=== PATIENT | female | born 1965 | race Caucasian/White ===

== ENCOUNTER → 2018-03-05 08:35 | Outpatient (CLI) | payer OTHER, SELFPAY ==
[2018-03-05 10:46] LABS: Anion Gap 8 (5-15); BUN 13 mg/dL (7-18); BUN/Creat Ratio 13.3 RATIO (10-20); Calcium,Total 8.1 mg/dL (8.5-10.1); Chloride 108 mmol/L (98-107); Cholesterol 186 mg/dL (200); Creatinine, Serum 0.98 mg/dL (0.55-1.02); EST Glomerular Filtration Rate 63 mL/min (>60); Est Glom Filt Rate - Afr Amer 76 mL/min (>60); Glucose 87 mg/dL (74-106); High Density Lipoprotein 66 mg/dL; Sodium Level 142 mmol/L (136-145); Triglycerides 143 mg/dL; Very Low Density Lipoprotein 29 mg/dL (5-40)
== END ==
PROVIDERS: Family Provider Family Medicine; PCP Family Medicine; Visit Provider Family Medicine
DX: E78.00 Pure hypercholesterolemia, unspecified (principal); E16.2 Hypoglycemia, unspecified
CPT/HCPCS: 36415; 80048; 80061

== ENCOUNTER → 2018-03-28 07:03 | Outpatient (CLI) | payer OTHER, SELFPAY ==
--- NOTE | 2018-03-28 07:10 | BI_ITS ---
MAMMOGRAPHY - BILATERAL SCREENING REASON FOR EXAM: Female, 52 years old. Routine annual screening examination. PERTINENT HISTORY: Grandmother with breast cancer. Aunt with breast cancer. TECHNIQUE: Digital bilateral breast linh (3D mammographic acquisition) in the CC and MLO projections. 2-D mediolateral oblique (MLO) and craniocaudad (CC) views of both breasts were obtained. CAD: Full Field Digital Mammography with Computer Added Detection was performed. COMPARISON: Comparison is made with prior study dated September 26, 2017 and March 26, 2017. FINDINGS: Breast Composition: The breasts are heterogeneously dense, which may obscure small masses. There are no dominant masses or suspicious calcifications. A tissue clip marker is seen in the inferior retroareolar region of the right breast. This is unchanged. No other significant abnormalities are identified. There has been no significant change since the prior study. BI/SCREENING MAMM (CAD), BILAT IMPRESSION: Stable bilateral screening mammogram. Yearly follow-up mammogram recommended. (A) ASSESSMENT CATEGORY: BIRADS Category 2: Benign. A letter regarding these results will be sent to the patient by the facility within 30 days. Approximately 10% of breast cancers are not detected by mammography. A normal mammogram should not delay biopsy of a clinically suspicious abnormality. [id number] Electronically Signed: Terry Chu MD at 8:40 EDT Tel [phone], Service support ,
== END ==
PROVIDERS: Family Provider Family Medicine; PCP Family Medicine; Visit Provider Obstetrics & Gynecology
DX: Z12.31 Encounter for screening mammogram for malignant neoplasm of breast (principal)
CPT/HCPCS: 77063; 77067

== ENCOUNTER → 2018-04-26 07:59 | Outpatient (CLI) | payer OTHER, SELFPAY ==
--- NOTE | 2018-04-26 08:03 | US_ITS ---
STUDY: ABDOMINAL ULTRASOUND - RIGHT UPPER QUADRANT REASON FOR VISIT: Female, 52 years old. Pain. TECHNIQUE: Ultrasound evaluation of the right upper quadrant was performed with real-time and static kenyon-scale imaging. TECHNICAL QUALITY: Adequate. COMPARISON: 08/26/2014. FINDINGS: Liver: The liver measures 13.7 cm. There is normal echogenicity of the liver. The bile ducts are within normal limits. There is hepatic color flow. The direction of portal flow is hepatopetal. There is no demonstrated mass lesion. Gallbladder: Normal distended gallbladder. The gallbladder wall measures 2.1 mm. There is a negative sonographic Ogden's sign. There is no pericholecystic fluid. There are no gallstones. There are 2 stable polyps measuring 3 mm greatest dimension. Common Bile Duct (C.B.D.): The common bile duct measures 2.4 mm. Pancreas: Normal size of the head, body and tail of the pancreas. There is normal echogenicity of the pancreas. There is no demonstrated pancreatic mass or cyst. Right Kidney: Normal size of the right kidney. The right kidney measures 9.1 cm. Normal renal cortex. The right cortex measures 1.2 cm. There is no demonstrated renal mass or cyst. There is no right hydronephrosis. US/Abdomen Limited IMPRESSION: Stable gallbladder polyps. Otherwise negative. Electronically Signed: Joel George MD at 13:05 EDT , Service support ,
== END ==
PROVIDERS: Family Provider Family Medicine; PCP Family Medicine; Visit Provider Family Medicine
DX: K82.4 Cholesterolosis of gallbladder (principal); R10.11 Right upper quadrant pain
CPT/HCPCS: 76705

== ENCOUNTER → 2018-05-09 08:46 | Outpatient (CLI) | payer OTHER, SELFPAY ==
--- NOTE | 2018-05-09 08:48 | NM_ITS ---
CLINICAL: 52-year-old female with reported history of right upper quadrant abdominal pain. RADIONUCLIDE HEPATOBILIARY SCINTIGRAPHY COMPARISON: Abdominal ultrasound report 04/26/2018, previous CCK hepatobiliary scintigraphy report 09/09/2014 FINDINGS: Following the intravenous administration of 5.4 mCi of 99m Tc Mebrofenin, hepatobiliary images reveal: 1. Relatively prompt and homogeneous radiopharmaceutical concentration is noted by a normal sized liver. No parenchymal defects are identified. 2. Gallbladder activity is identified at 10 minutes post radiopharmaceutical administration. 3. Small intestinal tract is not visualized during 60 minutes of pre-CCK sequential image acquisition, small bowel is observed following cholecystokinin infusion. 4. Washout of the radiopharmaceutical by the hepatic parenchyma appears qualitatively normal. Cholecystokinin (0.02 ug/kg) was administered intravenously over a 30-minute period. The post CCK gallbladder ejection fraction calculated at 20 minutes following Cholecystokinin administration was noted to be 52.0 % (normal greater than 35%). During 30 minutes of post CCK imaging, there is no scintigraphic evidence of reflux of the radiotracer into the common hepatic duct or refilling of the gallbladder. LA/Hepatobilliary Img w/Pharm Int IMPRESSION: 1. NORMAL 99m Tc Mebrofenin hepatobiliary imaging examination with Cholecystokinin. A. A gallbladder ejection fraction calculated to be greater than 35% following the administration of Cholecystokinin makes the probability of functional hepatobiliary disease (gallbladder and/or sphincter of Oddi dyskinesia) and/or organic hepatobiliary disease (chronic acalculous cholecystitis and/or cystic duct syndrome) to be low. (Syl Costello et al, Journal of Nuclear Medicine 32:1695, 1990). Electronically Signed: Ed Hernandez DO at 10:01 EDT Tel , Service support ,
== END ==
PROVIDERS: Family Provider Family Medicine; PCP Family Medicine; Visit Provider Family Medicine
DX: R10.11 Right upper quadrant pain (principal)
CPT/HCPCS: 78227; A9537

== ENCOUNTER → 2018-05-29 17:56 | Outpatient (CLI) | payer OTHER, SELFPAY ==
--- NOTE | 2018-05-29 18:03 | CT_ITS ---
STUDY: CT ABDOMEN AND PELVIS WITH CONTRAST REASON FOR EXAM: Female, 52 years old. Right-sided abdominal pain RADIATION DOSAGE (If Supplied By Facility): CTDIvol = ( 17.67 ) mGy, DLP = ( 966.96 ) mGycm TECHNIQUE: Transaxial images were obtained from the dome of the diaphragm to the symphysis pubis without oral contrast. 100 ml of Isovue 300 contrast was administered. Sagittal and coronal images were reconstructed. Individualized dose optimization techniques were used for this CT. COMPARISON: None. FINDINGS: The lung bases are clear. A small 1 cm area of low-attenuation in the right lobe of the liver. It is probably a cyst. No dilated intrahepatic biliary radicles. The gallbladder is normal with no calcifications within it. There is no pericholecystic fluid collection or streakiness The spleen is normal. The pancreas is normal. Both adrenals are normal. The kidneys are normal with no masses, calculi or hydronephrosis The stomach is normal. There is no bowel distention, acute appendicitis or diverticulitis. No constricting lesions are seen in large bowel. The abdominal wall is intact with no hernias. There is no ascites or any free intraperitoneal air. No indication of epiploic appendagitis The vascular structures in the retroperitoneum are normal. There is no retrocrural, retroperitoneal or mesenteric adenopathy. The bones and joints are normal. The urinary bladder is normal.--The uterus is normal. There is no inguinal or pelvic adenopathy. There is no inguinal hernia. . CT/Abdomen/Pelvis WITH Contrast IMPRESSION: No acute findings in the abdomen or pelvis. Specifically there is no acute appendicitis or diverticulitis. Electronically Signed: Washington Walden, at 3:17 EDT Tel , Service support ,
== END ==
PROVIDERS: Family Provider Family Medicine; PCP Family Medicine; Visit Provider Family Medicine
DX: R10.11 Right upper quadrant pain (principal)
CPT/HCPCS: 74177; Q9967

== ENCOUNTER → 2018-07-31 08:23 | Outpatient (CLI) | payer OTHER, SELFPAY ==
[2018-07-31 10:34] LABS: CRP 5.56 mg/L (0.0-3.0)
[2018-08-01 16:13] LABS: Endomysial Antibody IgA Negative (Negative)
[2018-08-02 10:50] LABS: Immunoglobulin A 186 mg/dL (87-352); t-Transglutaminase IgA <2 U/mL (0-3)
== END ==
PROVIDERS: Family Provider Family Medicine; PCP Family Medicine; Visit Provider Internal Medicine Gastroenterology
DX: R10.9 Unspecified abdominal pain (principal); R19.7 Diarrhea, unspecified
CPT/HCPCS: 36415; 82784; 83516; 86140; 86255

== ENCOUNTER → 2018-09-13 11:59 | Outpatient (CLI) | payer OTHER, SELFPAY ==
--- NOTE | 2018-09-13 12:01 | RAD_ITS ---
STUDY: X-RAY CHEST REASON FOR EXAM: Female, 52 years old. Cough and shortness of breath TECHNIQUE: PA and lateral views of the chest. COMPARISON: 02/06/2017 FINDINGS: The lungs are clear and expanded. There is no demonstrated pleural abnormality. Normal size heart. Normal mediastinum and deepali. Normal visualized pulmonary arteries. Normal visualized aortic arch and descending thoracic aorta. Normal visualized thoracic spine. Normal visualized ribs, clavicles, and shoulders. There is no demonstrated abnormality of the visualized soft tissue structures of the upper abdomen. RAD/Chest PA and Lateral IMPRESSION: Normal x-ray examination of the chest. Electronically Signed: Nikunj Childs DO at 12:23 EDT Tel , Service support ,
== END ==
PROVIDERS: Family Provider Family Medicine; PCP Family Medicine; Referring Provider Family Medicine; Visit Provider Family Medicine
DX: J20.9 Acute bronchitis, unspecified (principal)
CPT/HCPCS: 71046

== ENCOUNTER → 2019-01-06 13:18 | Outpatient (CLI) | payer OTHER, SELFPAY ==
[2019-01-08 17:14] LABS: HPV Reflexed? NOT INDICATED
== END ==
PROVIDERS: Visit Provider Obstetrics & Gynecology
DX: Z12.4 Encounter for screening for malignant neoplasm of cervix (principal)
CPT/HCPCS: 88175; G0145

== ENCOUNTER 2019-01-23 08:00 | Outpatient (RCR) | payer OTHER, SELFPAY ==
--- NOTE | 2018-11-19 13:58 | HP.OTEVAL ---
Patient's Visit Information LIONEL GOVEA is a 52 year old F, referred to Occupational Therapy by NIKHIL HENNING, with a diagnosis of left tear of TFCC left wrist pain. Date of Evaluation: 11/19/18 Occupational Therapist: Sherrie Delong, GUZMAN/Loretta, CHT - Subjective [facility]ive: [facility] had history left wrist pain starting in january. 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 - Pain left wrist 3 Pain Intensity Range: 3, 8 - ROM Wrist: right 70/55 left NT Opposition: 4 ROM Comments: left IF MCP 0/77 right 0/90, left PIP 0/85 right 0/105, left DIP 0/40 right 0/35. left MF MCP 0/75 right 0/85, left PIP 0/90, right 0/105, left DIP 0/50, right 0/45. left RF MCP 0/70 right 0/85, left PIP 0/85 right 0/105, left DIP 0/30 right 0/40. left LF MCP 0/75 right 0/90, left PIP 0/90 right 0/110, left DIP 0/30 right 0/55 - Strength [employer]: right 75# left NT Lateral Pinch: right 16# left NT Tripod Pinch: right 18# Left NT Strength Comments: left strength will be tested at later date - Edema Wrist: left 18cm right 16cm PIP: left MF 6.7 right 5.7 Proximal Phalanx: left 20cm right 19cm - Sensation Sensation Comments: denies - Hand/Wrist Evaluation Total Score of Pain & Functional Sections: 89 - Goals Goal:100% adherence to protocol: Yes Comment: lunotriquetral ligament reconstruction with ECU tendon transfer Goal:Daily scar massage when approriate: Yes Goal:ROM equal to unaffected hand: Yes Comment: at 10 weeks s/p Comment: at 12 weeks s/p Goal:No pain with affected hand use: Yes Goal:PIP Circumferences equal to unaffected hand: Yes Goal:Full use of affected hand in daily activities including: Yes Goal:Improvement in sensation documented by [place]-Princess: Yes Goal:Decrease scar hypersensitivity: Yes - Rehabilitation General Assessment: pt S/P 11 days left wrist arthroscopy with triangular fibrocartilage complex debridement. left wrist open ganglion excision. left wrist lunotriquetral ligament reconstruction with extensor carpi ulnaris tendon transfer. PIN neurectomy on 11/08/18. ordered OT for eval and tx. for edema reduction techniques, desensitixation/sensory retraining and scar mtg. NO wrist Flex/extension and NO weight bearing at this time- Therapist will initiate ROM when approves of pts wrist stability and approves for wrist/forearm ROM to begin. Rehabilitation Potential: Excellent - Anticipated Interventions Anticipated Interventions: A/AAROM/PROM, Strengthening, Edema Control, Scar Care, Triggerpoint Release, Desensitization, Sensory Retraining, Modalities, Orthoses - Visit Plan Frequency: 1-2x /Week Duration: 3 Months TEXT: Thank you for the opportunity to evaluate your patient. For Medicare and Medicare HMO plans, please review the plan of care and approve it. It will need to be FAXED BACK to us at [phone] for Medicare purposes. Please let me know if there are questions or concerns regarding this plan of care. Physician Signature: Date:
--- NOTE | 2019-01-23 08:32 | HP.OTREVAL ---
Tee Lawrence MD, It has been my pleasure to treat LIONEL GOVEA over the last 10 visits for left tear of TFCC left wrist pain. Please see the progress note below for an update on the occupational therapy plan of care! Subjective: pt arrives to session without brace- states she is not wearing it at all- pt states she is stretching her wrist about 4-5 x a day, pt states she is using her hand to fold laundry, wash dishes and do other daily tasks without pain or difficulty. Objective/Function: wrist prior to therapy session 55/25. left forearm supination WNL. following session pt demo acitve wrsit ROM at 60/30 Plan Frequency: 1-2x /Week Duration: 4 Weeks Plan: pt to return to for further orders-. Pt to cont with her ROM ex to improve end range motion. Anticipated Interventions Anticipated Interventions: A/AAROM/PROM, Strengthening, Edema Control, Scar Care, Triggerpoint Release, Desensitization, Sensory Retraining, Modalities, Orthoses Please do not hesitate to contact me at [phone] by phone or if you have questions or concerns regarding this new plan of care! Sincerely, Sherrie Delong, OTR/L, CHT
--- NOTE | 2019-05-27 08:27 | HP.OTDCSUM ---
HP - OT D/C Summary It has been my pleasure to treat LIONEL GOVEA under orders from Tee Lawrence MD, for the diagnosis of left tear of TFCC left wrist pain for a total of 10 visit(s). Please see the following information for a summary of their discharge status. - Objective Objective/Function: wrist prior to therapy session 55/25. left forearm supination WNL. following session pt demo acitve wrsit ROM at 60/30 - Goals Patient Goals: Regain Mobility, Regain Strength, Decrease Pain, Return to Work, Improve Fine Motor Skills, Use Hand/Wrist/Arm Normally Again Goal:100% adherence to protocol: Yes Goal:Daily scar massage when approriate: Yes Goal:ROM equal to unaffected hand: Yes Goal:No pain with affected hand use: Yes Goal:PIP Circumferences equal to unaffected hand: Yes Goal:Full use of affected hand in daily activities including: Yes Goal:Improvement in sensation documented by [place]-Princess: Yes Goal:Decrease scar hypersensitivity: Yes - Plan Plan: pt to return to for further order. Pt called to let therapist know she was placed back in her orthosis. pt has not returned to therapy since 01/28/19 and due to time lapse pt d/c at this time. - D/C Information If there are questions or concerns regarding this patient's occupational therapy, please fell free to call me at [phone]. Thank you for the referral of this patient. Sincerely, Sherrie Delong, OTR/L, CHT
== END 2019-01-23 19:00 | disposition home or self-care (01) ==
LOC: OT 08:00
PROVIDERS: Family Provider Family Medicine; PCP Family Medicine; Referring Provider Orthopaedic Surgery Hand Surgery; Visit Provider Orthopaedic Surgery Hand Surgery
DX: M25.532 Pain in left wrist (principal); M24.132 Other articular cartilage disorders, left wrist
CPT/HCPCS: 97110; 97140; 97166; 97530

== ENCOUNTER → 2019-03-31 | Outpatient (CLI) | payer OTHER, SELFPAY ==
--- NOTE | 2019-03-31 08:24 | BI_ITS ---
MAMMOGRAPHY - BILATERAL SCREENING REASON FOR EXAM: Female, 53 years old. Routine annual screening examination. PERTINENT HISTORY: Grandmother with breast cancer. Aunt with breast cancer. TECHNIQUE: Digital bilateral breast linh (3D mammographic acquisition) in the CC and MLO projections. 2-D mediolateral oblique (MLO) and craniocaudad (CC) views of both breasts were obtained. CAD: Full Field Digital Mammography with Computer Added Detection was performed. COMPARISON: Comparison is made with prior study dated March 28, 2018 and September 26, 2017. FINDINGS: Breast Composition: The breasts are heterogeneously dense, which may obscure small masses. There are no dominant masses or suspicious calcifications. A tissue clip marker is once again seen in the retroareolar region of the right breast. No other significant abnormalities are identified. There has been no significant change since the prior study. BI/SCREENING MAMM (CAD), BILAT IMPRESSION: Stable bilateral screening mammogram. Yearly follow-up mammogram recommended. (A) ASSESSMENT CATEGORY: BIRADS Category 2: Benign. A letter regarding these results will be sent to the patient by the facility within 30 days. Approximately 10% of breast cancers are not detected by mammography. A normal mammogram should not delay biopsy of a clinically suspicious abnormality. [id number] Electronically Signed: Terry Chu, at 12:18 EDT , Service support ,
== END | disposition home or self-care (01) ==
LOC: OPBI 08:22
PROVIDERS: Family Provider Family Medicine; PCP Family Medicine; Referring Provider Obstetrics & Gynecology; Visit Provider Obstetrics & Gynecology
DX: Z12.31 Encounter for screening mammogram for malignant neoplasm of breast (principal)
CPT/HCPCS: 77063; 77067

== ENCOUNTER → 2019-08-04 12:05 | Outpatient (CLI) | payer OTHER, SELFPAY ==
[2018-09-19 08:20] VITALS: BMI 25.4
[2019-08-04 14:17] LABS: Creatinine, Serum 1.06 mg/dL (0.55-1.02); EST Glomerular Filtration Rate 57 mL/min (>60); Est Glom Filt Rate - Afr Amer 69 mL/min (>60)
== END ==
PROVIDERS: Family Provider Family Medicine; PCP Family Medicine; Referring Provider Nurse Practitioner; Visit Provider Nurse Practitioner
DX: M48.061 Spinal stenosis, lumbar region without neurogenic claudication (principal)
CPT/HCPCS: 36415; 82565

== ENCOUNTER → 2020-04-01 10:10 | Outpatient (CLI) | payer OTHER, SELFPAY ==
[2020-03-31 09:03] VITALS: BMI 25.4
--- NOTE | 2020-04-01 10:12 | BI_ITS ---
MAMMOGRAPHY - BILATERAL SCREENING REASON FOR EXAM: Female, 54 years old. Routine annual screening examination. PERTINENT HISTORY: Grandmother with breast cancer. Prior right ultrasound guided breast biopsy. Aunt with breast cancer. TECHNIQUE: Digital bilateral breast tyson (3D mammographic acquisition) in the CC and MLO projections. 2-D mediolateral oblique (MLO) and craniocaudad (CC) views of both breasts were obtained. CAD: Full Field Digital Mammography with Computer Added Detection was performed. COMPARISON: Comparison is made with prior examination dated March 31, 2019 and March 28, 2018. FINDINGS: Breast Composition: The breasts are heterogeneously dense, which may obscure small masses. There are no dominant masses or suspicious calcifications. A tissue clip marker is seen in the inferior retroareolar region of the right breast. No other significant abnormalities are identified. There has been no significant change since the prior study. BI/SCREEN MAMM (CAD) W/TYSON BILAT IMPRESSION: Stable bilateral screening mammogram. Yearly follow-up mammogram recommended. (A) ASSESSMENT CATEGORY: BIRADS Category 2: Benign. A letter regarding these results will be sent to the patient by the facility within 30 days. Approximately 10% of breast cancers are not detected by mammography. A normal mammogram should not delay biopsy of a clinically suspicious abnormality. [id number] Electronically Signed: Terry Chu, at 10:29 EDT , Service support ,
== END ==
PROVIDERS: PCP Family Medicine; Referring Provider Obstetrics & Gynecology; Visit Provider Obstetrics & Gynecology
DX: Z12.31 Encounter for screening mammogram for malignant neoplasm of breast (principal)
CPT/HCPCS: 77063; 77067

== ENCOUNTER → 2020-04-14 10:08 | Outpatient (CLI) | payer OTHER, SELFPAY ==
[2020-04-12 10:26] VITALS: BMI 25.4
--- NOTE | 2020-04-15 13:27 | PFT ---
INTRODUCTION: The patient is a 54-year-old female that presents for pulmonary function studies secondary to a diagnosis of asthma. Respiratory therapy reports good patient effort. Bronchodilators were used during testing. INTERPRETATION: Forced expiration spirometry demonstrates no evidence of a large airways obstructive ventilatory defect. There was no significant response to aerosolized bronchodilators. Spirograms are of good quality and plateau normally. Body plethysmography was performed and reveals lung volumes to be within normal limits. Diffusing capacity by single breath CO is also within normal limits. IMPRESSION: Grossly normal pulmonary function studies.
== END ==
PROVIDERS: PCP Family Medicine; Referring Provider Internal Medicine Critical Care Medicine; Visit Provider Internal Medicine Critical Care Medicine
DX: J45.909 Unspecified asthma, uncomplicated (principal)
CPT/HCPCS: 94060; 94726; 94729

== ENCOUNTER → 2020-05-18 09:30 | Outpatient (CLI) | payer OTHER, SELFPAY ==
[2020-04-12 10:26] VITALS: BMI 25.4
[2020-05-18 13:02] LABS: ALB/GLOB Ratio 0.9 RATIO (0.9-2.4); AST(SGOT) 15 U/L (15-37); Alanine Aminotransfer ALT/SGPT 23 U/L (13-56); Albumin, Serum 3.4 g/dL (3.2-5.0); Alkaline Phosphatase 62 U/L (45-117); Anion Gap 8 (5-15); BUN 19 mg/dL (7-18); BUN/Creat Ratio 21.6 RATIO (10-20); Calcium,Total 8.8 mg/dL (8.5-10.1); Chloride 105 mmol/L (98-107); Cholesterol 232 mg/dL (200); Creatinine, Serum 0.88 mg/dL (0.55-1.02); EST Glomerular Filtration Rate 71 mL/min (>60); Est Glom Filt Rate - Afr Amer 86 mL/min (>60); Globulin 3.7 g/dL (2.2-4.2); Glucose 88 mg/dL (74-106); High Density Lipoprotein 97 mg/dL; Potassium 3.7 mmol/L (3.5-5.1); Protein, Total 7.1 g/dL (6.4-8.2); Sodium Level 139 mmol/L (136-145); Triglycerides 59 mg/dL; Very Low Density Lipoprotein 12 mg/dL (5-40)
== END ==
PROVIDERS: PCP Family Medicine; Referring Provider Family Medicine; Visit Provider Family Medicine
DX: Z13.1 Encounter for screening for diabetes mellitus (principal); Z13.220 Encounter for screening for lipoid disorders
CPT/HCPCS: 36415; 80053; 80061

== ENCOUNTER → 2020-07-22 | Outpatient (CLI) | payer OTHER, SELFPAY ==
[2020-04-12 10:26] VITALS: BMI 25.4
== END | disposition home or self-care (01) ==
LOC: LABSPEC 07-23 11:10
PROVIDERS: PCP Family Medicine; Visit Provider Obstetrics & Gynecology
DX: R30.0 Dysuria (principal); R10.9 Unspecified abdominal pain
CPT/HCPCS: 87086

== ENCOUNTER → 2020-10-18 | Outpatient (CLI) | payer OTHER, SELFPAY ==
[2020-04-12 10:26] VITALS: BMI 25.4
== END | disposition home or self-care (01) ==
PROVIDERS: PCP Family Medicine; Visit Provider Nurse Practitioner Adult Health
DX: U07.1 COVID-19 (principal)
CPT/HCPCS: 87635; U0003

== ENCOUNTER → 2021-04-08 12:03 | Outpatient (CLI) | payer OTHER, SELFPAY ==
[2020-04-12 10:26] VITALS: BMI 25.4
[2021-02-24 10:43] VITALS: BMI 26.1
--- NOTE | 2021-04-08 12:04 | BI_ITS ---
MAMMOGRAPHY - BILATERAL SCREENING REASON FOR EXAM: Female, 55 years old. Routine annual screening examination. PERTINENT HISTORY: Grandmother with breast cancer. Aunt with breast cancer. History of prior right ultrasound-guided breast biopsy. TECHNIQUE: Digital bilateral breast tyson (3D mammographic acquisition) in the CC and MLO projections. 2-D mediolateral oblique (MLO) and craniocaudad (CC) views of both breasts were obtained. CAD: Full Field Digital Mammography with Computer Added Detection was performed. COMPARISON: Comparison is made with prior examination of 04/01/2020 and 03/31/2019. FINDINGS: Breast Composition: The breasts are heterogeneously dense, which may obscure small masses. There are no dominant masses or suspicious calcifications. A tissue clip marker is once again seen in the slightly inferior retroareolar region of the right breast. No other significant abnormalities are identified. There has been no significant change since the prior study. BI/SCRN MAMM (CAD)W/TYSON BILAT IMPRESSION: Stable bilateral screening mammogram. Yearly follow-up mammogram recommended. (A) ASSESSMENT CATEGORY: BIRADS Category 2: Benign. A letter regarding these results will be sent to the patient by the facility within 30 days. Approximately 10% of breast cancers are not detected by mammography. A normal mammogram should not delay biopsy of a clinically suspicious abnormality. [id number] Electronically Signed: Terry Chu MD at 13:07 EDT , Service support ,
== END ==
PROVIDERS: PCP Family Medicine; Referring Provider Student in an Organized Health Care Education/Training Program; Visit Provider Student in an Organized Health Care Education/Training Program
DX: Z12.31 Encounter for screening mammogram for malignant neoplasm of breast (principal)
CPT/HCPCS: 77063; 77067

== ENCOUNTER → 2021-05-23 08:22 | Outpatient (CLI) | payer OTHER, SELFPAY ==
[2021-02-24 10:43] VITALS: BMI 26.1
[2021-05-23 10:43] LABS: Cholesterol 204 mg/dL (200); High Density Lipoprotein 88 mg/dL; Triglycerides 95 mg/dL; Very Low Density Lipoprotein 19 mg/dL (5-40)
== END ==
PROVIDERS: PCP Family Medicine; Referring Provider Family Medicine; Visit Provider Family Medicine
DX: E78.00 Pure hypercholesterolemia, unspecified (principal)
CPT/HCPCS: 36415; 80061

== ENCOUNTER 2021-06-19 15:16 | Emergency (ER) | payer OTHER, SELFPAY ==
[2021-02-24 10:43] VITALS: BMI 26.1
[2021-06-19 15:17] VITALS: BP 152/86; PULSE 97; RESP 16; TEMP 36.2; O2SAT 99; BMI 26.6
--- NOTE | 2021-06-19 15:40 | EKG12_ITS ---
Test Reason : Blood Pressure : / mmHG Vent. Rate : 082 BPM Atrial Rate : 082 BPM P-R Int : 166 ms QRS Dur : 090 ms QT Int : 376 ms P-R-T Axes : 058 028 053 degrees QTc Int : 439 ms Normal sinus rhythm Normal ECG Confirmed by DOE CARBONE, XOCHILT ([id number]), social media editor ROZ GUSTAFSON ([id number]) on 06/23/2021 10:48:53 AM Referred By: Confirmed By:XOCHILT AZAR MD
--- NOTE | 2021-06-19 15:50 | RAD_ITS ---
INDICATION: chest pain EXAMINATION/TECHNIQUE: X-RAY - XR Chest 1 View COMPARISON: None. FINDINGS: The lungs are clear. The cardiomediastinal silhouette is unremarkable. No pleural effusion or pneumothorax. No acute osseous abnormalities. RAD/Chest 1 View (Portable) IMPRESSION: No acute radiographic abnormalities. Electronically Signed: Portillo Valenzuela MD at 16:28 EDT Tel , Service support ,
[2021-06-19] MEDS: Aspirin 81 MG TAB.CHEW 324 MG PO (15:52)
[2021-06-19 15:53] VITALS: O2SAT 98
[2021-06-19 16:00] VITALS: BP 110/92; PULSE 75; RESP 16; O2SAT 100
--- NOTE | 2021-06-19 16:07 | ED.VIS.CHEST ---
HPI History of Present Illness Chief Complaint: Chest Pain Informant: patient Narrative Narrative: Patient is a 55-year-old female with history of asthma and acid reflux presenting with chest discomfort and tightness. Patient states it started yesterday afternoon. She notes has been constant. She states it feels sort of like her indigestion but also feels like her asthma. She states she is used Tums and her inhaler with no relief. She does not feel short of breath but states it feels hard to take a deep breath. She had some intermittent nausea but no vomiting. She had normal bowel movements. She has had a little bit of discomfort in her epigastric region and states her stomach feels sore. Patient did have L3/4 surgery on June [address] Donnell Galvan at the [facility]. She notes she not had any leg swelling but does have a history of superficial DVT after knee surgery remotely. Patient denies any cough. Denies any fever. No other complaints at this time. PE Risk Factors: Positive for Recent Travel/Surgery and Prior DVT or PE [facility] Medical History (Updated 06/19/21 @ 19:[address] Shannan Willingham, ) Allergic rhinitis Asthma, moderate persistent Fibroadenoma of right breast Hormone replacement therapy Vocal cord polyp Home Medications acidophilus-pectin, citrus 1 tab PO DAILY 09/19/13 [History Last Taken Unknown] multivitamin with folic acid 1 tab PO DAILY 09/19/13 [History Last Taken Unknown] sumatriptan succinate 100 mg PO .X1 PRN 03/15/16 [History Last Taken Unknown] calcium carbonate-vitamin D3 1 ea PO DAILY 02/06/17 [History Last Taken Unknown] omega-3 fatty acids-fish oil 1 ea PO DAILY 02/06/17 [History Last Taken Unknown] conj estrogen-medroxyprogesterone 0.45 mg-1.5 mg tablet 1 tab PO DAILY 09/19/18 [History Last Taken Unknown] ferrous sulfate 325 mg (65 mg iron) tablet 325 mg PO DAILY tab 09/19/18 [History Last Taken Unknown] pantoprazole 40 mg tablet,delayed release 40 mg PO DAILY 09/19/18 [History Last Taken Unknown] eluxadoline 100 mg tablet 100 mg PO BID 03/31/20 [History Last Taken Unknown] triamcinolone acetonide 55 mcg nasal spray aerosol 1 spray INTRANASAL DAILY 03/31/20 [History Last Taken Unknown] albuterol sulfate 90 mcg/actuation aerosol inhaler 2 puff INHALATION Q6H PRN #8.5 gm 02/24/21 [Rx Last Taken Unknown] budesonide-formoterol HFA 160 mcg-4.5 mcg/actuation aerosol inhaler 2 puff INHALATION BID #10.2 g 02/24/21 [Rx Last Taken Unknown] hydrocodone-acetaminophen [[facility]] 1 tab PO Q6H PRN 06/19/21 [History Last Taken Unknown] Allergy/AdvReac Type Severity Reaction Status Date / Time gabapentin [From Neurontin] Allergy Itching Verified 06/19/21 15:19 methscopolamine bromide Allergy Itching Verified 06/19/21 15:19 [From Pamine] topiramate [From Topamax] Allergy Itching Verified 06/19/21 15:19 tramadol HCl [From Ultram] Allergy Itching Verified 06/19/21 15:19 adhesive AdvReac Rash Verified 06/19/21 15:19 hydromorphone HCl AdvReac Nausea/Vom/ Verified 06/19/21 15:19 [From Dilaudid] Diarrhea oxycodone HCl [From Percocet] AdvReac Nausea Verified 06/19/21 15:19 Family History Mother Asthma Diabetes Father Hypertension Lung disease Surgical History bilateral elbow surgery H/O inguinal hernia repair H/O knee surgery H/O tubal ligation History of bunionectomy of both great toes History of right oophorectomy Previous back surgery Right shoulder surgery Right wrist surgery Trigger finger release bilateral hands Vocal cord surgery Social History (Updated 02/24/21 @ 11:[address] Chandler Jackson MD) Smoking Status: Never smoker alcohol intake: never substance use type: does not use ROS ROS ED Constitutional Constitutional ED: Denies chills, fatigue, fever(s) or weakness Eyes Eyes: Denies blurry vision ENT ENT ED: Denies rhinorrhea or sore throat Cardiovascular Cardiovascular: Reports chest pain Respiratory/Chest Respiratory/Chest: Reports dyspnea; Denies cough or dyspnea on exertion Gastrointestinal Gastrointestinal: Denies abdominal pain, nausea or vomiting Genitourinary Genitourinary ED: Denies decreased urination or dysuria Musculoskeletal Musculoskeletal: Denies extremity pain Integumentary Denies new lesions or rash Neurologic Neurologic: Denies headache(s), paresthesias or weakness Psychiatric Psychiatric: Denies anxiety or depression Hematologic/Lymphatic Hematologic/Lymphatic: Denies easy bleeding or easy bruising EXAM Physical Exam Const Vital Signs: 06/19/21 15:17 06/19/21 15:53 06/19/21 16:00 Temperature 97.2 F L Temperature Source Temporal Pulse Rate 97 75 Respiratory Rate 16 16 Respiratory Effort Normal Blood Pressure 152/86 H 110/92 H Blood Pressure Mean 108 98 Pulse Ox 99 98 100 Oxygen Delivery Method Room Air Room Air Room Air 06/19/21 17:00 06/19/21 18:00 06/19/21 19:11 Temperature Temperature Source Pulse Rate 68 87 74 Respiratory Rate 17 18 16 Respiratory Effort Blood Pressure 131/81 H 143/83 H 118/75 Blood Pressure Mean 97 103 89 Pulse Ox 99 98 98 Oxygen Delivery Method Room Air Room Air Positive well nourished and well developed General Appearance ED: well developed HEENT Reports moist mucous membranes normocephalic and atraumatic Eyes PERRL and EOMs intact bilaterally Neck supple and no JVD Chest Wall inspection of chest normal and palpation of chest normal Resp normal respiratory effort and clear to auscultation bilaterally Auscultation: Negative for wheezes or diminished lung sounds Cardio regular rate, regular rhythm and no murmurs GI normal to inspection, nondistended, normoactive bowel sounds Back/Spine Back/Spine Narrative: Normal range of motion. No midline tenderness. Extremity normal to inspection General Extremety ED: Negative for edema or tenderness General Extremity: Negative for edema Neuro oriented x3 Sensorium / Orientation: awake and alert Psych mental status grossly normal Skin Skin Narrative: Surgical incision on the lumbar spine as well as the left lateral back. Appear to be healing appropriately. No associated erythema, drainage or abnormal tenderness Heart Score History: Slightly/Non-Suspicious ECG: Normal Age: >45 - <65 years Risk Factors: 1 or 2 Risk Factors Troponin: </= Normal Limit Score: 2 MDM MDM MDM Narrative Medical decision making narrative: Patient evaluated for chest tightness. Is been constant since yesterday. She has normal EKG. This is atypical for ACS and I feel that 1 normal high since her troponin effectively rules this out. She does have some risk factors for PE and a D-dimer was obtained. It is elevated so a CTA is ordered. This does not show any acute cardiopulmonary process including a PE. CBC and CMP are also unremarkable. The cause of her discomfort is not clear however I think patient stable for outpatient follow-up. She is not have any signs of infection, cardiac ischemia or VTE. Patient is agreeable this plan of care. She discharged home in stable condition. She is given aspirin in the emergency room. Lab Data Attestation: I reviewed the patient's lab results. Labs: Laboratory Results - last 24 hr 06/19/21 06/19/21 06/19/21 15:45 15:45 15:45 WBC 6.0 RBC 4.61 Hgb 13.8 Hct 42.4 MCV 92.0 MCH 29.9 MCHC 32.5 RDW Std Deviation 40.9 RDW Coeff of Renetta 12.0 Plt Count 238 MPV 8.9 Immature Gran % (Auto) 0.300 Neut % (Auto) 67.8 Lymph % (Auto) 22.5 [place] % (Auto) 6.5 Eos % (Auto) 2.2 Baso % (Auto) 0.7 Absolute Neuts (auto) 4.1 Absolute Lymphs (auto) 1.36 Nucleated RBC % 0 D-Dimer Quant (PE/DVT) 0.95 H* Sodium 139 Potassium 3.6 Chloride 103 Carbon Dioxide 29.0 Anion Gap 7 BUN 12 Creatinine 0.98 Estim Creat Clear Calc 57.68 Est GFR (MDRD) Af Amer 75 Est GFR (MDRD) Non-Af 62 BUN/Creatinine Ratio 12.2 Glucose 92 Calcium 8.8 Total Bilirubin 0.30 AST 19 ALT 38 Alkaline Phosphatase 95 Troponin I High Sens 3.1 Total Protein 7.3 Albumin 3.5 Globulin 3.8 Albumin/Globulin Ratio 0.9 Lipase 66 L Radiography Chest X-Ray - ED: 1 View, Read by ED Physician, Read by Radiologist and No Acute Disease Diagnostic Testing: Radiology Impression Chest X-Ray 06/19/21 15:50 IMPRESSION: No acute radiographic abnormalities. Electronically Signed: Portillo Valenzuela MD at 16:28 EDT Tel , Service support , Chest CTA 06/19/21 16:49 IMPRESSION: No acute abnormalities in the chest. Specifically, no evidence of acute pulmonary emboli to segmental level. Electronically Signed: Portillo Valenzuela MD at 18:07 EDT Tel , Service support , Rhythm Strip Rhythm Strip: Sinus Rhythm Rate: 82 Ectopy: None EKG Initial EKG: Attestation: I personally reviewed and interpreted this EKG as follows: Interpretation: Sinus Rhythm Comments: Normal sinus rhythm at a rate of 82 Normal axis Normal intervals Normal ST segments Discharge Plan Triage Chief Complaint: Chest Pain ED Provider: Shannan Willingham Dx/Rx/DC Orders Clinical Impression: Chest pain Instructions: ED Chest Pain [facility] Prescriptions: No Action Prempro 0.45-1.5 mg tablet 1 tab PO DAILY RF: 0 pantoprazole [Protonix] 40 mg tablet,delayed release (DR/EC) 40 mg PO DAILY RF: 0 ferrous sulfate 325 mg (65 mg iron) tablet 325 mg PO DAILY RF: 0 Viberzi 100 mg tablet 100 mg PO BID RF: 0 triamcinolone acetonide [Nasacort] 55 mcg aerosol,spray 1 spray INTRANASAL DAILY RF: 0 budesonide-formoterol [Symbicort] 160-4.5 mcg/actuation HFA aerosol inhaler 2 puff inhalation BID Qty: 10.2 RF: 6 albuterol sulfate 90 mcg/actuation HFA aerosol inhaler 2 puff INHALATION Q6H PRN (Reason: shortness of breath or wheezing) Qty: 8.5 RF: 1 acidophilus-pectin, citrus 1 TABLET tablet 1 tab PO DAILY RF: 0 multivitamin with folic acid 1 TABLET tablet 1 tab PO DAILY RF: 0 sumatriptan succinate 100 MG tablet 100 mg PO .X1 PRN RF: 0 calcium carbonate-vitamin D3 1 EACH tablet 1 ea PO DAILY RF: 0 omega-3 fatty acids-fish oil 1 EACH capsule 1 ea PO DAILY RF: 0 hydrocodone-acetaminophen [[facility]] 5-325 mg Tablet 1 tab PO Q6H PRN (Reason: Pain) RF: 0 Primary Care Provider: German Kumari Referrals: German Kumari MD [Primary Care Provider] - Disposition Disposition: Home, Self Care Discharge Date/Time: 06/19/21:14
[2021-06-19 16:13] LABS: D-Dimer Quantitative (DVT/PE) 0.95 FEU/ug/m (0.27-0.49)
[2021-06-19 16:16] LABS: ALB/GLOB Ratio 0.9 RATIO (0.9-2.4); AST(SGOT) 19 U/L (15-37); Alanine Aminotransfer ALT/SGPT 38 U/L (13-56); Albumin, Serum 3.5 g/dL (3.2-5.0); Alkaline Phosphatase 95 U/L (45-117); Anion Gap 7 (5-15); BUN 12 mg/dL (7-18); BUN/Creat Ratio 12.2 RATIO (10-20); Calcium,Total 8.8 mg/dL (8.5-10.1); Chloride 103 mmol/L (98-107); Creatinine, Serum 0.98 mg/dL (0.55-1.02); EST Glomerular Filtration Rate 62 mL/min (>60); Est Glom Filt Rate - Afr Amer 75 mL/min (>60); Estimated Creatinine Clearance 57.68 ml/min; Globulin 3.8 g/dL (2.2-4.2); Glucose 92 mg/dL (74-106); Lipase 66 U/L (73-393); Potassium 3.6 mmol/L (3.5-5.1); Protein, Total 7.3 g/dL (6.4-8.2); Sodium Level 139 mmol/L (136-145); Troponin-I HS 3.1 pg/mL (3.0-53.7)
[2021-06-19 16:19] LABS: Absolute Lymphocyte Count 1.36 X10^3/uL (0.83-4.51); Absolute Neutrophil Count 4.1 X10^3/uL (2.0-7.7); Basophil# 0.04 X10^3/uL; Basophil% 0.7 % (0-1); Eosinophil# 0.13 X10^3/uL; Eosinophils% 2.2 % (0-5); Hematocrit 42.4 % (37-47); Hemoglobin 13.8 g/dL (12.0-15.0); Lymphocyte # 1.36 X10^3/ul (0.83-4.51); Lymphocyte % 22.5 % (19-41); Mean Corp Hgb Conc 32.5 g/dL (32-36); Mean Corpuscular Hgb 29.9 pg (27.0-32.0); Mean Platelet Vol. 8.9 fl (6.2-12.0); Monocyte# 0.39 X10^3/uL; Monocyte% 6.5 % (0-10); NRBC Flagged by Analyzer 0 % (0-5); Neutrophil % 67.8 % (47-70); Platelet Count 238 K/mm3 (150-450); RBC Distribution Width SD 40.9 fl (35.1-43.9); Red Blood Count 4.61 M/mm3 (4.2-5.4)
--- NOTE | 2021-06-19 16:49 | CT_ITS ---
INDICATION: chest pain, suspect PE EXAMINATION: CTA Chest WO/W Contrast Injection TECHNIQUE: Helically acquired images were obtained of the chest following administration of IV contrast. A radiation dose optimization technique was used for this scan. 3D postprocessing images including MIPS were reviewed. IV Contrast dosage and agent: IV 100mL Isovue-370 COMPARISON: None. FINDINGS: Lungs: Unremarkable Mediastinum: The cardiomediastinal silhouette is not enlarged. No mediastinal, hilar or axillary adenopathy. The thoracic aorta is unremarkable. No obvious filling defect seen within the visualized pulmonary arteries. Pleura: Unremarkable Bones/Soft tissues: Mild scattered degenerative changes of the visualized spine. Upper abdomen: 1.2 cm hypodense lesion in the left lobe the liver measuring 11 HU is most likely a cyst. CT/CTA Chest W/WO Contrast IMPRESSION: No acute abnormalities in the chest. Specifically, no evidence of acute pulmonary emboli to segmental level. Electronically Signed: Portillo Valenzuela MD at 18:07 EDT Tel , Service support ,
[2021-06-19 17:00] VITALS: BP 131/81; PULSE 68; RESP 17; O2SAT 99
[2021-06-19 18:00] VITALS: BP 143/83; PULSE 87; RESP 18; O2SAT 98
[2021-06-19 19:11] VITALS: BP 118/75; PULSE 74; RESP 13; RESP 16; O2SAT 98
== END 2021-06-19 19:14 | disposition home or self-care (01) ==
PROVIDERS: Emergency Provider Emergency Medicine; PCP Family Medicine
DX: R07.89 Other chest pain (principal); R11.0 Nausea; K21.9 Gastro-esophageal reflux disease without esophagitis; J45.40 Moderate persistent asthma, uncomplicated; Z86.718 Personal history of other venous thrombosis and embolism; Z98.890 Other specified postprocedural states
CPT/HCPCS: 71045; 71275; 80053; 83690; 84484; 85025; 85379; 93005; 99285; Q9967; A4216

== ENCOUNTER → 2021-06-29 14:33 | Outpatient (CLI) | payer OTHER, SELFPAY ==
--- NOTE | 2021-06-29 14:40 | RAD_ITS ---
STUDY: X-RAY CHEST REASON FOR EXAM: Female, 55 years old. Dyspnea TECHNIQUE: PA and lateral views of the chest. COMPARISON: Comparison is made with prior study dated 06/19/2021. FINDINGS: There is hyperinflation of the lungs consistent with chronic obstructive lung disease (COPD). There is no demonstrated pleural abnormality. Normal size heart. Normal mediastinum and deepali. Normal visualized pulmonary arteries. There is atherosclerotic calcification of the aortic arch with tortuosity. There are degenerative changes of the visualized thoracic spine. Normal visualized ribs, clavicles, and shoulders. There is no demonstrated abnormality of the visualized soft tissue structures of the upper abdomen. RAD/Chest PA and Lateral IMPRESSION: Hyperinflation. The lungs are clear. Electronically Signed: Terry Chu MD at 15:26 EDT , Service support ,
== END ==
PROVIDERS: PCP Family Medicine; Referring Provider Nurse Practitioner Acute Care; Visit Provider Nurse Practitioner Acute Care
DX: R06.02 Shortness of breath (principal)
CPT/HCPCS: 71046

== ENCOUNTER → 2021-07-11 10:39 | Outpatient (CLI) | payer OTHER, SELFPAY ==
[2021-06-19 15:17] VITALS: BMI 26.6
--- NOTE | 2021-07-11 10:40 | STE_ITS ---
Reason For Study: Chest Pain; Dyspnea Stress Results Protocol: Dobutamine Stress Echo Maximum Predicted HR: 164 bpm Target HR: 139 bpm % Maximum Predicted HR: 89 % DurationHeart Rate Stage (mm:ss) (bpm) BP Comment Baseline 64 127/74No Chest Pain DSE 10 MCG 3:18 65 135/76No Chest Pain DSE 20 MCG 3:00 79 158/77No Chest Pain DSE 30 MCG 3:00 129 153/75No Chest Pain; Atropine 0.25 MG IVP Given at 7:41 Min DSE 40 MCG 2:04 146 173/84No Chest Pain; Atropine 0.25 MG IVP Given at 10:04 Min Recovery 94 134/80No Chest Pain Stress Duration: 11:22 mm:ss Maximum Stress HR: 146 bpm METS: 1 Baseline Echocardiogram Findings Stress Echo Wall motion Data Resting WM Intermediate WM Stress WM ECHO/Stress Test Echo w/o Contrast Interpretation Summary Dobutamine stress echocardiogram. 55-year-old lady with a history of chest pain, previous Covid and back surgery. Resting EKG demonstrates normal sinus rhythm with a rate of 61 bpm normal inter vals are noted resting blood pressure is 127/74 mmHg. Dobutamine was infused starting at 10 mc g/kg/min increasing in 3-minute aliquots to a peak of 40 mcg/kg/min. The patient maintained sinus r hythm throughout the recording. At rest there were no ST or T wave changes noted to suggest abnormal flow reserve. At peak infusion nonspecific ST changes were noted. Occasional premature ventricul ar complexes were noted. The maximum heart rate attained was 151 bpm which was 92% of maximum pre dicted heart rate the maximum workload was 1 metabolic equivalent. There were no EKG changes noted to suggest ischemia. Dobutamine stress echocardiogram. Resting echocardiogram demonstrated preserved left ventricular systolic functio n estimated at 55%. At low dose there was improvement in left ventricular systolic function and a p eak dose there was further improvement to a peak of 75% with no wall motion abnormalities noted. N o clinical angina was noted. No wall motion abnormalities were noted to suggest ischemia. Conclusion: Normal dobutamine stress echocardiogram with no evidence of ischemia or wall mo tion abnormalities noted. Ordering Physician: German Kumari Referring Physician: Jimbo Valencia Performed By: Macy Redding, RAYMOND, RVT
== END ==
PROVIDERS: PCP Family Medicine; Referring Provider Family Medicine; Visit Provider Family Medicine
DX: R07.9 Chest pain, unspecified (principal)
CPT/HCPCS: 93017; 93350; J7040; A4216

== ENCOUNTER 2021-11-21 07:58 | Outpatient (CLI) | payer OTHER, SELFPAY | END 2021-11-21 23:59 | disposition short-term general hospital (02) | LOC: LABSPEC 11-22 07:58 | PROVIDERS: PCP Family Medicine; Referring Provider Nurse Practitioner Family | DX: Z20.822 Contact with and (suspected) exposure to COVID-19 (principal) | CPT/HCPCS: 87635; U0003; U0005 ==

== ENCOUNTER 2022-02-24 13:55 | Outpatient (CLI) | payer OTHER, SELFPAY ==
--- NOTE | 2022-02-24 13:58 | VDLE_ITS ---
Reason For Study: Rt leg edema RIGHT LEFT GSV is normal. CFV is compressible, spontaneous, phasic, CFV is compressible, spontaneous, phasic, competent, and demonstrates normal competent and demonstrates normal augmentation. augmentation. FV is compressible, spontaneous, phasic, competent and demonstrates normal augmentation. POP V is compressible, spontaneous, phasic, competent and demonstrates normal augmentation. T/P Trunk is compressible. PTV is compressible. RT PerV is compressible. Rt SoleusV is dilated and non compressible consistent with acute DVT. Procedure This is a venous duplex using B-mode, color flow and spectral Doppler. Exam performed in department. A preliminary report was called and/or faxed to [facility]. VL/Venous Duplex US, Unilateral Interpretation Summary Acute deep venous thrombosis right soleus vein. Patent, compressible right great saphenous vein Normal flow patterns left common femoral vein Ordering Physician: Lakisha Mortensen Referring Physician: German Kumari Performed By: Miladis Shelton, RAYMOND, RVT
== END 2022-02-24 23:59 | disposition home or self-care (01) ==
LOC: CVS 13:56
PROVIDERS: PCP Family Medicine; Visit Provider Family Medicine
DX: R60.0 Localized edema (principal)
CPT/HCPCS: 93971

== ENCOUNTER → 2022-03-07 | Outpatient (CLI) | payer OTHER, SELFPAY ==
[2022-03-12 15:42] LABS: HPV APTIMA, High Risk Negative (Negative)
== END | disposition home or self-care (01) ==
LOC: LABSPEC 10:53
PROVIDERS: PCP Family Medicine; Visit Provider Student in an Organized Health Care Education/Training Program
DX: Z12.4 Encounter for screening for malignant neoplasm of cervix (principal)
CPT/HCPCS: 87624; 88175; G0145

== ENCOUNTER → 2022-04-11 | Outpatient (CLI) | payer OTHER, SELFPAY ==
--- NOTE | 2022-04-11 11:59 | BI_ITS ---
MAMMOGRAPHY - BILATERAL SCREENING REASON FOR EXAM: Female, 56 years old. Routine annual screening examination. PERTINENT HISTORY: Grandmother with breast cancer. Aunt with breast cancer. TECHNIQUE: Digital bilateral breast tyson (3D mammographic acquisition) in the CC and MLO projections. 2-D mediolateral oblique (MLO) and craniocaudad (CC) views of both breasts were obtained. CAD: Full Field Digital Mammography with Computer Added Detection was performed. COMPARISON: Comparison is made with prior study 04/08/2021 and 04/01/2020. FINDINGS: Breast Composition: The breasts are heterogeneously dense, which may obscure small masses. There are no dominant masses or suspicious calcifications. A tissue clip marker is once again seen in the slightly inferior retroareolar region of the right breast. No other significant abnormalities are identified. There has been no significant change since the prior study. BI/SCRN MAMM (CAD)W/TYSON BILAT IMPRESSION: Stable bilateral screening mammogram. Yearly follow-up mammogram recommended. (A) ASSESSMENT CATEGORY: BIRADS Category 2: Benign. A letter regarding these results will be sent to the patient by the facility within 30 days. Approximately 10% of breast cancers are not detected by mammography. A normal mammogram should not delay biopsy of a clinically suspicious abnormality. [id number] Electronically Signed: Terry Chu MD at 12:58 EDT ,
== END | disposition home or self-care (01) ==
LOC: OPBI 11:56
PROVIDERS: PCP Family Medicine; Visit Provider Student in an Organized Health Care Education/Training Program
DX: Z12.31 Encounter for screening mammogram for malignant neoplasm of breast (principal)
CPT/HCPCS: 77063; 77067

== ENCOUNTER → 2022-11-07 | Outpatient (CLI) | payer OTHER, SELFPAY ==
--- NOTE | 2022-11-07 12:54 | CT_ITS ---
STUDY: CTA CHEST REASON FOR EXAM: Female, 56 years old. SOB, Rule out PE RADIATION DOSAGE (If Supplied By Facility): CTDIvol = ( 13.35 ) mGy, DLP = ( 336.74 ) mGycm TECHNIQUE: The examination was performed with the intravenous administration of IV 100mL Isovue-370. Post-processing of the angiographic images was performed, with multiplanar reformation and 3D reconstruction. Individualized dose optimization techniques were used for this CT. COMPARISON: CTA chest with and without contrast from 06/19/2021. FINDINGS: Lungs/pleura: The central airways are patent. Consolidative airspace and groundglass opacities in the central and peripheral aspects of the left lower lobe. Scattered areas of subsegmental atelectasis. No suspicious masses. No pleural effusion or pneumothorax. Mediastinum: Heart size is normal. No pericardial effusion. No mass or hematoma. A few small likely reactive left mediastinal and hilar lymph nodes. No lymphadenopathy or ascites criteria. Vasculature: Normal course and caliber of the pulmonary trunk. No large filling defects to suggest acute pulmonary embolism. 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 No thoracic aortic aneurysm or dissection. Bones/soft tissues: No acute fracture or subluxation. No destructive osseous lesions. Soft tissues are unremarkable. Visualized upper abdomen: Stable right hepatic dome simple cyst. No acute findings in the visualized upper abdomen. CT/CTA Chest W/WO Contrast IMPRESSION: 1. Left lower lobe consolidative opacities likely relate to pneumonia. 2. No large filling defects to suggest acute pulmonary embolism. Electronically Signed: Jadon Sy, at 13:57 EST ,
== END | disposition home or self-care (01) ==
LOC: CT 12:53
PROVIDERS: PCP Family Medicine; Visit Provider Family Medicine
DX: R06.02 Shortness of breath (principal)
CPT/HCPCS: 71275; Q9967

== ENCOUNTER → 2023-01-30 | Outpatient (CLI) | payer OTHER, SELFPAY | END | disposition home or self-care (01) | LOC: LABSPEC 15:11 | PROVIDERS: PCP Family Medicine; Referring Provider Family Medicine; Visit Provider Family Medicine | DX: J02.0 Streptococcal pharyngitis (principal) | CPT/HCPCS: 87070 ==

== ENCOUNTER → 2023-04-19 | Outpatient (CLI) | payer OTHER, SELFPAY ==
--- NOTE | 2023-04-19 16:12 | BI_ITS ---
MAMMOGRAPHY - BILATERAL SCREENING REASON FOR EXAM: Female, 57 years old. Routine annual screening examination. PERTINENT HISTORY: Grandmother with breast cancer. History of prior right ultrasound-guided breast biopsy. TECHNIQUE: Digital bilateral breast tyson (3D mammographic acquisition) in the CC and MLO projections. 2-D mediolateral oblique (MLO) and craniocaudad (CC) views of both breasts were obtained. CAD: Full Field Digital Mammography with Computer Added Detection was performed. COMPARISON: Comparison is made with prior study dated April 11, 2022 and March 31, 2021. FINDINGS: Breast Composition: The breasts are heterogeneously dense, which may obscure small masses. There are no dominant masses or suspicious calcifications. A tissue clip marker is seen in the slightly inferior retroareolar region of the right breast. No other significant abnormalities are identified. There has been no significant change since the prior study. BI/SCRN MAMM (CAD)W/TYSON BILAT IMPRESSION: Stable bilateral screening mammogram. Yearly follow-up mammogram recommended. (A) ASSESSMENT CATEGORY: BIRADS Category 2: Benign. A letter regarding these results will be sent to the patient by the facility within 30 days. Approximately 10% of breast cancers are not detected by mammography. A normal mammogram should not delay biopsy of a clinically suspicious abnormality. [id number] Electronically Signed: Terry Chu MD at 8:09 EDT ,
== END | disposition home or self-care (01) ==
LOC: OPBI 16:09
PROVIDERS: PCP Family Medicine; Referring Provider Student in an Organized Health Care Education/Training Program; Visit Provider Student in an Organized Health Care Education/Training Program
DX: Z12.31 Encounter for screening mammogram for malignant neoplasm of breast (principal); Z80.3 Family history of malignant neoplasm of breast
CPT/HCPCS: 77063; 77067

== ENCOUNTER → 2023-09-03 | Outpatient (CLI) | payer OTHER, SELFPAY | END | disposition home or self-care (01) | LOC: MFPLAB 08:18 | PROVIDERS: PCP Family Medicine; Visit Provider Family Medicine | DX: Z00.00 Encounter for general adult medical examination without abnormal findings (principal) ==

== ENCOUNTER → 2023-09-05 | Outpatient (CLI) | payer OTHER, SELFPAY ==
[2023-09-05 10:05] LABS: Absolute Lymphocyte Count 1.79 X10^3/uL (0.83-4.51); Absolute Neutrophil Count 2.9 X10^3/uL (2.0-7.7); Basophil# 0.03 X10^3/uL; Basophil% 0.6 % (0-1); Eosinophil# 0.11 X10^3/uL; Eosinophils% 2.1 % (0-5); Hematocrit 43.1 % (37-47); Hemoglobin 13.9 g/dL (12.0-15.0); Lymphocyte # 1.79 X10^3/ul (0.83-4.51); Lymphocyte % 34.1 % (19-41); Mean Corp Hgb Conc 32.3 g/dL (32-36); Mean Corpuscular Hgb 29.6 pg (27.0-32.0); Mean Corpuscular Volume 91.7 fL (81-99); Mean Platelet Vol. 9.6 fl (6.2-12.0); Monocyte# 0.43 X10^3/uL; Monocyte% 8.2 % (0-10); NRBC Flagged by Analyzer 0 % (0-5); Neutrophil # 2.87 X10^3/uL (2.7-7.7); Neutrophil % 54.6 % (47-70); Platelet Count 244 K/mm3 (150-450); RBC Distribution Width SD 40.1 fl (35.1-43.9); White Blood Count 5.3 K/mm3 (4.4-11.0)
[2023-09-05 10:51] LABS: Vitamin B12 568 pg/mL (211-911); Vitamin D,25 Hydroxy 42.2 ng/mL
[2023-09-05 10:52] LABS: ALB/GLOB Ratio 1.1 RATIO (0.9-2.4); AST(SGOT) 16 U/L (15-37); Alanine Aminotransfer ALT/SGPT 30 U/L (13-56); Albumin, Serum 3.8 g/dL (3.2-5.0); Alkaline Phosphatase 101 U/L (45-117); Anion Gap 4 (5-15); BUN 15 mg/dL (7-18); BUN/Creat Ratio 14.3 RATIO (10-20); Chloride 106 mmol/L (98-107); Cholesterol 250 mg/dL (200); Creatinine, Serum 1.05 mg/dL (0.55-1.02); EST Glomerular Filtration Rate 57 mL/min (>60); Est Glom Filt Rate - Afr Amer 69 mL/min (>60); Ferritin 99 ng/mL (8-252); Globulin 3.6 g/dL (2.2-4.2); Glucose 92 mg/dL (74-106); High Density Lipoprotein 85 mg/dL; Magnesium 2.6 mg/dL (1.6-2.6); Potassium 3.9 mmol/L (3.5-5.1); Protein, Total 7.4 g/dL (6.4-8.2); Sodium Level 140 mmol/L (136-145); Thyroid Stim Hormone (TSH) 1.09 uIU/mL (0.358-3.74); Triglycerides 69 mg/dL; Very Low Density Lipoprotein 14 mg/dL (5-40)
== END | disposition home or self-care (01) ==
PROVIDERS: PCP Family Medicine; Referring Provider Family Medicine; Visit Provider Family Medicine
DX: R25.2 Cramp and spasm (principal); G43.909 Migraine, unspecified, not intractable, without status migrainosus
CPT/HCPCS: 36415; 80053; 80061; 82306; 82607; 82728; 83036; 83735; 84443; 85025

== ENCOUNTER → 2023-10-18 | Outpatient (CLI) | payer OTHER, SELFPAY ==
[2023-10-18 12:25] LABS: Absolute Lymphocyte Count 0.69 X10^3/uL (0.83-4.51); Hematocrit 38.8 % (37-47); Hemoglobin 12.5 g/dL (12.0-15.0); Lymphocyte # 0.69 X10^3/ul (0.83-4.51); Lymphocyte % 10.1 % (19-41); Mean Corp Hgb Conc 32.2 g/dL (32-36); Mean Corpuscular Hgb 29.8 pg (27.0-32.0); Mean Corpuscular Volume 92.6 fL (81-99); Mean Platelet Vol. 9.4 fl (6.2-12.0); Monocyte# 0.13 X10^3/uL; Monocyte% 1.9 % (0-10); NRBC Flagged by Analyzer 0 % (0-5); Neutrophil # 5.96 X10^3/uL (2.7-7.7); Neutrophil % 87.6 % (47-70); Platelet Count 207 K/mm3 (150-450); RBC Distribution Width CV 12.3 % (11.6-14.6); Red Blood Count 4.19 M/mm3 (4.2-5.4); White Blood Count 6.8 K/mm3 (4.4-11.0)
[2023-10-18 13:02] LABS: ALB/GLOB Ratio 0.9 RATIO (0.9-2.4); AST(SGOT) 19 U/L (15-37); Alanine Aminotransfer ALT/SGPT 26 U/L (13-56); Albumin, Serum 3.3 g/dL (3.2-5.0); Alkaline Phosphatase 70 U/L (45-117); Anion Gap 5 (5-15); BUN 21 mg/dL (7-18); BUN/Creat Ratio 21.3 RATIO (10-20); Calcium,Total 8.5 mg/dL (8.5-10.1); Chloride 106 mmol/L (98-107); Creatinine, Serum 0.98 mg/dL (0.55-1.02); EST Glomerular Filtration Rate 62 mL/min (>60); Est Glom Filt Rate - Afr Amer 74 mL/min (>60); Globulin 3.6 g/dL (2.2-4.2); Glucose 108 mg/dL (74-106); Protein, Total 6.9 g/dL (6.4-8.2); Sodium Level 139 mmol/L (136-145)
== END | disposition home or self-care (01) ==
LOC: MTLAB 10:52
PROVIDERS: PCP Family Medicine; Referring Provider Family Medicine; Visit Provider Family Medicine
DX: Z01.812 Encounter for preprocedural laboratory examination (principal); R94.4 Abnormal results of kidney function studies
CPT/HCPCS: 36415; 80053; 84100; 85025

== ENCOUNTER → 2024-03-17 | Outpatient (CLI) | payer OTHER, SELFPAY ==
[2024-03-17 11:58] LABS: Vitamin B12 634 pg/mL (211-911); Vitamin D,25 Hydroxy 43.1 ng/mL
[2024-03-17 12:03] LABS: AST(SGOT) 16 U/L (15-37); Alanine Aminotransfer ALT/SGPT 29 U/L (13-56); Albumin, Serum 3.4 g/dL (3.2-5.0); Alkaline Phosphatase 89 U/L (45-117); Anion Gap 5 (5-15); BUN 17 mg/dL (7-18); BUN/Creat Ratio 19.3 RATIO (10-20); Calcium,Total 8.8 mg/dL (8.5-10.1); Chloride 106 mmol/L (98-107); Creatinine, Serum 0.88 mg/dL (0.55-1.02); EST Glomerular Filtration Rate 70 mL/min (>60); Est Glom Filt Rate - Afr Amer 84 mL/min (>60); Globulin 3.3 g/dL (2.2-4.2); Glucose 99 mg/dL (74-106); Potassium 4.3 mmol/L (3.5-5.1); Protein, Total 6.7 g/dL (6.4-8.2); Sodium Level 140 mmol/L (136-145); T4 Free Direct 0.89 ng/dL (0.76-1.46); Thyroid Stim Hormone (TSH) 0.97 uIU/mL (0.358-3.74)
== END | disposition home or self-care (01) ==
LOC: LAB 11:03
PROVIDERS: PCP Family Medicine; Referring Provider Nurse Practitioner Family; Visit Provider Nurse Practitioner Family
DX: Z13.29 Encounter for screening for other suspected endocrine disorder (principal); N95.1 Menopausal and female climacteric states
CPT/HCPCS: 36415; 80053; 82306; 82607; 84439; 84443

== ENCOUNTER → 2024-04-25 | Outpatient (CLI) | payer OTHER, SELFPAY ==
--- NOTE | 2024-04-25 10:03 | BI_ITS ---
MAMMOGRAPHY - BILATERAL SCREENING REASON FOR EXAM: Female, 58 years old. Routine annual screening examination. PERTINENT HISTORY: Grandmother with breast cancer. Aunt with breast cancer. History of prior right ultrasound-guided breast biopsy. TECHNIQUE: Digital bilateral breast tyson (3D mammographic acquisition) in the CC and MLO projections. 2-D mediolateral oblique (MLO) and craniocaudad (CC) views of both breasts were obtained. CAD: Full Field Digital Mammography with Computer Added Detection was performed. COMPARISON: Comparison is made with prior study dated April 19, 2023 and April 11, 2022. FINDINGS: Breast Composition: The breasts are heterogeneously dense, which may obscure small masses. There are no dominant masses or suspicious calcifications. A tissue clip marker is seen in the slightly inferior central portion of the right breast. No other significant abnormalities are identified. There has been no significant change since the prior study. BI/SCRN MAMM (CAD)W/TYSON BILAT IMPRESSION: Stable bilateral screening mammogram. Yearly follow-up mammogram recommended. (A) ASSESSMENT CATEGORY: BIRADS Category 2: Benign. A letter regarding these results will be sent to the patient by the facility within 30 days. Approximately 10% of breast cancers are not detected by mammography. A normal mammogram should not delay biopsy of a clinically suspicious abnormality. [id number] Electronically Signed: Terry Chu MD at 11:04 EDT ,
== END | disposition home or self-care (01) ==
LOC: OPBI 10:02
PROVIDERS: PCP Family Medicine; Referring Provider Nurse Practitioner Family; Visit Provider Nurse Practitioner Family
DX: Z12.31 Encounter for screening mammogram for malignant neoplasm of breast (principal)
CPT/HCPCS: 77063; 77067

== ENCOUNTER 2024-09-29 17:30 | Outpatient (RCR) | payer OTHER, SELFPAY ==
--- NOTE | 2024-06-16 17:59 | HP.PTEVAL_ITS ---
Patient's Visit Information Visit Information Visit Information: LIONEL GOVEA is a 58 year old F referred to Physical Therapy by Dr. Tejinder Simmons MD with a diagnosis of L HS repair 05/26/24. Date of Evaluation: 06/16/24 Physical Therapist: Manoj Blackman, PT, ATC Visit Plan Frequency: 2-3x /Week Duration: 6-8 Plan: Follow protocol in chart. CP for pain Subjective Subjective: DOS: 05/26/24. Pt reports she has had hip pain for several years. Pt notes she finally had surgery to repair a torn labrum. during her rehab, she constantly experienced severe hamstring pain. Pt reports it was revealed that she had a torn hamstring, and so she had arthroscopic surgery to repair the tear. Pt reports she is still in a lot of pain today, but the pain is much less than prior to surgery. Pt notes occasional tingling in her L HS at this time. Pt reports she has sleep difficulty at this time secondary to pain. 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 Pt reports 5/10 pain while sitting here in the clinic, but pain increases to 7/10 at worst (when she ambulates and puts weight on it). Pt reports she has stairs at home and negotiates them one step at a time. Pain L hamstring: Pain Intensity (Out of 10): 5 Pain Intensity Range: 7 Objective Objective: Neuro: B LE sensation is WNL to light touch. Gait: Pt ambulates with the use of 2 crutches. PWBing at this time. Antalgic gait pattern Observation: Incisions are mostly healed at this time. No signs of infection TU seconds ROM: R knee 0-125 degrees, L knee 0-10-105 degrees MMT: R knee flex= 24, ext= 38 #F. L knee not tested today Balance/Special Test Scores Lower Extremity Functional Score: 15 Goals Goal 1:: Decrease L hamstring pain x 50% to aid with ambulation Goal Time Frame: 6-8 Weeks Goal 2:: Increase L knee flexion strength to 95% of R knee flexion to aid with return to work Goal Time Frame: 6-8 Weeks Goal 3:: Pt will perform the TUG test in under 10 seconds to aid with community ambulation Goal Time Frame: 6-8 Weeks Goal 4:: I with HEP Goal Time Frame: 6-8 Weeks Rehabilitation Potential Physical Therapy Diagnosis: Pt has L hamstring pain, weakness, and limited ROM secondary to L hamstring tear Rehabilitation Potential: Good Anticipated Interventions Patient/Client Instruction: Educate patient on: Condition and Plan of Care For the Purpose of:: To improve self management Therapeutic Exercise to Include: Strength training, Endurance training, Balance training, Flexibilty training, Gait and locomotor training, Passive ROM, Active ROM and Dynamic Lumbar Stabilization For the Purpose of:: To decrease pain, To increase ROM and To improve muscle performance and motor function Cryotherapy (ice pack, ice massage): Yes For the Purpose of:: To decrease pain Text: Thank you for the opportunity to evaluate your patient. For Medicare and Medicare HMO plans, please review the plan of care and approve it. It will need to be FAXED BACK to us at [phone] for Medicare purposes. For Medicare only, by signing this I certify the plan of care. Please let me know if there are questions or concerns regarding this plan of care. Physician Signature: Date:
--- NOTE | 2024-08-19 10:15 | HP.PTREVAL ---
Re-Evaluation Intro: Dr. Tejinder Simmons MD, It has been my pleasure to treat LIONEL GOVEA over the last 16 visits for L HS repair 05/26/24. Please see the progress note below for an update on the physical therapy plan of care! Subjective Subjective: Pt reports she was really sore yesterday. Believes it was due to the weather Objective Objective/Function: L hamstring pain ranges from 5-8/10 L hamstring MMT: 12#F (R leg 32 #F) TU.85 sec Pt is progressing well toward Rx goals, but is still limited by pain and weakness Plan Plan Plan: Attempt to get 12 more visits approved to focus on strengthening and pain reduction of L hamstring to aid with return to normal daily activities. Balance/Gait/Functional tests Balance/Special Test Scores Lower Extremity Functional Score: 39 Goals Goals Goal 1:: Decrease L hamstring pain x 50% to aid with ambulation Goal Time Frame: 6-8 Weeks Goal Progress: Progressing Goal 2:: Increase L knee flexion strength to 95% of R knee flexion to aid with return to work Goal Time Frame: 6-8 Weeks Goal Progress: Progressing Goal 3:: Pt will perform the TUG test in under 10 seconds to aid with community ambulation Goal Time Frame: 6-8 Weeks Goal Progress: Goal Met Goal 4:: I with HEP Goal Time Frame: 6-8 Weeks Goal Progress: Goal Met Anticipated Interventions Anticipated Interventions Patient/Client Instruction: Educate patient on: Condition and Plan of Care For the Purpose of:: To improve self management Therapeutic Exercise to Include: Strength training, Endurance training, Balance training, Flexibilty training, Gait and locomotor training, Passive ROM, Active ROM and Dynamic Lumbar Stabilization For the Purpose of:: To decrease pain, To increase ROM and To improve muscle performance and motor function Cryotherapy (ice pack, ice massage): Yes For the Purpose of:: To decrease pain Re-Evaluation Ending Re-evaluation ending: Please do not hesitate to contact me at [phone] by phone or if you have questions or concerns regarding this new plan of care! Sincerely, Manoj Blackman, PT, ATC
--- NOTE | 2024-08-25 17:40 | HP.PTREVAL ---
Re-Evaluation Intro: Dr. Tejinder Simmons MD, It has been my pleasure to treat LIONEL GOVEA over the last 18 visits for L HS repair 05/26/24. Please see the progress note below for an update on the physical therapy plan of care! Subjective Subjective: I am sore today Objective Objective/Function: L hamstring pain ranges from 5-8/10 L hamstring MMT: 12#F (R leg 32 #F) TU.85 sec Pt is progressing well toward Rx goals, but is still limited by pain and weakness Plan Plan Plan: Attempt to get 12 more visits approved to focus on strengthening and pain reduction Balance/Gait/Functional tests Balance/Special Test Scores Lower Extremity Functional Score: 39 Goals Goals Goal 1:: Decrease L hamstring pain x 50% to aid with ambulation Goal Time Frame: 6-8 Weeks Goal Progress: Progressing Goal 2:: Increase L knee flexion strength to 95% of R knee flexion to aid with return to work Goal Time Frame: 6-8 Weeks Goal Progress: Progressing Goal 3:: Pt will perform the TUG test in under 10 seconds to aid with community ambulation Goal Time Frame: 6-8 Weeks Goal Progress: Goal Met Goal 4:: I with HEP Goal Time Frame: 6-8 Weeks Goal Progress: Goal Met Anticipated Interventions Anticipated Interventions Patient/Client Instruction: Educate patient on: Condition and Plan of Care For the Purpose of:: To improve self management Therapeutic Exercise to Include: Strength training, Endurance training, Balance training, Flexibilty training, Gait and locomotor training, Passive ROM, Active ROM and Dynamic Lumbar Stabilization For the Purpose of:: To decrease pain, To increase ROM and To improve muscle performance and motor function Cryotherapy (ice pack, ice massage): Yes For the Purpose of:: To decrease pain Re-Evaluation Ending Re-evaluation ending: Please do not hesitate to contact me at [phone] by phone or if you have questions or concerns regarding this new plan of care! Sincerely, Manoj Blackman, PT, ATC
--- NOTE | 2024-09-26 16:05 | HP.PTREVAL ---
Re-Evaluation Intro: Dr. Tejinder Simmons MD, It has been my pleasure to treat LIONEL GOVEA over the last 27 visits for L HS repair 05/26/24. Please see the progress note below for an update on the physical therapy plan of care! Subjective Subjective: Pt reports L hamstring continues to limit her from home and work activity. Pt notes she is not able to squat or lift heavy at this time Objective Objective/Function: L hamstring pain ranges from 4-6/10 MMT: R hamstring 18 #F, L hamstring 10 #F- Approximately 50% TUG test 10 sec Pt is progressing well at this time but continues to be limited with all functional mobility secondary to pain and weakness. Plan Plan Plan: Attempt to get 12 more visits approved to focus on L LE strengthening, core stab ex's, and functional mobility activity Balance/Gait/Functional tests Balance/Special Test Scores Lower Extremity Functional Score: 37 Goals Goals Goal 1:: Decrease L hamstring pain x 50% to aid with ambulation Goal Time Frame: 6-8 Weeks Goal Progress: Progressing Goal 2:: Increase L knee flexion strength to 95% of R knee flexion to aid with return to work Goal Time Frame: 6-8 Weeks Goal Progress: Progressing Goal 3:: Pt will perform the TUG test in under 10 seconds to aid with community ambulation Goal Time Frame: 6-8 Weeks Goal Progress: Goal Met Goal 4:: I with HEP Goal Time Frame: 6-8 Weeks Goal Progress: Goal Met Anticipated Interventions Anticipated Interventions Patient/Client Instruction: Educate patient on: Condition and Plan of Care For the Purpose of:: To improve self management Therapeutic Exercise to Include: Strength training, Endurance training, Balance training, Flexibilty training, Gait and locomotor training, Passive ROM, Active ROM and Dynamic Lumbar Stabilization For the Purpose of:: To decrease pain, To increase ROM and To improve muscle performance and motor function Cryotherapy (ice pack, ice massage): Yes For the Purpose of:: To decrease pain Re-Evaluation Ending Re-evaluation ending: Please do not hesitate to contact me at [phone] by phone or if you have questions or concerns regarding this new plan of care! Sincerely, Manoj Blackman, PT, ATC
== END 2024-09-29 19:00 | disposition home or self-care (01) ==
LOC: PT 17:30
PROVIDERS: PCP Family Medicine; Referring Provider Orthopaedic Surgery Sports Medicine; Visit Provider Orthopaedic Surgery Sports Medicine
DX: S76.312D Strain of muscle, fascia and tendon of the posterior muscle group at thigh level, left thigh, subsequent encounter (principal)
CPT/HCPCS: 97110; 97161; 97530

== ENCOUNTER → 2024-10-14 | Outpatient (CLI) | payer OTHER, SELFPAY | END | disposition home or self-care (01) | LOC: MFPLAB 11:52 | PROVIDERS: PCP Family Medicine; Referring Provider Family Medicine; Visit Provider Family Medicine | DX: R25.2 Cramp and spasm (principal) | CPT/HCPCS: 36415; 80053 ==

== ENCOUNTER → 2024-10-15 | Outpatient (CLI) | payer OTHER, SELFPAY ==
[2024-10-15 15:53] LABS: AST(SGOT) 21 U/L (15-37); Alanine Aminotransfer ALT/SGPT 32 U/L (13-56); Albumin, Serum 3.4 g/dL (3.2-5.0); Alkaline Phosphatase 111 U/L (45-117); Anion Gap 6 (5-15); BUN 18 mg/dL (7-18); BUN/Creat Ratio 18.2 RATIO (10-20); Calcium,Total 9.1 mg/dL (8.5-10.1); Chloride 105 mmol/L (98-107); Creatinine, Serum 0.99 mg/dL (0.55-1.02); EST Glomerular Filtration Rate 61 mL/min (>60); Est Glom Filt Rate - Afr Amer 74 mL/min (>60); Globulin 3.5 g/dL (2.2-4.2); Glucose 122 mg/dL (74-106); Potassium 4.2 mmol/L (3.5-5.1); Protein, Total 6.9 g/dL (6.4-8.2); Sodium Level 138 mmol/L (136-145)
== END | disposition home or self-care (01) ==
LOC: LAB.FUTURE 11:23 → MTLAB 14:57
PROVIDERS: PCP Family Medicine; Referring Provider Family Medicine; Visit Provider Family Medicine
DX: R25.2 Cramp and spasm (principal)
CPT/HCPCS: 80053

== ENCOUNTER 2024-11-04 12:05 | Outpatient (RCR) | payer OTHER, SELFPAY | END 2024-11-04 19:00 | disposition home or self-care (01) | LOC: PT 12:05 | PROVIDERS: PCP Family Medicine; Visit Provider Family Medicine | DX: M54.2 Cervicalgia (principal); M25.559 Pain in unspecified hip; M54.50 Low back pain, unspecified ==

== ENCOUNTER 2024-12-17 04:52 | Emergency (ER) | payer OTHER, SELFPAY ==
[2024-12-17 04:53] VITALS: BP 168/89; PULSE 82; RESP 18; TEMP 36.6; O2SAT 97; BMI 26.6
--- NOTE | 2024-12-17 05:07 | EX.ED.UPPERE ---
HPI History of Present Illness Chief Complaint: Upper Extremity Injury Informant: patient Narrative Narrative: Patient is a 58-year-old female with past medical history of asthma. She states that this morning she was holding her cat when it became startled and it scratched her multiple times. She reports scratches to her right hand right forearm left wrist and anterior chest. She states this occurred around 4 in the morning. She is unsure of her tetanus status. She denies any history of immunosuppression but knows that there is high risk for infection with cat scratches and bites and has concern that she may develop this and therefore comes in for evaluation [facility] Medical History (Updated 12/17/24 @ 06:[address] Victor Hugo Sosa, DO) Asthma, moderate persistent Hormone replacement therapy Vocal cord polyp Allergic rhinitis Fibroadenoma of right breast Home Medications ?Medication ?Instructions ?Recorded ?Last Taken ?Type acidophilus 25 million 1 tab PO DAILY 09/19/13 Unknown History cell-pectin, citrus 100 mg tablet multivitamin with folic acid 400 1 tab PO DAILY 09/19/13 Unknown History mcg tablet sumatriptan succinate 100 mg tablet 100 mg PO .X1 PRN 03/15/16 Unknown History calcium 600 mg (as 1 ea PO DAILY 02/06/17 Unknown History carbonate)-vitamin D3 5 mcg (200 unit) tablet omega-3 fatty acids-fish oil 340 1 ea PO DAILY 02/06/17 Unknown History mg-1,000 mg capsule ferrous sulfate 325 mg (65 mg 325 mg PO DAILY 09/19/18 Unknown History iron) tablet pantoprazole 40 mg tablet,delayed 40 mg PO DAILY 09/19/18 Unknown History release (Protonix) eluxadoline 100 mg tablet (Viberzi) 100 mg PO BID 03/31/20 Unknown History cyclobenzaprine 10 mg tablet 10 mg PO HS 09/11/22 Unknown History zinc gluconate 50 mg tablet 50 mg PO DAILY 09/11/22 Unknown History Nebulizer machine #1 ea 09/25/22 Unknown Rx triamcinolone acetonide 55 mcg 1 spray intranasal DAILY PRN 01/02/24 Unknown History nasal spray aerosol (Nasacort) albuterol sulfate 90 mcg/actuation 2 puff inhalation Q6H PRN 03/11/24 Unknown Rx aerosol inhaler shortness of breath or wheezing #8.5 grams ondansetron 4 mg disintegrating 4 mg PO TID PRN headache 03/11/24 Unknown History tablet albuterol sulfate 2.5 mg/3 mL 2.5 mg (3 mL) inhalation Q4H PRN 03/13/24 Unknown Rx (0.083 %) solution for nebulization Sob &/Or Wheezing #180 mL budesonide-formoterol HFA 160 2 inh inhalation BID #3 ea 09/11/24 Unknown Rx mcg-4.5 mcg/actuation aerosol inhaler (Symbicort) spacer #1 ea 09/11/24 Unknown Rx amoxicillin 875 mg-potassium 1 tab PO BID 10 days #20 tabs 12/17/24 Unknown Rx clavulanate 125 mg tablet Allergy/AdvReac Type Severity Reaction Status Date / Time etodolac Allergy Severe Itching Verified 12/17/24 04:56 gabapentin (From Neurontin) Allergy Itching Verified 12/17/24 04:56 methscopolamine bromide Allergy Itching Verified 12/17/24 04:56 (From Pamine) topiramate (From Topamax) Allergy Itching Verified 12/17/24 04:56 tramadol HCl (From Ultram) Allergy Itching Verified 12/17/24 04:56 nabumetone AdvReac Intermediate tingling Verified 12/17/24 04:56 adhesive AdvReac Rash Verified 12/17/24 04:56 hydromorphone HCl (From AdvReac Nausea/Vom/ Verified 12/17/24 04:56 Dilaudid) Diarrhea oxycodone HCl (From Percocet) AdvReac Nausea Verified 12/17/24 04:56 Family History Mother Asthma Diabetes Father Hypertension Lung disease Surgical History Trigger finger release bilateral hands Right wrist surgery H/O inguinal hernia repair History of bunionectomy of both great toes History of right oophorectomy H/O tubal ligation Vocal cord surgery Right shoulder surgery bilateral elbow surgery H/O knee surgery Previous back surgery Social History (Updated 03/17/24 @ 10:28 by Macy Galvan) household members: spouse current occupational status: employed current occupation: [employer] Smoking Status: Never smoker alcohol intake: never substance use type: does not use seatbelt use: always do you feel safe at home: Yes additional social history: - [employer] ED Constitutional Constitutional ED: Denies chills or fever(s) ENT ENT ED: Denies sore throat Cardiovascular Cardiovascular: Denies chest pain Respiratory/Chest Respiratory/Chest: Denies cough or dyspnea Gastrointestinal Gastrointestinal: Denies abdominal pain, diarrhea, nausea or vomiting Genitourinary Genitourinary ED: Denies dysuria Musculoskeletal Musculoskeletal: Denies myalgias Integumentary Reports Abrasions and other Details: Multiple abrasions from cat scratch Neurologic Neurologic: Denies headache(s) Hematologic/Lymphatic Hematologic/Lymphatic: Denies easy bleeding or easy bruising EXAM Physical Exam Const Vital Signs: 12/17/24 04:53 Temperature 97.8 F Temperature Source Oral Pulse Rate 82 Respiratory Rate 18 Blood Pressure 168/89 H Blood Pressure Mean 115 Pulse Ox 97 Oxygen Delivery Method Room Air Positive well nourished and well developed General Appearance ED: well developed HEENT HEENT Narrative: Normocephalic atraumatic Eyes PERRL and EOMs intact bilaterally Neck full ROM and supple Resp normal respiratory effort and clear to auscultation bilaterally Cardio regular rate and regular rhythm Extremity Extremity Narrative: Bilateral upper extremities are neurovascularly intact. Patient is a dermal layer roughly 1 cm linear abrasion along the dorsal aspect of the left wrist without retained foreign body surrounding soft tissue infection changes or active bleeding There is a triangular dermal layer abrasion/laceration to the volar aspect of the right hand near the first metacarpal with minimal ooze of blood and no foreign body and no surrounding soft tissue changes to suggest infection There is epidermal abrasion linear in nature roughly 2 cm in length to the dorsal aspect of the distal third of the right forearm also without findings of foreign body or infection Patient has a epidermal layer 3 cm abrasion across the anterior chest over top the sternum without bleeding or infection or foreign body Neuro oriented x3, CN's II-XII intact bilaterally and moves all extremities Sensorium / Orientation: alert Motor Exam: strength 5/5 throughout Psych mental status grossly normal Skin Skin Narrative: Multiple abrasions/cat scratches as documented above MDM MDM MDM Narrative Medical decision making narrative: Patient arrived to the ER hypertensive but otherwise with stable vitals. The injuries occurred from her cat and they were scratches not bites therefore there is low concern for rabies and there is no need for rabies immunoglobulin or vaccination. Patient is not immunosuppressed but does have higher risk for secondary infection based on the multiple scratches. Therefore she will be placed on Augmentin to prevent this. As she was unsure of her tetanus status this was updated as well. At this time there is no retained foreign body no signs of ligamentous or tendon injury she does not have developing cellulitis or abscess or compartment syndrome and therefore there is no need for further workup and she is otherwise safe for discharge with symptomatic care History & Record Review Discussion w/independent historian: Patient Discharge Plan Triage Chief Complaint: Upper Extremity Injury ED Provider: Victor Hugo Sosa Dx/Rx/DC Orders Clinical Impression: Cat scratch, Asthma Instructions: Animal Bites and Scratches, What Is Cat Scratch Disease? Prescriptions: New amoxicillin-pot clavulanate 875-125 mg tablet 1 tab PO BID 10 Days Qty: 20 0RF No Action pantoprazole [Protonix] 40 mg tablet,delayed release (DR/EC) 40 mg PO DAILY ferrous sulfate 325 mg (65 mg iron) tablet 325 mg PO DAILY Viberzi 100 mg tablet 100 mg PO BID Rx Instructions: must administer with a meal/food zinc gluconate 50 mg tablet 50 mg PO DAILY cyclobenzaprine 10 mg tablet 10 mg PO HS ondansetron 4 mg tablet,disintegrating 4 mg PO TID PRN (Reason: headache) albuterol sulfate 90 mcg/actuation HFA aerosol inhaler 2 puff INHALATION Q6H PRN (Reason: shortness of breath or wheezing) Qty: 8.5 6RF triamcinolone acetonide [Nasacort] 55 mcg aerosol,spray 1 spray INTRANASAL DAILY PRN Rx Instructions: administer into each nostril acidophilus-pectin, citrus 1 TABLET tablet 1 tab PO DAILY multivitamin with folic acid 1 TABLET tablet 1 tab PO DAILY sumatriptan succinate 100 MG tablet 100 mg PO .X1 PRN calcium carbonate-vitamin D3 1 EACH tablet 1 ea PO DAILY omega-3 fatty acids-fish oil 1 EACH capsule 1 ea PO DAILY (DME) Nebulizer machine See Rx Instructions .ROUTE .MEDSUPPLY Qty: 1 0RF Rx Instructions: As directed J45.909 Asthma R06.02 Shortness of breath albuterol sulfate 2.5 mg /3 mL (0.083 %) solution for nebulization 2.5 mg inhalation Q4H PRN (Reason: Sob &/Or Wheezing) Qty: 180 3RF budesonide-formoterol [Symbicort] 160-4.5 mcg/actuation HFA aerosol inhaler 2 inh inhalation BID Qty: 3 3RF (DME) spacer See Rx Instructions .ROUTE .MEDSUPPLY Qty: 1 0RF Rx Instructions: As directed Primary Care Provider: Melinda Rodgers Referrals: Melinda Rodgers MD [Primary Care Provider] - Activity Restrictions/Additional Instructions: Please take the antibiotic as directed to prevent secondary infection from the cat scratches. If you develop a fever or notice large amounts of surrounding redness or lymphangitic streaking or purulent discharge this can indicate that you are failing outpatient therapy and therefore you may need to be seen in the ER for further workup and IV antibiotics. Print Language: Estonian Disposition Disposition: Home, Self Care Discharge Date/Time: 12/17/24 05:30
[2024-12-17] MEDS: Diphth,Pertuss(Acell),Tet Vac 0.5 ML Vial IM (05:15)
[2024-12-17] MEDS: Amox/Clavulanate 875 MG Tablet PO (05:15)
== END 2024-12-17 05:30 | disposition home or self-care (01) ==
LOC: ED 05:22
PROVIDERS: Emergency Provider Emergency Medicine; PCP Family Medicine; Visit Provider Emergency Medicine
DX: S60.511A Abrasion of right hand, initial encounter (principal); J45.909 Unspecified asthma, uncomplicated; Z90.721 Acquired absence of ovaries, unilateral; Z98.51 Tubal ligation status; Z23 Encounter for immunization; W55.03XA Scratched by cat, initial encounter; S50.811A Abrasion of right forearm, initial encounter; S60.812A Abrasion of left wrist, initial encounter; S20.319A Abrasion of unspecified front wall of thorax, initial encounter; Z79.51 Long term (current) use of inhaled steroids
CPT/HCPCS: 90471; 90715; 99282

== ENCOUNTER → 2025-03-06 | Outpatient (CLI) | payer OTHER, SELFPAY ==
--- NOTE | 2025-03-06 13:55 | CT_ITS ---
PROCEDURE: ABDOMEN/PELVIS WITH CONTRAST 03/06/2025 REASON FOR EXAM: RLQ PAIN STAT STAT TECHNIQUE: Abdomen and pelvis CT with intravenous contrast. Coronal and Sagittal reconstruction series were provided. PATIENT PREPARATION: Per protocol ORAL CONTRAST TYPE: Given CONTRAST: Isovue-300 VOLUME: 100 mL One or more dose reduction techniques were used (e.g., Automated exposure control, adjustment of the mA and/or kV according to patient size, use of iterative reconstruction technique. RADIATION DOSE SUMMARY: CTDlvol: 10.5 mGy DLP: 923.21 mGycm COMPARISON: None FINDINGS: Lung bases: Mild dependent atelectasis Liver: 1 cm cyst in the upper medial portion of the right lobe of the liver. Gallbladder: Questionable tiny gallstone. Spleen: Normal size. Pancreas: Normal size without evidence of mass surrounding inflammation or ductal dilation. Adrenals: Unremarkable Kidneys: Normal renal sizes. No hydronephrosis. Bladder: Unremarkable Reproductive Organs: Unremarkable Bowel: Colonic diverticulosis without diverticulitis. Appendix: Small calcified appendicolith is seen within the appendix. No periappendiceal inflammatory changes are seen. Lymph nodes: Unremarkable. Vasculature: The abdominal aorta and IVC are normal. Peritoneum / Retroperitoneum: Unremarkable Bones: Prior fusion in the lower lumbar spine. CT/Abdomen/Pelvis WITH Contrast IMPRESSION: Small cyst in the right lobe of the liver. Questionable tiny gallstone. Nondistended and noninflamed appendix containing a tiny appendicolith. Reading Location: [place] [id number]
== END | disposition home or self-care (01) ==
LOC: CT 13:54
PROVIDERS: PCP Family Medicine; Referring Provider Family Medicine; Visit Provider Family Medicine
DX: R10.31 Right lower quadrant pain (principal)
CPT/HCPCS: 74177; Q9967

== ENCOUNTER 2025-03-17 17:59 | Emergency (ER) | payer OTHER, SELFPAY ==
[2025-03-17 18:01] VITALS: BP 135/87; PULSE 84; RESP 18; TEMP 36.5; O2SAT 99; BMI 27.5
--- NOTE | 2025-03-17 18:22 | ED.VIS.GI ---
HPI HPI - GI History of Present Illness Chief Complaint: Flank Pain Narrative Narrative: 59-year-old female past medical history of asthma and IBS presents with right sided flank pain/right lower quadrant abdominal pain that she has had for the last week. She relates history that she was unsure of what her pain was so she saw her primary care provider. She had an outpatient CT scan which showed contrast in the appendix. She states that she was referred to a general surgeon as an outpatient who she saw yesterday, Dr. Anderson. She states that she wanted to have another CT performed but at this time with clear contrast secondary to her appendix being full of white contrast. The patient denies any exacerbating or alleviating factors to her pain but states it has increased since she was seen by the surgeon yesterday. She denies any fevers or chills, no nausea or vomiting, no dysuria or hematuria, she had 5 bowel movements today which was abnormal for her. [facility] Medical History Acid reflux Abdominal pain Asthma, moderate persistent Hormone replacement therapy Vocal cord polyp Allergic rhinitis Fibroadenoma of right breast Home Medications ?Medication ?Instructions ?Recorded ?Last Taken ?Type acidophilus 25 million 1 tab PO DAILY 09/19/13 Unknown History cell-pectin, citrus 100 mg tablet multivitamin with folic acid 400 1 tab PO DAILY 09/19/13 Unknown History mcg tablet sumatriptan succinate 100 mg tablet 100 mg PO .X1 PRN 03/15/16 Unknown History calcium 600 mg (as 1 ea PO DAILY 02/06/17 Unknown History carbonate)-vitamin D3 5 mcg (200 unit) tablet omega-3 fatty acids-fish oil 340 1 ea PO DAILY 02/06/17 Unknown History mg-1,000 mg capsule ferrous sulfate 325 mg (65 mg 325 mg PO DAILY 09/19/18 Unknown History iron) tablet pantoprazole 40 mg tablet,delayed 40 mg PO DAILY 09/19/18 Unknown History release (Protonix) eluxadoline 100 mg tablet (Viberzi) 100 mg PO BID 03/31/20 Unknown History cyclobenzaprine 10 mg tablet 10 mg PO HS 09/11/22 Unknown History zinc gluconate 50 mg tablet 50 mg PO DAILY 09/11/22 Unknown History Nebulizer machine #1 ea 09/25/22 Unknown Rx triamcinolone acetonide 55 mcg 1 spray intranasal DAILY PRN 02/21/24 Unknown History nasal spray aerosol (Nasacort) albuterol sulfate 90 mcg/actuation 2 puff inhalation Q6H PRN 03/11/24 Unknown Rx aerosol inhaler shortness of breath or wheezing #8.5 grams ondansetron 4 mg disintegrating 4 mg PO TID PRN headache 03/11/24 Unknown History tablet budesonide-formoterol HFA 160 2 inh inhalation BID #3 ea 09/11/24 Unknown Rx mcg-4.5 mcg/actuation aerosol inhaler (Symbicort) spacer #1 ea 09/11/24 Unknown Rx guaifenesin 1,200 mg tablet, 1,200 mg PO .QD #30 tabs 01/06/25 Unknown Rx extended release 12 hr (Mucinex) albuterol sulfate 2.5 mg/3 mL 2.5 mg (3 mL) inhalation Q4H PRN 01/23/25 Unknown Rx (0.083 %) solution for nebulization Sob &/Or Wheezing #180 mL Allergy/AdvReac Type Severity Reaction Status Date / Time etodolac Allergy Severe Itching Verified 03/17/25 18:00 gabapentin (From Neurontin) Allergy Itching Verified 03/17/25 18:00 methscopolamine bromide Allergy Itching Verified 03/17/25 18:00 (From Pamine) topiramate (From Topamax) Allergy Itching Verified 03/17/25 18:00 tramadol HCl (From Ultram) Allergy Itching Verified 03/17/25 18:00 nabumetone AdvReac Intermediate tingling Verified 03/17/25 18:00 adhesive AdvReac Rash Verified 03/17/25 18:00 hydromorphone HCl (From AdvReac Nausea/Vom/ Verified 03/17/25 18:00 Dilaudid) Diarrhea oxycodone HCl (From Percocet) AdvReac Nausea Verified 03/17/25 18:00 Family History Mother Asthma Diabetes Father Hypertension Lung disease Surgical History Trigger finger release bilateral hands Right wrist surgery H/O inguinal hernia repair History of bunionectomy of both great toes History of right oophorectomy H/O tubal ligation Vocal cord surgery Right shoulder surgery bilateral elbow surgery H/O knee surgery Previous back surgery Social History household members: spouse housing: house current occupational status: employed current occupation: [employer] Smoking Status: Never smoker alcohol intake: never substance use type: does not use seatbelt use: always do you feel safe at home: Yes additional social history: - [employer] ROS ROS ED ROS Narrative Review of systems positive for right flank/right lower quadrant abdominal pain. No fevers or chills, no nausea or vomiting, no dysuria or hematuria. No exacerbating or alleviating factors. EXAM Physical Exam Narrative Exam Narrative: Afebrile. Vital signs noted. Nontoxic-appearing. Cardiovascular examination feels a regular rate and rhythm. Lungs are clear to auscultation bilaterally. Abdomen is soft with mild tenderness to palpation in the right flank/lower quadrant without guarding or rebound. No peritoneal signs. Positive bowel sounds. Neurological examination is nonfocal, nonlateralizing. Const Vital Signs: 03/17/25 18:01 03/17/25 20:00 Temperature 97.7 F L Temperature Source Temporal Pulse Rate 84 75 Respiratory Rate 18 17 Blood Pressure 135/87 H 148/92 H Blood Pressure Mean 103 110 Pulse Ox 99 95 Oxygen Delivery Method Room Air Room Air MDM MDM MDM Narrative Medical decision making narrative: Differential diagnosis does include appendicitis versus ureterolithiasis versus pyelonephritis versus nonspecific abdominal pain versus abdominal wall pain. I reviewed the patient's prior records. I will repeat laboratory work including CBC and CMP. I do not feel she needs a test. I will obtain a urinalysis as well. Patient declined any analgesics here in the emergency department initially. I will try and review her outpatient record to see what kind of CT scan was to be performed. Additionally, I paged Dr. Anderson who is currently on-call as she was seen by her yesterday. According to Dr. Anderson, she told the patient that while she wanted the CT repeated, it could not be performed until the . Additionally, she was told that if she picked up the oral contrast from the pharmacy, I would be chalky like she had previously. Patient had stated that the chalky oral contrast had given her diarrhea, but she was told that any contrast would show up the same, and could cause diarrhea as well. In discussion with surgery, they prefer that after oral contrast administration, in order for it to get further along, that she should not be taken until 2.5 hours after administration, but not wait a total of 3 hours. I reviewed her laboratory work and she has normal white count of 6.3 with hemoglobin normal at 13.8, platelet count normal at 197. Urinalysis is negative for infection with 0-5 WBCs. I do not feel antibiotics are indicated. After the CT of the abdomen pelvis with p.o. and IV contrast was obtained, I reviewed the radiology report which comments on a normal appendix. I rediscussed the patient with Dr. Anderson, who agrees with outpatient follow-up by her primary care provider and it was not felt that she needed to see general surgery again. At this point in time, I feel she can be discharged to follow-up. I feel that [id number] medication should be sufficient for her nonspecific abdominal pain. Return instructions to the emergency department were reviewed. Disposition is discharged home in stable condition. History & Record Review Discussion w/independent historian: Patient Additional record(s) reviewed:: Prior ED visit (Noncontributory to current chief complaint) Lab Data Attestation: I reviewed the patient's lab results. Labs: Laboratory Results - last 24 hr 03/17/25 03/17/25 18:04 18:06 WBC 6.3 RBC 4.59 Hgb 13.8 Hct 40.8 MCV 88.9 MCH 30.1 MCHC 33.8 RDW Std Deviation 39.4 RDW Coeff of Renetta 12.1 Plt Count 197 MPV 9.0 Immature Gran % (Auto) 0.300 Neut % (Auto) 62.2 Lymph % (Auto) 27.5 [place] % (Auto) 7.2 Eos % (Auto) 2.2 Baso % (Auto) 0.6 Absolute Neuts (auto) 3.9 Absolute Lymphs (auto) 1.72 Nucleated RBC % 0 Sodium 139 Potassium 4.1 Chloride 103 Carbon Dioxide 26.5 Anion Gap 10 BUN 16 Creatinine 1.01 Estim Creat Clear Calc 60.06 Est GFR (MDRD) Non-Af 64 BUN/Creatinine Ratio 15.6 Glucose 115 H Calcium 9.1 Total Bilirubin 0.24 AST 28 ALT 29 Alkaline Phosphatase 126 H Total Protein 7.0 Albumin 4.3 Globulin 2.7 Albumin/Globulin Ratio 1.6 Urine Color Straw Urine Clarity Clear Urine pH 7.0 Ur Specific [place] 1.005 Urine Protein 15 H Urine Glucose (UA) Normal Urine Ketones Negative Urine Occult Blood Negative Urine Nitrite Negative Urine Bilirubin Negative Urine Urobilinogen Normal Ur Leukocyte Esterase Negative Urine RBC 0 SEEN Urine WBC 0-5 SEEN Ur Squamous Epith Cells 0-5 SEEN Urine Bacteria 0 SEEN Urine Mucus 0 SEEN Radiography Diagnostic Testing: Clinical Impression(s) from Imaging Studies Abdomen/Pelvis CT 03/17/25 18:31 IMPRESSION: No acute findings in the abdomen and pelvis. Other findings as described above. OVERALL FINAL ASSESSMENT: . LI-RADS is not meant to be used in patients <18 years or patients with cirrhosis due to congenital hepatic fibrosis or due to vascular disorders, because these patients have a lower chance of developing HCC. Reading [facility] Management Discussion w/another healthcare provider: [employer] (Dr. Anderson) Discharge Plan Triage Chief Complaint: Flank Pain ED Provider: Jeremy Fall Dx/Rx/DC Orders Clinical Impression: Right lower quadrant abdominal pain, Right flank pain Instructions: ED Abdominal Pain Unkn Cause Fem Prescriptions: No Action pantoprazole [Protonix] 40 mg tablet,delayed release (DR/EC) 40 mg PO DAILY ferrous sulfate 325 mg (65 mg iron) tablet 325 mg PO DAILY Viberzi 100 mg tablet 100 mg PO BID Rx Instructions: must administer with a meal/food zinc gluconate 50 mg tablet 50 mg PO DAILY cyclobenzaprine 10 mg tablet 10 mg PO HS ondansetron 4 mg tablet,disintegrating 4 mg PO TID PRN (Reason: headache) albuterol sulfate 90 mcg/actuation HFA aerosol inhaler 2 puff INHALATION Q6H PRN (Reason: shortness of breath or wheezing) Qty: 8.5 6RF triamcinolone acetonide [Nasacort] 55 mcg aerosol,spray 1 spray INTRANASAL DAILY PRN Rx Instructions: administer into each nostril guaifenesin [Mucinex] 1,200 mg tablet extended release 12hr 1,200 mg PO .QD Qty: 30 2RF acidophilus-pectin, citrus 1 TABLET tablet 1 tab PO DAILY multivitamin with folic acid 1 TABLET tablet 1 tab PO DAILY sumatriptan succinate 100 MG tablet 100 mg PO .X1 PRN calcium carbonate-vitamin D3 1 EACH tablet 1 ea PO DAILY omega-3 fatty acids-fish oil 1 EACH capsule 1 ea PO DAILY (DME) Nebulizer machine See Rx Instructions .ROUTE .MEDSUPPLY Qty: 1 0RF Rx Instructions: As directed J45.909 Asthma R06.02 Shortness of breath budesonide-formoterol [Symbicort] 160-4.5 mcg/actuation HFA aerosol inhaler 2 inh inhalation BID Qty: 3 3RF (DME) spacer See Rx Instructions .ROUTE .MEDSUPPLY Qty: 1 0RF Rx Instructions: As directed albuterol sulfate 2.5 mg /3 mL (0.083 %) solution for nebulization 2.5 mg inhalation Q4H PRN (Reason: Sob &/Or Wheezing) Qty: 180 3RF Primary Care Provider: Melinda Rodgers Referrals: Melinda Rodgers MD [Primary Care Provider] - 3-5 Days if not improving Activity Restrictions/Additional Instructions: Take [id number] medications as needed for pain. Follow-up with your primary care provider. As you have had a normal CT that shows a normal appendix, you do not need to follow-up with Dr. Anderson. Return with fever, new or worsening symptoms. Print Language: Indonesian Disposition Disposition: Home, Self Care
--- NOTE | 2025-03-17 18:31 | CT_ITS ---
PROCEDURE: ABDOMEN/PELVIS WITH CONTRAST 03/17/2025 REASON FOR EXAM: RLQ PAIN TECHNIQUE: Abdomen and pelvis CT with intravenous contrast. Coronal and Sagittal reconstruction series were provided. PATIENT PREPARATION: Per protocol ORAL CONTRAST TYPE: None. AMOUNT: mL CONTRAST: Omnipaque 350 VOLUME: 100 mL Not Provided Gauge IV One or more dose reduction techniques were used (e.g., Automated exposure control, adjustment of the mA and/or kV according to patient size, use of iterative reconstruction technique. COMPARISON: CT abdomen and pelvis 05/29/2018 and 02/2020 FINDINGS: Lung bases: Unremarkable Liver: Homogeneous attenuation. 11 mm right hepatic lobe simple cyst. Gallbladder: No ductal dilation. Gallbladder is unremarkable. Spleen: Normal size. Pancreas: Normal size without evidence of mass surrounding inflammation or ductal dilation. Adrenals: Unremarkable. Kidneys: Normal renal sizes. No hydronephrosis. Bladder: Urinary bladder is unremarkable. Reproductive Organs: No pelvic mass. Bowel: Stomach is unremarkable. No bowel dilation or significant wall thickening. Contrast is noted throughout the small bowel and colon. Large colonic stool. Appendix: Normal appendix. Lymph nodes: No suspicious lymph node enlargement. Vasculature: The abdominal aorta and IVC are normal. Peritoneum / Retroperitoneum: Small ascites. No pneumoperitoneum. Bones: Postoperative changes L3-L5 left yared fusion. Hardware appears intact. No acute osseous abnormality. 1 Soft tissue: Unremarkable. CT/Abdomen/Pelvis WITH Contrast IMPRESSION: No acute findings in the abdomen and pelvis. Other findings as described above. OVERALL FINAL ASSESSMENT: . LI-RADS is not meant to be used in patients <18 years or patients with cirrhosi s due to congenital hepatic fibrosis or due to vascular disorders, because these patients have a lower chance of developing HC C. Reading Location: [facility]
[2025-03-17 18:34] LABS: Bacteria 0 SEEN /hpf (None Seen); Mucous, Urine 0 SEEN /hpf (<or=2+); Red Blood Cells-Urine 0 SEEN /hpf (0-5)
[2025-03-17 18:40] LABS: Absolute Lymphocyte Count 1.72 X10^3/uL (0.83-4.51); Absolute Neutrophil Count 3.9 X10^3/uL (2.0-7.7); Basophil# 0.04 X10^3/uL; Basophil% 0.6 % (0-1); Eosinophil# 0.14 X10^3/uL; Eosinophils% 2.2 % (0-5); Hematocrit 40.8 % (37-47); Hemoglobin 13.8 g/dL (12.0-15.0); Lymphocyte # 1.72 X10^3/ul (0.83-4.51); Lymphocyte % 27.5 % (19-41); Mean Corp Hgb Conc 33.8 g/dL (32-36); Mean Corpuscular Hgb 30.1 pg (27.0-32.0); Mean Corpuscular Volume 88.9 fL (81-99); Monocyte# 0.45 X10^3/uL; Monocyte% 7.2 % (0-10); NRBC Flagged by Analyzer 0 % (0-5); Neutrophil # 3.89 X10^3/uL (2.7-7.7); Neutrophil % 62.2 % (47-70); Platelet Count 197 K/mm3 (150-450); RBC Distribution Width CV 12.1 % (11.6-14.6); RBC Distribution Width SD 39.4 fl (35.1-43.9); Red Blood Count 4.59 M/mm3 (4.2-5.4); White Blood Count 6.3 K/mm3 (4.4-11.0)
[2025-03-17 18:51] LABS: Color, Urine Straw (Yellow); Glucose, Dipstick Normal (Normal); Ketone-Dipstick Negative (Negative); Leukocyte Esterase-Dipstick Negative /ul (Negative); Nitrite-Dipstick Negative (Negative); Occult Blood-Urine Negative /ul (Negative); Protein-Dipstick 15 mg/dl (Negative); Specific Gravity, Urine 1.005 (1.002-1.030); Urine Bilirubin Dipstick Negative (Negative); Urine Clarity Clear (Clear); Urine Urobilinogen Normal (Normal)
[2025-03-17 19:02] LABS: ALB/GLOB Ratio 1.6 RATIO (0.9-2.4); AST(SGOT) 28 U/L (<=31); Alanine Aminotransfer ALT/SGPT 29 U/L (<=34); Albumin, Serum 4.3 g/dL (3.4-4.8); Alkaline Phosphatase 126 U/L (35-104); Anion Gap 10 (5-15); BUN 16 mg/dL (4-19); BUN/Creat Ratio 15.6 RATIO (10-20); Calcium,Total 9.1 mg/dL (7.6-11.0); Carbon Dioxide 26.5 mmol/L (21.0-32.0); Chloride 103 mmol/L (98-108); Creatinine, Serum 1.01 mg/dL (0.70-1.20); EST Glomerular Filtration Rate 64 (>60); Estimated Creatinine Clearance 60.06 ml/min (50-250); Globulin 2.7 g/dL (2.2-4.2); Glucose 115 mg/dL (70-99); Potassium 4.1 mmol/L (3.3-5.1); Sodium Level 139 mmol/L (133-145); Total Bilirubin 0.24 mg/dL (0.00-1.30)
[2025-03-17 19:29] LABS: Squamous Epithelial Cells - UA 0-5 SEEN /hpf (5-10); White Blood Cells 0-5 SEEN /hpf (0-5)
[2025-03-17 20:00] VITALS: BP 148/92; PULSE 75; RESP 17; O2SAT 95
[2025-03-17 22:00] VITALS: BP 143/76; PULSE 78; RESP 14; TEMP 36.6; O2SAT 99
== END 2025-03-17 22:10 | disposition home or self-care (01) ==
PROVIDERS: Emergency Provider Emergency Medicine; PCP Family Medicine; Visit Provider Emergency Medicine
DX: R10.31 Right lower quadrant pain (principal); J45.909 Unspecified asthma, uncomplicated; K21.9 Gastro-esophageal reflux disease without esophagitis; Z79.899 Other long term (current) drug therapy; Z79.51 Long term (current) use of inhaled steroids; Z90.721 Acquired absence of ovaries, unilateral; Z98.51 Tubal ligation status
CPT/HCPCS: 74177; 80053; 81001; 85025; 99283; Q9967; A4216

== ENCOUNTER → 2025-04-20 | Outpatient (CLI) | payer OTHER, SELFPAY ==
[2025-04-20 18:44] LABS: AST(SGOT) 25 U/L (<=31); Alanine Aminotransfer ALT/SGPT 29 U/L (<=34); Albumin, Serum 4.1 g/dL (3.4-4.8); Alkaline Phosphatase 119 U/L (35-104); Bilirubin, Direct 0.12 mg/dL (0.00-0.30); Globulin 2.9 g/dL (2.2-4.2); Total Bilirubin 0.25 mg/dL (0.00-1.30)
== END | disposition home or self-care (01) ==
PROVIDERS: PCP Family Medicine; Referring Provider Nurse Practitioner Family; Visit Provider Nurse Practitioner Family
DX: Z51.81 Encounter for therapeutic drug level monitoring (principal)
CPT/HCPCS: 36415; 80076

== ENCOUNTER → 2025-04-21 | Outpatient (CLI) | payer OTHER, SELFPAY | END | disposition home or self-care (01) | LOC: LABSPEC 16:39 | PROVIDERS: PCP Family Medicine; Visit Provider Nurse Practitioner Family | DX: N39.0 Urinary tract infection, site not specified (principal) | CPT/HCPCS: 87077; 87086; 87088; 87186 ==

== ENCOUNTER → 2025-05-01 | Outpatient (CLI) | payer OTHER, SELFPAY ==
--- NOTE | 2025-05-01 14:45 | BI_ITS ---
EXAM: SCRN MAMM (CAD)W/TYSON BILAT 05/01/2025 CLINICAL HISTORY: F, Age 59 y/o , SCREEN FOR BREAST CANCER TECHNIQUE: Bilateral screening digital breast tomosynthesis with 2D and 3D images. Computer aided detection. COMPARISON: Prior exam(s) dated 04/25/2024, 04/19/2023, 04/11/2022. FINDINGS: TISSUE DENSITY: The breast tissue is composed of scattered area of fibroglandular density. Bilateral Breast Mammographic Findings: No significant masses, calcifications or other abnormalities are identified. BI/SCRN MAMM (CAD)W/TYSON BILAT IMPRESSION: Right Breast: BIRADS 1 NEGATIVE. Left Breast: BIRADS 1 NEGATIVE. OVERALL FINAL ASSESSMENT: BIRADS 1 NEGATIVE. RECOMMENDATION: Routine annual follow-up in 1 Year A letter with findings and recommendations will be mailed to the patient. Reading Location: [id number]
== END | disposition home or self-care (01) ==
LOC: OPBI 14:38
PROVIDERS: PCP Family Medicine; Referring Provider Nurse Practitioner Family; Visit Provider Nurse Practitioner Family
DX: Z12.31 Encounter for screening mammogram for malignant neoplasm of breast (principal)
CPT/HCPCS: 77063; 77067

== ENCOUNTER → 2025-05-11 | Outpatient (CLI) | payer OTHER, SELFPAY | END | disposition home or self-care (01) | PROVIDERS: PCP Family Medicine; Referring Provider Nurse Practitioner Family; Visit Provider Nurse Practitioner Family | DX: J45.40 Moderate persistent asthma, uncomplicated (principal) | CPT/HCPCS: 94060; 94726; 94729 ==

== ENCOUNTER → 2025-05-19 | Outpatient (CLI) | payer OTHER, SELFPAY ==
[2025-05-19 16:47] LABS: AST(SGOT) 23 U/L (<=31); Alanine Aminotransfer ALT/SGPT 22 U/L (<=34); Albumin, Serum 4.0 g/dL (3.4-4.8); Alkaline Phosphatase 109 U/L (35-104); Anion Gap 13 (5-15); BUN 19 mg/dL (4-19); BUN/Creat Ratio 20.1 RATIO (10-20); Calcium,Total 9.3 mg/dL (7.6-11.0); Carbon Dioxide 22.2 mmol/L (21.0-32.0); Chloride 106 mmol/L (98-108); Globulin 2.6 g/dL (2.2-4.2); Glucose 109 mg/dL (70-99); Potassium 3.9 mmol/L (3.3-5.1)
== END | disposition home or self-care (01) ==
LOC: MTLAB 12:34
PROVIDERS: PCP Family Medicine; Referring Provider Nurse Practitioner Family; Visit Provider Nurse Practitioner Family
DX: Z51.81 Encounter for therapeutic drug level monitoring (principal)
CPT/HCPCS: 36415; 80053

== ENCOUNTER → 2025-06-15 | Outpatient (CLI) | payer OTHER, SELFPAY ==
[2025-06-15 13:16] LABS: Hematocrit 39.7 % (37-47); Hemoglobin 13.3 g/dL (12.0-15.0); Mean Corp Hgb Conc 33.5 g/dL (32-36); Mean Corpuscular Volume 90.0 fL (81-99); Mean Platelet Vol. 9.8 fl (6.2-12.0); Platelet Count 198 K/mm3 (150-450); RBC Distribution Width CV 12.0 % (11.6-14.6); RBC Distribution Width SD 40.1 fl (35.1-43.9); Red Blood Count 4.41 M/mm3 (4.2-5.4); White Blood Count 5.6 K/mm3 (4.4-11.0)
[2025-06-15 13:44] LABS: AST(SGOT) 26 U/L (<=31); Alanine Aminotransfer ALT/SGPT 24 U/L (<=34); Albumin, Serum 4.0 g/dL (3.4-4.8); Alkaline Phosphatase 100 U/L (35-104); Anion Gap 11 (5-15); BUN 14 mg/dL (4-19); BUN/Creat Ratio 14.2 RATIO (10-20); Calcium,Total 9.0 mg/dL (7.6-11.0); Carbon Dioxide 24.0 mmol/L (21.0-32.0); Chloride 105 mmol/L (98-108); Cholesterol 195 mg/dL (<=200); Globulin 2.4 g/dL (2.2-4.2); Glucose 103 mg/dL (70-99); Low Density Lipoprotein Calc. 94 mg/dL; Potassium 4.1 mmol/L (3.3-5.1); Triglycerides 169 mg/dL; Very Low Density Lipoprotein 34 mg/dL (5-40); cholesterol:hdl ratio screen 2.89
== END | disposition home or self-care (01) ==
PROVIDERS: PCP Family Medicine; Referring Provider Nurse Practitioner Family; Visit Provider Nurse Practitioner Family
DX: Z01.818 Encounter for other preprocedural examination (principal); E78.00 Pure hypercholesterolemia, unspecified
CPT/HCPCS: 80053; 80061; 85027

== ENCOUNTER 2025-07-10 16:53 | Emergency (ER) | payer OTHER, SELFPAY ==
[2025-07-10 16:54] VITALS: BP 146/79; PULSE 80; RESP 16; TEMP 36.9; O2SAT 99; BMI 26.2
--- NOTE | 2025-07-10 17:28 | US_ITS ---
PROCEDURE: RIGHT LOWER EXTREMITY VENOUS DUPLEX IMAG/LIMITED/UNI 07/10/2025 REASON FOR EXAM: Right leg pain and swelling TECHNIQUE: Procedure Code: USVDUL Modality: US Procedure: VENOUS DUPLEX IMAG/LIMITED/UNI COMPARISON: None. FINDINGS: No intraluminal echogenicity to suggest the presence of a deep venous thrombosis. Appropriate respiratory variation, augmentation and venous compression is noted. US/Venous Duplex Imag/Limited/Uni IMPRESSION: No evidence for DVT in the right lower extremity. Reading Location: [id number]
--- NOTE | 2025-07-10 20:01 | ED.RN ---
PT STATED THAT HER DOG NEEDED INSULIN @ 1900 AND REQUESTED TO LEAVE. THIS RN INSTRUCTED HER THAT SHE IS FREE TO LEAVE AT ANY POINT. LWBS.
--- OUTSIDE RECORDS SUMMARY | 2025-07-10 20:04 | XMS RPT_ITS | CCD ---
Author Organization [facility] Care Team Providers Care Manager Loan Name Role Phone Cony Smallwood Attending Abdirahman Joyce Referring Unavailable EDD JOEL Primary Care Unavailable Cony Smallwood Attending EDD Holland Primary Care Unavailable Aguila Joel DO Unavailable Cesar Wahl MD Unavailable Dr. Edd Kmuari Primary Care Provider Dr. Caitlyn Michael Attending Provider Dr. Lakisha Mortensen Referring Provider Dr. Edd Kumari Referring Provider [phone] Chandler Jackson Attending Provider Dr. Edd Kumari Referring Provider Dr. Chandler Jackson Attending Provider DO Abdifatah Jalloh Primary Care Provider [phone] DO Abdifatah Jalloh Primary Care Provider [phone] DO Abdifatah Jalloh Referring Provider Minh PATHOLOGY TRANSCRIPTIONIST, PATHOLOGY TRANSCRIPTIONIST-C Ansley Attending Provider ANSLEY JOEL Referring Unavailable BRIDGER CAZARES Attending Unavailable ABDIFATAH JALLOH Primary Care Unavailable ABDIFATAH JALLOH Primary Care Unavailable BRIDGER CAZARES Attending Unavailable ABDIFATAH JALLOH Referring Unavailable BRENT GUILLEN Referring Unavailable BRENT GUILLEN Attending Unavailable ABDIFATAH JALLOH Primary Care Unavailable DO Abdifatah Jalloh Primary Care Provider DO Abdifatah Jalloh Referring Provider Dr. Chandler Jackson Attending Provider DO Abdifatah Jalloh Primary Care Provider DO Abdifatah Jalloh Referring Provider Minh PATHOLOGY TRANSCRIPTIONIST, PATHOLOGY TRANSCRIPTIONIST-C Ansley Attending Provider MD Melinda Rodgers Primary Care Provider ASHUTOSH Darling Attending Provider Karla CARBONE, Melinda Primary Care Provider Dr. Victor Hugo Sosa DO Attending Provider Dr. Victor Hugo Sosa DO Emergency Provider Karla CARBONE, Melinda Referring Provider Cristopher PATHOLOGY TRANSCRIPTIONIST-CAlisa Attending Provider Melinda Rodgers MD Attending Provider Dr. Annika Anderson MD Attending Provider Jeremy Fall MD Emergency Provider Jeremy Fall MD Attending Provider Lisset MACDONALD-CJoi Attending Provider Karla CARBONE, Melinda Primary Care Provider Lisset MACDONALD-CJoi Referring Provider Mayra MACDONALD-CMichelle Attending Provider Karla CARBONE, Melinda Primary Care Provider Melinda Rodgers MD Referring Provider Cristopher PATHOLOGY TRANSCRIPTIONIST-CAlisa Attending Provider Cristopher MACDONALD-CAlisa Referring Provider Melinda Rodgers MD Other Provider Joi Darling Attending Unavailable Karla, Chalon Primary Care Unavailable Joi Darling Referring Unavailable Karla, Melinda Primary Care Unavailable Karla, Melinda Referring Unavailable Karla, Nicholason Attending Unavailable Tee Lawrence Attending Unavailable Karla, Chalon Primary Care Unavailable Tee Lawrence Referring Unavailable CristinaerAlisa Referring Unavailable Alisa Nicholas Attending Unavailable Karla, Chalon Primary Care Unavailable BarkmanJoi Attending Unavailable Barkman, Joi Referring Unavailable Karla, Chalon Primary Care Unavailable Karla, Chalon Primary Care Unavailable Mayra PATHOLOGY TRANSCRIPTIONIST, Mcihelle Attending Unavailable Robotham, Annika Referring Unavailable Robotham, Annika Attending Unavailable Karla, Chalon Primary Care Unavailable Karla, Chalon Consulting Unavailable Karla, Chalon Primary Care Unavailable Barkman, Joi Attending Unavailable Barkman, Joi Referring Unavailable Robotham, Annika Attending Unavailable Karla, Chalon Referring Unavailable Karla, Chalon Primary Care Unavailable Karla, Chalon Referring Unavailable Barkman, Joi Attending Unavailable Karla, Chalon Primary Care Unavailable Karla, Chalon Primary Care Unavailable Barkman, Joi Referring Unavailable Barkman, Joi Attending Unavailable Karla, Chalon Primary Care Unavailable LaskovskTejinder theodore Referring Unavailable Tejinder Simmons R Attending Unavailable Karla, Chalon Attending Unavailable Karla, Chalon Primary Care Unavailable Karla, Chalon Referring Unavailable Karla, Chalon Primary Care Unavailable Karla, Chalon Referring Unavailable BarkmanJoi Attending Unavailable RufenerAlisa Attending Unavailable Karla, Chalon Primary Care Unavailable Karla, Chalon Referring Unavailable RufenerAlisa Attending Unavailable Karla, Chalon Primary Care Unavailable Karla, Chalon Referring Unavailable Karla, Chalon Primary Care Unavailable Victor Hugo Sosa Attending Unavailable ReodicaJeremy Attending Unavailable Karla, Chalon Primary Care Unavailable Karla, Chalon Attending Unavailable Karla, Chalon Primary Care Unavailable Karla, Chalon Attending Unavailable Karla, Chalon Referring Unavailable Karla, Chalon Primary Care Unavailable Allergies Allergy Classification Reported Allergen(s) Allergy Type Date of Onset Reaction(s) Facility (2 sources) Acetaminophen / oxyCODONE Drug Allergy 07-30-[address] [facility] Work Phone: (2 sources) gabapentin Drug Allergy 03-20-[address] [facility] Work Phone: (2 sources) HYDROmorphone Drug Allergy 03-20-[address] [facility] Work Phone: (20 sources) Methscopolamine Drug Allergy 03-20-20 14 Itchy & throat tightness, Itching [facility] Work Phone: (2 sources) Morphine Drug Allergy 07-30-20 12 Nausea [facility] Work Phone: (2 sources) topiramate Drug Allergy 03-20-[address] [facility] Work Phone: (2 sources) traMADol Drug Allergy 07-30-[address] [facility] Work Phone: (2 sources) BANDAIDS; Translations: [BANDAIDS] allergy to substance 07-30-[address] [facility] Work Phone: (20 sources) Adhesive agent; Translations: [adhesive] Propensity to adverse reactions 09-29-20 21 Rash [facility] (19 sources) gabapentin Drug Allergy 09-29-20 21 Itching [facility] (20 sources) HYDROmorphone; Translations: [hydromorphone HCl] Drug Allergy 09-29-20 21 Nausea/Vom/Roseann rrhea [facility] (20 sources) oxyCODONE; Translations: [oxycodone HCl] Drug Allergy 09-29-20 21 Nausea [facility] (19 sources) topiramate Drug Allergy 09-29-20 21 Itching [facility] (20 sources) traMADol; Translations: [tramadol HCl] Drug Allergy 09-29-20 21 Itching [facility] (15 sources) nabumetone Drug Allergy 12-06-19 23 tingling [facility] Comment on above: Numbness, asthma irr itation (12 sources) Etodolac Drug Allergy 03-17-20 24 Itching [facility] Comment on above: numbness of tongue a nd throat (1 source) Etodolac Drug Allergy 05-20-20 25 [facility] (1 source) gabapentin Drug Allergy 05-20-20 25 [facility] (1 source) Methscopolamine Drug Allergy 05-20-20 [facility] (1 source) nabumetone Drug Allergy 05-20-20 [facility] (1 source) topiramate Drug Allergy 05-20-20 [facility] Medications Current Medications Medication Drug Class(es) Dates Sig (Normalized) Sig (Original) acetaminophen 325 mg / oxyCODONE hydrochloride 5 mg oral tablet (1 source) Opioid Agonist Start: 01-03-2022 End: 01-13-2022 take 1 tablet by mouth every six hours as needed for pain PERCOCET 5-325 MG TABS Take 1 tablet by mouth every six hours as needed for pain oxycodone-acetamin ophen [id number] Aguila Joel DO Budesonide-Formotero l (20 sources) Corticosteroid, beta2-Adrenergic Agonist Start: 09-11-2024 Budesonide-Formote rol (Symbicort) 160-4.5 mcg/actuation HFA aerosol inhaler Active 2 NMA INHALATION TWICE A DAY 3 3 September 11, 2024 10:32am Start: 09-11-2024 Budesonide-For moterol (Symbicort) 160-4.5 mcg/actuation HFA aerosol inhaler Active 2 NMA INHALATION TWICE A DAY 3 September 11, 2024 10:32am Start: 09-11-2024 End: 09-11-2024 Budesonide-Formoterol (Symbi koby) 160-4.5 mcg/actuation HFA aerosol inhaler Discontinued 2 NMA INHALATION TWICE A DAY 3 3 September 11, 2024 10:31am September 11, 2024 10:32am Start: 09-11-2024 End: 09-11-2024 Budesonide-Formoterol (Symbi koby) 160-4.5 mcg/actuation HFA aerosol inhaler Discontinued 2 NMA INHALATION TWICE A DAY 3 September 11, 2024 10:31am September 11, 2024 10:32am Start: 09-11-2023 End: 09-11-2024 Budesonide-Formoterol (Symbi koby) 160-4.5 mcg/actuation HFA aerosol inhaler Discontinued 2 NMA INHALATION TWICE A DAY 3 3 September 11, 2023 11:07am September 11, 2024 10:31am Start: 09-11-2023 End: 09-11-2024 Budesonide-Formoterol (Symbi koby) 160-4.5 mcg/actuation HFA aerosol inhaler Discontinued 2 NMA INHALATION TWICE A DAY 3 September 11, 2023 11:07am September 11, 2024 10:31am Start: 09-11-2023 Budesonide-For moterol (Symbicort) 160-4.5 mcg/actuation HFA aerosol inhaler Active 2 INH INHALATION TWICE A DAY 3 September 11, 2023 11:07am Start: 09-11-2023 Budesonide-For moterol (Symbicort) 160-4.5 mcg/actuation HFA aerosol inhaler Active 2 INH INHALATION TWICE A DAY 3 September 11, 2023 10:07am Start: 09-11-2022 End: 09-11-2023 Budesonide-Formoterol (Symbi koby) 160-4.5 mcg/actuation HFA aerosol inhaler Discontinued 2 NMA INHALATION TWICE A DAY 3 3 September 11, 2022 2:04pm September 11, 2023 11:07am Start: 09-11-2022 End: 09-11-2023 Budesonide-Formoterol (Symbi koby) 160-4.5 mcg/actuation HFA aerosol inhaler Discontinued 2 NMA INHALATION TWICE A DAY 3 September 11, 2022 2:04pm September 11, 2023 11:07am Start: 09-11-2022 End: 09-11-2023 Budesonide-Formoterol (Symbi koby) 160-4.5 mcg/actuation HFA aerosol inhaler Discontinued 2 INH INHALATION TWICE A DAY 3 September 11, 2022 2:04pm September 11, 2023 11:07am Start: 09-11-2022 End: 09-11-2023 Budesonide-Formoterol (Symbi koby) 160-4.5 mcg/actuation HFA aerosol inhaler Discontinued 2 INH INHALATION TWICE A DAY 3 September 11, 2022 1:04pm September 11, 2023 10:07am Start: 09-11-2022 Budesonide-For moterol (Symbicort) 160-4.5 mcg/actuation HFA aerosol inhaler Active 2 INH INHALATION TWICE A DAY 3 September 11, 2022 2:04pm Start: 09-11-2022 Budesonide-For moterol (Symbicort) 160-4.5 mcg/actuation HFA aerosol inhaler Active 2 INH INHALATION TWICE A DAY 3 September 11, 2022 1:04pm Start: 09-29-2021 End: 09-11-2022 Budesonide-Formoterol (Symbi koby) 160-4.5 mcg/actuation HFA aerosol inhaler Discontinued 2 NMA INHALATION TWICE A DAY 3 3 September 29, 2021 11:39am September 11, 2022 2:05pm Start: 09-29-2021 End: 09-11-2022 Budesonide-Formoterol (Symbi koby) 160-4.5 mcg/actuation HFA aerosol inhaler Discontinued 2 NMA INHALATION TWICE A DAY 3 September 29, 2021 11:39am September 11, 2022 2:05pm Start: 09-29-2021 End: 09-11-2022 Budesonide-Formoterol (Symbi koby) 160-4.5 mcg/actuation HFA aerosol inhaler Discontinued 2 INH INHALATION TWICE A DAY 3 September 29, 2021 11:39am September 11, 2022 2:05pm Start: 09-29-2021 End: 09-11-2022 Budesonide-Formoterol (Symbi koby) 160-4.5 mcg/actuation HFA aerosol inhaler Discontinued 2 INH INHALATION TWICE A DAY 3 September 29, 2021 10:39am September 11, 2022 1:05pm Start: 09-29-2021 Budesonide-For moterol (Symbicort) 160-4.5 mcg/actuation HFA aerosol inhaler Active 2 INH INHALATION TWICE A DAY 3 September 29, 2021 11:39am Start: 02-24-2021 End: 09-29-2021 Budesonide-Formoterol (Symbi koby) 160-4.5 mcg/actuation HFA aerosol inhaler Discontinued 2 NMA INHALATION TWICE A DAY 10.2 February 24, 2021 10:50am September 29, 2021 11:39am Start: 02-24-2021 End: 09-29-2021 Budesonide-Formoterol (Symbi koby) 160-4.5 mcg/actuation HFA aerosol inhaler Discontinued 2 NMA INHALATION TWICE A DAY 10.2 February 24, 2021 10:50am September 29, 2021 11:39am Start: 02-24-2021 End: 09-29-2021 take 1 puff(s) by inhalation twice daily Budesonide-Formoterol (Symbicort) 160-4.5 mcg/actuation HFA aerosol inhaler Discontinued 2 PUFF INHALATION TWICE A DAY 10.2 February 24, 2021 9:50am September 29, 2021 10:39am Start: 02-24-2021 End: 09-29-2021 take 1 puff(s) by inhalation twice daily Budesonide-Formoterol (Symbicort) 160-4.5 mcg/actuation HFA aerosol inhaler Discontinued 2 PUFF INHALATION TWICE A DAY 10.2 February 24, 2021 10:50am September 29, 2021 11:39am Start: 07-21-2020 End: 02-24-2021 Budesonide-Formoterol (Symbi koby) 160-4.5 mcg/actuation HFA aerosol inhaler Discontinued 2 NMA INHALATION TWICE A DAY 10.2 6 July 21, 2020 10:22am February 24, 2021 10:51am Start: 07-21-2020 End: 02-24-2021 Budesonide-Formoterol (Symbi koby) 160-4.5 mcg/actuation HFA aerosol inhaler Discontinued 2 NMA INHALATION TWICE A DAY 10.2 July 21, 2020 10:22am February 24, 2021 10:51am Start: 07-21-2020 End: 02-24-2021 take 1 puff(s) by inhalation twice daily Budesonide-Formoterol (Symbicort) 160-4.5 mcg/actuation HFA aerosol inhaler Discontinued 2 PUFF INHALATION TWICE A DAY 10.2 July 21, 2020 9:22am February 24, 2021 9:51am Start: 07-21-2020 End: 02-24-2021 take 1 puff(s) by inhalation twice daily Budesonide-Formoterol (Symbicort) 160-4.5 mcg/actuation HFA aerosol inhaler Discontinued 2 PUFF INHALATION TWICE A DAY 10.2 July 21, 2020 10:22am February 24, 2021 10:51am Start: 05-24-2020 SYMBICORT 160- 4.5 MCG/ACT AERO Use 2 puff twice a day budesonide-formoterol [id number] Lashonda Jacinto AT Start: 04-12-2020 End: 07-21-2020 Budesonide-Formoterol (Symbi koby) 160-4.5 mcg/actuation HFA aerosol inhaler Discontinued 2 NMA INHALATION TWICE A DAY 10.2 3 April 12, 2020 12:00am July 21, 2020 10:22am Start: 04-12-2020 End: 07-21-2020 take 1 puff(s) by inhalation twice daily Budesonide-Formoterol (Symbicort) 160-4.5 mcg/actuation HFA aerosol inhaler Discontinued 2 PUFF INHALATION TWICE A DAY 10.2 April 12, 2020 12:00am July 21, 2020 10:22am calcium carbonate 1500 mg / cholecalciferol 200 unt oral tablet (19 sources) Vitamin D Start: 02-06-2017 Calcium Carbon ate-Vitamin D3 1 EACH tablet Active 1 NMA PO DAILY February 06, 2017 12:00am Start: 02-06-2017 Calcium Carbon ate-Vitamin D3 Active 1 EACH PO DAILY February 06, 2017 12:00am cyclobenzaprine hydrochloride 10 mg oral tablet (16 sources) Muscle Relaxant Start: 09-11-2022 take 1 tablet by mouth at bedtime Cyclobenzaprine 10 mg tablet Active 10 mg PO BEDTIME September 11, 2022 12:00am eluxadoline 100 mg oral tablet (20 sources) mu-Opioid Receptor Agonist Start: 11-10-2019 take 1 tablet by mouth twice daily at mealtime Eluxadoline (Viberzi) 100 mg tablet Active 100 mg PO TWICE A DAY March 31, 2020 12:00am must administer with a meal/food ferrous sulfate 325 mg oral tablet (19 sources) Start: 09-19-2018 take 1 tablet by mouth once daily Ferrous Sulfate 325 mg (65 mg iron) tablet Active 325 mg PO DAILY September 19, 2018 1:00am fexofenadine hydrochloride 180 mg oral tablet (3 sources) Histamine-1 Receptor Antagonist Start: 05-20-2025 take 1 tablet by mouth once daily Fexofenadine 180 mg tablet Active 180 mg PO daily May 20, 2025 12:00am Fezolinetant (18 sources) Start: 06-17-2025 take 1 tablet by mouth once daily Fezolinetant ([place]) 45 mg tablet Active 45 mg PO daily 30 June 17, 2025 10:41am Start: 05-21-2025 End: 06-17-2025 take 1 tablet by mouth once daily Fezolinetant (Veozah) 45 mg tablet Discontinued 45 mg PO daily 30 May 21, 2025 11:44am June 17, 2025 10:42am Start: 05-21-2025 take 1 tablet by nai th once daily Fezolinetant (Veozah) 45 mg tablet Active 45 mg PO daily 30 May 21, 2025 11:44am Start: 04-23-2025 End: 05-21-2025 take 1 tablet by mouth once daily Fezolinetant (Veozah) 45 mg tablet Discontinued 45 mg PO daily 30 April 23, 2025 9:05am May 21, 2025 11:44am Start: 04-23-2025 take 1 tablet by nai th once daily Fezolinetant (Veozah) 45 mg tablet Active 45 mg PO daily 30 April 23, 2025 9:05am Start: 04-23-2025 take 1 tablet by nai th once daily Fezolinetant (Veozah) 45 mg tablet Active 45 mg PO daily April 23, 2025 9:05am Start: 03-26-2025 End: 04-23-2025 take 1 tablet by mouth once daily Fezolinetant (Veozah) 45 mg tablet Discontinued 45 mg PO daily 30 March 26, 2025 12:00am April 23, 2025 9:06am Start: 03-26-2025 End: 04-23-2025 take 1 tablet by mouth once daily Fezolinetant (Veozah) 45 mg tablet Discontinued 45 mg PO daily March 26, 2025 12:00am April 23, 2025 9:06am Start: 03-26-2025 take 1 tablet by nai once daily Fezolinetant (Veozah) 45 mg tablet Active 45 mg PO daily March 26, 2025 12:00am 12 hr guaiFENesin 1200 mg extended release oral tablet (20 sources) Start: 01-06-2025 take 1 tablet by mouth once daily, then take 1 tablet by mouth every twelve hours Guaifenesin (Mucinex) 1,200 mg tablet extended release 12hr Active 1200 mg PO .QD 30 2 January 06, 2025 1:00am Asthma Moderate persistent asthma, uncomplicated Start: 12-06-2022 End: 01-02-2024 take 1 tablet by mouth every twelve hours Guaifenesin 1,200 mg tablet extended release 12hr Discontinued 1200 mg PO Q12H 60 6 December 06, 2022 1:00am January 02, 2024 12:32pm lactobacillus acidophilus [id number] unt / pectin 100 mg oral tablet (19 sources) Start: 09-19-2013 take 1 tablet by mouth once daily Acidophilus-Pectin, [place] 1 TABLET tablet Active 1 {tbl} PO DAILY September 19, 2013 1:00am Start: 09-19-2013 take 1 tablet by nai th once daily Acidophilus-Pectin, [place] Active 1 TABLET PO DAILY September 19, 2013 1:00am Multivitamin With Folic Acid (8 sources) Start: 09-19-2013 take 1 tablet by mouth once daily Multivitamin With Folic Acid Active 1 TABLET PO DAILY September 19, 2013 9:27am Start: 09-19-2013 take 1 tablet by nai th once daily Multivitamin With Folic Acid Active 1 TABLET PO DAILY September 19, 2013 1:00am Start: 09-19-2013 take 1 tablet by nai th once daily Multivitamin With Folic Acid Active 1 TABLET PO DAILY September 19, 2013 12:00am Multivitamin With Folic Acid 1 TABLET tablet (11 sources) Start: 09-19-2013 take 1 tablet by mouth once daily Multivitamin With Folic Acid 1 TABLET tablet Active 1 {tbl} PO DAILY September 19, 2013 1:00am Nebulizer machine (20 sources) Start: 09-25-2022 Nebulizer mach ine Active 0 .ROUTE .MEDSUPPLY 1 September 25, 2022 12:21pm As directed J45.909 Asthma R06.02 Shortness of breath Start: 09-25-2022 Nebulizer mach ine Active 0 .ROUTE .MEDSUPPLY September 25, 2022 12:21pm As directed J45.909 Asthma R06.02 Shortness of breath Start: 09-25-2022 Nebulizer mach ine Active 0 .ROUTE .MEDSUPPLY 1 September 25, 2022 11:21am As directed J45.909 Asthma R06.02 Shortness of breath Start: 09-22-2022 End: 09-25-2022 Nebulizer machine Discontinu ed 0 .ROUTE .MEDSUPPLY 1 0 September 22, 2022 1:00am September 25, 2022 12:22pm As directed Start: 09-22-2022 End: 09-25-2022 Nebulizer machine Discontinu ed 0 .ROUTE .MEDSUPPLY 1 September 22, 2022 1:00am September 25, 2022 12:22pm As directed Start: 09-22-2022 End: 09-25-2022 Nebulizer machine Discontinu ed 0 .ROUTE .MEDSUPPLY 1 September 22, 2022 12:00am September 25, 2022 11:22am As directed [place]-3 Fatty Acids-Fish Oil (8 sources) Start: 02-06-2017 [place]-3 Fatty Acids-Fish Oil Active 1 EACH PO DAILY February 06, 2017 12:31pm Start: 02-06-2017 [place]-3 Fatty Acids-Fish Oil Active 1 EACH PO DAILY February 06, 2017 12:00am Start: 02-06-2017 [place]-3 Fatty Acids-Fish Oil Active 1 EACH PO DAILY February 05, 2017 11:00pm [place]-3 Fatty Acids-Fish Oil 1 EACH capsule (11 sources) Start: 02-06-2017 [place]-3 Fatty Acids-Fish Oil 1 EACH capsule Active 1 NMA PO DAILY February 06, 2017 12:00am ondansetron 4 mg disintegrating oral tablet (12 sources) Serotonin-3 Receptor Antagonist Start: 03-11-2024 take 1 tablet by mouth three times daily as needed for headache Ondansetron 4 mg tablet,disintegrat ing Active 4 mg PO THREE TIMES A DAY as needed for headache March 11, 2024 12:00am pantoprazole 40 mg delayed release oral tablet (20 sources) Proton Pump Inhibitor Start: 02-27-2017 take 1 tablet by mouth once daily Pantoprazole (Protonix) 40 mg tablet,delayed release (DR/EC) Active 40 mg PO DAILY September 19, 2018 1:00am spacer (20 sources) Start: 09-11-2024 spacer Active 0 .ROUTE .MEDSUPPLY 1 0 September 11, 2024 10:32am As directed Start: 09-11-2024 spacer Active 0 .ROUTE .MEDSUPPLY 1 September 11, 2024 10:32am As directed Start: 03-11-2024 End: 09-11-2024 spacer Discontinued 0 .ROUTE .MEDSUPPLY 1 0 March 11, 2024 12:00am September 11, 2024 10:32am As directed Start: 03-11-2024 End: 09-11-2024 spacer Discontinued 0 .ROUTE .MEDSUPPLY 1 March 11, 2024 12:00am September 11, 2024 10:32am As directed Start: 03-11-2024 spacer Active 0 .ROUTE .MEDSUPPLY 1 March 11, 2024 12:00am As directed triamcinolone acetonide 0.055 mg/actuat metered dose nasal spray (20 sources) Corticosteroid Start: 01-02-2024 Triamcinolone Acetonide (Nasacort) 55 mcg aerosol,spray Active 1 NMA INTRANASAL DAILY as needed January 02, 2024 12:33pm administer into each nostril Start: 03-06-2022 End: 01-02-2024 Triamcinolone Acetonide (Jeff acort) 55 mcg aerosol,spray Discontinued 1 NMA INTRANASAL DAILY 16.9 11 September 11, 2022 2:06pm January 02, 2024 12:34pm administer into each nostril Start: 03-31-2020 End: 03-06-2022 Triamcinolone Acetonide (Jeff acort) 55 mcg aerosol,spray Discontinued 1 NMA INTRANASAL DAILY March 31, 2020 12:00am March 06, 2022 11:22am administer into each nostril Start: 03-31-2020 End: 01-02-2024 take 1 spray(s) nasal route once daily Triamcinolone Acetonide (Nasacort) 55 mcg aerosol,spray Active 1 SPRAY INTRANASAL DAILY January 02, 2024 12:33pm administer into each nostril zinc gluconate 50 mg oral tablet (16 sources) Start: 09-11-2022 take 1 tablet by mouth once daily Zinc Gluconate 50 mg tablet Active 50 mg PO DAILY September 11, 2022 12:00am Completed/Discontinued Medications Medication Drug Class(es) Dates Sig (Normalized) Sig (Original) 65 FE (2 sources) Start: 07-30-2012 FEOSOL 325 Take 1 tablet once a day 65 FE Lashonda Jacinto AT acetaminophen 325 mg / HYDROcodone bitartrate 5 mg oral tablet (20 sources) Opioid Agonist Start: 06-19-2021 End: 12-11-2022 Hydrocodone-Acetami nophen ([place]) 5-325 mg Tablet Discontinued 1 {tbl} PO EVERY 6 HOURS as needed for Pain June 19, 2021 12:00am December 11, 2022 10:54am Start: 04-06-2016 End: 04-07-2016 Hydrocodone-Acetaminophen 1 TABLET tablet Discontinued 1 - 2 {tbl} PO EVERY 6 HOURS NEEDED as needed for Mild-Mod Pain (-03/21) 90 April 06, 2016 12:00am April 07, 2016 7:10am Start: 04-06-2016 End: 04-07-2016 take 1 tablet by mouth every six hours as needed Hydrocodone-Acetaminophen Discontinued 1 - 2 TABLET PO EVERY 6 HOURS NEEDED 90 April 06, 2016 12:00am April 07, 2016 7:10am albuterol 0.83 mg/ml inhalation solution (20 sources) beta2-Adrenergic Agonist Start: 07-31-2022 End: 01-23-2025 take 2.5 mg by inhalation every four hours as needed for wheezing Albuterol Sulfate 2.5 mg /3 mL (0.083 %) solution for nebulization Discontinued 2.5 mg INHALATION Q4H as needed for Sob &/Or Wheezing 180 3 March 13, 2024 8:19am January 23, 2025 12:23pm Start: 04-12-2020 End: 05-20-2025 Albuterol Sulfate 90 mcg/act uation HFA aerosol inhaler Discontinued 2 NMA INHALATION EVERY 6 HOURS as needed for shortness of breath or wheezing 8.5 March 11, 2024 11:13am May 20, 2025 10:47am Start: 04-12-2020 End: 03-11-2024 take 1 puff(s) by inhalation every six hours Albuterol Sulfate Active 2 PUFF INHALATION EVERY 6 HOURS 8.March 11, 2024 11:13am Start: 04-12-2020 PROVENTIL HFA 108 (90 Base) MCG/ACT AERS 2 puff as needed albuterol sulfate [id number] Lashonda Jacinto AT amitriptyline hydrochloride 25 mg oral tablet (16 sources) Tricyclic Antidepressant Start: 09-11-2022 End: 09-11-2023 take 1 tablet by mouth at bedtime Amitriptyline 25 mg tablet Discontinued 25 mg PO AT BEDTIME September 11, 2022 12:00am September 11, 2023 10:55am amoxicillin 875 mg / clavulanate 125 mg oral tablet (20 sources) Penicillin-class Antibacterial Start: 12-17-2024 End: 01-06-2025 Amoxicillin-Pot Clavulanate 875-125 mg tablet Discontinued 1 {tbl} PO TWICE A DAY December 17, 2024 1:00am January 06, 2025 12:09pm Start: 12-06-2022 End: 03-06-2023 Amoxicillin-Pot Clavulanate 875-125 mg tablet Discontinued 1 {tbl} PO TWICE A DAY December 06, 2022 1:00am March 06, 2023 10:58am Start: 12-06-2022 End: 03-06-2023 take 1 tablet by mouth twice daily Amoxicillin-Pot Clavulanate Discontinued 1 TABLET PO TWICE A DAY December 06, 2022 1:00am March 06, 2023 10:58am apixaban 5 mg oral tablet (18 sources) Factor Xa Inhibitor Start: 03-06-2022 End: 09-11-2022 take 1 tablet by mouth twice daily Apixaban (Eliquis) 5 mg tablet Discontinued 5 mg PO TWICE A DAY March 06, 2022 12:00am September 11, 2022 1:51pm aspirin 81 mg delayed release oral tablet (16 sources) Platelet Aggregation Inhibitor, Nonsteroidal Anti-inflammatory Drug Start: 09-11-2022 End: 01-02-2024 take 1 tablet by mouth once daily Aspirin 81 mg tablet,delayed release (DR/EC) Discontinued 81 mg PO DAILY September 11, 2022 12:00am January 02, 2024 12:32pm azelastine hydrochloride 0.137 mg/actuat / fluticasone propionate 0.05 mg/actuat metered dose nasal spray (19 sources) Corticosteroid, Histamine-1 Receptor Antagonist Start: 09-19-2018 End: 03-31-2020 Azelastine-Flutica sone (Dymista) 137-50 mcg/spray spray,non-aerosol Discontinued 1 NMA INTRANASAL TWICE A DAY 01 02September 19, 2018 1:00am March 31, 2020 8:45am Allergic rhinitis, unspecified administer into each nostril Start: 09-19-2018 End: 03-31-2020 take 1 spray(s) nasal route twice daily azelastine-fluticasone 137 mcg-50 mcg/spray nasal spray Discontinued 1 SPRAY INTRANASAL TWICE A DAY September 19, 2018 1:00am March 31, 2020 8:45am administer into each nostril Calcium (2 sources) Phosphate Binder, Calcium Start: 08-23-2016 CALCIUM 600+D3 TABLET Take 1 tablet once a day CALCIUM 600+D3 TABLET Lashonda Jacinto AT celecoxib 200 mg oral capsule (19 sources) Nonsteroidal Anti-inflammatory Drug Start: 04-06-2016 End: 04-07-2016 take 1 capsule by mouth twice daily Celecoxib 200 MG capsule Discontinued 200 mg PO TWICE A DAY 4 April 06, 2016 12:00am April 07, 2016 7:10am estrogens, conjugated (chcf) 0.45 mg / medroxyPROGESTERone acetate 1.5 mg oral tablet (20 sources) Progestin, Estrogen Start: 09-19-2018 End: 03-11-2024 take 0.45-1.5 mg by mouth once daily Conj Estrog-Medroxypro gest Анна (Prempro) 0.45-1.5 mg tablet Discontinued 1 {tbl} PO DAILY September 19, 2018 1:00am March 11, 2024 10:55am Start: 02-06-2017 End: 09-19-2018 take 1 tablet by mouth once daily Conj Estrog-Medroxyprogest Анна Discontinued 1 TABLET PO DAILY February 06, 2017 12:31pm September 19, 2018 9:28am Start: 02-06-2017 End: 09-19-2018 Conj Estrog-Medroxyprogest A ce 1 TAB tablet Discontinued 1 {tbl} PO DAILY February 06, 2017 12:00am September 19, 2018 9:28am Start: 02-06-2017 End: 09-19-2018 take 1 tablet by mouth once daily Conj Estrog-Medroxyprogest Анна Discontinued 1 TABLET PO DAILY February 06, 2017 12:00am September 19, 2018 9:28am Start: 02-06-2017 End: 09-19-2018 take 1 tablet by mouth once daily Conj Estrog-Medroxyprogest Анна Discontinued 1 TABLET PO DAILY February 05, 2017 11:00pm September 19, 2018 8:28am Start: 07-30-2012 PREMPRO 0.45-1 .5 MG TABS 1 tablet once a day [facility] estrog-medroxyprogest анна [id number] Lashonda Jacinto AT Fish,Bora,Flax Oils-Om3,6,9no1 (8 sources) Start: 02-06-2017 End: 09-19-2018 take 1200 mg by mouth once daily Fish,Bora,Flax Oils-Om3,6,9no1 Discontinued 1200 MG PO DAILY February 06, 2017 12:31pm September 19, 2018 9:28am Start: 02-06-2017 End: 09-19-2018 take 1200 mg by mouth once daily Fish,Bora,Flax Oils-Om3,6,9no1 Discontinued 1200 MG PO DAILY February 06, 2017 12:00am September 19, 2018 9:28am Start: 02-06-2017 End: 09-19-2018 take 1200 mg by mouth once daily Fish,Bora,Flax Oils-Om3,6,9no1 Discontinued 1200 MG PO DAILY February 05, 2017 11:00pm September 19, 2018 8:28am Fish,Bora,Flax Oils-Om3,6,9no1 1,200 MG capsule (11 sources) Start: 02-06-2017 End: 09-19-2018 take 1 capsule by mouth once daily Fish,Bora,Flax Oils-Om3,6,9no1 1,200 MG capsule Discontinued 1200 mg PO DAILY February 06, 2017 12:00am September 19, 2018 9:28am fluconazole 100 mg oral tablet (15 sources) Azole Antifungal Start: 12-11-2022 End: 01-02-2024 take 1 tablet by mouth once daily Fluconazole (Diflucan) 100 mg tablet Discontinued 100 mg PO DAILY 11 12December 11, 2022 1:00am January 02, 2024 12:32pm lacto.acidophilus-bif .animalis (2 sources) Start: 08-23-2016 PROBIOTIC DAILY CAPS Take 1 capsule once a day lacto.acidophilus-bi f.animalis [id number] Lashonda Jacinto AT levocetirizine dihydrochloride 5 mg oral tablet (2 sources) Histamine-1 Receptor Antagonist Start: 11-22-2020 XYZAL ALLERGY 24HR 5 MG TABS 1 tablet once a day as needed levocetirizine [id number] Lashonda Jacinto AT linseed oil 1000 mg oral capsule (19 sources) Start: 02-06-2017 End: 03-31-2020 take 1 capsule by mouth once daily Flaxseed Oil 1,000 MG capsule Discontinued 1000 mg PO DAILY February 06, 2017 12:00am March 31, 2020 8:45am MULTIVITAMINS TABS (2 sources) Start: 07-30-2012 MULTIVITAMINS TABS Take 1 tablet once a day MULTIVITAMINS TABS Lashonda MCCOY naproxen 500 mg oral tablet (20 sources) Nonsteroidal Anti-inflammatory Drug Start: 09-11-2023 End: 01-02-2024 take 1 tablet by mouth twice daily as needed Naproxen 500 mg tablet Discontinued 500 mg PO TWICE A DAY as needed September 11, 2023 12:00am January 02, 2024 12:33pm Start: 09-19-2013 End: 04-06-2016 take 1 tablet by mouth once daily as needed for pain Naproxen Sodium (Anaprox) 275 MG tablet Discontinued 275 mg PO DAILY NEEDED as needed for Mild Pain September 19, 2013 1:00am April 06, 2016 6:25am buqud-1p-kej-epa-fish oil (2 sources) Start: 07-05-2020 OMEGA-3 FISH OIL 300 MG CAPS once a day zzssu-5j-ssc-epa-fish oil [id number] Lashonda Jacinto AT omeprazole 40 mg delayed release oral capsule (19 sources) Proton Pump Inhibitor Start: 09-19-2013 End: 09-19-2018 take 1 capsule by mouth once daily Omeprazole 40 MG capsule Discontinued 40 mg PO DAILY September 19, 2013 1:00am September 19, 2018 9:28am predniSONE 10 mg oral tablet (20 sources) Start: 12-29-2024 End: 01-10-2025 Prednisone 10 mg tablet Discontinued 10 mg PO daily 30 12 0 December 29, 2024 1:00am January 09, 2025 1:00am January 10, 2025 1:23am take 4 tabs for three days, then 3 tabs for three days, then 2 tabs for three days, then 1 tab for 3 days Start: 07-31-2022 End: 09-11-2022 take 3 tablets by mouth once daily at mealtime Prednisone 20 mg tablet Discontinued 60 mg PO daily July 31, 2022 12:00am September 11, 2022 1:52pm administer with food or milk Start: 07-31-2022 End: 09-11-2022 take 60 mg by mouth once daily at mealtime Prednisone Discontinued 60 MG PO daily July 31, 2022 12:00am September 11, 2022 1:52pm administer with food or milk Start: 01-24-2022 End: 03-06-2022 take 3 tablets by mouth once daily at mealtime Prednisone 20 mg tablet Discontinued 60 mg PO daily January 24, 2022 12:00am March 06, 2022 11:20am administer with food or milk Start: 01-24-2022 End: 03-06-2022 take 60 mg by mouth once daily at mealtime Prednisone Discontinued 60 MG PO daily January 24, 2022 12:00am March 06, 2022 11:20am administer with food or milk Start: 03-31-2020 End: 04-12-2020 take 3 tablets by mouth once daily at mealtime Prednisone 20 mg tablet Discontinued 60 mg PO daily March 31, 2020 12:00am April 12, 2020 10:37am administer with food or milk Start: 03-31-2020 End: 04-12-2020 take 60 mg by mouth once daily at mealtime Prednisone Discontinued 60 MG PO daily March 31, 2020 12:00am April 12, 2020 10:37am administer with food or milk rivaroxaban 10 mg oral tablet (19 sources) Factor Xa Inhibitor Start: 04-06-2016 End: 04-07-2016 take 1 tablet by mouth once daily Rivaroxaban (Xarelto) 10 MG tablet Discontinued 10 mg PO DAILY@0600 14 0 April 06, 2016 12:00am April 07, 2016 7:11am sulfamethoxazole 800 mg / trimethoprim 160 mg oral tablet (19 sources) Dihydrofolate Reductase Inhibitor Antibacterial, Sulfonamide Antimicrobial Start: 04-06-2016 End: 04-07-2016 Sulfamethoxazole- Trimethoprim 1 TABLET tablet Discontinued 1 {tbl} PO TWICE DAILY WITH MEALS April 06, 2016 12:00am April 07, 2016 7:11am Start: 04-06-2016 End: 04-07-2016 take 1 tablet by mouth twice daily at mealtime Sulfamethoxazole-Trimethoprim Discontinu ed 1 TABLET PO TWICE DAILY WITH MEALS April 06, 2016 12:00am April 07, 2016 7:11am SUMAtriptan 100 mg oral tablet (20 sources) Serotonin-1b and Serotonin-1d Receptor Agonist Start: 08-23-2016 IMITREX 100 MG TABS Take 1 tablet once a day as needed sumatriptan succinate [id number] Lashonda Juarezer AT Start: 03-15-2016 Sumatriptan Izaguirre ccinate 100 MG tablet Active 100 mg PO .X1 PRN March 15, 2016 12:00am Problems Active Problems Problem Classification Problem Date Documented Da te Episodic/Chronic Asthma (20 sources) Asthma; Translations: [Unspecified asthma, uncomplicated] Onset: 5 Chronic E Codes: Natural/environment (11 sources) Cat scratch - wound; Translations: [Scratched by cat, initial encounter] 12-25-2024 Episodic Esophageal disorders (10 sources) Gastroesophageal reflux disease; Translations: [Gastro-esophageal reflux disease without esophagitis] 03-16-2025 Chronic Joint disorders and dislocations; trauma-related (2 sources) Other articular cartilage disorders, left wrist; Translations: [Other joint derangement, not elsewhere classified, forearm] Onset: 8 10-07-2018 Chronic Joint disorders and dislocations; trauma-related (1 source) Other tear of medial meniscus, current injury, left knee, initial encounter; Translations: [Tear of medial cartilage or meniscus of knee, current] Onset: 2 02-11-2022 Episodic Menopausal disorders (20 sources) Menopausal flushing; Translations: [Menopausal and female climacteric states] 03-17-2024 Chronic Nonspecific chest pain (19 sources) Chest pain; Translations: [Chest pain, unspecified] 06-19-2021 Episodic Osteoarthritis (3 sources) Arthritis of left wrist; Translations: [Primary osteoarthritis, left wrist] Onset: 9 03-17-2019 Chronic Other aftercare (8 sources) Patient encounter status; Translations: [Encounter for therapeutic drug level monitoring] 03-26-2025 Episodic Other aftercare (1 source) Encounter for therapeutic drug level monitoring; Translations: [Encounter for therapeutic drug level monitoring] Onset: 5 Episodic Other connective tissue disease (1 source) Presence of right artificial knee joint; Translations: [Knee joint replacement] Onset: 2 02-11-2022 Chronic Other lower respiratory disease (19 sources) Dyspnea; Translations: [Shortness of breath] 06-29-2021 Episodic Other lower respiratory disease (1 source) Shortness of breath; Translations: [Shortness of breath] 01-02-2024 Episodic Other nervous system disorders (4 sources) Cubital tunnel syndrome; Translations: [Lesion of ulnar nerve, right upper limb] Onset: 9 11-10-2019 Chronic Other screening for suspected conditions (not mental disorders or infectious disease) (1 source) Encounter for screening mammogram for malignant neoplasm of breast; Translations: [Encounter for screening mammogram for malignant neoplasm of breast] Onset: 5 Episodic Other upper respiratory disease (20 sources) Allergic rhinitis; Translations: [Allergic rhinitis, unspecified] 04-12-2020 Chronic Other upper respiratory disease (4 sources) Allergic rhinitis, unspecified; Translations: [Allergic rhinitis, cause unspecified] Chronic Other upper respiratory disease (1 source) Other diseases of vocal cords; Translations: [Other diseases of vocal cords] Onset: 9 Episodic Other upper respiratory disease (1 source) Dysphonia; Translations: [Dysphonia] Onset: 9 Episodic Phlebitis; thrombophlebitis and thromboembolism (20 sources) Deep venous thrombosis; Translations: [Acute embolism and thrombosis of unspecified deep veins of unspecified lower extremity] Episodic Prolapse of female genital organs (17 sources) Uterovaginal prolapse; Translations: [Uterovaginal prolapse, unspecified] 03-25-2025 Chronic Residual codes; unclassified (1 source) Other general symptoms and signs; Translations: [Other general symptoms and signs] Onset: 9 Episodic Spondylosis; intervertebral disc disorders; other back problems (2 sources) Inflammation of sacroiliac joint; Translations: [Sacroiliitis, not elsewhere classified] Onset: 9 11-03-2021 Chronic Urinary tract infections (1 source) Urinary tract infection, site not specified; Translations: [Urinary tract infection, site not specified] Onset: Episodic Past or Other Problems Problem Classification Problem Date Documented Date Episodic/Chronic Abdominal pain (20 sources) Right lower quadrant pain; Translations: [Right lower quadrant pain] Onset: 03-20-2025 03-17-2025 Episodic Other acquired deformities (2 sources) Spondylolisthesis; Translations: [Spondylolisthesis, lumbar region] Onset: 09-07-2016 09-07-2016 Episodic Other connective tissue disease (4 sources) Medial epicondylitis; Translations: [Medial epicondylitis, right elbow] Onset: 10-07-2018 11-10-2019 Episodic Other connective tissue disease (2 sources) Flexor tenosynovitis of finger; Translations: [Synovitis and tenosynovitis, unspecified] Onset: 02-10-2019 02-10-2019 Episodic Other connective tissue disease (2 sources) History of operative procedure on lumbar spinal structure; Translations: [Arthrodesis status] Onset: 02-27-2017 02-27-2017 Episodic Other connective tissue disease (1 source) Cramp and spasm; Translations: [Cramp and spasm] Onset: 11-18-2024 Episodic Other non-traumatic joint disorders (2 sources) Elbow joint unstable; Translations: [Other instability, right elbow] Onset: 11-22-2020 11-22-2020 Episodic Other non-traumatic joint disorders (2 sources) Pain in wrist; Translations: [Pain in left wrist] Onset: 10-07-2018 10-07-2018 Episodic Spondylosis; intervertebral disc disorders; other back problems (3 sources) Spinal stenosis, lumbar region; Translations: [Cervicalgia] Onset: 02-03-2021 02-03-2021 Episodic Sprains and strains (3 sources) Strain of muscle of upper limb; Translations: [Strain of unspecified muscle, fascia and tendon at wrist and hand level, left hand, initial encounter] Onset: 03-17-2019 03-17-2019 Episodic Superficial injury; contusion (1 source) Abrasion of right hand, initial encounter; Translations: [Abrasion of right hand, initial encounter] Onset: 01-02-2025 Episodic Unclassified (2 sources) Problem Results Test Name Value Interpretation Reference Range Facility Anion gap in Serum or Plasma Ordered By: Melinda Rodgers on 06-15-2025 Anion gap [Moles/Vol] 11 mmol/L 5-15 [facility] BUN/creatinine ratioOrdered By: Melinda Rodgers on 06-15-2025 Urea nitrogen/Creatinine [Mass ratio] 14.2 mg/mg 10-20 [facility] Bilirubin, totalOrdered By: Melinda Rodgers on 06-15-2025 Bilirubin [Mass/Vol] 0.35 mg/dL 0.00-1.30 [facility] CBC-Complete Blood Cnt No Di ffon 06-15-2025 Erythrocyte distribution width (RBC) [Ratio] 12.0 % Normal 11.6-14.6 [facility] Comment on above: Order Comment: Order Date: 06/09/25 Order Info: [id number] - CBC Performed By: #### L 100.0500, L500.4100, L500.4050 #### [facility] [address] [place], [address] Hematocrit (Bld) [Volume fraction] 39.7 % Normal 37-47 [facility] Comment on above: Order Comment: Order Date: 06/09/25 Order Info: [id number] - CBC Performed By: #### L 100.0500, L500.4100, [id number] #### [facility] [address] [place], [address] Hemoglobin (Bld) [Mass/Vol] 13.3 g/dL Normal 12.0-15.0 [facility] Comment on above: Order Comment: Order Date: 06/09/25 Order Info: [id number] - CBC Performed By: #### L 100.0500, L500.4100, [id number] #### [facility] [address] [place], [address] MCH (RBC) [Entitic mass] 30.2 pg Normal 27.0-32.0 [facility] Comment on above: Order Comment: Order Date: 06/09/25 Order Info: [id number] - CBC Performed By: #### L 100.0500, L500.4100, [id number] #### [facility] [address] [place], [address] MCHC (RBC) [Mass/Vol] 33.5 g/dL Normal 32-36 [facility] Comment on above: Order Comment: Order Date: 06/09/25 Order Info: [id number] - CBC Performed By: #### L 100.0500, L500.4100, [id number] #### [facility] [address] [place], [address] MCV (RBC) [Entitic vol] 90.0 fL Normal 81-99 [facility] Comment on above: Order Comment: Order Date: 06/09/25 Order Info: [id number] - CBC Performed By: #### L 100.0500, L500.4100, [id number] #### [facility] [address] [place], [address] Platelet mean volume (Bld) [Entitic vol] 9.8 fL Normal 6.2-12.0 [facility] Comment on above: Order Comment: Order Date: 06/09/25 Order Info: [id number] - CBC Performed By: #### L 100.0500, L500.4100, [id number] #### [facility] [address] [place], [address] Platelets (Bld) [#/Vol] 198 10*3/uL Normal 150-450 [facility] Comment on above: Order Comment: Order Date: 06/09/25 Order Info: [id number] - CBC Performed By: #### L 100.0500, L500.4100, [id number] #### [facility] [address] [place], [address] RBC (Bld) [#/Vol] 4.41 10*6/uL Normal 4.2-5.4 [facility] Comment on above: Order Comment: Order Date: 06/09/25 Order Info: [id number] - CBC Performed By: #### L 100.0500, L500.4100, [id number] #### [facility] [address] [place], [address] RDW SD 40.1 fl Normal 35.1-43.9 [facility] Comment on above: Order Comment: Order Date: 06/09/25 Order Info: [id number] - CBC Performed By: #### L 100.0500, L500.4100, [id number] #### [facility] [address] [place], [address] WBC (Bld) [#/Vol] 5.6 10*3/uL Normal 4.4-11.0 [facility] Comment on above: Order Comment: Order Date: 06/09/25 Order Info: [id number] - CBC Performed By: #### L 100.0500, L500.4100, [id number] #### [facility] [address] [place], [address] Calculated very low density lipoprotein (VLDL) cholesterol measurementOrdered By: Melinda Rodgers on 06-15-2025 Calculated very low density lipoprotein (VLDL) cholesterol measurement 34 mg/dL 5-40 [facility] Carbon dioxide, total [Moles /volume] in Central venous bloodOrdered By: Melinda Rodgers on 06-15-2025 CO2 [Moles/Vol] 24.0 mmol/L 21.0-32.0 [facility] Chloride assayOrdered By: Jose Rodgers on 06-15-2025 Chloride [Moles/Vol] 105 mmol/L 98-108 [facility] Comprehensive Metabolic Prof ilon 06-15-2025 Albumin [Mass/Vol] 4.0 g/dL Normal 3.4-4.8 [facility] Comment on above: Order Comment: Order Date: 06/09/25Order Info: [id number] - CMPBARKMAN- ORDERED CMPDR.KARLA-ORDERED CMP,CBC,LIPIDOrder Info: [id number] - LIPID Performed By: #### L 100.0500, L500.4100, L500.4050 ####[facility] [address] [place], [address] Albumin/Globulin [Mass ratio] 1.6 {ratio} Normal 0.9-2.4 [facility] Comment on above: Order Comment: Order Date: 06/09/25Order Info: [id number] - CMPBARKMAN- ORDERED CMPDR.KARLA-ORDERED CMP,CBC,LIPIDOrder Info: [id number] - LIPID Performed By: #### L 100.0500, L500.4100, [id number] ####[facility] [address] [place], [address] ALK PHOS 100 U/L Normal 35-104 [facility] Comment on above: Order Comment: Order Date: 06/09/25Order Info: [id number] - CMPBARKMAN- ORDERED CMPDR.KARLA-ORDERED CMP,CBC,LIPIDOrder Info: [id number] - LIPID Performed By: #### L 100.0500, L500.4100, L500.4050 ####[facility] [address] [place], [address] ALT [Catalytic activity/Vol] 24 U/L Normal <=34 [facility] Comment on above: Order Comment: Order Date: 06/09/25Order Info: [id number] - CMPBARKMAN- ORDERED CMPDR.KARLA-ORDERED CMP,CBC,LIPIDOrder Info: [id number] - LIPID Performed By: #### L 100.0500, L500.4100, L500.4050 ####[facility] [address] [place], [address] AST [Catalytic activity/Vol] 26 U/L Normal <=31 [facility] Comment on above: Order Comment: Order Date: 06/09/25Order Info: [id number] - CMPBARKMAN- ORDERED CMPDR.KARLA-ORDERED CMP,CBC,LIPIDOrder Info: [id number] - LIPID Performed By: #### L 100.0500, L500.4100, L500.4050 ####[facility] [address] [place], [address] Bilirubin [Mass/Vol] 0.35 mg/dL Normal 0.00-1.30 [facility] Comment on above: Order Comment: Order Date: 06/09/25Order Info: [id number] - CMPBARKMAN- ORDERED CMPDR.KARLA-ORDERED CMP,CBC,LIPIDOrder Info: [id number] - LIPID Performed By: #### L 100.0500, L500.4100, [id number] ####[facility] [address] [place], [address] BUN/CRE 14.2 RATIO Normal 10-20 [facility] Comment on above: Order Comment: Order Date: 06/09/25Order Info: [id number] - CMPBARKMAN- ORDERED CMPDR.KARLA-ORDERED CMP,CBC,LIPIDOrder Info: [id number] - LIPID Performed By: #### L 100.0500, L500.4100, L500.4050 ####[facility] [address] [place], [address] Calcium [Mass/Vol] 9.0 mg/dL Normal 7.6-11.0 [facility] Comment on above: Order Comment: Order Date: 06/09/25Order Info: [id number] - CMPBARKMAN- ORDERED CMPDR.KARLA-ORDERED CMP,CBC,LIPIDOrder Info: [id number] - LIPID Performed By: #### L 100.0500, L500.4100, [id number] ####[facility] [address] [place], [address] Chloride [Moles/Vol] 105 mmol/L Normal 98-108 [facility] Comment on above: Order Comment: Order Date: 06/09/25Order Info: [id number] - CMPBARKMAN- ORDERED CMPDR.KARLA-ORDERED CMP,CBC,LIPIDOrder Info: [id number] - LIPID Performed By: #### L 100.0500, L500.4100, L500.4050 ####[facility] [address] [place], [address] CO2 [Moles/Vol] 24.0 mmol/L Normal 21.0-32.0 [facility] Comment on above: Order Comment: Order Date: 06/09/25Order Info: [id number] - CMPBARKMAN- ORDERED CMPDR.KARLA-ORDERED CMP,CBC,LIPIDOrder Info: [id number] - LIPID Performed By: #### L 100.0500, L500.4100, [id number] ####[facility] [address] [place], [address] Creatinine [Mass/Vol] 0.97 mg/dL Normal 0.70-1.20 [facility] Comment on above: Order Comment: Order Date: 06/09/25Order Info: [id number] - CMPBARKMAN- ORDERED CMPDR.KARLA-ORDERED CMP,CBC,LIPIDOrder Info: [id number] - LIPID Performed By: #### L 100.0500, L500.4100, [id number] ####[facility] [address] [place], [address] GAP 11 Normal 5-15 [facility] Comment on above: Order Comment: Order Date: 06/09/25Order Info: [id number] - CMPBARKMAN- ORDERED CMPDR.KARLA-ORDERED CMP,CBC,LIPIDOrder Info: [id number] - LIPID Performed By: #### L 100.0500, L500.4100, L500.4050 ####[facility] [address] [place], [address] GFR/1.73 sq M.predicted among non-blacks MDRD (S/P/Bld) [Vol rate/Area] 67 mL/min/{1.73_m2} Normal >60 [facility] Comment on above: Order Comment: Order Date: 06/09/25Order Info: [id number] - CMPBARKMAN- ORDERED CMPDR.KARLA-ORDERED CMP,CBC,LIPIDOrder Info: [id number] - LIPID Result Comment: mL/m in/1.73m2 CKD-EPI Creatinine Equation (2020) Performed By: #### L 100.0500, L500.4100, L500.4050 ####[facility] [address] [place], [address] Globulin (S) [Mass/Vol] 2.4 g/dL Normal 2.2-4.2 [facility] Comment on above: Order Comment: Order Date: 06/09/25Order Info: [id number] CMPBARKMAN- ORDERED CMPDR.KARLA-ORDERED CMP,CBC,LIPIDOrder Info: [id number] - LIPID Performed By: #### L 100.0500, L500.4100, [id number] ####[facility] [address] [place], [address] Glucose [Mass/Vol] 103 mg/dL High 70-99 [facility] Comment on above: Order Comment: Order Date: 06/09/25Order Info: [id number] - CMPBARKMAN- ORDERED CMPDR.KARLA-ORDERED CMP,CBC,LIPIDOrder Info: [id number] - LIPID Performed By: #### L 100.0500, L500.4100, L500.4050 ####[facility] [address] [place], [address] Potassium [Moles/Vol] 4.1 mmol/L Normal 3.3-5.1 [facility] Comment on above: Order Comment: Order Date: 06/09/25Order Info: [id number] - CMPBARKMAN- ORDERED CMPDR.KARLA-ORDERED CMP,CBC,LIPIDOrder Info: [id number] - LIPID Performed By: #### L 100.0500, L500.4100, L500.4050 ####[facility] [id number] [place], [address] Sodium [Moles/Vol] 140 mmol/L Normal 133-145 [facility] Comment on above: Order Comment: Order Date: 06/09/25Order Info: [id number] - CMPBARKMAN- ORDERED CMPDR.KARLA-ORDERED CMP,CBC,LIPIDOrder Info: [id number] - LIPID Performed By: #### L 100.0500, L500.4100, L500.4050 ####[facility] [address] [place], [place], [id number] T PROT 6.5 g/dL Normal 5.9-8.4 [facility] Comment on above: Order Comment: Order Date: 06/09/25Order Info: [id number] - CMPBARKMAN- ORDERED CMPDR.KARLA-ORDERED CMP,CBC,LIPIDOrder Info: [id number] - LIPID Performed By: #### L 100.0500, L500.4100, L500.4050 ####[facility] [id number] [place], [address] Urea nitrogen [Mass/Vol] 14 mg/dL Normal 4-19 [facility] Comment on above: Order Comment: Order Date: 06/09/25Order Info: [id number] - CMPBARKMAN- ORDERED CMPDR.KARLA-ORDERED CMP,CBC,LIPIDOrder Info: [id number] - LIPID Performed By: #### L 100.0500, L500.4100, L500.4050 ####[facility] [address] [place], [address] Erythrocyte distribution wid th ratioOrdered By: Melinda Rodgers on 06-15-2025 Erythrocyte distribution width (RBC) [Ratio] 12.0 % 11.6-14.6 [facility] Erythrocyte distribution wid th standard deviationOrdered By: Melinda Rodgers on 06-15-2025 Erythrocyte distribution width (RBC) [Ratio] 40.1 fl 35.1-43.9 [facility] Glomerular filtration rate ( GFR) estimation/1.73 sq m using serum, plasma, or whole bOrdered By: Melinda Rodgers on 06-15-2025 GFR/1.73 sq M.predicted among non-blacks MDRD (S/P/Bld) [Vol rate/Area] 67 mL/min/{1.73_m2} >60 [facility] Comment on above: mL/min/1.73m2 CKD-EP I Creatinine Equation (2020) Hematocrit Auto (Bld) [Volum e fraction]Ordered By: Melinda Rodgers on 06-15-2025 Hematocrit (Bld) [Volume fraction] 39.7 % 37-47 [facility] Hemoglobin measurementOrdere d By: Melinda Rodgers on 06-15-2025 Hemoglobin (Bld) [Mass/Vol] 13.3 g/dL 12.0-15.0 [facility] LDL calc ser/plasOrdered By: Melinda Rodgers on 06-15-2025 Cholesterol in LDL [Mass/Vol] 94 mg/dL [facility] Comment on above: Qrsshyrzuy=249-405 m g/dL & Higher Dfss=150 mg/dL or greaterFriedwald Equation for LDL-C Laboratory - Chemistry and C hemistry - challengeOrdered By: Melinda Rodgers on 06-15-2025 AST [Catalytic activity/Vol] 26 U/L <32 [facility] Lipid Profileon 06-15-2025 CHOL:HDL 2.89 Normal [facility] Comment on above: Order Comment: Order Date: 06/09/25Order Info: [id number] - CMPBARKMAN- ORDERED CMPDR.KARLA-ORDERED CMP,CBC,LIPIDOrder Info: [id number] - LIPID Performed By: #### L 100.0500, L500.4100, L500.4050 ####[facility] [address] [place], [place], [id number] Cholesterol [Mass/Vol] 195 mg/dL Normal <=200 [facility] Comment on above: Order Comment: Order Date: 06/09/25Order Info: [id number] - CMPBARKMAN- ORDERED CMPDR.KARLA-ORDERED CMP,CBC,LIPIDOrder Info: [id number] - LIPID Result Comment: Chol esterol level, Desirable <200 mg/dL Borderline high cholesterol 200-239 mg/dL High cholesterol >=240 mg/dL Recommendations of the NCEP Adult Treatment Panel for the following risk-cutoff thresholds for the [place] population. Performed By: #### L 100.0500, L500.4100, L500.4050 ####[facility] [address] [place], [address] Cholesterol in HDL [Mass/Vol] 67 mg/dL Normal [facility] Comment on above: Order Comment: Order Date: 06/09/25Order Info: [id number] - CMPBARKMAN- ORDERED CMPDR.KARLA-ORDERED CMP,CBC,LIPIDOrder Info: [id number] - LIPID Result Comment: Zaria onal Cholesterol Education Program (NCEP) guidelines: <40 mg/dL: Low HDL-cholesterol (major risk factor for CHD) >= 60 mg/dL: High HDL-cholesterol (negative risk factor for CHD) HDL-cholesterol is affected by a number of factors, e.g. smoking, exercise, hormones, sex and age. Performed By: #### L 100.0500, L500.4100, L500.4050 ####[facility] [address] [place], [address] Cholesterol in LDL [Mass/Vol] 94 mg/dL Normal [facility] Comment on above: Order Comment: Order Date: 06/09/25Order Info: [id number] - CMPBARKMAN- ORDERED CMPDR.KARLA-ORDERED CMP,CBC,LIPIDOrder Info: [id number] - LIPID Result Comment: Bord molram=524-696 mg/dL Higher Jkdh=740 mg/dL or greater Friedwald Equation for LDL-C Performed By: #### L 100.0500, L500.4100, L500.4050 ####[facility] [address] [place], [address] Cholesterol in VLDL [Mass/Vol] 34 mg/dL Normal 5-40 [facility] Comment on above: Order Comment: Order Date: 06/09/25Order Info: [id number] - CMPBARKMAN- ORDERED CMPDR.KARLA-ORDERED CMP,CBC,LIPIDOrder Info: [id number] - LIPID Performed By: #### L 100.0500, L500.4100, L500.4050 ####[facility] [address] [place], [address] Triglyceride [Mass/Vol] 169 mg/dL Normal [facility] Comment on above: Order Comment: Order Date: 06/09/25Order Info: [id number] - CMPBARKMAN- ORDERED CMPDR.KARLA-ORDERED CMP,CBC,LIPIDOrder Info: [id number] - LIPID Result Comment: The drugs N-Acetylcysteine and Metamizole may falsely depress this assay. Normal range: <150 mg/dL Borderline High: 150-199 mg/dL High: 200-499 mg/dL Very High: >500 mg/dL Performed By: #### L 100.0500, L500.4100, L500.4050 ####[facility] [address] [place], [address] MCV (mean corpuscular volume ) determinationOrdered By: Melinda Rodgers on 06-15-2025 MCV (RBC) [Entitic vol] 90.0 fL 81-99 [facility] Mean corpuscular hemoglobin (MCH) determinationOrdered By: Melinda Rodgers on 06-15-2025 MCH (RBC) [Entitic mass] 30.2 pg 27.0-32.0 [facility] Mean corpuscular hemoglobin concentration (MCHC) determinationOrdered By: Melinda Rodgers on 06-15-2025 MCHC (RBC) [Mass/Vol] 33.5 g/dL 32-36 [facility] Mean platelet volume determi nationOrdered By: Melinda Rodgers on 06-15-2025 Platelet mean volume (Bld) [Entitic vol] 9.8 fL 6.2-12.0 [facility] Platelet countOrdered By: Jose Rodgers on 06-15-2025 Platelets (Bld) [#/Vol] 198 10*3/uL 150-450 [facility] Potassium measurement (mass/ volume)Ordered By: Melinda Rodgers on 06-15-2025 Potassium (Unsp spec) [Mass/Vol] 4.1 mmol/L 3.3-5.1 [facility] RBC Auto (Bld) [#/Vol]Ordere d By: Melinda Rodgers on 06-15-2025 RBC (Bld) [#/Vol] 4.41 10*6/uL 4.2-5.4 [facility] Screening total cholesterol/ high density lipoprotein (HDL) cholesterol ratioOrdered By: Melinda Rodgers on 06-15-2025 Cholesterol.total/Liliya sterol in HDL [Mass ratio] 2.89 {ratio} [facility] Serum creatinine measurement (mass/volume)Ordered By: Melinda Rodgers on 06-15-2025 Creatinine [Mass/Vol] 0.97 mg/dL 0.70-1.20 [facility] Serum globulin measurementOr dered By: Melinda Rodgers on 06-15-2025 Globulin (S) [Mass/Vol] 2.4 g/dL 2.2-4.2 [facility] Serum glucose measurement (m ass/volume)Ordered By: Melinda Rodgers on 06-15-2025 Glucose [Mass/Vol] 103 mg/dL High 70-99 [facility] Serum or plasma alanine sherwood otransferase (ALT) measurementOrdered By: Melinda Rodgers on 06-15-2025 ALT [Catalytic activity/Vol] 24 U/L <35 [facility] Serum or plasma albumin jim urement (mass/volume)Ordered By: Melinda Rodgers on 06-15-2025 Albumin [Mass/Vol] 4.0 g/dL 3.4-4.8 [facility] Serum or plasma albumin/glob ulin mass ratioOrdered By: Melinda Rodgers on 06-15-2025 Albumin/Globulin [Mass ratio] 1.6 {ratio} 0.9-2.4 [facility] Serum or plasma alkaline davon sphatase measurementOrdered By: Melinda Rodgers on 06-15-2025 ALP [Catalytic activity/Vol] 100 U/L 35-104 [facility] Serum or plasma calcium jim urement (mass/volume)Ordered By: Melinda Rodgers on 06-15-2025 Calcium [Mass/Vol] 9.0 mg/dL 7.6-11.0 [facility] Serum or plasma cholesterol in HDL measurement (mass/volume)Ordered By: Melinda Rodgers on 06-15-2025 Cholesterol in HDL [Mass/Vol] 67 mg/dL >40 [facility] Comment on above: National Cholesterol Education Program (NCEP) guidelines:<40 mg/dL: Low HDL-cholesterol (major risk factor for CHD)>= 60 mg/dL: High HDL-cholesterol (negative risk factor for CHD)HDL-cholesterol is affected by a number of factors, e.g. smoking, exercise, hormones, sex and age. Serum or plasma cholesterol measurement (mass/volume)Ordered By: Melinda Rodgers on 06-15-2025 Cholesterol [Mass/Vol] 195 mg/dL <201 [facility] Comment on above: Cholesterol level, D esirable <200 mg/dLBorderline high cholesterol 200-239 mg/dLHigh cholesterol >=240 mg/dLRecommendations of the NCEP Adult Treatment Panel for the following risk-cutoff thresholds for the [place] population. Serum or plasma urea nitroge n measurement (mass/volume)Ordered By: Melinda Rodgers on 06-15-2025 Urea nitrogen [Mass/Vol] 14 mg/dL 4-19 [facility] Sodium levelOrdered By: Nicholas Rodgers on 06-15-2025 Sodium [Moles/Vol] 140 mmol/L 133-145 [facility] Total proteinOrdered By: Yelena Rodgers on 06-15-2025 Protein [Mass/Vol] 6.5 g/dL 5.9-8.4 [facility] Triglycerides measurementOrd ered By: Melinda Rodgers on 06-15-2025 Triglyceride [Mass/Vol] 169 mg/dL <199 [facility] Comment on above: The drugs N-Acetylcy steine and Metamizole may falsely depress this assay. Normal range: <150 mg/dLBorderline High: 150-199 mg/dLHigh: 200-499 mg/dLVery High: >500 mg/dL White blood cell (WBC) count Ordered By: Melinda Rodgers on 06-15-2025 WBC (Bld) [#/Vol] 5.6 10*3/uL 4.4-11.0 [facility] Pulmonary Visit Reporton Pulmonary Visit Report [facility] [place] [address] [place] [address] OFFICE VISIT Date of Service: 05/20/25 MR#: [id number] Acct: [id number] Name: LIONEL GOVEA Rep #: [id number] 23 : 1965 Provider: Alisa Nicholas NP Age/Sex: 59/F [place] [facility] Status: Signed Assessment and Plan Assessment and Plan (1) Asthma: Status: Chronic Qualifiers: Asthma complication type: uncomplicated Asthma persistence: persistent Asthma severity: moderate Qualified Code(s): J45.40 - Moderate persistent asthma, uncomplicated Plan: Asthma is stable. PFT shows stability. No need for changes to daily maintenance inhaler. I recommend that she continue with use of Symbicort 2 inhalations twice daily. Use albuterol on an as-needed basis. Call for worsening respiratory symptoms. Albuterol has been refilled today. (2) Allergic rhinitis due to allergen: Status: Chronic Qualifiers: Allergic rhinitis seasonality: seasonal Allergic rhinitis trigger: pollen Qualified Code(s): J30.1 - Allergic rhinitis due to pollen Plan: Continue with current regimen for control of allergy symptoms. Continue to follow with ENT. Medications: Refilled albuterol sulfate 90 mcg/actuation 2 puffs inhalation Q6H PRN 8.5 grams 6RF shortness of breath or wheezing Plan Details Follow Up: 1 Year (LMR) HPI HPI Comments Details: Patient is a 59-year-old female who presents to the office today for follow-up of her severe asthma. She is ambulatory and currently on room air. The patient reports that she was sick in April and was placed on 2 antibiotics. She had a fever and chest symptoms was placed on Augmentin but was not receiving improvement in her symptoms. She was then placed on a Z dontrell and received benefit from this antibiotic. She reports that prior to that her last requirement of antibiotics were in December for sinus illness. The patient denies shortness of breath. She has an occasional cough. It is nonproductive. She denies wheeze. She denies chest pain. There is slight tightness present, allergy symptoms are active with postnasal drainage and throat clearing. She has not required the use of albuterol lately. She does not have breathing concerns today. She is requesting refill of albuterol inhaler. She is compliant with Symbicort 2 puffs twice daily. She does report using a spacer. He is not having difficulty with sore throat or hoarseness. She does have ipratropium bromide available but does not like to use this in a routine manner as it does dry out her nose. She is using nasal saline spray and Luray gel. For allergy symptoms if she does use ipratropium bromide nasal spray, Nasacort, and Loan. In the past she has tried Singulair but is unable to use this due to side effects that she does not recall at this sitting. If you recall, she is a lifelong never smoker. Documentation reviewed the patient today includes: PFT from May 11, 2025 shows a grossly normal pulmonary function study. Intake Vital Signs 03/25/25 13:39 05/20/25 07:47 Height 5 ft 5 in 5 ft 5 in Weight: 166 lb BMI 27.6 BP 107/76 Blood Pressure Location Lt brachial Position Sitting Respiration 16 Pulse 76 Pulse Source Monitor Temp 96.7 F L Temperature Source Temporal Artery Pulse Oximetry (%) 98 Oxygen Delivery Method room air Intake Visit Reasons: 4 M FU Credit And Collections Representative Required: No DME Vendor: N/a Accompanied by: Self Allergies etodolac Allergy (Severe, Verified 05/20/25 10:26) Itching gabapentin (From Neurontin) Allergy (Verified 05/20/25 10:26) Itching methscopolamine bromide (From Pamine) Allergy (Verified 05/20/25 10:26) Itching topiramate (From Topamax) Allergy (Verified 05/20/25 10:26) Itching tramadol HCl (From Ultram) Allergy (Verified 05/20/25 10:26) Itching nabumetone Adverse Reaction (Intermediate, Verified 05/20/25 10:26) tingling adhesive Adverse Reaction (Verified 05/20/25 10:26) Rash hydromorphone HCl (From Dilaudid) Adverse Reaction (Verified 05/20/25 10:26) Nausea/Vom/Diarrhea oxycodone HCl (From Percocet) Adverse Reaction (Verified 05/20/25 10:26) Nausea Medications ???Medication ???Instructions ???Recorded ???Confirmed ???Type acidophilus 25 million 1 tab PO DAILY 09/19/13 05/20/25 H istory cell-pectin, citrus 100 mg tablet multivitamin with folic acid 400 1 tab PO DAILY 09/19/13 05/20/25 H istory mcg tablet sumatriptan succinate 100 mg tablet 100 mg PO .X1 PRN 03/15/16 07/08/06 History calcium 600 mg (as 1 ea PO DAILY 02/06/17 05/20/25 Hi story carbonate)-vitamin D3 5 mcg (200 unit) tablet omega-3 fatty acids-fish oil 340 1 ea PO DAILY 02/06/17 05/20/25 Hi story mg-1,000 mg capsule ferrous sulfate 325 mg (65 mg 325 mg PO DAILY 09/19/18 05/20/25 History iron) tab (more content not included)... Normal [facility] Anion gap in Serum or Plasma Ordered By: Joi Darling on 05-19-2025 Anion gap [Moles/Vol] 13 mmol/L 5-15 [facility] BUN/creatinine ratioOrdered By: Joi Darling on 05-19-2025 Urea nitrogen/Creatinine [Mass ratio] 20.1 mg/mg High 10-20 [facility] Bilirubin, totalOrdered By: Joi Darling on 05-19-2025 Bilirubin [Mass/Vol] 0.36 mg/dL 0.00-1.30 [facility] Carbon dioxide, total [Moles /volume] in Central venous bloodOrdered By: Joi Darling on 05-19-2025 CO2 [Moles/Vol] 22.2 mmol/L 21.0-32.0 [facility] Chloride assayOrdered By: Anita Darling on 05-19-2025 Chloride [Moles/Vol] 106 mmol/L 98-108 [facility] Comprehensive Metabolic Prof ilon 05-19-2025 Albumin [Mass/Vol] 4.0 g/dL Normal 3.4-4.8 [facility] Comment on above: Performed By: #### L 500.4803 #### [facility] [address] [place], [address] Albumin/Globulin [Mass ratio] 1.6 {ratio} Normal 0.9-2.4 [facility] Comment on above: Performed By: #### L 500.4050 #### [facility] [address] [place], [address] ALK PHOS 109 U/L High 35-104 [facility] Comment on above: Performed By: #### L 500.4050 #### [facility] [address] [place], [address] ALT [Catalytic activity/Vol] 22 U/L Normal <=34 [facility] Comment on above: Performed By: #### L 500.4050 #### [facility] [address] [place], [address] AST [Catalytic activity/Vol] 23 U/L Normal <=31 [facility] Comment on above: Performed By: #### L 500.4050 #### [facility] [address] [place], [address] Bilirubin [Mass/Vol] 0.36 mg/dL Normal 0.00-1.30 [facility] Comment on above: Performed By: #### L 500.4050 #### [facility] [address] [place], [address] BUN/CRE 20.1 RATIO High 10-20 [facility] Comment on above: Performed By: #### L 500.4050 #### [facility] [address] [place], [address] Calcium [Mass/Vol] 9.3 mg/dL Normal 7.6-11.0 [facility] Comment on above: Performed By: #### L 500.4050 #### [facility] [address] [place], [address] Chloride [Moles/Vol] 106 mmol/L Normal 98-108 [facility] Comment on above: Performed By: #### L 500.4050 #### [facility] [address] [place], [address] CO2 [Moles/Vol] 22.2 mmol/L Normal 21.0-32.0 [facility] Comment on above: Performed By: #### L 500.4050 #### [facility] [address] [place], [address] Creatinine [Mass/Vol] 0.96 mg/dL Normal 0.70-1.20 [facility] Comment on above: Performed By: #### L 500.4050 #### [facility] [address] [place], [address] GAP 13 Normal 5-15 [facility] Comment on above: Performed By: #### L 500.4050 #### [facility] [address] [place], [address] GFR/1.73 sq M.predicted among non-blacks MDRD (S/P/Bld) [Vol rate/Area] 68 mL/min/{1.73_m2} Normal >60 [facility] Comment on above: Result Comment: mL/m in/1.73m2 CKD-EPI Creatinine Equation (2020) Performed By: #### L 500.4050 #### [facility] [address] [place], [address] Globulin (S) [Mass/Vol] 2.6 g/dL Normal 2.2-4.2 [facility] Comment on above: Performed By: #### L 500.4050 #### [facility] [address] [place], [address] Glucose [Mass/Vol] 109 mg/dL High 70-99 [facility] Comment on above: Performed By: #### L 500.4050 #### [facility] [address] [place], [address] Potassium [Moles/Vol] 3.9 mmol/L Normal 3.3-5.1 [facility] Comment on above: Result Comment: Hemo lysis present, Results??could be affected. ?? Performed By: #### L 500.4050 #### [facility] [address] [place], [address] Sodium [Moles/Vol] 141 mmol/L Normal 133-145 [facility] Comment on above: Performed By: #### L 500.4050 #### [facility] [address] [place], [address] T PROT 6.6 g/dL Normal 5.9-8.4 [facility] Comment on above: Performed By: #### L 500.4050 #### [facility] [address] [place], [address] Urea nitrogen [Mass/Vol] 19 mg/dL Normal 4-19 [facility] Comment on above: Performed By: #### L 500.4050 #### [facility] [address] [place], [address] Glomerular filtration rate ( GFR) estimation/1.73 sq m using serum, plasma, or whole bOrdered By: Joi Darling on 05-19-2025 GFR/1.73 sq M.predicted among non-blacks MDRD (S/P/Bld) [Vol rate/Area] 68 mL/min/{1.73_m2} >60 [facility] Comment on above: mL/min/1.73m2 CKD-EP I Creatinine Equation (2020) Laboratory - Chemistry and C hemistry - challengeOrdered By: Joi Darling on 05-19-2025 AST [Catalytic activity/Vol] 23 U/L <32 [facility] Potassium measurement (mass/ volume)Ordered By: Joi Darling on 05-19-2025 Potassium (Unsp spec) [Mass/Vol] 3.9 mmol/L 3.3-5.1 [facility] Comment on above: Hemolysis present, R esults could be affected. Serum creatinine measurement (mass/volume)Ordered By: Joi Darling on 05-19-2025 Creatinine [Mass/Vol] 0.96 mg/dL 0.70-1.20 [facility] Serum globulin measurementOr dered By: Joi Darling on 05-19-2025 Globulin (S) [Mass/Vol] 2.6 g/dL 2.2-4.2 [facility] Serum glucose measurement (m ass/volume)Ordered By: Joi Darling on 05-19-2025 Glucose [Mass/Vol] 109 mg/dL High 70-99 [facility] Serum or plasma alanine sherwood otransferase (ALT) measurementOrdered By: Joi Darling on 05-19-2025 ALT [Catalytic activity/Vol] 22 U/L <35 [facility] Serum or plasma albumin jim urement (mass/volume)Ordered By: Joi Darling on 05-19-2025 Albumin [Mass/Vol] 4.0 g/dL 3.4-4.8 [facility] Serum or plasma albumin/glob ulin mass ratioOrdered By: Joi Darling on 05-19-2025 Albumin/Globulin [Mass ratio] 1.6 {ratio} 0.9-2.4 [facility] Serum or plasma alkaline davon sphatase measurementOrdered By: Joi Darling on 05-19-2025 ALP [Catalytic activity/Vol] 109 U/L High 35-104 [facility] Serum or plasma calcium jim urement (mass/volume)Ordered By: Joi Darling on 05-19-2025 Calcium [Mass/Vol] 9.3 mg/dL 7.6-11.0 [facility] Serum or plasma urea nitroge n measurement (mass/volume)Ordered By: Joi Darling on 05-19-2025 Urea nitrogen [Mass/Vol] 19 mg/dL 4-19 [facility] Sodium levelOrdered By: Юлия Darling on 05-19-2025 Sodium [Moles/Vol] 141 mmol/L 133-145 [facility] Total proteinOrdered By: Kevyn Darling on 05-19-2025 Protein [Mass/Vol] 6.6 g/dL 5.9-8.4 [facility] Hydroelectric Production Technician Office Visit Reporton 05-07-2025 Hydroelectric Production Technician Office Visit Report [facility] [address], [address] [place] [address] OFFICE VISIT Date of Service: 05/07/25 MR#: [id number] Acct: [id number] Name: LIONEL GOVEA Rep #: [id number] 31 : 1965 Provider: ASHUTOSH Moulton Age/Sex: 59/F Location: [facility] [place] Status: Signed Intake Vital Signs 03/25/25 13:39 05/07/25 10:44 05/07/25 10:46 Height 5 ft 5 in 5 ft 5 in 5 ft 5 in BP 110/75 Pulse 85 Intake Visit Reasons: 6 WK Med F/U Allergies etodolac Allergy (Severe, Verified 03/25/25 13:34) Itching gabapentin (From Neurontin) Allergy (Verified 03/25/25 13:34) Itching methscopolamine bromide (From Pamine) Allergy (Verified 03/25/25 13:34) Itching topiramate (From Topamax) Allergy (Verified 03/25/25 13:34) Itching tramadol HCl (From Ultram) Allergy (Verified 03/25/25 13:34) Itching nabumetone Adverse Reaction (Intermediate, Verified 03/25/25 13:34) tingling adhesive Adverse Reaction (Verified 03/25/25 13:34) Rash hydromorphone HCl (From Dilaudid) Adverse Reaction (Verified 03/25/25 13:34) Nausea/Vom/Diarrhea oxycodone HCl (From Percocet) Adverse Reaction (Verified 03/25/25 13:34) Nausea PFSH Medical History Acid reflux Abdominal pain Asthma, moderate persistent Hormone replacement therapy Vocal cord polyp Allergic rhinitis Fibroadenoma of right breast Surgical History Trigger finger release bilateral hands Right wrist surgery H/O inguinal hernia repair History of bunionectomy of both great toes History of right oophorectomy H/O tubal ligation Vocal cord surgery Right shoulder surgery bilateral elbow surgery H/O knee surgery Previous back surgery Family History Mother Asthma Diabetes Father Hypertension Lung disease Social History household members: spouse housing: house current occupational status: employed current occupation: [employer] Smoking Status: Never smoker alcohol intake: never substance use type: does not use seatbelt use: always do you feel safe at home: Yes additional social history: - [employer]- [employer] Worker HPI 6 WK Med F/U Details: LIONEL GOVEA is a 59 year old who presents for 6 week med check after starting veozah; reports no issues or concerns with medication. Taking compliantly; and denies side effects. Did have lab work completed; this was reviewed and stable. She reports improvement in hot flashes. Female Reproductive History Menopausal Symptoms: No hot flashes (improved on meds), No night sweats, No weight change, No mood changes, No difficulty concentrating, No sleep problems and No change in libido History 4 Elective abortions Hx Para 4 Spontaneous abortions Hx # Term Pregnancies Ectopic pregnancies Hx # Pregnancies Multiple births # of living children 4 Past Pregnancies Del. Date Name GA/Weeks Outcome Route Bth Weight Infant Gen Labor Lgth [facility]est[facility] FOB Unknown Katherine 1991 Unknown Volodymyr 1993 Unknown Gato 1995 Unknown Shyla 1997 ROS Const Constitutional: Denies chills, fatigue, fever(s), headache(s), night sweats or weight loss Eyes Eyes: Denies change in vision ENT ENT: Denies dizziness Cardio Card: Denies chest pain at rest or palpitations Resp Resp: Denies cough GI GI: Denies abdominal pain, constipation or nausea : Denies hot flashes (improved on meds) Skin Skin/Breast: Denies alopecia or rash Neuro Neuro: Denies dizziness Psych Psych: Denies anxiety, change in libido, depression or difficulty concentrating Endo Endo: Denies cold intolerance, excessive sweating or heat intolerance Exam Const General: cooperative, healthy appearing and comfortable Nutritional Appearance: well nourished Orientation: alert, awake and oriented x3 HENMT Head: normal to inspection and normocephalic Ears: hearing grossly normal bilaterally and external ears normal Nose: external nose normal Face and sinus: normal facial exam Eyes General: appearance normal, both eyes and all related structures Resp Effort Inspection: normal respiratory effort, able to speak in complete sentences and symmetric chest movement Skin General: no rashes or lesions noted Neuro General: patient alert, patient awake, patient oriented x3 and moves all extremities Psych Appearance: grossly normal Mental Status: mental status grossly normal Affect: normal affect Speech and Movement: speech and movement normal Attitude: cooperative Coding Level of Care Code Established Pt Off vis,est,level 3 Patient Type Established Diagnoses Hot f (more content not included)... Normal [facility] Breast imaging reportOrdered By: Madhavi Taylor on 05-01-2025 Study report [facility] Imaging Services [address], [place] [address] SCRN MAMM (CAD)W/TYSON BILAT MR#: [id number] Acct: [id number] Name: LIONEL GOVEA Rep #: [id number] : 1965 F 59 From: Gisel Taylor MD PCP: Dr. Melinda Rodgers MD Status: REG CL I Study:SCRN MAMM (CAD)W/TYSON BILAT Date of Exa m: 05/01/25 Exam# [id number] Ordering Dr: Joi Darling PATHOLOGY TRANSCRIPTIONIST-C EXAM: SCRN MAMM (CAD)W/TYSON BILAT 05/01/2025 CLINICAL HISTORY: F, Age 59 y/o , SCREEN FOR BREAST CANCER TECHNIQUE: Bilateral screening digital breast tomosynthesis with 2D and 3D images. Computeraided detection. COMPARISON: Prior exam(s) dated 04/25/2024, 04/19/2023, 04/11/2022. FINDINGS: TISSUE DENSITY: The breast tissue is composed of scattered area of fibroglandular density. Bilateral Breast Mammographic Findings: No significant masses, calcifications or other abnormalities are identified. BI/SCRN MAMM (CAD)W/TYSON BILAT IMPRESSION: Right Breast: BIRADS 1 NEGATIVE. Left Breast: BIRADS 1 NEGATIVE. OVERALL FINAL ASSESSMENT: BIRADS 1 NEGATIVE. RECOMMENDATION: Routine annual follow-up in 1 Year A letter with findings and recommendations will be mailed to the patient. Reading Location: [facility] CC: ASHUTOSH Darling; Dr. Melinda Rodgers MD ~ Aircraft Manager: Signed [facility] SCRN MAMM (CAD)W/TYSON BILATo n 05-01-2025 SCRN MAMM (CAD)W/TYSON BILAT [facility] Imaging Services [address] [place] [address] SCRN MAMM (CAD)W/TYSON BILAT MR#: [id number] Acct: [id number] Name: LIONEL GOVEA Rep #: [id number] : 1965 F 59 From: Madhavi Taylor MD PCP: Dr. Melinda Rodgers MD Status: REG CLI Study: SCRN MAMM (CAD)W/TYSON BILAT Date of Exam: 04/13 Exam# [id number] Ordering Dr: Joi Darling EXAM: SCRN MAMM (CAD)W/TYSON BILAT 05/01/2025 CLINICAL HISTORY: F, Age 59 y/o , SCREEN FOR BREAST CANCER TECHNIQUE: Bilateral screening digital breast tomosynthesis with 2D and 3D images. Computer aided detection. COMPARISON: Prior exam(s) dated 04/25/2024, 04/19/2023, 04/11/2022. FINDINGS: TISSUE DENSITY: The breast tissue is composed of scattered area of fibroglandular density. Bilateral Breast Mammographic Findings: No significant masses, calcifications or other abnormalities are identified. BI/SCRN MAMM (CAD)W/TYSON BILAT IMPRESSION: Right Breast: BIRADS 1 NEGATIVE. Left Breast: BIRADS 1 NEGATIVE. OVERALL FINAL ASSESSMENT: BIRADS 1 NEGATIVE. RECOMMENDATION: Routine annual follow-up in 1 Year A letter with findings and recommendations will be mailed to the patient. Reading Location: [facility] CC: ASHUTOSH Darling; Dr. Melinda Rodgers MD Aircraft Manager: Signed Normal [facility] Urine Cultureon 04-23-2025 URC Escherichia coli Weston Count >100,000 Escherichia coli: REACTION Ampicillin Islt ATUL >=32 Ampicillin+Sulbac Islt ATUL 16 I Cefepime Islt ATUL <=0.12 S cefTRIAXone Islt ATUL <=0.25 S Ciprofloxacin Islt ATUL 0.25 S B-Lactamase Extended Susc Islt NEG Gentamicin Islt ATUL <=1 S levoFLOXacin Islt ATUL 0.5 S Meropenem Islt ATUL <=0.25 S Nitrofurantoin Islt ATUL <=16 S Pip+Tazo Islt ATUL <=4 S TMP SMX Islt ATUL >=320 R Normal [facility] Comment on above: Performed By: #### M 100.2200 ####[facility] [address] [place], [place], [id number] Urine cultureOrdered By: Francie Nunez on 04-21-2025 Bacteria identified Cx Nom (U) Escherichia coli Abnormal [facility] Bilirubin directOrdered By: Joi Darling on 04-20-2025 Bilirubin.direct [Mass/Vol] 0.12 mg/dL Normal 0.00-0.30 [facility] Comment on above: Order Comment: PER Kelly DARLING ORDER Performed By: #### L 500.3400 ####[facility] [address] [place], [place], [phone] Bilirubin, totalOrdered By: Joi Darling on 04-20-2025 Bilirubin [Mass/Vol] 0.25 mg/dL Normal 0.00-1.30 [facility] Comment on above: Order Comment: PER P HEBERT DARLING ORDER Performed By: #### L 500.3400 ####[facility] [address] [place], [address] Liver Profileon 04-20-2025 ALK PHOS 119 U/L High 35-104 [facility] Comment on above: Order Comment: PER P HEBERT DARLING ORDER Performed By: #### L 500.3400 ####[facility] [address] [place], [place], [id number] T PROT 7.0 g/dL Normal 5.9-8.4 [facility] Comment on above: Order Comment: PER Kelyl DARLING ORDER Performed By: #### L 500.3400 ####[facility] [address] [place], [address] Liver ProfileOrdered By: Kevyn Darling on 04-20-2025 AST [Catalytic activity/Vol] 25 U/L Normal <=31 [facility] Comment on above: Order Comment: PER P HEBERT DARLING ORDER Performed By: #### L 500.3400 ####[facility] [address] [place], [address] Serum globulin measurementOr dered By: Joi Darling on 04-20-2025 Globulin (S) [Mass/Vol] 2.9 g/dL Normal 2.2-4.2 [facility] Comment on above: Order Comment: PER Kelly DARLING ORDER Performed By: #### L 500.3400 ####[facility] [address] [place], [address] Serum or plasma alanine sherwood otransferase (ALT) measurementOrdered By: Joi Darling on 04-20-2025 ALT [Catalytic activity/Vol] 29 U/L Normal <=34 [facility] Comment on above: Order Comment: PER Kelly DARLING ORDER Performed By: #### L 500.3400 ####[facility] [address] [place], [address] Serum or plasma albumin jim urement (mass/volume)Ordered By: Joi Darling on 04-20-2025 Albumin [Mass/Vol] 4.1 g/dL Normal 3.4-4.8 [facility] Comment on above: Order Comment: PER Kelly DARLING ORDER Performed By: #### L 500.3400 ####[facility] [address] [place], [address] Serum or plasma alkaline davon sphatase measurementOrdered By: Joi Darling on 04-20-2025 ALP [Catalytic activity/Vol] 119 U/L High 35-104 [facility] Total proteinOrdered By: Kevyn Darling on 04-20-2025 Protein [Mass/Vol] 7.0 g/dL 5.9-8.4 [facility] Hydroelectric Production Technician Office Visit Reporton 03-25-2025 Hydroelectric Production Technician Office Visit Report [facility] [address], [address] [place] [address] OFFICE VISIT Date of Service: 03/25/25 MR#: [id number] Acct: [id number] Name: LIONEL GOVEA Rep #: [id number] : 1965 Provider: ASHUTOSH Moulton Age/Sex: 59/F Location: [facility] [place] Status: Signed Intake Vital Signs 01/06/25 07:45 03/17/25 18:01 03/25/25 13:35 03/25/25 13:39 Height 5 ft 5 in 5 ft 5 in 5 ft 5 in 5 ft 5 in Weight: 166 lb 4 oz BMI 27.6 BP 124/78 H Intake Visit Reasons: Annual (REGISTRATION REP) Credit And Collections Representative Required: No Is patient in pain?: No Allergies etodolac Allergy (Severe, Verified 03/25/25 13:34) Itching gabapentin (From Neurontin) Allergy (Verified 03/25/25 13:34) Itching methscopolamine bromide (From Pamine) Allergy (Verified 03/25/25 13:34) Itching topiramate (From Topamax) Allergy (Verified 03/25/25 13:34) Itching tramadol HCl (From Ultram) Allergy (Verified 03/25/25 13:34) Itching nabumetone Adverse Reaction (Intermediate, Verified 03/25/25 13:34) tingling adhesive Adverse Reaction (Verified 03/25/25 13:34) Rash hydromorphone HCl (From Dilaudid) Adverse Reaction (Verified 03/25/25 13:34) Nausea/Vom/Diarrhea oxycodone HCl (From Percocet) Adverse Reaction (Verified 03/25/25 13:34) Nausea Medications ???Medication ???Instructions ???Recorded ???Confirmed ???Type acidophilus 25 million 1 tab PO DAILY 09/19/13 03/25/25 H istory cell-pectin, citrus 100 mg tablet multivitamin with folic acid 400 1 tab PO DAILY 09/19/13 03/25/25 H istory mcg tablet sumatriptan succinate 100 mg tablet 100 mg PO .X1 PRN 03/15/1603/12 History calcium 600 mg (as 1 ea PO DAILY 02/06/17 03/25/25 Hi story carbonate)-vitamin D3 5 mcg (200 unit) tablet omega-3 fatty acids-fish oil 340 1 ea PO DAILY 02/06/17 03/25/25 Hi story mg-1,000 mg capsule ferrous sulfate 325 mg (65 mg 325 mg PO DAILY 09/19/18 03/25/25 History iron) tablet pantoprazole 40 mg tablet,delayed 40 mg PO DAILY 09/19/18 03/25/25 History release (Protonix) eluxadoline 100 mg tablet (Viberzi) 100 mg PO BID 03/31/20 03/25/25 History cyclobenzaprine 10 mg tablet 10 mg PO HS 09/11/22 03/25/25 Hist ory zinc gluconate 50 mg tablet 50 mg PO DAILY 09/11/22 03/25/25 H istory Nebulizer machine #1 ea 09/25/22 03/25/25 Rx triamcinolone acetonide 55 mcg 1 spray intranasal DAILY PRN 01/0203/25/25 History nasal spray aerosol (Nasacort) albuterol sulfate 90 mcg/actuation 2 puff inhalation Q6H PRN 03/25/25 Rx aerosol inhaler shortness of breath or wheezing #8.5 grams ondansetron 4 mg disintegrating 4 mg PO TID PRN headache 03/11/24 03/25/25 History tablet budesonide-formoterol HFA 160 2 inh inhalation BID #3 ea 4 03/25/25 Rx mcg-4.5 mcg/actuation aerosol inhaler (Symbicort) spacer #1 ea 09/11/24 03/25/25 Rx guaifenesin 1,200 mg tablet, 1,200 mg PO .QD #30 tabs 01/06/25 03/25/25 Rx extended release 12 hr (Mucinex) albuterol sulfate 2.5 mg/3 mL 2.5 mg (3 mL) inhalation Q4H PRN 0 01/23/25 03/25/25 Rx (0.083 %) solution for nebulization Sob /Or Wheezing #180 mL Is last menstrual period known: No Post menopausal: Yes Patient : No : No Control Method: tubal PFSH Medical History Acid reflux Abdominal pain Asthma, moderate persistent Hormone replacement therapy Vocal cord polyp Allergic rhinitis Fibroadenoma of right breast Surgical History Trigger finger release bilateral hands Right wrist surgery H/O inguinal hernia repair History of bunionectomy of both great toes History of right oophorectomy H/O tubal ligation Vocal cord surgery Right shoulder surgery bilateral elbow surgery H/O knee surgery Previous back surgery Family History Mother Asthma Diabetes Father Hypertension Lung disease Social History household members: spouse housing: house current occupational status: employed current occupation: [employer] Smoking Status: Never smoker alcohol intake: never substance use type: does not use seatbelt use: always do you feel safe at home: Yes additional social history: - [employer]- [employer] 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 Date Name GA/Weeks Outcome Route Bth Weight Infant Gen Labor Lgth Anesthesia Del Locatn Provider FOB Unknown Katherine 1991 Unknown Volodymyr 1993 Unknown Gato 1995 U (more content not included)... Normal [facility] Abdomen/Pelvis WITH Contrast on 03-17-2025 Abdomen/Pelvis WITH Contrast [facility] Imaging Services [address] [place] [address] Abdomen/Pelvis WITH Contrast MR#: [id number] Acct: [id number] Name: LIONEL GOVEA Rep #: [id number] : 1965 F 59 From: Gerald west MD PCP: Dr. Melinda Rodgers MD Status: REG ER Study: Abdomen/Pelvis WITH Contrast Date of Exam: 05/06 Exam# [id number] Ordering Dr: Jeremy Fall MD PROCEDURE: ABDOMEN/PELVIS WITH CONTRAST 03/17/2025 REASON FOR EXAM: RLQ PAIN TECHNIQUE: Abdomen and pelvis CT with intravenous contrast. Coronal and Sagittal reconstruction series were provided. PATIENT PREPARATION: Per protocol ORAL CONTRAST TYPE: None. AMOUNT: mL CONTRAST: Omnipaque 350 VOLUME: 100 mL Not Provided Gauge IV One or more dose reduction techniques were used (e.g., Automated exposure control, adjustment of the mA and/or kV according to patient size, use of iterative reconstruction technique. COMPARISON: CT abdomen and pelvis 05/29/2018 and 02/2020 FINDINGS: Lung bases: Unremarkable Liver: Homogeneous attenuation. 11 mm right hepatic lobe simple cyst. Gallbladder: No ductal dilation. Gallbladder is unremarkable. Spleen: Normal size. Pancreas: Normal size without evidence of mass surrounding inflammation or ductal dilation. Adrenals: Unremarkable. Kidneys: Normal renal sizes. No hydronephrosis. Bladder: Urinary bladder is unremarkable. Reproductive Organs: No pelvic mass. Bowel: Stomach is unremarkable. No bowel dilation or significant wall thickening. Contrast is noted throughout the small bowel and colon. Large colonic stool. Appendix: Normal appendix. Lymph nodes: No suspicious lymph node enlargement. Vasculature: The abdominal aorta and IVC are normal. Peritoneum / Retroperitoneum: Small ascites. No pneumoperitoneum. Bones: Postoperative changes L3-L5 left yared fusion. Hardware appears intact. No acute osseous abnormality. 1 Soft tissue: Unremarkable. CT/Abdomen/Pelvis WITH Contrast IMPRESSION: No acute findings in the abdomen and pelvis. Other findings as described above. OVERALL FINAL ASSESSMENT: . LI-RADS is not meant to be used in patients <18 years or patients with cirrhosis due to congenital hepatic fibrosis or due to vascular disorders, because these patients have a lower chance of developing HCC. Reading Location: [facility] CC: Dr. Jeremy Fall MD; Dr. Melinda Rodgers MD Aircraft Manager: Signed Normal [facility] Absolute lymphocyte countOrd ered By: Jeremy Fall on 03-17-2025 Lymphocytes Auto (Unsp spec) [#/Vol] 1.72 10*3/uL 0.83-4.51 [facility] Absolute neutrophil countOrd ered By: Jeremy Fall on 03-17-2025 Neutrophils (Bld) [#/Vol] 3.9 10*3/uL 2.0-7.7 [facility] Anion gap in Serum or Plasma Ordered By: Jeremy Fall on 03-17-2025 Anion gap [Moles/Vol] 10 mmol/L 5-15 [facility] Automated lymphocyte count a s percentage of total leukocytesOrdered By: Jeremy Fall on 03-17-2025 Lymphocytes/100 WBC Auto (Unsp spec) 27.5 % 19- [facility] BUN/creatinine ratioOrdered By: Jeremy Fall on 03-17-2025 Urea nitrogen/Creatinine [Mass ratio] 15.6 mg/mg 10- [facility] Basophil percentageOrdered B y: Jeremy Fall on 03-17-2025 Basophils/100 WBC (Bld) 0.6 % 0-1 [facility] Bilirubin Test strip Ql (U)O rdered By: Jeremy Fall on 03-17-2025 Bilirubin Ql (U) Negative Negative [facility] Bilirubin, totalOrdered By: Jeremy Fall on 03-17-2025 Bilirubin [Mass/Vol] 0.24 mg/dL 0.00-1.30 [facility] CBC W/Diff, Automatedon Absolute Lymph 1.72 X10 3/uL Normal 0.83-4.51 [facility] Comment on above: Performed By: #### L 100.0100, L500.4050 #### [facility] [address] [place], [address] Absolute Neut 3.9 X10 3/uL Normal 2.0-7.7 [facility] Comment on above: Performed By: #### L 100.0100, L500.4050 #### [facility] [address] [place], [address] Basophils/100 WBC (Bld) 0.6 % Normal 0-1 [facility] Comment on above: Performed By: #### L 100.0100, L500.4050 #### [facility] [address] [place], [address] Eosinophils/100 WBC (Bld) 2.2 % Normal 0-5 [facility] Comment on above: Performed By: #### L 100.0100, L500.4050 #### [facility] [address] [place], [address] Erythrocyte distribution width (RBC) [Ratio] 12.1 % Normal 11.6-14.6 [facility] Comment on above: Performed By: #### L 100.0100, L500.4050 #### [facility] [address] [place], [address] Hematocrit (Bld) [Volume fraction] 40.8 % Normal 37-47 [facility] Comment on above: Performed By: #### L 100.0100, L500.4050 #### [facility] [address] [place], [address] Hemoglobin (Bld) [Mass/Vol] 13.8 g/dL Normal 12.0-15.0 [facility] Comment on above: Performed By: #### L 100.0100, L500.4050 #### [facility] [address] [place], [address] IG% 0.300 Normal 0.0-0.9 [facility] Comment on above: Result Comment: IG% - Immature Granulocytes (promyelocytes, myelocytes and metamyelocytes) > 1% indicates that a LEFT SHIFT is Present. Performed By: #### L 100.0100, L500.4050 #### [facility] [address] [place], [address] Lymphocytes/100 WBC (Bld) 27.5 % Normal 19-41 [facility] Comment on above: Performed By: #### L 100.0100, L500.4050 #### [facility] [address] [place], [address] MCH (RBC) [Entitic mass] 30.1 pg Normal 27.0-32.0 [facility] Comment on above: Performed By: #### L 100.0100, L500.4050 #### [facility] [address] [place], [address] MCHC (RBC) [Mass/Vol] 33.8 g/dL Normal 32-36 [facility] Comment on above: Performed By: #### L 100.0100, L500.4050 #### [facility] [address] [place], [address] MCV (RBC) [Entitic vol] 88.9 fL Normal 81-99 [facility] Comment on above: Performed By: #### L 100.0100, L500.4050 #### [facility] [address] [place], [address] Monocytes/100 WBC (Bld) 7.2 % Normal 0-10 [facility] Comment on above: Performed By: #### L 100.0100, L500.4050 #### [facility] [address] [place], [address] Neutrophils/100 WBC (Bld) 62.2 % Normal 47-70 [facility] Comment on above: Performed By: #### L 100.0100, L500.4050 #### [facility] [address] [place], [address] Nucleated RBC (Bld) [#/Vol] 0 10*3/uL Normal 0-5 [facility] Comment on above: Performed By: #### L 100.0100, L500.4050 #### [facility] [address] [place], [address] Platelet mean volume (Bld) [Entitic vol] 9.0 fL Normal 6.2-12.0 [facility] Comment on above: Performed By: #### L 100.0100, L500.4050 #### [facility] [address] [place], [address] Platelets (Bld) [#/Vol] 197 10*3/uL Normal 150-450 [facility] Comment on above: Performed By: #### L 100.0100, L500.4050 #### [facility] [address] [place], [address] RBC (Bld) [#/Vol] 4.59 10*6/uL Normal 4.2-5.4 [facility] Comment on above: Performed By: #### L 100.0100, L500.4050 #### [facility] [address] [place], [address] RDW SD 39.4 fl Normal 35.1-43.9 [facility] Comment on above: Performed By: #### L 100.0100, L500.4050 #### [facility] [address] [place], [address] WBC (Bld) [#/Vol] 6.3 10*3/uL Normal 4.4-11.0 [facility] Comment on above: Performed By: #### L 100.0100, L500.4050 #### [facility] [address] [place], [address] Carbon dioxide, total [Moles /volume] in Central venous bloodOrdered By: Jeremy Fall on 03-17-2025 CO2 [Moles/Vol] 26.5 mmol/L 21.0-32.0 [facility] Chloride assayOrdered By: Dimitry Fall on 03-17-2025 Chloride [Moles/Vol] 103 mmol/L 98-108 [facility] Comprehensive Metabolic Prof ilon 03-17-2025 Albumin [Mass/Vol] 4.3 g/dL Normal 3.4-4.8 [facility] Comment on above: Performed By: #### L 100.0100, L500.4050 #### [facility] [address] [place], [address] Albumin/Globulin [Mass ratio] 1.6 {ratio} Normal 0.9-2.4 [facility] Comment on above: Performed By: #### L 100.0100, L500.4050 #### [facility] [address] [place], [address] ALK PHOS 126 U/L High 35-104 [facility] Comment on above: Performed By: #### L 100.0100, L500.4050 #### [facility] [address] [place], [address] ALT [Catalytic activity/Vol] 29 U/L Normal <=34 [facility] Comment on above: Performed By: #### L 100.0100, L500.4050 #### [facility] [address] [place], [address] AST [Catalytic activity/Vol] 28 U/L Normal <=31 [facility] Comment on above: Performed By: #### L 100.0100, L500.4050 #### [facility] [address] [place], [address] Bilirubin [Mass/Vol] 0.24 mg/dL Normal 0.00-1.30 [facility] Comment on above: Performed By: #### L 100.0100, L500.4050 #### [facility] [address] [place], [address] BUN/CRE 15.6 RATIO Normal 10-20 [facility] Comment on above: Performed By: #### L 100.0100, L500.4050 #### [facility] [address] [place], [address] Calcium [Mass/Vol] 9.1 mg/dL Normal 7.6-11.0 [facility] [facility] Comment on above: Performed By: #### L 100.0100, L500.4050 #### [facility] [address] [place], [address] Chloride [Moles/Vol] 103 mmol/L Normal 98-108 [facility] Comment on above: Performed By: #### L 100.0100, L500.4050 #### [facility] [address] [place], [address] CO2 [Moles/Vol] 26.5 mmol/L Normal 21.0-32.0 [facility] Comment on above: Performed By: #### L 100.0100, L500.4050 #### [facility] [address] [place], [address] Creatinine [Mass/Vol] 1.01 mg/dL Normal 0.70-1.20 [facility] Comment on above: Performed By: #### L 100.0100, L500.4050 #### [facility] [address] [place], [address] ECRCL 60.06 ml/min Normal 50-250 [facility] Comment on above: Performed By: #### L 100.0100, L500.4050 #### [facility] [address] [place], [address] GAP 10 Normal 5-15 [facility] Comment on above: Performed By: #### L 100.0100, L500.4050 #### [facility] [address] [place], [address] GFR/1.73 sq M.predicted among non-blacks MDRD (S/P/Bld) [Vol rate/Area] 64 mL/min/{1.73_m2} Normal >60 [facility] Comment on above: Result Comment: mL/m in/1.73m2 CKD-EPI Creatinine Equation (2020) Performed By: #### L 100.0100, L500.4050 #### [facility] [address] [place], [address] Globulin (S) [Mass/Vol] 2.7 g/dL Normal 2.2-4.2 [facility] Comment on above: Performed By: #### L 100.0100, L500.4050 #### [facility] [address] [place], [address] Glucose [Mass/Vol] 115 mg/dL High 70-99 [facility] Comment on above: Performed By: #### L 100.0100, L500.4050 #### [facility] [address] [place], [address] Potassium [Moles/Vol] 4.1 mmol/L Normal 3.3-5.1 [facility] Comment on above: Performed By: #### L 100.0100, L500.4050 #### [facility] [address] [place], [address] Sodium [Moles/Vol] 139 mmol/L Normal 133-145 [facility] Comment on above: Performed By: #### L 100.0100, L500.4050 #### [facility] [address] [place], [address] T PROT 7.0 g/dL Normal 5.9-8.4 [facility] Comment on above: Performed By: #### L 100.0100, L500.4050 #### [facility] [address] [place], [address] Urea nitrogen [Mass/Vol] 16 mg/dL Normal 4-19 [facility] Comment on above: Performed By: #### L 100.0100, L500.4050 #### [facility] [address] [place], [address] Emergency Department Summary on 03-17-2025 Emergency Department Summary [facility] Medical Records Department [address] [place] [address] Emergency Department Summary 03/17/25 MR#: [id number] Acct: [id number] Name: LIONEL GOVEA Rep #: [id number] : 1965 59 From: Jeremy Fall MD PCP: Dr. Melinda Rodgers MD Status:REG ER Location: ED HPI HPI - GI History of Present Illness Chief Complaint: Flank Pain Narrative Narrative: 59-year-old female past medical history of asthma and IBS presents with right sided flank pain/right lower quadrant abdominal pain that she has had for the last week. She relates history that she was unsure of what her pain was so she saw her primary care provider. She had an outpatient CT scan which showed contrast in the appendix. She states that she was referred to a general surgeon as an outpatient who she saw yesterday, Dr. Anderson. She states that she wanted to have another CT performed but at this time with clear contrast secondary to her appendix being full of white contrast. The patient denies any exacerbating or alleviating factors to her pain but states it has increased since she was seen by the surgeon yesterday. She denies any fevers or chills, no nausea or vomiting, no dysuria or hematuria, she had 5 bowel movements today which was abnormal for her. [facility] Medical History Acid reflux Abdominal pain Asthma, moderate persistent Hormone replacement therapy Vocal cord polyp Allergic rhinitis Fibroadenoma of right breast Home Medications ???Medication ???Instructions ???Recorded ???Last Taken ???Type acidophilus 25 million 1 tab PO DAILY 09/19/13 Unknown Hi story cell-pectin, citrus 100 mg tablet multivitamin with folic acid 400 1 tab PO DAILY 09/19/13 Unknown Hi story mcg tablet sumatriptan succinate 100 mg tablet 100 mg PO .X1 PRN 03/15/16 Unkn own History calcium 600 mg (as 1 ea PO DAILY 02/06/17 Unknown His tory carbonate)-vitamin D3 5 mcg (200 unit) tablet omega-3 fatty acids-fish oil 340 1 ea PO DAILY 02/06/17 Unknown His tory mg-1,000 mg capsule ferrous sulfate 325 mg (65 mg 325 mg PO DAILY 09/19/18 Unknown H istory iron) tablet pantoprazole 40 mg tablet,delayed 40 mg PO DAILY 09/19/18 Unknown H istory release (Protonix) eluxadoline 100 mg tablet (Viberzi) 100 mg PO BID 03/31/20 Unknown History cyclobenzaprine 10 mg tablet 10 mg PO HS 09/11/22 Unknown Histo ry zinc gluconate 50 mg tablet 50 mg PO DAILY 09/11/22 Unknown Hi story Nebulizer machine #1 ea 09/25/22 Unknown Rx triamcinolone acetonide 55 mcg 1 spray intranasal DAILY PRN 01/02 Unknown History nasal spray aerosol (Nasacort) albuterol sulfate 90 mcg/actuation 2 puff inhalation Q6H PRN Unknown Rx aerosol inhaler shortness of breath or wheezing #8.5 grams ondansetron 4 mg disintegrating 4 mg PO TID PRN headache 03/11/24 Unknown History tablet budesonide-formoterol HFA 160 2 inh inhalation BID #3 ea 4 Unknown Rx mcg-4.5 mcg/actuation aerosol inhaler (Symbicort) spacer #1 ea 09/11/24 Unknown Rx guaifenesin 1,200 mg tablet, 1,200 mg PO .QD #30 tabs 01/06/25 Unknown Rx extended release 12 hr (Mucinex) albuterol sulfate 2.5 mg/3 mL 2.5 mg (3 mL) inhalation Q4H PRN 0 01/23/25 Unknown Rx (0.083 %) solution for nebulization Sob /Or Wheezing #180 mL Allergy/AdvReac Type Severity Reaction Status Date / Time etodolac Allergy Severe Itching Verified 03/17/25 18:00 gabapentin (From Neurontin) Allergy Itching Verified 03/17/25 18:00 methscopolamine bromide Allergy Itching Verified 03/17/25 18:00 (From Pamine) topiramate (From Topamax) Allergy Itching Verified 03/17/25 18:00 tramadol HCl (From Ultram) Allergy Itching Verified 03/17/25 18:00 nabumetone AdvReac Intermediate tingling Verified 03/17/25 18:00 adhesive AdvReac Rash Verified 03/17/25 18:00 hydromorphone HCl (From AdvReac Nausea/Vom/ Verified 03/17/25 18:00 Dilaudid) Diarrhea oxycodone HCl (From Percocet) AdvReac Nausea Verified 03/17/25 18:00 Family History Mother Asthma Diabetes Father Hypertension Lung disease Surgical History Trigger finger release bilateral hands Right wrist surgery H/O inguinal hernia repair History of bunionectomy of both great toes History of right oophorectomy H/O tubal ligation Vocal cord surgery Right shoulder surgery bilateral elbow surgery H/O knee surgery Previous back surgery Social History household members: spouse housing: house current occupational status: employed current occupation: [employer] Smoking Status: Never smoker alcohol intake: never substance use type: (more content not included)... Normal [facility] Eosinophil percentageOrdered By: Jeremy Fall on 03-17-2025 Eosinophils/100 WBC (Bld) 2.2 % 0-5 [facility] Epithelial cells.squamous LM Ql (Urine sed)Ordered By: Jeremy Fall on 03-17-2025 Epithelial cells.squamous LM.HPF (Urine sed) [#/Area] 0 /[HPF] 5-10 [facility] Erythrocyte distribution wid th (RBC) [Ratio]Ordered By: Jeremy Fall on 03-17-2025 Erythrocyte distribution width (RBC) [Entitic vol] 39.4 fL 35.1-43.9 [facility] Erythrocyte distribution wid th ratioOrdered By: Jeremy aFll on 03-17-2025 Erythrocyte distribution width (RBC) [Ratio] 12.1 % 11.6-14.6 [facility] Erythrocyte distribution wid th standard deviationOrdered By: Jeremy Fall on 03-17-2025 Erythrocyte distribution width (RBC) [Ratio] 39.4 fl 35.1-43.9 [facility] Estimation of creatinine lucy aranceOrdered By: Jeremy Fall on 03-17-2025 Estimated Creatinine Clearance Calc 60.06 ml/min 50-250 [facility] GFR/1.73 sq M.predicted otilio g non-blacks MDRD (S/P/Bld) [Vol rate/Area]Ordered By: Jeremy Fall on 03-17-2025 Estimated GFR (MDRD) Non-Af Amer 64 >60 [facility] Comment on above: mL/min/1.73m2 CKD-EP I Creatinine Equation (2020) Glomerular filtration rate ( GFR) estimation/1.73 sq m using serum, plasma, or whole bOrdered By: Jeremy Fall on 03-17-2025 GFR/1.73 sq M.predicted among non-blacks MDRD (S/P/Bld) [Vol rate/Area] 64 mL/min/{1.73_m2} >60 [facility] Comment on above: mL/min/1.73m2 CKD-EP I Creatinine Equation (2020) Glucose Ql (U)Ordered By: Dimitry Fall on 03-17-2025 Urine Glucose (UA) Normal mg/dl Normal [facility] Hematocrit Auto (Bld) [Volum e fraction]Ordered By: Jeremy Fall on 03-17-2025 Hematocrit (Bld) [Volume fraction] 40.8 % 37-47 [facility] Hemoglobin measurementOrdere d By: Jeremy Fall on 03-17-2025 Hemoglobin (Bld) [Mass/Vol] 13.8 g/dL 12.0-15.0 [facility] Immature granulocytes/100 WB C Auto (Bld)Ordered By: Jeremy Fall on 03-17-2025 Immature granulocytes/100 WBC (Bld) 0.300 % 0.0-0.9 [facility] Comment on above: IG% - Immature Granu locytes (promyelocytes, myelocytes and metamyelocytes) > 1% indicates that a LEFT SHIFT is Present. Ketones Test strip Ql (U)Ord ered By: Jeremy Fall on 03-17-2025 Ketones Ql (U) Negative Negative [facility] - Chemistry and C hemistry - challengeOrdered By: Jeremy Fall on 03-17-2025 AST [Catalytic activity/Vol] 28 U/L <32 [facility] Lymphocytes Auto (Unsp spec) [#/Vol]Ordered By: Jeremy Fall on 03-17-2025 Lymphocytes (Bld) [#/Vol] 1.72 10*3/uL 0.83-4.51 [facility] Lymphocytes/100 WBC Auto (Un sp spec)Ordered By: Jeremy Fall on 03-17-2025 Lymphocytes/100 WBC (Bld) 27.5 % 19-41 [facility] MCV (mean corpuscular volume ) determinationOrdered By: Jeremy Fall on 03-17-2025 MCV (RBC) [Entitic vol] 88.9 fL 81-99 [facility] Mean corpuscular hemoglobin (MCH) determinationOrdered By: Jeremy Fall on 03-17-2025 MCH (RBC) [Entitic mass] 30.1 pg 27.0-32.0 [facility] Mean corpuscular hemoglobin concentration (MCHC) determinationOrdered By: Jeremy Fall on 03-17-2025 MCHC (RBC) [Mass/Vol] 33.8 g/dL 32-36 [facility] Mean platelet volume determi nationOrdered By: Jeremy Fall on 03-17-2025 Platelet mean volume (Bld) [Entitic vol] 9.0 fL 6.2-12.0 [facility] Microscopic analysis of urin e for red blood cells (RBC)Ordered By: Jeremy Fall on 03-17-2025 Microscopic analysis of urine for red blood cells (RBC) 0 SEEN /hpf 0-5 [facility] Urine RBC 0 SEEN /hpf 0-5 [facility] Monocyte percentageOrdered B y: Jeremy Fall on 03-17-2025 Monocytes/100 WBC (Bld) 7.2 % 0-10 [facility] Mucus LM Ql (Urine sed)Order ed By: Jeremy Fall on 03-17-2025 Mucus Ql (Urine sed) 0 SEEN /hpf [facility] Neutrophil percentageOrdered By: Jeremy Fall on 03-17-2025 Neutrophils/100 WBC (Bld) 62.2 % 47-70 [facility] Nitrite Test strip Ql (U)Ord ered By: Jeremy Fall on 03-17-2025 Nitrite Ql (U) Negative Negative [facility] Nucleated red blood cell per centageOrdered By: Jeremy Fall on 03-17-2025 Nucleated RBC/100 WBC (Bld) [Ratio] 0 % 0-5 [facility] Platelet countOrdered By: Dimitry Fall on 03-17-2025 Platelets (Bld) [#/Vol] 197 10*3/uL 150-450 [facility] Potassium (Unsp spec) [Mass/ Vol]Ordered By: Jeremy Fall on 03-17-2025 Potassium [Moles/Vol] 4.1 mmol/L 3.3-5.1 [facility] Potassium measurement (mass/ volume)Ordered By: Jeremy Fall on 03-17-2025 Potassium (Unsp spec) [Mass/Vol] 4.1 mmol/L 3.3-5.1 [facility] Protein Test strip Ql (U)Ord ered By: Jeremy Fall on 03-17-2025 Protein Ql (U) 15 mg/dl High Negative [facility] RBC Auto (Bld) [#/Vol]Ordere d By: Jeremy Fall on 03-17-2025 RBC (Bld) [#/Vol] 4.59 10*6/uL 4.2-5.4 [facility] Serum creatinine measurement (mass/volume)Ordered By: Jeremy Fall on 03-17-2025 Creatinine [Mass/Vol] 1.01 mg/dL 0.70-1.20 [facility] Serum globulin measurementOr dered By: Jeremy Fall on 03-17-2025 Globulin (S) [Mass/Vol] 2.7 g/dL 2.2-4.2 [facility] Serum glucose measurement (m ass/volume)Ordered By: Jeremy Fall on 03-17-2025 Glucose [Mass/Vol] 115 mg/dL High 70-99 [facility] Serum or plasma alanine sherwood otransferase (ALT) measurementOrdered By: Jeremy Fall on 03-17-2025 ALT [Catalytic activity/Vol] 29 U/L <35 [facility] Serum or plasma albumin jim urement (mass/volume)Ordered By: Jeremy Fall on 03-17-2025 Albumin [Mass/Vol] 4.3 g/dL 3.4-4.8 [facility] Serum or plasma albumin/glob ulin mass ratioOrdered By: Jeremy Fall on 03-17-2025 Albumin/Globulin [Mass ratio] 1.6 {ratio} 0.9-2.4 [facility] Serum or plasma alkaline davon sphatase measurementOrdered By: Jeremy Fall on 03-17-2025 ALP [Catalytic activity/Vol] 126 U/L High 35-104 [facility] Serum or plasma calcium jim urement (mass/volume)Ordered By: Jeremy Fall on 03-17-2025 Calcium [Mass/Vol] 9.1 mg/dL 7.6-11.0 [facility] Serum or plasma urea nitroge n measurement (mass/volume)Ordered By: Jeremy Fall on 03-17-2025 Urea nitrogen [Mass/Vol] 16 mg/dL 4-19 [facility] Sodium levelOrdered By: Jeremy Fall on 03-17-2025 Sodium [Moles/Vol] 139 mmol/L 133-145 [facility] Squamous epithelial cells de tection in urine sediment by light microscopyOrdered By: Jeremy Fall on 03-17-2025 Epithelial cells.squamous LM Ql (Urine sed) 0-5 SEEN /hpf - [facility] Total proteinOrdered By: Carine Fall on 03-17-2025 Protein [Mass/Vol] 7.0 g/dL 5.9-8.4 [facility] Urinalysis, Completeon 03-17 EPI,SQUAMOUS 0-5 SEEN Normal - [facility] Comment on above: Order Comment: CLEAN CATCH Performed By: #### L 400.0001 #### [facility] [address] [place], [place], [id number] WBC 0-5 SEEN Normal 0-5 [facility] Comment on above: Order Comment: CLEAN CATCH Performed By: #### L 400.0001 #### [facility] [address] [place], [address] BACTERIA 0 SEEN Normal None Seen [facility] Comment on above: Order Comment: CLEAN CATCH Performed By: #### L 400.0001 #### [facility] [address] [place], [address] Mucus Ql (Urine sed) 0 SEEN Normal [facility] Comment on above: Order Comment: CLEAN CATCH Performed By: #### L 400.0001 #### [facility] [address] [place], [place], [address] RBC 0 SEEN Normal 0-5 [facility] Comment on above: Order Comment: CLEAN CATCH Performed By: #### L 400.0001 #### [facility] [address] [place], [place], [address] Urine blood detectionOrdered By: Jeremy Fall on 03-17-2025 Urine Occult Blood Negative Negative [facility] Urine clarityOrdered By: Carine Fall on 03-17-2025 Clarity (U) Clear Clear [facility] Urine color determinationOrd ered By: Jeremy Fall on 03-17-2025 Color (U) Straw Yellow [facility] Urine glucose detectionOrder ed By: Jeremy Fall on 03-17-2025 Glucose Ql (U) Normal mg/dl Normal [facility] Urine leukocyte esterase det ection by dipstickOrdered By: Jeremy Fall on 03-17-2025 Leukocyte esterase Test strip Ql (U) Negative Negative [facility] Urine pHOrdered By: Jeremy win on 03-17-2025 pH (U) 7.0 [pH] 5.0 - 8.0 [facility] Urine sediment bacteria coun t by microscopy (number/high power field)Ordered By: Jeremy Fall on 03-17-2025 Bacteria LM.HPF (Urine sed) [#/Area] 0 /[HPF] None Seen [facility] Urine specific gravity measu rementOrdered By: Jeremy Fall on 03-17-2025 Specific gravity (U) [Rel density] 1.005 1.002-1.030 [facility] Urine urobilinogen measureme ntOrdered By: Jeremy Fall on 03-17-2025 Urobilinogen Ql (U) Normal mg/dl Normal [facility] Urobilinogen Ql (U)Ordered B y: Jeremy Fall on 03-17-2025 Urine Urobilinogen Normal mg/dl Normal [facility] White blood cell (WBC) count Ordered By: Jeremy Fall on 03-17-2025 WBC (Bld) [#/Vol] 6.3 10*3/uL 4.4-11.0 [facility] White blood cell countOrdere d By: Jeremy Fall on 03-17-2025 Urine WBC 0-5 SEEN /hpf 0-5 [facility] White blood cell count 0-5 SEEN /hpf 0-5 [facility] Surgery Visit Reporton 03-16 Surgery Visit Report [facility] [address] [place] [address] OFFICE VISIT Date of Service: 03/16/25 MR#: [id number] Acct: [id number] Name: LIONEL GOVEA Rep #: [id number] : 1965 Provider: Dr. Annika ivan MD Age/Sex: 59/F Location: [facility] Status: Signed Intake Vital Signs 01/06/25 07:45 03/16/25 14:31 Height 5 ft 5 in 5 ft 5 in Weight: 165 lb 6 oz BMI 27.5 BP 110/64 Blood Pressure Location Rt brachial Position Sitting Respiration 18 Pulse 63 Pulse Source Monitor Temp 97.2 F L Temp Source Temporal Pulse Oximetry (%) 99 Oxygen Delivery Method room air Intake Visit Reasons: RLQ PAIN Chief Complaint: RLQ pain Is patient in pain?: Yes Allergies etodolac Allergy (Severe, Verified 03/17/25 18:00) Itching gabapentin (From Neurontin) Allergy (Verified 03/17/25 18:00) Itching methscopolamine bromide (From Pamine) Allergy (Verified 03/17/25 18:00) Itching topiramate (From Topamax) Allergy (Verified 03/17/25 18:00) Itching tramadol HCl (From Ultram) Allergy (Verified 03/17/25 18:00) Itching nabumetone Adverse Reaction (Intermediate, Verified 03/17/25 18:00) tingling adhesive Adverse Reaction (Verified 03/17/25 18:00) Rash hydromorphone HCl (From Dilaudid) Adverse Reaction (Verified 03/17/25 18:00) Nausea/Vom/Diarrhea oxycodone HCl (From Percocet) Adverse Reaction (Verified 03/17/25 18:00) Nausea Medications ???Medication ???Instructions ???Recorded ???Confirmed ???Type acidophilus 25 million 1 tab PO DAILY 09/19/13 03/16/25 H istory cell-pectin, citrus 100 mg tablet multivitamin with folic acid 400 1 tab PO DAILY 09/19/13 03/16/25 H istory mcg tablet sumatriptan succinate 100 mg tablet 100 mg PO .X1 PRN 03/15/16 0504/05 History calcium 600 mg (as 1 ea PO DAILY 02/06/17 03/16/25 Hi story carbonate)-vitamin D3 5 mcg (200 unit) tablet omega-3 fatty acids-fish oil 340 1 ea PO DAILY 02/06/17 03/16/25 Hi story mg-1,000 mg capsule ferrous sulfate 325 mg (65 mg 325 mg PO DAILY 09/19/18 03/16/25 History iron) tablet pantoprazole 40 mg tablet,delayed 40 mg PO DAILY 09/19/18 03/16/25 History release (Protonix) eluxadoline 100 mg tablet (Viberzi) 100 mg PO BID 03/31/20 03/16/25 History cyclobenzaprine 10 mg tablet 10 mg PO HS 09/11/22 03/16/25 Hist ory zinc gluconate 50 mg tablet 50 mg PO DAILY 09/11/22 03/16/25 H istory Nebulizer machine #1 ea 09/25/22 03/16/25 Rx triamcinolone acetonide 55 mcg 1 spray intranasal DAILY PRN 01/0203/16/25 History nasal spray aerosol (Nasacort) albuterol sulfate 90 mcg/actuation 2 puff inhalation Q6H PRN 03/16/25 Rx aerosol inhaler shortness of breath or wheezing #8.5 grams ondansetron 4 mg disintegrating 4 mg PO TID PRN headache 03/11/24 03/16/25 History tablet budesonide-formoterol HFA 160 2 inh inhalation BID #3 ea 09/11/2 4 03/16/25 Rx mcg-4.5 mcg/actuation aerosol inhaler (Symbicort) spacer #1 ea 09/11/24 03/16/25 Rx guaifenesin 1,200 mg tablet, 1,200 mg PO .QD #30 tabs 01/06/25 03/16/25 Rx extended release 12 hr (Mucinex) albuterol sulfate 2.5 mg/3 mL 2.5 mg (3 mL) inhalation Q4H PRN 0 01/23/25 03/16/25 Rx (0.083 %) solution for nebulization Sob /Or Wheezing #180 mL PFSH Medical History Acid reflux Abdominal pain Asthma, moderate persistent Hormone replacement therapy Vocal cord polyp Allergic rhinitis Fibroadenoma of right breast Surgical History Trigger finger release bilateral hands Right wrist surgery H/O inguinal hernia repair History of bunionectomy of both great toes History of right oophorectomy H/O tubal ligation Vocal cord surgery Right shoulder surgery bilateral elbow surgery H/O knee surgery Previous back surgery Family History Mother Asthma Diabetes Father Hypertension Lung disease Social History household members: spouse housing: house current occupational status: employed current occupation: [employer] Smoking Status: Never smoker alcohol intake: never substance use type: does not use seatbelt use: always do you feel safe at home: Yes additional social history: - [employer] HPI HPI HPI: 59-year-old female presents due to right lower quadrant to right mid quadrant pain. Patient states she has had it last 3 weeks but states it has been worse more recently. Patient states it has been constant ranges from 4???8/10. Ibuprofen Tylenol can make you get down to 4. Patient does have past medical fusion x 2 1 was in 2019 a (more content not included)... Normal [facility] Abdomen/Pelvis WITH Contrast on 03-06-2025 Abdomen/Pelvis WITH Contrast [facility] [address] [place] [address] Abdomen/Pelvis WITH Contrast MR#: [id number] Acct: [id number] Name: JEFERSONNERYDAYDAY MACARIO Rep #: [id number] : 1965 F 59 From: Terry frye MD PCP: Dr. Melinda Rodgers MD Status: REG CLI Study: Abdomen/Pelvis WITH Contrast Date of Exam: Exam# [id number] Ordering Dr: Melinda Rodgers MD PROCEDURE: ABDOMEN/PELVIS WITH CONTRAST 03/06/2025 REASON FOR EXAM: RLQ PAIN STAT STAT TECHNIQUE: Abdomen and pelvis CT with intravenous contrast. Coronal and Sagittal reconstruction series were provided. PATIENT PREPARATION: Per protocol ORAL CONTRAST TYPE: Given CONTRAST: Isovue-300 VOLUME: 100 mL One or more dose reduction techniques were used (e.g., Automated exposure control, adjustment of the mA and/or kV according to patient size, use of iterative reconstruction technique. RADIATION DOSE SUMMARY: CTDlvol: 10.5 mGy DLP: 923.21 mGycm COMPARISON: None FINDINGS: Lung bases: Mild dependent atelectasis Liver: 1 cm cyst in the upper medial portion of the right lobe of the liver. Gallbladder: Questionable tiny gallstone. Spleen: Normal size. Pancreas: Normal size without evidence of mass surrounding inflammation or ductal dilation. Adrenals: Unremarkable Kidneys: Normal renal sizes. No hydronephrosis. Bladder: Unremarkable Reproductive Organs: Unremarkable Bowel: Colonic diverticulosis without diverticulitis. Appendix: Small calcified appendicolith is seen within the appendix. No periappendiceal inflammatory changes are seen. Lymph nodes: Unremarkable. Vasculature: The abdominal aorta and IVC are normal. Peritoneum / Retroperitoneum: Unremarkable Bones: Prior fusion in the lower lumbar spine. CT/Abdomen/Pelvis WITH Contrast IMPRESSION: Small cyst in the right lobe of the liver. Questionable tiny gallstone. Nondistended and noninflamed appendix containing a tiny appendicolith. Reading Location: [facility] CC: Dr. Melinda Rodgers MD Aircraft Manager: Signed Normal [facility] Pulmonary Visit Reporton Pulmonary Visit Report [facility] Pulmonary Medicine of [address] [place] [address] OFFICE VISIT Date of Service: 01/06/25 MR#: [id number] Acct: [id number] Name: LIONEL GOVEA Rep #: [id number] : 1965 Provider: Alisa Nicholas NP Age/Sex: 59/F Location: [place].PMW Status: Signed Assessment and Plan Assessment and Plan (1) Asthma: Status: Chronic Qualifiers: Asthma complication type: uncomplicated Asthma persistence: persistent Asthma severity: moderate Qualified Code(s): J45.40 - Moderate persistent asthma, uncomplicated Plan: She is status post exacerbation and improving. At this point, she is to complete the prednisone taper that was previously prescribed. Continue with use of Symbicort. I have recommended a PFT prior to follow-up in 4 months. Use albuterol 2 puffs up to 4 times daily as needed. I have recommended Mucinex to improve her chest congestion. Continue Symbicort and Nasacort. Contact the office with any signs of new or worsening symptoms. (2) Allergic rhinitis due to allergen: Status: Chronic Qualifiers: Allergic rhinitis seasonality: seasonal Allergic rhinitis trigger: pollen Qualified Code(s): J30.1 - Allergic rhinitis due to pollen Plan: I have recommended that she utilize Nasacort to improve the fluid seen behind the TMs bilaterally and the left ear pain. No evidence of current infection. Orders: Orders PFT Complete - DLCO, Spirometry b/a bronchodilators, lung volumes 03/16/25 J45.40 - Moderate persistent asthma, uncomplicated Medications: New guaifenesin ER (Mucinex) 1,200 mg PO .QD 30 tabs 2RF J45.40 - Moderate persistent asthma, uncomplicated Plan Details Follow Up: 4 Months (LMR) HPI HPI Comments Details: Patient is a 59-year-old female who presents to the office today for follow-up of her severe asthma. She is ambulatory and currently on room air. She has been seen in the ED for a cat scratch on 12/17/24 and was prescribed Augmentin. On December 26 she developed a fever for 4 days and had a runny nose, headache, cough. She was seen by her primary care doctor 8 days later and was told that she had bronchitis and fluid on her ears. She was given a Z-Dontrell which improved her sinus symptoms but not her cough. She then notified this practice and was given a prednisone taper. She still has 3 days left of her prednisone taper. She has not had recent fever but she continues to have some left ear pain. She reports that it was not hurting when she went in to see the primary care. The pain is a dull ache. She denies wheeze and does experience cough. She reports that she feels like there is something that she cannot get out. She is reporting some chest tightness and shortness of breath with exertion. She last used her rescue inhaler last night. She is now down to using her albuterol twice daily. She had previously been using her nebulizer and HFA 4 times a day. She is compliant with Symbicort 2 puffs twice daily. She does report using a spacer. He is not having difficulty with sore throat or hoarseness. She does have ipratropium bromide available but does not like to use this in a routine manner as it does dry out her nose. She is using nasal saline spray and [place] gel. If you recall, she is a lifelong never smoker. Intake Vital Signs 03/11/24 07:51 03/17/24 10:23 12/17/24 04:53 01/06/25 07:45 Height 5 ft 5 in 5 ft 5 in 5 ft 5 in 5 ft 5 in Weight: 160 lb BMI 26.6 BP 122/81 H Blood Pressure Location Rt brachial Position Sitting Respiration 18 Pulse 97 Pulse Source Monitor Temp 97.3 F L Temperature Source Temporal Artery Pulse Oximetry (%) 95 Oxygen Delivery Method room air Intake Visit Reasons: 6 M FU Chief Complaint: Annual DME Vendor: n/a Accompanied by: Self Is patient in pain?: No Allergies etodolac Allergy (Severe, Verified 01/06/25 11:08) Itching gabapentin (From Neurontin) Allergy (Verified 01/06/25 11:08) Itching methscopolamine bromide (From Pamine) Allergy (Verified 01/06/25 11:08) Itching topiramate (From Topamax) Allergy (Verified 01/06/25 11:08) Itching tramadol HCl (From Ultram) Allergy (Verified 01/06/25 11:08) Itching nabumetone Adverse Reaction (Intermediate, Verified 01/06/25 11:08) tingling adhesive Adverse Reaction (Verified 01/06/25 11:08) Rash hydromorphone HCl (From Dilaudid) Adverse Reaction (Verified 01/06/25 11:08) Nausea/Vom/Diarrhea oxycodone HCl (From Percocet) Adverse Reaction (Verified 01/06/25 11:08) Nausea Medications ???Medication ???Instructions ???Recorded ???Confirmed ???Type acidophilus 25 million 1 tab PO DAILY 09/19/13 01/06/25 H istory cell-pectin, citrus 100 mg tablet multivitamin with folic acid 400 1 tab PO DAILY 09/19/13 01/06/25 H istory mcg tablet sumatriptan succinate 100 (more content not included)... Normal [facility] Emergency Department Summary on 12-17-2024 Emergency Department Summary [facility] Medical Records Department [address] [place] [address] Emergency Department Summary 12/17/24 MR#: [id number] Acct: [id number] Name: LIONEL GOVEA Rep #: [id number] : 1965 58 From: Victor Hugo Sosa DO PCP: Dr. Melinda Rodgers MD Status:DEP ER Location: ED HPI History of Present Illness Chief Complaint: Upper Extremity Injury Informant: patient Narrative Narrative: Patient is a 58-year-old female with past medical history of asthma. She states that this morning she was holding her cat when it became startled and it scratched her multiple times. She reports scratches to her right hand right forearm left wrist and anterior chest. She states this occurred around 4 in the morning. She is unsure of her tetanus status. She denies any history of immunosuppression but knows that there is high risk for infection with cat scratches and bites and has concern that she may develop this and therefore comes in for evaluation [facility] Medical History (Updated 12/17/24 @ 06:[address] Victor Hugo Sosa DO) Asthma, moderate persistent Hormone replacement therapy Vocal cord polyp Allergic rhinitis Fibroadenoma of right breast Home Medications ???Medication ???Instructions ???Recorded ???Last Taken ???Type acidophilus 25 million 1 tab PO DAILY 09/19/13 Unknown Hi story cell-pectin, citrus 100 mg tablet multivitamin with folic acid 400 1 tab PO DAILY 09/19/13 Unknown Hi story mcg tablet sumatriptan succinate 100 mg tablet 100 mg PO .X1 PRN 03/15/16 Unkn own History calcium 600 mg (as 1 ea PO DAILY 02/06/17 Unknown His tory carbonate)-vitamin D3 5 mcg (200 unit) tablet omega-3 fatty acids-fish oil 340 1 ea PO DAILY 02/06/17 Unknown His tory mg-1,000 mg capsule ferrous sulfate 325 mg (65 mg 325 mg PO DAILY 09/19/18 Unknown H istory iron) tablet pantoprazole 40 mg tablet,delayed 40 mg PO DAILY 09/19/18 Unknown H istory release (Protonix) eluxadoline 100 mg tablet (Viberzi) 100 mg PO BID 03/31/20 Unknown History cyclobenzaprine 10 mg tablet 10 mg PO HS 09/11/22 Unknown Histo ry zinc gluconate 50 mg tablet 50 mg PO DAILY 09/11/22 Unknown Ms Travellution Nebulizer machine #1 ea 09/25/22 Unknown Rx triamcinolone acetonide 55 mcg 1 spray intranasal DAILY PRN 01/02 Unknown History nasal spray aerosol (Nasacort) albuterol sulfate 90 mcg/actuation 2 puff inhalation Q6H PRN Unknown Rx aerosol inhaler shortness of breath or wheezing #8.5 grams ondansetron 4 mg disintegrating 4 mg PO TID PRN headache 03/11/24 Unknown History tablet albuterol sulfate 2.5 mg/3 mL 2.5 mg (3 mL) inhalation Q4H PRN 0 03/13/24 Unknown Rx (0.083 %) solution for nebulization Sob /Or Wheezing #180 mL budesonide-formoterol HFA 160 2 inh inhalation BID #3 ea 4 Unknown Rx mcg-4.5 mcg/actuation aerosol inhaler (Symbicort) spacer #1 ea 09/11/24 Unknown Rx amoxicillin 875 mg-potassium 1 tab PO BID 10 days #20 tabs 04/05 Unknown Rx clavulanate 125 mg tablet Allergy/AdvReac Type Severity Reaction Status Date / Time etodolac Allergy Severe Itching Verified 12/17/24 04:56 gabapentin (From Neurontin) Allergy Itching Verified 12/17/24 04:56 methscopolamine bromide Allergy Itching Verified 12/17/24 04:56 (From Pamine) topiramate (From Topamax) Allergy Itching Verified 12/17/24 04:56 tramadol HCl (From Ultram) Allergy Itching Verified 12/17/24 04:56 nabumetone AdvReac Intermediate tingling Verified 12/17/24 04:56 adhesive AdvReac Rash Verified 12/17/24 04:56 hydromorphone HCl (From AdvReac Nausea/Vom/ Verified 12/17/24 04:56 Dilaudid) Diarrhea oxycodone HCl (From Percocet) AdvReac Nausea Verified 12/17/24 04:56 Family History Mother Asthma Diabetes Father Hypertension Lung disease Surgical History Trigger finger release bilateral hands Right wrist surgery H/O inguinal hernia repair History of bunionectomy of both great toes History of right oophorectomy H/O tubal ligation Vocal cord surgery Right shoulder surgery bilateral elbow surgery H/O knee surgery Previous back surgery Social History (Updated 03/17/24 @ 10:28 by Macy Joel) household members: spouse current occupational status: employed current occupation: [employer] Smoking Status: Never smoker alcohol intake: never substance use type: does not use seatbelt use: always do you feel safe at home: Yes additional social history: - [employer] ROS ROS ED Constitutional Constitutional ED: Denies chills or fever(s) ENT ENT ED: Denies sore throat Cardiovascular Cardiovascular: Denies chest pain Respiratory/Chest Respiratory/Chest (more content not included)... Normal [facility] Comprehensive Metabolic Prof ilon 10-15-2024 Albumin [Mass/Vol] 3.4 g/dL Normal 3.2-5.0 [facility] Comment on above: Performed By: #### L 500.4050 ####[facility] [address] [place], [place], [id number] Albumin/Globulin [Mass ratio] 1.0 {ratio} Normal 0.9-2.4 [facility] Comment on above: Performed By: #### L 500.4050 ####[facility] [address] [place], [place], [id number] ALK P 111 U/L Normal 45-117 [facility] Comment on above: Performed By: #### L 500.4050 ####[facility] [address] [place], [address] ALT [Catalytic activity/Vol] 32 U/L Normal 13-56 [facility] Comment on above: Performed By: #### L 500.4050 ####[facility] [address] [place], [address] AST [Catalytic activity/Vol] 21 U/L Normal 15-37 [facility] Comment on above: Performed By: #### L 500.4050 ####[facility] [address] [place], [address] Bilirubin [Mass/Vol] 0.40 mg/dL Normal 0.20-1.00 [facility] Comment on above: Result Comment: For patients on eltrombopag therapy, use of Dimension Lamont TBIL is not recommended. Performed By: #### L 500.4050 ####[facility] [address] [place], [address] BUN/CRE 18.2 RATIO Normal 10-20 [facility] Comment on above: Performed By: #### L 500.4050 ####[facility] [address] [place], [address] CA,Total 9.1 mg/dL Normal 8.5-10.1 [facility] Comment on above: Performed By: #### L 500.4050 ####[facility] [address] [place], [address] Chloride [Moles/Vol] 105 mmol/L Normal 98-107 [facility] Comment on above: Performed By: #### L 500.4050 ####[facility] [address] [place], [address] CO2 [Moles/Vol] 27.0 mmol/L Normal 21.0-32.0 [facility] Comment on above: Performed By: #### L 500.4050 ####[facility] [address] [place], [address] Creatinine [Mass/Vol] 0.99 mg/dL Normal 0.55-1.02 [facility] Comment on above: Result Comment: The validity of the calculated GFR GFRAA in patients over 70 years has not been determined. Clinical correlation is essential. Performed By: #### L 500.4050 ####[facility] [address] [place], [address] EST GFR - AA 74 mL/min Normal >60 [facility] Comment on above: Result Comment: Afri can Turkish GFR Calc Performed By: #### L 500.4050 ####[facility] [address] [place], [address] GAP 6 Normal 5-15 [facility] Comment on above: Performed By: #### L 500.4050 ####[facility] [address] [place], [address] GFR/1.73 sq M.predicted among non-blacks MDRD (S/P/Bld) [Vol rate/Area] 61 mL/min/{1.73_m2} Normal >60 [facility] Comment on above: Result Comment: Non- GFR Calc Performed By: #### L 500.4050 ####[facility] [address] [place], [address] Globulin (S) [Mass/Vol] 3.5 g/dL Normal 2.2-4.2 [facility] Comment on above: Performed By: #### L 500.4050 ####[facility] [address] [place], [address] Glucose [Mass/Vol] 122 mg/dL High 74-106 [facility] Comment on above: Result Comment: Fast ing Glucose result from 100 to 125 mg/dL suggests IMPAIRED HOMEOSTASIS per A.D.A. criteria. Performed By: #### L 500.4050 ####[facility] [address] [place], [address] Potassium [Moles/Vol] 4.2 mmol/L Normal 3.5-5.1 [facility] Comment on above: Performed By: #### L 500.4050 ####[facility] [address] [place], [address] Sodium [Moles/Vol] 138 mmol/L Normal 136-145 [facility] Comment on above: Performed By: #### L 500.4050 ####[facility] [address] [place], [address] T PROT 6.9 g/dL Normal 6.4-8.2 [facility] Comment on above: Performed By: #### L 500.4050 ####[facility] [address] [place], [address] Urea nitrogen [Mass/Vol] 18 mg/dL Normal 7-18 [facility] Comment on above: Performed By: #### L 500.4050 ####[facility] [address] [place], [address] Comprehensive Metabolic Prof ilon 10-14-2024 ALB Normal 3.2-5.0 [facility] Comment on above: Order Comment: Order Date: 10/13/24 Order Info: 0786-1 - CMP Result Comment: TUBE S WERE NOT SPUN DOWN WITHIN TWO HOURS PER POLICY. SAMPLES WILL NEED RECOLLECTED. EMAILS HAVE BEEN SENT TO LAB STAFF. Performed By: #### L 500.4050 #### [facility] [address] [place], [address] ALK P Normal 45-117 [facility] Comment on above: Order Comment: Order Date: 10/13/24 Order Info: 0786-1 - CMP Result Comment: TUBE S WERE NOT SPUN DOWN WITHIN TWO HOURS PER POLICY. SAMPLES WILL NEED RECOLLECTED. EMAILS HAVE BEEN SENT TO LAB STAFF. Performed By: #### L 500.4050 #### [facility] [address] [place], [address] ALT Normal 13-56 [facility] Comment on above: Order Comment: Order Date: 10/13/24 Order Info: 0786-1 - CMP Result Comment: TUBE S WERE NOT SPUN DOWN WITHIN TWO HOURS PER POLICY. SAMPLES WILL NEED RECOLLECTED. EMAILS HAVE BEEN SENT TO LAB STAFF. Performed By: #### L 500.4050 #### [facility] [address] [place], [address] AST Normal 15-37 [facility] Comment on above: Order Comment: Order Date: 10/13/24 Order Info: 0786-1 - CMP Result Comment: TUBE S WERE NOT SPUN DOWN WITHIN TWO HOURS PER POLICY. SAMPLES WILL NEED RECOLLECTED. EMAILS HAVE BEEN SENT TO LAB STAFF. Performed By: #### L 500.4050 #### [facility] [address] [place], [address] BUN Normal 7-18 [facility] Comment on above: Order Comment: Order Date: 10/13/24 Order Info: 0786-1 - CMP Result Comment: TUBE S WERE NOT SPUN DOWN WITHIN TWO HOURS PER POLICY. SAMPLES WILL NEED RECOLLECTED. EMAILS HAVE BEEN SENT TO LAB STAFF. Performed By: #### L 500.4050 #### [facility] [address] [place], [address] BUN/CRE Normal 10-20 [facility] Comment on above: Order Comment: Order Date: 10/13/24 Order Info: 0786-1 - CMP Result Comment: TUBE S WERE NOT SPUN DOWN WITHIN TWO HOURS PER POLICY. SAMPLES WILL NEED RECOLLECTED. EMAILS HAVE BEEN SENT TO LAB STAFF. Performed By: #### L 500.4050 #### [facility] [address] [place], [address] CA,Total Normal 8.5-10.1 [facility] Comment on above: Order Comment: Order Date: 10/13/24 Order Info: 0786-1 - CMP Result Comment: TUBE S WERE NOT SPUN DOWN WITHIN TWO HOURS PER POLICY. SAMPLES WILL NEED RECOLLECTED. EMAILS HAVE BEEN SENT TO LAB STAFF. Performed By: #### L 500.4050 #### [facility] [address] [place], [address] CL Normal 98-107 [facility] Comment on above: Order Comment: Order Date: 10/13/24 Order Info: 0786-1 - CMP Result Comment: TUBE S WERE NOT SPUN DOWN WITHIN TWO HOURS PER POLICY. SAMPLES WILL NEED RECOLLECTED. EMAILS HAVE BEEN SENT TO LAB STAFF. Performed By: #### L 500.4050 #### [facility] [address] [place], [address] CO2 Normal 21.0-32.0 [facility] Comment on above: Order Comment: Order Date: 10/13/24 Order Info: 0786-1 - CMP Result Comment: TUBE S WERE NOT SPUN DOWN WITHIN TWO HOURS PER POLICY. SAMPLES WILL NEED RECOLLECTED. EMAILS HAVE BEEN SENT TO LAB STAFF. Performed By: #### L 500.4050 #### [facility] [address] [place], [address] CREAT,SERUM Normal 0.55-1.02 [facility] Comment on above: Order Comment: Order Date: 10/13/24 Order Info: 0786-1 - CMP Result Comment: TUBE S WERE NOT SPUN DOWN WITHIN TWO HOURS PER POLICY. SAMPLES WILL NEED RECOLLECTED. EMAILS HAVE BEEN SENT TO LAB STAFF. Performed By: #### L 500.4050 #### [facility] [address] [place], [address] EST GFR Normal >60 [facility] Comment on above: Order Comment: Order Date: 10/13/24 Order Info: 0786-1 - CMP Result Comment: TUBE S WERE NOT SPUN DOWN WITHIN TWO HOURS PER POLICY. SAMPLES WILL NEED RECOLLECTED. EMAILS HAVE BEEN SENT TO LAB STAFF. Performed By: #### L 500.4050 #### [facility] [address] [place], [address] EST GFR - AA Normal >60 [facility] Comment on above: Order Comment: Order Date: 10/13/24 Order Info: 0786-1 - CMP Result Comment: TUBE S WERE NOT SPUN DOWN WITHIN TWO HOURS PER POLICY. SAMPLES WILL NEED RECOLLECTED. EMAILS HAVE BEEN SENT TO LAB STAFF. Performed By: #### L 500.4050 #### [facility] [address] [place], [address] GAP Normal 5-15 [facility] Comment on above: Order Comment: Order Date: 10/13/24 Order Info: 0786-1 - CMP Result Comment: TUBE S WERE NOT SPUN DOWN WITHIN TWO HOURS PER POLICY. SAMPLES WILL NEED RECOLLECTED. EMAILS HAVE BEEN SENT TO LAB STAFF. Performed By: #### L 500.4050 #### [facility] [address] [place], [address] GLU Normal 74-106 [facility] Comment on above: Order Comment: Order Date: 10/13/24 Order Info: 0786-1 - CMP Result Comment: TUBE S WERE NOT SPUN DOWN WITHIN TWO HOURS PER POLICY. SAMPLES WILL NEED RECOLLECTED. EMAILS HAVE BEEN SENT TO LAB STAFF. Performed By: #### L 500.4050 #### [facility] [address] [place], [address] Potassium Normal 3.5-5.1 [facility] Comment on above: Order Comment: Order Date: 10/13/24 Order Info: 0786-1 - CMP Result Comment: TUBE S WERE NOT SPUN DOWN WITHIN TWO HOURS PER POLICY. SAMPLES WILL NEED RECOLLECTED. EMAILS HAVE BEEN SENT TO LAB STAFF. Performed By: #### L 500.4050 #### [facility] [address] [place], [address] T BILI Normal 0.20-1.00 [facility] Comment on above: Order Comment: Order Date: 10/13/24 Order Info: 0786-1 - CMP Result Comment: TUBE S WERE NOT SPUN DOWN WITHIN TWO HOURS PER POLICY. SAMPLES WILL NEED RECOLLECTED. EMAILS HAVE BEEN SENT TO LAB STAFF. Performed By: #### L 500.4050 #### [facility] [address] [place], [place], [address] T PROT Normal 6.4-8.2 [facility] Comment on above: Order Comment: Order Date: 10/13/24 Order Info: 0786-1 - CMP Result Comment: TUBE S WERE NOT SPUN DOWN WITHIN TWO HOURS PER POLICY. SAMPLES WILL NEED RECOLLECTED. EMAILS HAVE BEEN SENT TO LAB STAFF. Performed By: #### L 500.4050 #### [facility] [address] [place], [place], [address] Comprehensive Metabolic Profil Normal 136-145 [facility] Comment on above: Order Comment: Order Date: 10/13/24 Order Info: 0786-1 - CMP Result Comment: TUBE S WERE NOT SPUN DOWN WITHIN TWO HOURS PER POLICY. SAMPLES WILL NEED RECOLLECTED. EMAILS HAVE BEEN SENT TO LAB STAFF. Performed By: #### L 500.4050 #### [facility] [address] [place], [place], [id number] Re-Evaluation - PT (1)on Re-Evaluation - PT (1) [facility] Physical Therapy [facility] [address] [place] [address]. [address] [place] [address] / REEVALUATION / MEDICARE RECERTIFICATION PHYSICAL THERAPY MR#: [id number] Acct: [id number] Name: LIONEL GOVEA Rep #: [id number] : 1965 58 From: Manoj Blackman PT, ATC Referring Dr.: Dr. Tejinder Simmons MD Status:REG R CR Insurance: [facility] SELF PAY INSURANCE Re-Evaluation Intro: Dr. Tejinder Simmons MD, It has been my pleasure to treat LIONEL GOVEA over the last 27 visits for L HS repair 05/26/24. Please see the progress note below for an update on the physical therapy plan of care! Subjective Subjective: Pt reports L hamstring continues to limit her from home and work activity. Pt notes she is not able to squat or lift heavy at this time Objective Objective/Function: L hamstring pain ranges from 4-6/10 MMT: R hamstring 18 #F, L hamstring 10 #F- Approximately 50% TUG test 10 sec Pt is progressing well at this time but continues to be limited with all functional mobility secondary to pain and weakness. Plan Plan Plan: Attempt to get 12 more visits approved to focus on L LE strengthening, core stab ex's, and functional mobility activity Balance/Gait/Function al tests Balance/Special Test Scores Lower Extremity Functional Score: 37 Goals Goals Goal 1:: Decrease L hamstring pain x 50% to aid with ambulation Goal Time Frame: 6-8 Weeks Goal Progress: Progressing Goal 2:: Increase L knee flexion strength to 95% of R knee flexion to aid with return to work Goal Time Frame: 6-8 Weeks Goal Progress: Progressing Goal 3:: Pt will perform the TUG test in under 10 seconds to aid with community ambulation Goal Time Frame: 6-8 Weeks Goal Progress: Goal Met Goal 4:: I with HEP Goal Time Frame: 6-8 Weeks Goal Progress: Goal Met Anticipated Interventions Anticipated Interventions Patient/Client Instruction: Educate patient on: Condition and Plan of Care For the Purpose of:: To improve self management Therapeutic Exercise to Include: Strength training, Endurance training, Balance training, Flexibilty training, Gait and locomotor training, Passive ROM, Active ROM and Dynamic Lumbar Stabilization For the Purpose of:: To decrease pain, To increase ROM and To improve muscle performance and motor function Cryotherapy (ice pack, ice massage): Yes For the Purpose of:: To decrease pain Re-Evaluation Ending Re-evaluation ending: Please do not hesitate to contact me at [phone] by phone or if you have questions or concerns regarding this new plan of care! Sincerely, Manoj Blackman, PT, ATC 09/26/24 3600 CC: Dr. Melinda Rodgers MD; Dr. Tejinder Simmons MD [facility] Signed For Medicare only, by signing this I certify the plan of care. Physicians Signature Date Normal [facility] Re-Evaluation - PT (1)on Re-Evaluation - PT (1) [facility] [address] [place] [address] / REEVALUATION / MEDICARE RECERTIFICATION PHYSICAL THERAPY MR#: [id number] Acct: [id number] Name: LIONEL GOVEA Rep #: [id number] : 1965 58 From: Manoj Blackman PT, ATC Referring Dr.: Dr. Tejinder Simmons MD Status:REG R CR Insurance: [facility] SELF PAY INSURANCE Re-Evaluation Intro: Dr. Tejinder Simmons MD, It has been my pleasure to treat LIONEL GOVEA over the last 18 visits for L HS repair 05/26/24. Please see the progress note below for an update on the physical therapy plan of care! Subjective Subjective: I am sore today Objective Objective/Function: L hamstring pain ranges from 5-8/10 L hamstring MMT: 12#F (R leg 32 #F) TU.85 sec Pt is progressing well toward Rx goals, but is still limited by pain and weakness Plan Plan Plan: Attempt to get 12 more visits approved to focus on strengthening and pain reduction Balance/Gait/Function al tests Balance/Special Test Scores Lower Extremity Functional Score: 39 Goals Goals Goal 1:: Decrease L hamstring pain x 50% to aid with ambulation Goal Time Frame: 6-8 Weeks Goal Progress: Progressing Goal 2:: Increase L knee flexion strength to 95% of R knee flexion to aid with return to work Goal Time Frame: 6-8 Weeks Goal Progress: Progressing Goal 3:: Pt will perform the TUG test in under 10 seconds to aid with community ambulation Goal Time Frame: 6-8 Weeks Goal Progress: Goal Met Goal 4:: I with HEP Goal Time Frame: 6-8 Weeks Goal Progress: Goal Met Anticipated Interventions Anticipated Interventions Patient/Client Instruction: Educate patient on: Condition and Plan of Care For the Purpose of:: To improve self management Therapeutic Exercise to Include: Strength training, Endurance training, Balance training, Flexibilty training, Gait and locomotor training, Passive ROM, Active ROM and Dynamic Lumbar Stabilization For the Purpose of:: To decrease pain, To increase ROM and To improve muscle performance and motor function Cryotherapy (ice pack, ice massage): Yes For the Purpose of:: To decrease pain Re-Evaluation Ending Re-evaluation ending: Please do not hesitate to contact me at [phone] by phone or if you have questions or concerns regarding this new plan of care! Sincerely, Manoj Blackman PT, ATC 08/25/24 2892 CC: Dr. Melinda Rodgers MD; Dr. Tejinder Simmons MD [facility] Signed For Medicare only, by signing this I certify the plan of care. Physicians Signature Date Normal [facility] Re-Evaluation - PT (1)on Re-Evaluation - PT (1) [facility] [address] [place] [address] / REEVALUATION / MEDICARE RECERTIFICATION PHYSICAL THERAPY MR#: [id number] Acct: [id number] Name: LIONEL GOVEA Rep #: [id number] : 1965 58 From: Manoj Blackman PT, ATC Referring Dr.: Dr. Tejinder Simmons MD Status:REG R CR Insurance: [facility] SELF PAY INSURANCE Re-Evaluation Intro: Dr. Tejinder Simmons MD, It has been my pleasure to treat LIONEL GOVEA over the last 16 visits for L HS repair 05/26/24. Please see the progress note below for an update on the physical therapy plan of care! Subjective Subjective: Pt reports she was really sore yesterday. Believes it was due to the weather Objective Objective/Function: L hamstring pain ranges from 5-8/10 L hamstring MMT: 12#F (R leg 32 #F) TU.85 sec Pt is progressing well toward Rx goals, but is still limited by pain and weakness Plan Plan Plan: Attempt to get 12 more visits approved to focus on strengthening and pain reduction of L hamstring to aid with return to normal daily activities. Balance/Gait/Function al tests Balance/Special Test Scores Lower Extremity Functional Score: 39 Goals Goals Goal 1:: Decrease L hamstring pain x 50% to aid with ambulation Goal Time Frame: 6-8 Weeks Goal Progress: Progressing Goal 2:: Increase L knee flexion strength to 95% of R knee flexion to aid with return to work Goal Time Frame: 6-8 Weeks Goal Progress: Progressing Goal 3:: Pt will perform the TUG test in under 10 seconds to aid with community ambulation Goal Time Frame: 6-8 Weeks Goal Progress: Goal Met Goal 4:: I with HEP Goal Time Frame: 6-8 Weeks Goal Progress: Goal Met Anticipated Interventions Anticipated Interventions Patient/Client Instruction: Educate patient on: Condition and Plan of Care For the Purpose of:: To improve self management Therapeutic Exercise to Include: Strength training, Endurance training, Balance training, Flexibilty training, Gait and locomotor training, Passive ROM, Active ROM and Dynamic Lumbar Stabilization For the Purpose of:: To decrease pain, To increase ROM and To improve muscle performance and motor function Cryotherapy (ice pack, ice massage): Yes For the Purpose of:: To decrease pain Re-Evaluation Ending Re-evaluation ending: Please do not hesitate to contact me at [phone] by phone or if you have questions or concerns regarding this new plan of care! Sincerely, Manoj Blackman, PT, ATC 08/19/24 1015 CC: Dr. Melinda Rodgers MD; Dr. Tejinder Simmons MD [facility] Signed For Medicare only, by signing this I certify the plan of care. Physicians Signature Date Normal [facility] Basophil percentageOrdered B y: Joi Darling on 03-17-2024 Bilirubin [Mass/Vol] 0.40 mg/dL 0.20-1.00 [facility] Comment on above: For patients on eltr ombopag therapy, use of Dimension Lamont TBIL is not recommended. Chloride [Moles/Vol] 106 mmol/L 98-107 [facility] Glucose [Mass/Vol] 99 mg/dL 74-106 [facility] Potassium [Moles/Vol] 4.3 mmol/L 3.5-5.1 [facility] Protein [Mass/Vol] 6.7 g/dL 6.4-8.2 [facility] Sodium [Moles/Vol] 140 mmol/L 136-145 [facility] Laboratory - Chemistry and C hemistry - challengeOrdered By: Joi Darling on 03-17-2024 Albumin/Globulin [Mass ratio] 1.0 {ratio} 0.9-2.4 [facility] ALP [Catalytic activity/Vol] 89 U/L 45-117 [facility] ALT [Catalytic activity/Vol] 29 U/L 13-56 [facility] CO2 [Moles/Vol] 29.0 mmol/L 21.0-32.0 [facility] Cobalamin (Vitamin B12) [Mass/Vol] 634 pg/mL 211-911 [facility] Globulin (S) [Mass/Vol] 3.3 g/dL 2.2-4.2 [facility] Urea nitrogen/Creatinine [Mass ratio] 19.3 mg/mg 10-20 [facility] No Panel InformationOrdered By: Joi Darling on 03-17-2024 Estimated GFR (MDRD) Amer 84 mL/min >60 [facility] Comment on above: GFR Calc Estimated GFR (MDRD) Non-Af Amer 70 mL/min >60 [facility] Comment on above: Non- GFR Calc Vitamin D 25-Hydroxy 43.1 ng/mL [facility] Comment on above: Vitamin D 25(OH) Sta tus Range Deficiency <20 ng/mL (50nmol/L) Insufficiency 20 - 30 ng/mL (50 - 75 nmol/L) Sufficiency 30 - 100 ng/mL (75 - 250 nmol/L) Toxicity >100 ng/mL (>250 nmol/L) Serum or plasma calcium jim urement (mass/volume)Ordered By: Joi Darling on 03-17-2024 Calcium [Mass/Vol] 8.8 mg/dL 8.5-10.1 [facility] Serum or plasma creatinine m easurement (mass/volume)Ordered By: Joi Darling on 03-17-2024 Creatinine [Mass/Vol] 0.88 mg/dL 0.55-1.02 [facility] Comment on above: The validity of the calculated GFR & GFRAA in patients over 70 years has not been determined. Clinical correlation is essential. Serum or plasma thyroid stim ulating hormone (TSH) measurement (units/volume)Ordered By: Joi Darlign on 03-17-2024 TSH Qn 0.97 uIU/mL 0.358-3.74 [facility] Serum or plasma urea nitroge n measurement (mass/volume)Ordered By: Joi Darling on 03-17-2024 Urea nitrogen [Mass/Vol] 17 mg/dL 7-18 [facility] Thin prep Papanicolaou smear with manual screeningOrdered By: Joi Darling on 03-17-2024 Thin prep Papanicolaou smear with manual screening 3.4 g/dL 3.2-5.0 [facility] Thin prep Papanicolaou smear with manual screening 16 U/L 15-37 [facility] Thin prep Papanicolaou smear with manual screening 5 5-15 [facility] Thin prep Papanicolaou smear with manual screening 0.89 ng/dL 0.76-1.46 [facility] Absolute lymphocyte countOrd ered By: Abdifatah Jalloh on 10-18-2023 Lymphocytes Auto (Unsp spec) [#/Vol] 0.69 10*3/uL 0.83-4.51 [facility] Basophil percentageOrdered B y: Abdifatah Jalloh on 10-18-2023 Basophil percentage 2.0 mg/dL 2.5-4.9 [facility] Basophils/100 WBC (Bld) 0.0 % 0-1 [facility] Bilirubin [Mass/Vol] 0.30 mg/dL 0.20-1.00 [facility] Comment on above: For patients on eltr ombopag therapy, use of Dimension [place] TBIL is not recommended. Chloride [Moles/Vol] 106 mmol/L 98-107 [facility] Eosinophils/100 WBC (Bld) 0.0 % 0-5 [facility] Glucose [Mass/Vol] 108 mg/dL 74-106 [facility] Comment on above: Fasting Glucose resu lt from 100 to 125 mg/dL suggests IMPAIRED HOMEOSTASIS per A.D.A. criteria. Neutrophils (Bld) [#/Vol] 6.0 10*3/uL 2.0-7.7 [facility] Neutrophils/100 WBC (Bld) 87.6 % 47-70 [facility] Potassium [Moles/Vol] 4.0 mmol/L 3.5-5.1 [facility] Protein [Mass/Vol] 6.9 g/dL 6.4-8.2 [facility] Sodium [Moles/Vol] 139 mmol/L 136-145 [facility] WBC (Bld) [#/Vol] 6.8 10*3/uL 4.4-11.0 [facility] Blood erythrocytes count (nu mber/volume)Ordered By: Abdifatah Jalloh on 10-18-2023 RBC (Bld) [#/Vol] 4.19 10*6/uL 4.2-5.4 [facility] Blood hemoglobin measurement (mass/volume)Ordered By: Abdifatah Jalloh on 10-18-2023 Hemoglobin (Bld) [Mass/Vol] 12.5 g/dL 12.0-15.0 [facility] Blood lymphocytes/100 leukoc ytesOrdered By: Abdifatah Jalloh on 10-18-2023 Lymphocytes/100 WBC (Bld) 10.1 % 19-41 [facility] Blood monocytes/100 leukocyt esOrdered By: Abdifatah Jalloh on 10-18-2023 Monocytes/100 WBC (Bld) 1.9 % 0-10 [facility] Blood platelet mean volumeOr dered By: Abdifatah Jalloh on 10-18-2023 Platelet mean volume (Bld) [Entitic vol] 9.4 fL 6.2-12.0 [facility] Determination of erythrocyte mean corpuscular volume (MCV)Ordered By: Abdifatah Jalloh on 10-18-2023 MCV (RBC) [Entitic vol] 92.6 fL 81-99 [facility] Hematocrit Auto (Bld) [Volum e fraction]Ordered By: Abdifatah Jalloh on 10-18-2023 Hematocrit (Bld) [Volume fraction] 38.8 % 37-47 [facility] Laboratory - Chemistry and C hemistry - challengeOrdered By: Abdifatah Jalloh on 10-18-2023 ALP [Catalytic activity/Vol] 70 U/L 45-117 [facility] ALT [Catalytic activity/Vol] 26 U/L 13-56 [facility] CO2 [Moles/Vol] 28.0 mmol/L 21.0-32.0 [facility] Globulin (S) [Mass/Vol] 3.6 g/dL 2.2-4.2 [facility] Urea nitrogen/Creatinine [Mass ratio] 21.3 mg/mg 10-20 [facility] Laboratory - Hematology and Cell countsOrdered By: Abdifatah Jalloh on 10-18-2023 Erythrocyte distribution width (RBC) [Entitic vol] 42.0 fL 35.1-43.9 [facility] Erythrocyte distribution width (RBC) [Ratio] 12.3 % 11.6-14.6 [facility] Immature granulocytes/100 WBC (Bld) 0.400 % 0.0-0.9 [facility] Comment on above: IG% - Immature Granu locytes (promyelocytes, myelocytes and metamyelocytes) > 1% indicates that a LEFT SHIFT is Present. MCH (RBC) [Entitic mass] 29.8 pg 27.0-32.0 [facility] Nucleated RBC/100 WBC (Bld) [Ratio] 0 % 0-5 [facility] MCHC Auto (RBC) [Mass/Vol]Or dered By: Abdifatah Jalloh on 10-18-2023 MCHC (RBC) [Mass/Vol] 32.2 g/dL 32-36 [facility] No Panel InformationOrdered By: Abdifatah Jalloh on 10-18-2023 Estimated GFR (MDRD) Amer 74 mL/min >60 [facility] Comment on above: GFR Calc Estimated GFR (MDRD) Non-Af Amer 62 mL/min >60 [facility] Comment on above: Non- GFR Calc Platelets bldOrdered By: Mark Jalloh on 10-18-2023 Platelets (Bld) [#/Vol] 207 10*3/uL 150-450 [facility] Serum or plasma albumin jim urement (mass/volume)Ordered By: Abdifatah Jalloh on 10-18-2023 Albumin [Mass/Vol] 3.3 g/dL 3.2-5.0 [facility] Serum or plasma albumin/glob ulin mass ratioOrdered By: Abdifatah Jalloh on 10-18-2023 Albumin/Globulin [Mass ratio] 0.9 {ratio} 0.9-2.4 [facility] Serum or plasma calcium jim urement (mass/volume)Ordered By: Abdifatah Jalloh on 10-18-2023 Calcium [Mass/Vol] 8.5 mg/dL 8.5-10.1 [facility] Serum or plasma creatinine m easurement (mass/volume)Ordered By: Abdifatah Jalloh on 10-18-2023 Creatinine [Mass/Vol] 0.98 mg/dL 0.55-1.02 [facility] Comment on above: The validity of the calculated GFR & GFRAA in patients over 70 years has not been determined. Clinical correlation is essential. Serum or plasma urea nitroge n measurement (mass/volume)Ordered By: Abdifatah Jalloh on 10-18-2023 Urea nitrogen [Mass/Vol] 21 mg/dL 7-18 [facility] Thin prep Papanicolaou smear with manual screeningOrdered By: Abdifatah Jalloh on 10-18-2023 Thin prep Papanicolaou smear with manual screening 19 U/L 15-37 [facility] Thin prep Papanicolaou smear with manual screening 5 5-15 [facility] Absolute lymphocyte countOrd ered By: Abdifatah Jalloh on 09-05-2023 Lymphocytes Auto (Unsp spec) [#/Vol] 1.79 10*3/uL 0.83-4.51 [facility] Basophil percentageOrdered B y: Abdifatah Jalloh on 09-05-2023 Basophils/100 WBC (Bld) 0.6 % 0-1 [facility] Bilirubin [Mass/Vol] 0.50 mg/dL 0.20-1.00 [facility] Comment on above: For patients on eltr ombopag therapy, use of Dimension [place]ont TBIL is not recommended. Chloride [Moles/Vol] 106 mmol/L 98-107 [facility] Cholesterol [Mass/Vol] 250 mg/dL <200 [facility] Comment on above: <200 mg/dL Desirable 200-240 mg/dL Borderline >240 mg/dL High Risk Eosinophils/100 WBC (Bld) 2.1 % 0-5 [facility] Glucose [Mass/Vol] 92 mg/dL 74-106 [facility] Neutrophils (Bld) [#/Vol] 2.9 10*3/uL 2.0-7.7 [facility] Neutrophils/100 WBC (Bld) 54.6 % 47-70 [facility] Potassium [Moles/Vol] 3.9 mmol/L 3.5-5.1 [facility] Protein [Mass/Vol] 7.4 g/dL 6.4-8.2 [facility] Sodium [Moles/Vol] 140 mmol/L 136-145 [facility] Triglyceride [Mass/Vol] 69 mg/dL <199 [facility] Comment on above: The drugs N-Acetylcy steine and Metamizole may falsely depress this assay.Serum Triglycerides Reference Interval Normal <150 mg/dL Borderline high 150 - 199 mg/dL High 200 - 499 mg/dL Very High > or = 500 mg/dL WBC (Bld) [#/Vol] 5.3 10*3/uL 4.4-11.0 [facility] Blood erythrocytes count (nu mber/volume)Ordered By: Abdifatah Jalloh on 09-05-2023 RBC (Bld) [#/Vol] 4.70 10*6/uL 4.2-5.4 [facility] Blood hemoglobin measurement (mass/volume)Ordered By: Abdifatah Jalloh on 09-05-2023 Hemoglobin (Bld) [Mass/Vol] 13.9 g/dL 12.0-15.0 [facility] Blood lymphocytes/100 leukoc ytesOrdered By: Abdifatah Jalloh on 09-05-2023 Lymphocytes/100 WBC (Bld) 34.1 % 19-41 [facility] Blood monocytes/100 leukocyt esOrdered By: Abdifatah Jalloh on 09-05-2023 Monocytes/100 WBC (Bld) 8.2 % 0-10 [facility] Blood platelet mean volumeOr dered By: Abdifatah Jalloh on 09-05-2023 Platelet mean volume (Bld) [Entitic vol] 9.6 fL 6.2-12.0 [facility] Determination of erythrocyte mean corpuscular volume (MCV)Ordered By: Abdifatah Jalloh on 09-05-2023 MCV (RBC) [Entitic vol] 91.7 fL 81-99 [facility] Hematocrit Auto (Bld) [Volum e fraction]Ordered By: Abdifatah Jalloh on 09-05-2023 Hematocrit (Bld) [Volume fraction] 43.1 % 37-47 [facility] Laboratory - Chemistry and C hemistry - challengeOrdered By: Abdifatah Jalloh on 09-05-2023 ALP [Catalytic activity/Vol] 101 U/L 45-117 [facility] ALT [Catalytic activity/Vol] 30 U/L 13-56 [facility] CO2 [Moles/Vol] 30.0 mmol/L 21.0-32.0 [facility] Cobalamin (Vitamin B12) [Mass/Vol] 568 pg/mL 211-911 [facility] Globulin (S) [Mass/Vol] 3.6 g/dL 2.2-4.2 [facility] Magnesium [Mass/Vol] 2.6 mg/dL 1.6-2.6 [facility] Urea nitrogen/Creatinine [Mass ratio] 14.3 mg/mg 10-20 [facility] Laboratory - Hematology and Cell countsOrdered By: Abdifatah Jalloh on 09-05-2023 Erythrocyte distribution width (RBC) [Entitic vol] 40.1 fL 35.1-43.9 [facility] Erythrocyte distribution width (RBC) [Ratio] 12.0 % 11.6-14.6 [facility] Immature granulocytes/100 WBC (Bld) 0.400 % 0.0-0.9 [facility] Comment on above: IG% - Immature Granu locytes (promyelocytes, myelocytes and metamyelocytes) > 1% indicates that a LEFT SHIFT is Present. MCH (RBC) [Entitic mass] 29.6 pg 27.0-32.0 [facility] Nucleated RBC/100 WBC (Bld) [Ratio] 0 % 0-5 [facility] MCHC Auto (RBC) [Mass/Vol]Or dered By: Abdifatah Jalloh on 09-05-2023 MCHC (RBC) [Mass/Vol] 32.3 g/dL 32-36 [facility] No Panel InformationOrdered By: Abdifatah Jalloh on 09-05-2023 Estimated GFR (MDRD) Amer 69 mL/min >60 [facility] Comment on above: GFR Calc Estimated GFR (MDRD) Non-Af Amer 57 mL/min >60 [facility] Comment on above: Non- GFR Calc Thyroid Stimulating Hormone (TSH) 1.09 uIU/mL 0.358-3.74 [facility] Vitamin D 25-Hydroxy 42.2 ng/mL [facility] Comment on above: Vitamin D 25(OH) Sta tus Range Deficiency <20 ng/mL (50nmol/L) Insufficiency 20 - 30 ng/mL (50 - 75 nmol/L) Sufficiency 30 - 100 ng/mL (75 - 250 nmol/L) Toxicity >100 ng/mL (>250 nmol/L) Platelets bldOrdered By: Mark Jalloh on 09-05-2023 Platelets (Bld) [#/Vol] 244 10*3/uL 150-450 [facility] Serum or plasma albumin jim urement (mass/volume)Ordered By: Abdifatah Jalloh on 09-05-2023 Albumin [Mass/Vol] 3.8 g/dL 3.2-5.0 [facility] Serum or plasma albumin/glob ulin mass ratioOrdered By: Abdifatah Jalloh on 09-05-2023 Albumin/Globulin [Mass ratio] 1.1 {ratio} 0.9-2.4 [facility] Serum or plasma calcium jim urement (mass/volume)Ordered By: Abdifatah Jalloh on 10-25-2023 Calcium [Mass/Vol] 9.0 mg/dL 8.5-10.1 [facility] Serum or plasma cholesterol in HDL measurement (mass/volume)Ordered By: Abdifatah Jalloh on 09-05-2023 Cholesterol in HDL [Mass/Vol] 85 mg/dL >40 [facility] Comment on above: The drugs N-Acetylcy steine and Metamizole may falsely depress this assay. Reference Range HDL <40 mg/dL Low HDL Cholesterol HDL >or= 60 mg/dL High HDL Cholesterol Serum or plasma cholesterol in VLDL measurement (mass/volume)Ordered By: Abdifatah Jalloh on 09-05-2023 Cholesterol in VLDL [Mass/Vol] 14 mg/dL 5-40 [facility] Serum or plasma creatinine m easurement (mass/volume)Ordered By: Abdifatah Jalloh on 09-05-2023 Creatinine [Mass/Vol] 1.05 mg/dL 0.55-1.02 [facility] Comment on above: The validity of the calculated GFR & GFRAA in patients over 70 years has not been determined. Clinical correlation is essential. Serum or plasma ferritin segundo surement (mass/volume)Ordered By: Abdifatah Jalloh on 09-05-2023 Ferritin [Mass/Vol] 99 ng/mL 8-252 [facility] Serum or plasma low density lipoprotein (LDL) cholesterol measurement (mass/volume)Ordered By: Abdifatah Jalloh on 09-05-2023 Cholesterol in LDL [Mass/Vol] 151 mg/dL 0-130 [facility] Serum or plasma urea nitroge n measurement (mass/volume)Ordered By: Abdifatah Jalloh on 09-05-2023 Urea nitrogen [Mass/Vol] 15 mg/dL 7-18 [facility] Thin prep Papanicolaou smear with manual screeningOrdered By: Abdifatah Jalloh on 09-05-2023 Thin prep Papanicolaou smear with manual screening 16 U/L 15-37 [facility] Thin prep Papanicolaou smear with manual screening 4 5-15 [facility] Whole blood hemoglobin A1c/t otal hemoglobin ratio (mass fraction)Ordered By: Abdifatah Jalloh on 09-05-2023 HbA1c (Bld) [Mass fraction] 5.0 % 3.8-5.6 [facility] Comment on above: Normal < 5.7 % Predi abetic 5.7 - 6.4 % Diabetic >or= 6.5 % Please note range changes. Throat specimen bacteria sreedhar ntification by cultureOrdered By: Dr. Mcfarlane on 02-02-2023 Bacteria identified Cx Nom (Throat) [facility] Cervical or vagninal specime n microscopic examination by cytology stain (reported ason 03-07-2022 Cytology report Cyto stain Doc (Cvx/Vag) Comment [facility] Work Phone: Comment on above: The Pap smear is a s creening test designed to aid in thedetection of premalignant and malignant conditions of theuterine cervix. It is not a diagnostic procedure andshould not be used as the sole means of detecting cervicalcancer. Both false-positive and false-negative reports dooccur. Detection in cervical specim en of any of human papilloma virus (HPV) 16, 18, 31, 33,on 03-07-2022 HPV 16+18+31+33+35+39+45+51 +52+56+58+59+66+68 DNA Probe+sig amp Ql (Cvx) Negative Negative [facility] Work Phone: Comment on above: This nucleic acid am plification test detects fourteen high-risk HPV types (16,18,31,33,35,39,45,51,52,56,58,59,66,68)without differentiation.Performed at: - [address] [id number] Director: Barbara South MD, Phone: [phone] at: = - [facility] [id number] Director: Barbara South MD, Phone: [phone] Laboratory - Cytologyon 02-11 [employer]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 Service comment (Unsp spec) [Interp] . [facility] Work Phone: No Panel Informationon 03-07 Pathology report final diagnosis Narrative Comment [facility] Work Phone: Comment on above: NEGATIVE FOR INTRAEP ITHELIAL LESION OR MALIGNANCY. Clinical Summary: Saima jose 02-10-2022 MC75 OP Visit Invalid Interpretation Code [facility] Work Phone: Clinical Summary: Saima jose 01-03-2022 MC75 OP Visit Invalid Interpretation Code [facility] Work Phone: Office Visit: Postop - subse quent visit, Rm: 20on 01-03-2022 NEGATED: Highlighted rowxray history of the lumbar spine on 11/03/2021 at [facility] Invalid Interpretation Code [facility] Work Phone: Laboratory - Microbiology an d Antimicrobial susceptibilityon 11-21-2021 SARS-CoV-2 (COVID-19) RNA RUDY+probe Ql (Unsp spec) Not detected Not Detect [facility] [facility] Work Phone: Comment on above: Normal Reference Ran ge: Not DetectedMethod:(RT-PCR) real-time reverse transcriptase PCRLuminex JAKOB Instrument*The Food and Drug Administration (FDA) has issued an Emergency Use Authorization (EAU) for the JAKOB SARS-CoV-2 Assay for the rapid detection of the virus that causes COVID-19. This test has been validated, but the FDAs independent review of this validation is pending.*Negative results do not preclude infection and should not be used as the sole basis for treatment or patient management. Optimum specimen types and timing for peak viral levels during infections caused by SARS-CoV-2 have not been determined. Collection of multiple specimens from the same patient may be necessary to detect the virus. The possibility of a false negative result should be considered if the patient has clinical presentation or has had recent exposure. CNPNon 07-28-2021 CNPN Telephone (HEMAWS) LIONEL GOVEA ([id number]) 1965 F Date Time Provider Department 06/08/21 XOCHILT SEGOVIA During your visit today, we recorded the following information about you: Jose Gloria 06/08/2021 1:04 PM Signed Received fax for new patient referral.Gave to for review. Reason:family history of dvt Ref by:Edd Kumari Ins:out of network made a referral Yarelis Allie [facility] 06/29/2021 10:37 AM Signed Patient calling on status of referral. Beatriz Coy 06/29/2021 11:17 AM Signed Spoke with patient. OON Referral still note cleared. Scheduled PFA call and advised patient, once she's cleared, we would get her scheduled. Beatriz Cuenca [facility] 06/30/2021 11:16 AM Signed Per Referral notes, patient will get back with PFA is wanting to schedule appt. Records in Ready to Schedule: Waiting on Referral folder Lesly Dupont [facility] 08/15/2021 12:55 PM Signed Per FC referral notes patient did not agree to self pay payment amount for appointment Lesly Dupont [facility] Allergies As of Date: 06/08/2021 (Not on File) Date Reviewed: Never Reviewed Reason for Visit: Future Appointment [256] Problem List As Of Date: 06/08/2021 (None) Encounter Status:Closed by JOSE GLORIA on 08/09/21 Normal [facility] Final Surgical Pathology Rep aubree 03-29-2021 Final Surgical Pathology Report . Pathology Reports Accession: Collected Date/Time: Received Date/Time: Pathologist: [id number] 03/25/2021 08:07 EDT 03/28/2021 09:33 EDT GIAN LOCKHART MD Final Surgical Pathology Report DIAGNOSIS: SOFT TISSUE, LEFT FOOT -- LOCKWOOD'S NEUROMA. COMMENT: [facility] - D# [id number] CLINICAL INFORMATION: Procedure: DORSIFLEXORY OSTEOTOMY THIRD METATARSAL LEFT, EXPLORATION AND POSSIBLE EXCISION NEUROMAS SECOND AND THIRD INTERSPACE, LEFT FOOT Preoperative diagnosis: PLANTAR FLEXED, THIRD METATARSAL LEFT, POSSIBLE RECURRING NEUROMA SECOND AND THIRD INTERSPACE, LEFT FOOT Postoperative diagnosis: SAME SPECIMEN: A NEUROMA/BURSAL TISSUE - LEFT FOOT GROSS DESCRIPTION: A. Received in formalin, labeled with the patients name, Case #[id number], and neuroma/bursal tissue left foot is a white -yellow rubbery portion of soft tissue measuring 2.2 x 1.5 x 0.6 cm. TS -1. Dictated by CAITLYN PRICE MICROSCOPIC DESCRIPTION: Slides reviewed. Electronically Signed by Pathology Report verified by [facility] Electronically signed by GIAN LOCKHART Sign out Date: 03/29/2021 15:01 Performing Lab: [facility], [address] [place] [address] ([place]) Comment on above: Performed By: #### S PFR #### [place] [id number] Initial Visit (Otolaryngolog y)on 11-16-2018 Initial Visit (Otolaryngology) Chief ComplaintVocal cord lesions History of Present IllnessMalynda is 52 year old female who presents for follow up for laryngeal lesions and volume loss as a new visit as a consult from her pattern room attendant . She has not been seen now for over 4 years and follows up at the advice of her pattern room attendant. . She reports increased hoarseness following a cold with cough approximately 3 months ago. She reports coughing for 3-4 weeks, which has stopped now. She admit to persistent throat clearing. At the time her PCP prescribes an inhaler 2/2 chest tightness. This did not help. Her pattern room attendant who she sees for allergies prescribed Dymista 5 weeks agio. This has helped her allergies but not the hoarseness. 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 ALthough does admit that the gym is large.Daytime voice use is minimal. She is watching her 4 month old grandson most days.PMH: migraine, asthma, allergiesSocial: Tobacco none ETOH none Lives with familyFHx: reviewed and non-contributory to current complaint. I personally reviewed the patient intake forms and these were scanned into the electronic medical record today, 11/14/2018 .ROS performed. All other systems are reviewed and are negative for complaint.I personally reviewed prior chart notes and radiology images today. 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) Past Medical History History of arthritis (V13.4) (Z87.39) History of gastroesophageal reflux (GERD) (V12.79) (Z87.19) History of migraine (V12.49) (Z86.69) Personal history of asthma (V12.69) (Z87.09) Surgical History History of Back Surgery History of Knee Surgery Family History No pertinent family history Family history of Family history of myocardial infarction (V17.3) (Z82.49) Family history of diabetes mellitus (V18.0) (Z83.3) Social History Currently working Never a smoker No alcohol use No drug use Allergies Dilaudid Recorded By: Jo Ann Santa; 08/20/2014 1:06:47 PM Morphine Derivatives Recorded By: Jo Ann Santa; 08/20/2014 1:06:47 PM Neurontin Recorded By: Jo Ann Santa; 08/20/2014 1:06:47 PM Pamine Recorded By: Jo Ann Santa; 08/20/2014 1:06:47 PM Percocet TABS Recorded By: Jo Ann Santa; 08/20/2014 1:06:47 PM Topamax Recorded By: Jo Ann Santa; 08/20/2014 1:06:47 PM Ultram Recorded By: Jo Ann Santa; 08/20/2014 1:06:47 PM Current Meds Acidophilus/L-Sporoge haroldo Oral Tablet;Therapy: (Recorded:14Nov2018) to Recorded Dispense: 0 Days ; #: Sufficient; Refill: 0; SKYLER = N; Record; Last Updated By: Delilah Patterson; 11/14/2018 2:22:05 PM Advair HFA 230-21 MCG/ACT Inhalation Aerosol;Therapy: (Recorded:14Nov2018) to Recorded Dispense: 0 Days ; #: Sufficient; Refill: 0; SKYLER = N; Record; Last Updated By: Delilah Patterson; 11/14/2018 2:22:05 PM Albuterol Sulfate 4 MG Oral Tablet;Therapy: (Recorded:14Nov2018) to Recorded Dispense: 0 Days ; #: Sufficient; Refill: 0; SKYLER = N; Record; Last Updated By: Delilah Patterson; 11/14/2018 2:22:05 PM Anaprox 275 MG TABS;Therapy: (Recorded:14Nov2018) to Recorded Dispense: 0 Days ; #: Sufficient; Refill: 0; SKYLER = N; Record; Last Updated By: Delilah Patterson; 11/14/2018 2:22:05 PM Calcium 600+D 600-400 MG-UNIT Oral Tablet;Therapy: (Recorded:14Nov2018) to Recorded Dispense: 0 Days ; #: Sufficient; Refill: 0; SKYLER = N; Record; Last Updated By: Delilah Patterson; 11/14/2018 2:22:05 PM Iron TABS;Therapy: (Recorded:14Nov2018) to Recorded Dispense: 0 Days ; #: Sufficient; Refill: 0; SKYLER = N; Record; Last Updated By: Delilah Patterson; 11/14/2018 2:22:05 PM Loratadine 10 MG Oral Tablet;Therapy: (Recorded:14Nov2018) to Recorded Dispense: 0 Days ; #: Sufficient; Refill: 0; SKYLER = N; Record; Last Updated By: Delilah Patterson; 11/14/2018 2:22:05 PM Melatonin 5 MG Oral Tablet;Therapy: (Recorded:14Nov2018) to Recorded Dispense: 0 Days ; #: Sufficient; Refill: 0; SKYLER = N; Record; Last Updated By: Delilah Patterson; 11/14/2018 2:22:05 PM Multivitamins TABS;Therapy: (Recorded:14Nov2018) to Recorded Dispense: 0 Days ; #: Sufficient; Refill: 0; SKYLER = N; Record; Last Updated By: Delilah Patterson; 11/14/2018 2:22:05 PM Omeprazole 40 MG Oral Capsule Delayed Release;Therapy: (Recorded:14Nov2018) to Recorded Dispense: 0 Days ; #: Sufficient; Refill: 0; SKYLER = N; Record; Last Updated By: Delilah Patterson; 11/14/2018 2:22:05 PM Prempro 0.625-2.5 MG Oral Tablet;Therapy: (Recorded:14Nov2018) to Recorded Dispense: 0 Days ; #: Sufficient; Refill: 0; SKYLER = N; Record; Last Updated By: Delilah Patterson; 11/14/2018 2:22:05 PM Singulair 5 MG Oral Tablet Chewable;Therapy: (Recorded:14Nov2018) to Recorded Dispense: 0 Days ; #: Sufficient; Refill: 0; SKYLER = N; Record; Last Updated By: Delilah Patterson; 11/14/2018 2:22:05 PM Ventolin HFA 108 (90 Base) MCG/ACT Inhalation Aerosol Solution;Therapy: (Recorded:14Nov2018) to Recorded Dispense: 0 Days ; #: Sufficient; Refill: 0; SKYLER = N; Record; Last Updated By: Delilah Patterson; 11/14/2018 2:22:05 PM Xyzal 5 MG TABS;Therapy: (Recorded:14Nov2018) to Recorded Dispense: 0 Days ; #: Sufficient; Refill: 0; SKYLER = N; Record; Last Updated By: Delilah Patterson; 11/14/2018 2:22:05 PM Vitals Vital Signs Recorded: 14Nov2018 03:13PMHeart Cuev50Zsgdcoqq953Vylx siqyc00Cnjxwa4 ft 5 qtJlvboc389 lb BMI Tmrsglqvhx66.29BSA Calculated1.76 Physical ExamCONSTITUTIONAL: Vitals per intake. Well developed, well nourished. VOICE: Moderately hoarse voice , intermittent pitch breaks, throat clears and coughRESPIRATION: Breathing comfortably, no stridor. CV: No clubbing/cyanosis/rianna ma in hands. EYES: EOM intact, sclera normal. NEURO: Alert and oriented times 3, cranial nerves II-XII intact and symmetric bilaterally. HEAD AND FACE: Symmetric facial features, no masses or lesions, sinuses nontender to palpation. SALIVARY GLANDS: Parotid and submandibular glands normal bilaterally. EARS: Normal external ears, external auditory canals, and TMs to otoscopy, normal hearing to whispered voice. NOSE: External nose midline, anterior rhinoscopy is normal with limited visualization to the anterior aspect of the interior turbinates. No lesions noted. ORAL CAVITY/OROPHARYNX/LIP S: Normal mucous membranes, normal floor of mouth/tongue/OP, no masses or lesions are noted. PHARYNGEAL GREENFIELD AND NASOPHARYNX: No masses noted. NECK/LYMPH: No LAD, no thyroid masses. SKIN: Neck skin is without scar or injury. PSYCH: Alert and oriented with appropriate mood and affect. ProcedurePROCEDURE NOTE: Recommended flexible laryngoscopy. Risks, benefits, and alternatives were explained. She wished to proceed and provides verbal consent.Procedure: Flexible Laryngoscopy, CPT 67302 POSTPROCEDURE DIAGNOSIS: INDICATIONS: Inability to tolerate mirror exam or abnormal findings on mirror, Flexible Laryngoscopy/Strobosc opy performed to assess one of the followin. Diagnosis of symptomatic disorder involving the voice, swallow, upper aerodigestive tract, including ABHILASH disorders, or 2. Postoperative evaluation of vocal cord function for individuals undergoing surgery where the RLN or vagus nerves are at risk of injury, or 3. Further evaluation of abnormalities of the upper aerodigestive tract discovered by another modality, such as CT, MRI, bronchoscopy or EGD Description of Procedure: After adequate Afrin and lidocaine spray, I advanced the endoscope. Visualization of the nasopharynx, vallecula, posterior pharyngeal greenfield, pyriform, epiglottis and post cricoid areas was unremarkable. The following laryngeal findings were noted: Vocal cord movement was asymmetric, left falling out> right. Closure was incomplete with midglottal gapEdema was mild Interarytenoid edema was mild, increased posterior edemapersistent sulcus on the leftThe subglottis was widely patent increased MTD from prior examsProcedure well tolerated. 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) Hoarseness of voice (784.42) (R49.0) Chronic throat clearing (784.99) (R68.89) Orders Speech Therapy Referral Evaluation and Treatment Evaluate AND Treat Status: Hold For -Scheduling Requested for: 15Nov2018 Ordered;For: Chronic throat clearing; Ordered By: Cony Smallwood Performed: Due: 13Feb2019 Continue: Acidophilus/L-Sporoge haroldo Oral Tablet Dispense: 0 Days ; #: Sufficient; Refill: 0; SKYLER = N; Record; Last Updated By: Delilah Patterson; 11/14/2018 2:22:05 PM Continue: Advair HFA 230-21 MCG/ACT Inhalation Aerosol Dispense: 0 Days ; #: Sufficient; Refill: 0; SKYLER = N; Record; Last Updated By: Delilah Patterson; 11/14/2018 2:22:05 PM Continue: Albuterol Sulfate 4 MG Oral Tablet Dispense: 0 Days ; #: Sufficient; Refill: 0; SKYLER = N; Record; Last Updated By: Delilah Patterson; 11/14/2018 2:22:05 PM Continue: Anaprox 275 MG TABS (Naproxen Sodium) Dispense: 0 Days ; #: Sufficient; Refill: 0; SKYLER = N; Record; Last Updated By: Delilah Patterson; 11/14/2018 2:22:05 PM Continue: Calcium 600+D 600-400 MG-UNIT Oral Tablet Dispense: 0 Days ; #: Sufficient; Refill: 0; SKYLER = N; Record; Last Updated By: Delilah Patterson; 11/14/2018 2:22:05 PM Continue: Iron TABS Dispense: 0 Days ; #: Sufficient; Refill: 0; SKYLER = N; Record; Last Updated By: Delilah Patterson; 11/14/2018 2:22:05 PM Continue: Loratadine 10 MG Oral Tablet Dispense: 0 Days ; #: Sufficient; Refill: 0; SKYLER = N; Record; Last Updated By: Delilah Patterson; 11/14/2018 2:22:05 PM Continue: Melatonin 5 MG Oral Tablet Dispense: 0 Days ; #: Sufficient; Refill: 0; SKYLER = N; Record; Last Updated By: Delilah Patterson; 11/14/2018 2:22:05 PM Continue: Multivitamins TABS Dispense: 0 Days ; #: Sufficient; Refill: 0; SKYLER = N; Record; Last Updated By: Delilah Patterson; 11/14/2018 2:22:05 PM Continue: Omeprazole 40 MG Oral Capsule Delayed Release Dispense: 0 Days ; #: Sufficient; Refill: 0; SKYLER = N; Record; Last Updated By: Delilah Patterson; 11/14/2018 2:22:05 PM Continue: Prempro 0.625-2.5 MG Oral Tablet Dispense: 0 Days ; #: Sufficient; Refill: 0; SKYLER = N; Record; Last Updated By: Delilah Patterson; 11/14/2018 2:22:05 PM Continue: Singulair 5 MG Oral Tablet Chewable (Montelukast Sodium) Dispense: 0 Days ; #: Sufficient; Refill: 0; SKYLER = N; Record; Last Updated By: Delilah Patterson; 11/14/2018 2:22:05 PM Continue: Ventolin HFA 108 (90 Base) MCG/ACT Inhalation Aerosol Solution Dispense: 0 Days ; #: Sufficient; Refill: 0; SKYLER = N; Record; Last Updated By: Delilah Patterson; 11/14/2018 2:22:05 PM Continue: Xyzal 5 MG TABS (Levocetirizine Dihydrochloride) Dispense: 0 Days ; #: Sufficient; Refill: 0; SKYLER = N; Record; Last Updated By: Delilah Patterson; 11/14/2018 2:22:05 PM Provider Julio César is a new assessement for recent acute onset of hoarseness s/p URI. Her exam shows a stable sulcus of the left vocal cord. However, there is some asymmetry of movement which is different when compared to prior exams. She may have had some subtle weakness on the left related to her recent URI. She also may have increased MTD related to posterior swelling which is impacting closure and therefore her vocal control. We discussed options for therapy. 1. Speech to decrease clear/cough and MTD2. consideration of possible vocal cord injection to help with effort based on outcome of speech Patient Discussion/SummaryBy signing my name below, I, Nannette Gifford, attest that this documentation has been prepared under the direction and in the presence of Dr. Cony Smallwood. All medical record entries made by the Galeibjenna were at my direction and personally dictated by me. I have reviewed the chart and agree that the record accurately reflects my personal performance of the history, physical exam, discussion and plan. 1. You need speech therapy as part of your treatment. We will help you to schedule your speech appointment after your visit or you can call Speech Therapy Scheduling at [phone]. Please follow up pending the outcome of speech therapy. 2. Depending on outcome of speech therapy we will consider vocal cord injection. If your symptoms change, or if you have any further questions or concerns, please call the office so we can see you.For general questions or scheduling issues, call our carpentry supervisor at [phone] medical questions or surgery scheduling issues, call [phone] reach Speech therapy, for appointments or questions, call [phone]. Signatures Electronically signed by : Cony Smallwood MD; Nov 15 2018 11:45PM EST (Author) Normal [place] Initial Visit (Otolaryngolog y)on 10-21-2018 Initial Visit (Otolaryngology) No report was sent Normal [employer] s Vital Signs Date Time Vital Sign Value Performing Clinician Facility 05-20-2025 07:47-0400 Body mass index (BMI) [Ratio] 27.6 kg/m2 Melinda Rodgers MD Work Phone: [facility] 05-20-2025 07:47-0400 Body temperature 96.7 [degF] Melinda Rodgers MD Work Phone: [facility] 05-20-2025 07:47-0400 Body weight 75.29 kg Melinda Rodgers MD Work Phone: [facility] 05-20-2025 07:47-0400 Diastolic blood pressure 76 mm[Hg] Melinda Rodgers MD Work Phone: [facility] 05-20-2025 07:47-0400 Heart rate 76 /min Melinda Rodgers MD Work Phone: [facility] 05-20-2025 07:47-0400 Respiratory rate 16 /min Melinda Rodgers MD Work Phone: [facility] 05-20-2025 07:47-0400 SaO2% (BldA) [Mass fraction] 98 % Melinda Rodgers MD Work Phone: [facility] 05-20-2025 07:47-0400 Systolic blood pressure 107 mm[Hg] Melinda Rodgers MD Work Phone: [facility] 05-07-2025 10:46-0400 Body height 165.1 cm Melinda Rodgers MD Work Phone: [facility] 05-07-2025 10:44-0400 Diastolic blood pressure 75 mm[Hg] Melinda Rodgers MD Work Phone: [facility] 05-07-2025 10:44-0400 Heart rate 85 /min Melinda Rodgers MD Work Phone: [facility] 05-07-2025 10:44-0400 Systolic blood pressure 110 mm[Hg] Melinda Rodgers MD Work Phone: [facility] 03-25-2025 13:39-0400 Body height 165.1 cm Melinda Rodgers MD Work Phone: [facility] 03-25-2025 13:35-0400 Body mass index (BMI) [Ratio] 27.6 kg/m2 Melinda Rodgers MD Work Phone: [facility] 03-25-2025 13:35-0400 Body weight 75.4 kg Melinda Rodgers MD Work Phone: [facility] 03-25-2025 13:35-0400 Diastolic blood pressure 78 mm[Hg] Melinda Rodgers MD Work Phone: [facility] 03-25-2025 13:35-0400 Systolic blood pressure 124 mm[Hg] Melinda Rodgers MD Work Phone: [facility] 03-17-2025 22:00-0400 Body temperature 97.8 [degF] Melinda Rodgers MD Work Phone: [facility] 03-17-2025 22:00-0400 Diastolic blood pressure 76 mm[Hg] Melinda Rodgers MD Work Phone: [facility] 03-17-2025 22:00-0400 Heart rate 78 /min Melinda Rodgers MD Work Phone: [facility] 03-17-2025 22:00-0400 Respiratory rate 14 /min Melinda Rodgers MD Work Phone: [facility] 03-17-2025 22:00-0400 SaO2% (BldA) [Mass fraction] 99 % Melinda Rodgers MD Work Phone: [facility] 03-17-2025 22:00-0400 Systolic blood pressure 143 mm[Hg] Melinda Rodgers MD Work Phone: 7(982)050-829646 [place] [address] 03-17-2025 18:01-0400 Body height 165.1 cm Melinda Rodgers MD Work Phone: 0(349)901-820837 [place] [address] 03-17-2025 18:01-0400 Body mass index (BMI) [Ratio] 27.5 kg/m2 Melinda Rodgers MD Work Phone: 3(194)969-453646 [place] [address] 03-17-2025 18:01-0400 Body weight 75.06 kg Melinda Rodgers MD Work Phone: 0(436)564-385146 [place] [address] 03-16-2025 14:31-0400 Body mass index (BMI) [Ratio] 27.5 kg/m2 Melinda Rodgers MD Work Phone: 3(171)003-271746 [place] [address] 03-16-2025 14:31-0400 Body temperature 97.2 [degF] Melinda Rodgers MD Work Phone: 5(214)018-333046 [place] [address] 03-16-2025 14:31-0400 Body weight 75.01 kg Melinda Rodgers MD Work Phone: 5(515)870-362346 [place] [address] 03-16-2025 14:31-0400 Diastolic blood pressure 64 mm[Hg] Melinda Rodgers MD Work Phone: 6(655)477-774946 [place] [address] 03-16-2025 14:31-0400 Heart rate 63 /min Melinda Rodgers MD Work Phone: 9(905)963-419246 [place] [address] 03-16-2025 14:31-0400 Respiratory rate 18 /min Melinda Rodgers MD Work Phone: 9(573)771-488205 [address] 03-16-2025 14:31-0400 SaO2% (BldA) [Mass fraction] 99 % Melinda Rodgers MD Work Phone: 8(658)542-495737 [place] [address] 03-16-2025 14:31-0400 Systolic blood pressure 110 mm[Hg] Melinda Rodgers MD Work Phone: [facility] 01-06-2025 07:45-0500 Body height 165.1 cm Melinda Rodgers MD Work Phone: [facility] 01-06-2025 07:45-0500 Body mass index (BMI) [Ratio] 26.6 kg/m2 Melinda Rodgers MD Work Phone: [facility] 01-06-2025 07:45-0500 Body temperature 97.3 [degF] Melinda Rodgers MD Work Phone: [facility] 01-06-2025 07:45-0500 Body weight 72.57 kg Melinda Rodgers MD Work Phone: 7(154)788-411205 [address] 01-06-2025 07:45-0500 Diastolic blood pressure 81 mm[Hg] Melinda Rodgers MD Work Phone: [facility] 01-06-2025 07:45-0500 Heart rate 97 /min Melinda Rodgers MD Work Phone: 8(833)343-159537 [place] [address] 01-06-2025 07:45-0500 Respiratory rate 18 /min Melinda Rodgers MD Work Phone: [facility] 01-06-2025 07:45-0500 SaO2% (BldA) [Mass fraction] 95 % Meilnda Rodgers MD Work Phone: [facility] 01-06-2025 07:45-0500 Systolic blood pressure 122 mm[Hg] Melinda Rodgers MD Work Phone: [facility] 12-17-2024 04:53-0500 Body mass index (BMI) [Ratio] 26.6 kg/m2 Melinda Rodgers MD Work Phone: [facility] 12-17-2024 04:53-0500 Body temperature 97.8 [degF] Melinda Rodgers MD Work Phone: [facility] 12-17-2024 04:53-0500 Body weight 72.57 kg Melinda Rodgers MD Work Phone: [facility] 12-17-2024 04:53-0500 Diastolic blood pressure 89 mm[Hg] Melinda Rodgers MD Work Phone: [facility] 12-17-2024 04:53-0500 Heart rate 82 /min Melinda Rodgers MD Work Phone: [facility] 12-17-2024 04:53-0500 Respiratory rate 18 /min Melinda Rodgers MD Work Phone: [facility] 12-17-2024 04:53-0500 SaO2% (BldA) [Mass fraction] 97 % Melinda Rodgers MD Work Phone: [facility] 12-17-2024 04:53-0500 Systolic blood pressure 168 mm[Hg] Melinda Rodgers MD Work Phone: [facility] 03-17-2024 10:23-0400 Body height 165.1 cm DO Abdifatah Yeimi Work Phone: [facility] 03-17-2024 10:23-0400 Diastolic blood pressure 80 mm[Hg] DO Abdifatah Yeimi Work Phone: [facility] 03-17-2024 10:23-0400 Systolic blood pressure 124 mm[Hg] DO Abdifatah Yeimi Work Phone: [facility] 03-11-2024 07:51-0400 Body mass index (BMI) [Ratio] 25.9 kg/m2 DO Abdifatah Yeimi Work Phone: [facility] 03-11-2024 07:51-0400 Body temperature 97.7 [degF] DO Abdifatah Yeimi Work Phone: [facility] 03-11-2024 07:51-0400 Body weight 70.76 kg DO Abdifatah Yeimi Work Phone: [facility] 03-11-2024 07:51-0400 Diastolic blood pressure 79 mm[Hg] DO Abdifatah Yeimi Work Phone: [facility] 03-11-2024 07:51-0400 Heart rate 87 /min DO Abdifatah Yeimi Work Phone: [facility] 03-11-2024 07:51-0400 Respiratory rate 24 /min DO Abdifatah Yeimi Work Phone: [facility] 03-11-2024 07:51-0400 SaO2% (BldA) [Mass fraction] 97 % DO Abdifatah Yeimi Work Phone: [facility] 03-11-2024 07:51-0400 Systolic blood pressure 121 mm[Hg] DO Abdifatah Yeimi Work Phone: [facility] 01-02-2024 07:33-0500 Body mass index (BMI) [Ratio] 26.6 kg/m2 DO Abdifatah Yeimi Work Phone: [facility] 01-02-2024 07:33-0500 Body temperature 97.7 [degF] DO Abdifatah Yeimi Work Phone: [facility] 01-02-2024 07:33-0500 Body weight 72.74 kg DO Abdifatah Yeimi Work Phone: [facility] 01-02-2024 07:33-0500 Diastolic blood pressure 82 mm[Hg] DO Abdifatah Yeimi Work Phone: [facility] 01-02-2024 07:33-0500 Heart rate 87 /min DO Abdifatah Yeimi Work Phone: [facility] 01-02-2024 07:33-0500 Respiratory rate 18 /min DO Abdifatah Yeimi Work Phone: [facility] 01-02-2024 07:33-0500 SaO2% (BldA) [Mass fraction] 96 % DO Abdifatah Yeimi Work Phone: [facility] 01-02-2024 07:33-0500 Systolic blood pressure 131 mm[Hg] DO Abdifatah Yeimi Work Phone: [facility] 09-11-2023 10:59-0400 Body height 165.1 cm DO Abdifatah Yeimi Work Phone: [facility] 09-11-2023 10:51-0400 Body mass index (BMI) [Ratio] 27.1 kg/m2 DO Abdifatah Yeimi Work Phone: [facility] 09-11-2023 10:51-0400 Body temperature 97.1 [degF] DO Abdifatah Yeimi Work Phone: [facility] 09-11-2023 10:51-0400 Body weight 73.93 kg DO Abdifatah Yeimi Work Phone: [facility] 09-11-2023 10:51-0400 Diastolic blood pressure 78 mm[Hg] DO Abdifatah Yeimi Work Phone: [facility] 09-11-2023 10:51-0400 Heart rate 72 /min DO Abdifatah Yeimi Work Phone: [facility] 09-11-2023 10:51-0400 Respiratory rate 16 /min DO Abdifatah Yeimi Work Phone: [facility] 09-11-2023 10:51-0400 SaO2% (BldA) [Mass fraction] 96 % DO Abdifatah Yeimi Work Phone: [facility] 09-11-2023 10:51-0400 Systolic blood pressure 121 mm[Hg] DO Abdifatah Yeimi Work Phone: [facility] 12-06-2022 08:21-0500 Body height 165.1 cm DO Abdifatah Yeimi Work Phone: [facility] 12-06-2022 08:21-0500 Body mass index (BMI) [Ratio] 27.6 kg/m2 DO Abdifatah Yeimi Work Phone: [facility] 12-06-2022 08:21-0500 Body temperature 98.2 [degF] DO Abdifatah Yeimi Work Phone: [facility] 12-06-2022 08:21-0500 Body weight 75.29 kg DO Abdifatah Newtoner Work Phone: [facility] 12-06-2022 08:21-0500 Diastolic blood pressure 76 mm[Hg] DO Abdifatah Newtoner Work Phone: [facility] 12-06-2022 08:21-0500 Heart rate 97 /min DO Abdifatah Newtoner Work Phone: [facility] 12-06-2022 08:21-0500 Respiratory rate 18 /min DO Abdifatah Newtoner Work Phone: [facility] 12-06-2022 08:21-0500 SaO2% (BldA) [Mass fraction] 96 % DO Abdifatah Newtoner Work Phone: [facility] 12-06-2022 08:21-0500 Systolic blood pressure 123 mm[Hg] DO Abdifatah Jalloh Work Phone: [facility] 09-11-2022 13:47-0400 Body height 165.[address] Edd Kumari Work Phone: [facility] Work Phone: 09-11-2022 13:47-0400 Body mass index (BMI) [Ratio] 27 kg/m2 Dr. Edd Kumari Work Phone: [facility] Work Phone: 09-11-2022 13:47-0400 Body temperature 98.2 [degF] Dr. Edd Kumari Work Phone: [facility] Work Phone: 09-11-2022 13:47-0400 Body weight 73.[address] Edd Kumari Work Phone: [facility] Work Phone: 09-11-2022 13:47-0400 Diastolic blood pressure 72 mm[Hg] Dr. Edd Kumari Work Phone: [facility] Work Phone: 09-11-2022 13:47-0400 Heart rate 82 /min Dr. Edd Kumari Work Phone: [facility] Work Phone: 09-11-2022 13:47-0400 Respiratory rate 18 /min Dr. Edd Kumari Work Phone: [facility] Work Phone: 09-11-2022 13:47-0400 SaO2% (BldA) [Mass fraction] 96 % Dr. Edd Kumari Work Phone: [facility] Work Phone: 09-11-2022 13:47-0400 Systolic blood pressure 105 mm[Hg] Dr. Edd Kumari Work Phone: [facility] Work Phone: 03-06-2022 11:03-0400 Body height 165.[address] Edd Kumari Work Phone: [facility] Work Phone: 03-06-2022 11:03-0400 Body mass index (BMI) [Ratio] 27.1 kg/m2 Dr. Edd Kumari Work Phone: [facility] Work Phone: 03-06-2022 11:03-0400 Body temperature 98.2 [degF] Dr. Edd Kumari Work Phone: [facility] Work Phone: 03-06-2022 11:03-0400 Body weight 74.[address] Edd Kumari Work Phone: [facility] Work Phone: 03-06-2022 11:03-0400 Diastolic blood pressure 72 mm[Hg] Dr. Edd Kumari Work Phone: [facility] Work Phone: 03-06-2022 11:03-0400 Heart rate 80 /min Dr. Edd Kumari Work Phone: [facility] Work Phone: 03-06-2022 11:03-0400 Respiratory rate 16 /min Dr. Edd Kumari Work Phone: [facility] Work Phone: 03-06-2022 11:03-0400 SaO2% (BldA) [Mass fraction] 97 % Dr. Edd Kumari Work Phone: [facility] Work Phone: 03-06-2022 11:03-0400 Systolic blood pressure 109 mm[Hg] Dr. Edd Kumari Work Phone: [facility] Work Phone: NEGATED: Highlighted [id number] 11:11-0400 Body height 165.1 cm Leigh Ann [place] [facility] Work Phone: NEGATED: Highlighted [id number] 11:11-0400 Body height 165 cm Leigh Ann [place] [facility] Work Phone: NEGATED: Highlighted [id number] 11:11-0400 Body mass index (BMI) [Ratio] 26.22 kg/m2 Leigh Ann [place] [facility] Work Phone: NEGATED: Highlighted [id number] 11:11-0400 Body weight 71.22 kg Leigh Ann [place] [facility] Work Phone: NEGATED: Highlighted [id number] 11:11-0400 Body weight 71 kg Leigh Ann [place] [facility] Work Phone: NEGATED: Highlighted [id number] 11:24-0500 Body height 165.1 cm Beatriz Parker AT [facility] Work Phone: NEGATED: Highlighted [id number] 11:24-0500 Body height 165 cm Beatriz Parker AT [facility] Work Phone: NEGATED: Highlighted [id number] 11:24-0500 Body mass index (BMI) [Ratio] 26.22 kg/m2 Beatriz Pakrer AT [facility] Work Phone: NEGATED: Highlighted [id number] 11:24-0500 Body temperature 97.1 [degF] Beatriz Parekr AT [facility] Work Phone: NEGATED: Highlighted [id number] 11:24-0500 Body temperature 97.16 [degF] Beatriz Parker AT [facility] Work Phone: NEGATED: Highlighted [id number] 11:24-0500 Body weight 71.22 kg Beatriz Parker AT [facility] Work Phone: NEGATED: Highlighted [id number] 11:24-0500 Body weight 71 kg Beatriz Parker AT [facility] Work Phone: Encounters Encounter Date Encounter Type Care Provider Facility Start: 06-24-2025 Encounter for other preprocedural examination Joi Darling [facility] Start: 06-15-2025 End: 06-15-2025 ambulatory Melinda Rodgers MD Work Phone: -[facility] Start: 06-15-2025 End: 06-15-2025 Patient encounter procedure Joi Darling NP-C [facility] Work Phone: Start: 06-15-2025 End: 06-15-2025 ambulatory Melinda Rodgers Facility:[facility] Start: 05-20-2025 End: 05-20-2025 Patient encounter procedure TORRES Nicholas -[facility] Work Phone: Start: 05-20-2025 End: 05-20-2025 ambulatory Melinda Rodgers MD Work Phone: -[facility] Start: 05-19-2025 End: 05-19-2025 ambulatory Melinda Rodgers MD Work Phone: -[facility] Start: 05-19-2025 End: 05-19-2025 Patient encounter procedure Joi BOYKIN -[facility] Work Phone: Start: 05-19-2025 End: 05-19-2025 ambulatory Joi Darling Facility:[facility] Start: 05-11-2025 End: 05-11-2025 ambulatory Melinda Rodgers MD Work Phone: -Pulmonary Services/Neurology Start: 05-11-2025 End: 05-11-2025 Patient encounter procedure TORRES Nicholas -Pulmonary Services/Neurology Work Phone: Start: 05-11-2025 End: 05-11-2025 ambulatory Alisa Nicholas Facility:[facility] Start: 05-07-2025 End: 05-07-2025 Patient encounter procedure Joi BOYKIN -[facility] Work Phone: Start: 05-07-2025 End: 05-07-2025 ambulatory Melinda Rodgers MD Work Phone: [facility] Work Phone: Start: 05-01-2025 End: 05-01-2025 ambulatory Melinda Rodgers MD Work Phone: [facility] Work Phone: Start: 05-01-2025 End: 05-01-2025 Patient encounter procedure Joi BOYKIN -[facility] Work Phone: Start: 05-01-2025 End: 05-01-2025 ambulatory Melinda Rodgers Facility:[facility] Start: 04-21-2025 End: 04-21-2025 ambulatory Melinda Rodgers MD Work Phone: [facility] Work Phone: Start: 04-21-2025 End: 04-21-2025 Patient encounter procedure Michelle Nunez PATHOLOGY TRANSCRIPTIONIST-C -[facility] Work Phone: Start: 04-20-2025 End: 04-21-2025 ambulatory Melinda Rodgers MD Work Phone: [facility] Work Phone: Start: 04-20-2025 End: 04-20-2025 Patient encounter procedure Joi Darling PATHOLOGY TRANSCRIPTIONIST-C -[facility] Work Phone: Start: 04-20-2025 End: 04-20-2025 ambulatory Joi Darling Facility:[facility] Start: 03-30-2025 ambulatory Annika Anderson [facility] Facility y:[facility] Start: 03-25-2025 End: 03-25-2025 Patient encounter procedure Joi Darling PATHOLOGY TRANSCRIPTIONIST-C -[facility] [place] [facility] Work Phone: Start: 03-25-2025 End: 03-25-2025 Patient encounter status Joi Darling PATHOLOGY TRANSCRIPTIONIST-C [facility] Start: 03-25-2025 End: 03-25-2025 ambulatory Melinda Rodgers MD Work Phone: [facility] Work Phone: Start: 03-17-2025 End: 03-17-2025 Emergency department patient visit Melinda Rodgers MD Work Phone: -Emergency Department Work Phone: Start: 03-16-2025 End: 03-16-[address] Annika Anderson MD -[facility] Work Phone: Start: 03-16-2025 End: 03-16-2025 ambulatory Annika Anderson Facility:[facility] Start: 03-06-2025 End: 03-06-2025 ambulatory Melinda Rodgers MD Work Phone: [facility] Work Phone: Start: 03-06-2025 End: 03-06-[address] Melinda Rodgers MD -[facility] Work Phone: Start: 03-05-2025 End: 03-06-2025 ambulatory Chalon Karla Facility:[facility] Start: 01-06-2025 End: 01-06-2025 Patient encounter procedure PATHOLOGY TRANSCRIPTIONIST Alisa Nicholas -[facility] Work Phone: Start: 01-06-2025 End: 01-06-2025 ambulatory Alisa Nicholas Facility:[facility] Start: 12-17-2024 End: 12-17-2024 Emergency department patient visit Victor Hugo Sosa DO -Emergency Department Work Phone: Start: 11-04-2024 End: 11-04-2024 [facility] Start: 10-15-2024 End: 10-15-2024 ambulatory Chalon Karla Facility:[facility] Start: 10-14-2024 End: 10-14-2024 [facility] Start: 09-29-2024 End: 09-29-2024 ambulatory Chalon Karla Facility:[facility] Start: 03-17-2024 End: 03-17-2024 ambulatory DO Abdifatah Jalloh Work Phone: [facility] Work Phone: Start: 03-17-2024 End: 03-17-2024 Patient encounter procedure DO Abdifatah Jalloh Work Phone: [facility] [place] [facility] Work Phone: Start: 03-11-2024 End: 03-11-2024 Patient encounter procedure DO Abdifatah Newtoner Work Phone: [facility] Work Phone: Start: 01-02-2024 End: 01-02-2024 Patient encounter procedure DO Abdifatah Newtoner Work Phone: [facility] Work Phone: Start: 10-18-2023 End: 10-18-2023 ambulatory DO Abdifatah Jalloh Work Phone: [facility] Work Phone: Start: 10-18-2023 End: 10-18-2023 Patient encounter procedure DO Abdifatah Jalloh Work Phone: [facility] Work Phone: Start: 09-11-2023 End: 09-11-2023 Patient encounter procedure DO Abdifatah Jalloh [facility] Work Phone: Start: 09-05-2023 End: 09-05-2023 ambulatory [facility] Work Phone: Start: 09-05-2023 End: 09-05-2023 Patient encounter procedure [facility] Work Phone: Start: 09-03-2023 End: 09-03-2023 Patient encounter procedure [facility] Start: 08-16-2023 End: 08-16-2023 ambulatory ABDIFATAH JALLOH [facility] Start: 07-27-2023 End: 07-28-2023 ambulatory BRENT GUILLEN [facility] Start: 07-27-2023 End: 07-27-2023 ambulatory ANSLEY Jose [facility] Start: 01-30-2023 End: 01-30-2023 ambulatory DO Abdifatah Jalloh Work Phone: [facility] Work Phone: Start: 01-30-2023 End: 01-30-2023 Patient encounter procedure DO Abdifatah Jalloh Work Phone: [facility] Start: 12-06-2022 End: 12-06-2022 Patient encounter procedure DO Abdifatah Jalloh [facility] Start: 11-07-2022 End: 11-07-[address] Edd Kumari Work Phone: [facility] Work Phone: Start: 11-07-2022 End: 11-07-[address] Edd Kumari Work Phone: [facility]-Cat Scan, [facility] Start: 09-11-2022 End: 09-11-[address] Edd Kumari [facility] Start: 04-11-2022 End: 04-11-[address] Edd Kumari Work Phone: [facility]-Outpatient Breast Imaging Start: 03-07-2022 End: 03-07-[address] Edd Kumari Work Phone: [facility]-Laboratory, [facility] Start: 03-06-2022 End: 03-06-[address] Edd Kumari [facility] Start: 02-24-2022 Non-patient / Non-visit Dr. Marycarmen Kumari Work Phone: [facility] Start: 02-24-2022 End: 02-24-[address] Edd Kumari Work Phone: [facility]-Cardiovascula r Services Start: 11-21-2021 End: 11-21-[address] Edd Kumari Work Phone: [facility]-Laboratory, Specimen Start: 11-14-2018 Patient encounter procedure Cony [place] Facility:[facility] Start: 11-14-2018 Patient encounter procedure Cony [place] Facility:[facility] Procedures Date Procedure Procedure Detail Performing Clinician Start: 05-01-2025 Screening mammography Angeles oRdgers MD Work Phone: Start: 04-21-2025 Urine culture Melinda marie MD Work Phone: Start: 03-17-2025 Computed tomography of abdomen and pelvis with contrast Melinda Rodgers MD Work Phone: Start: 03-17-2025 Estimated creatinine clearance Melinda Rogders MD Work Phone: Start: 03-17-2025 Urnls dip stick/tabl et reagent auto microscopy Melinda Rodgers MD Work Phone: Start: 03-06-2025 Computed tomography of abdomen and pelvis with contrast Melinda Rodgers MD Work Phone: Start: 11-07-2022 CT angiography of ch est with contrast Dr. Edd Kumari Work Phone: Start: 04-11-2022 Screening mammography Shree Kumari Work Phone: Start: 02-10-2022 End: 02-11-2022 Arthrocentesis aspir&/inj major jt/bursa w/o us Cesar Wahl MD Work Phone: Start: 02-10-2022 End: 02-11-2022 BP scrn no perf at interval Cesar Wahl MD Work Phone: Start: 02-10-2022 End: 02-11-2022 Calc BMI abv up akilah f/u Cesar eng MD Work Phone: Start: 02-10-2022 End: 02-11-2022 Current tobacco non-user cad cap copd pv dm Cesar Wahl MD Work Phone: Start: 02-10-2022 End: 02-11-2022 Docrev cur meds by cj clin Cesar Wahl MD Work Phone: Start: 02-10-2022 End: 02-11-2022 No doc of pain Cesar Sotomayor i, MD Work Phone: Start: 02-10-2022 End: 02-11-2022 Patient encounter procedure Cesar Wahl MD Work Phone: Start: 02-10-2022 End: 02-10-2022 Radiologic examination knee 3 views Cesar Wahl MD Work Phone: Start: 02-10-2022 End: 02-11-2022 Triamcinolone acet inj NOS Cesar Wahl MD Work Phone: Start: 01-03-2022 End: 01-04-2022 BP scrn no perf at interval Aguila Swann Joel DO Work Phone: Start: 01-03-2022 End: 01-04-2022 Calc BMI abv up akilah f/u Aguila Swann [employer] DO Work Phone: Start: 01-03-2022 End: 01-04-2022 Current tobacco non-user cad cap copd pv dm Aguila D [employer] DO Work Phone: Start: 01-03-2022 End: 01-04-2022 Docrev cur meds by elig clin Aguila Swann Joel DO Work Phone: Start: 01-03-2022 End: 01-04-2022 No doc of pain Scot Shree [employer] DO Work Phone: Start: 01-03-2022 End: 01-04-2022 Patient encounter procedure Aguila Swann Joel DO Work Phone: Start: 01-03-2022 End: 01-03-2022 Radex spine lumbosacral minimum 4 views Aguila Swann Joel DO Work Phone: Start: 11-15-2018 Follow-up visit Bacteria identificat ion test DO Abdifatahnicolasa Calvillonger Work Phone: Bacteria identificat ion test DO Abdifatah Calvillonger Work Phone: NEGATED: Highlighted rowStart: 02-10-2022 End: 02-10-2022 Documentation of current medications Leigh Ann Alba AT NEGATED: Highlighted rowStart: 01-03-2022 End: 01-03-2022 Documentation of current medications Beatriz MCCOY Plan of Treatment Date Care Activity Detail Author Start: 05-01-2025 MG Breast - bilateral Screening [facility] Start: 04-21-2025 Bacteria identified in Urine by Culture Urine Culture [facility] Start: 04-21-2025 [facility] Start: 04-02-2025 Measurement of respiratory function [facility] Start: 12-17-2024 [facility] Start: 07-04-2022 End: 07-04-2022 Patient encounter procedure Appointment [facility] Work Phone: Comprehensive metabo lic 2000 panel - Serum or Plasma [facility] CT Abdomen and Pelvi s W contrast IV [facility] Measurement of respiratory function [facility] MG Breast - bilatera l Screening [facility] MG Breast - bilatera l Screening [facility] Patient Education \cps-sql1\CPS_ PtEducat ion\CDC_FALL_PREVENTIO N.pdf [facility] Work Phone: Patient Education [facility] Work Phone: Patient referral [facility] Work Phone: Urine culture [facility] Immunizations Immunization Date Immunization Notes Care Provider Fa cility 12-17-2024 tetanus toxoid, redu lola diphtheria toxoid, and acellular pertussis vaccine, adsorbed Melinda Rodgers MD Work Phone: [facility] Payers Date Payer Category Payer Self-pay [id number] 1996 Unknown [id number] 1965 Unknown [id number] 1965 Unknown [id number] 1964 Unknown [id number] 1965 Unknown [id number] 1965 Unknown [id number] Unknown [id number] 2.16.8 40.1.735453.3.579.2.462 Unknown [id number] 2.16.8 40.1.848076.3.579.2.462 Unknown [id number] 2.16.8 40.1.658837.3.579.2.462 Unknown [id number] 2.16.8 40.1.854996.3.579.2.462 Unknown [id number] 2.16.8 40.1.784364.3.579.2.462 Unknown [id number] 2.16.8 40.1.549556.3.579.2.462 Unknown [id number] 2.16.8 40.1.601269.3.579.2.462 Unknown [id number] 2.16.8 40.1.769022.3.579.2.462 Unknown [id number] 2.16.8 40.1.857636.3.579.2.462 Unknown [id number] 2.16.8 40.1.545665.3.579.2.462 Unknown [id number] 2.16.8 40.1.133013.3.579.2.462 Unknown [id number] 2.16.8 40.1.469922.3.579.2.462 Unknown [id number] 2.16.8 40.1.052250.3.579.2.462 Unknown [id number] 2.16.8 40.1.704902.3.579.2.462 Unknown [id number] 2.16.8 40.1.738220.3.579.2.462 Unknown [id number] 2.16.8 40.1.431888.3.579.2.462 Unknown [id number] 2.16.8 40.1.926755.3.579.2.462 Unknown [id number] 2.16.8 40.1.346056.3.579.2.462 Unknown [id number] 2.16.8 40.1.456838.3.579.2.462 Unknown [id number] 2.16.8 [id number] Social History Date Type Detail Facility Start: 09-29-2021 End: 03-17-2024 Assertion Unknown if ever smoked [facility] Work Phone: Start: 1965 Sex Assigned At Female [facility] Start: 12-17-2024 End: 03-17-2025 Tobacco smoking status NHIS Never smoked tobacco (finding) [facility] Start: 03-10-2025 End: 03-17-2025 Sex Female (finding) [facility] NEGATED: Highlighted rowStart: 01-03-2022 End: 01-03-[address]22 Employment [address] Employment detail [facility] Work Phone: NEGATED: Highlighted rowStart: 02-10-2022 End: 02-10-[address] Employment [address] Employment detail [facility] Work Phone: Clinical Notes 03-07-2022 to 03-25-2025 Note Date & Type Note Facility 03-25-2025 Progress note [facility] 03-25-2025 Progress note Note Date/Time March 25, 2025 2:04pm [facility] [address], [address] [place] [address] OFFICE VISIT Date of Service: 03/25/25 MR#: [id number] Acct: [id number] Name: LIONEL GOVEA Rep #: [id number] : 1965 Provider: ASHUTOSH Darling Age/Sex: 59/F Location: [facility] [place] Status: Signed Intake Vital Signs 01/06/25 07:45 03/17/25 18:01 03/25/25 13:35 03/25/25 13:39 Height 5 ft 5 in 5 ft 5 in 5 ft 5 in 5 ft 5 in Weight: 166 lb 4 oz BMI 27.6 BP 124/78 H Intake Visit Reasons: Annual (REGISTRATION REP) [employer] Representative Required: No Is patient in pain?: No Allergies etodolac Allergy (Severe, Verified 03/25/25 13:34) Itching gabapentin (From Neurontin) Allergy (Verified 03/25/25 13:34) Itching methscopolamine bromide (From Pamine) Allergy (Verified 03/25/25 13:34) Itching topiramate (From Topamax) Allergy (Verified 03/25/25 13:34) Itching tramadol HCl (From Ultram) Allergy (Verified 03/25/25 13:34) Itching nabumetone Adverse Reaction (Intermediate, Verified 03/25/25 13:34) tingling adhesive Adverse Reaction (Verified 03/25/25 13:34) Rash hydromorphone HCl (From Dilaudid) Adverse Reaction (Verified 03/25/25 13:34) Nausea/Vom/Diarrhea oxycodone HCl (From Percocet) Adverse Reaction (Verified 03/25/25 13:34) Nausea Medications ?Medication ?Instructions ?Recorded ?Confirmed ?Type acidophilus 25 million 1 tab PO DAILY 09/19/1303/12 History cell-pectin, citrus 100 mg tablet multivitamin with folic acid 400 1 tab PO DAILY 03/25/25 History mcg tablet sumatriptan succinate 100 mg tablet 100 mg PO .X1 PRN 03/15/16 03/25/25 History calcium 600 mg (as 1 ea PO DAILY 02/06/1703/25 History carbonate)-vitamin D3 5 mcg (200 unit) tablet omega-3 fatty acids-fish oil 340 1 ea PO DAILY 7 03/25/25 History mg-1,000 mg capsule ferrous sulfate 325 mg (65 mg 325 mg PO DAILY 09/19/18 03/25/25 History iron) tablet pantoprazole 40 mg tablet,delayed 40 mg PO DAILY 09/1903/25/25 History release (Protonix) eluxadoline 100 mg tablet (Viberzi) 100 mg PO BID 03/1303/25/25 History cyclobenzaprine 10 mg tablet 10 mg PO HS 09/11/2203/12 History zinc gluconate 50 mg tablet 50 mg PO DAILY 09/11/22 History Nebulizer machine #1 ea 09/25/22 03/25/25 Rx triamcinolone acetonide 55 mcg 1 spray intranasal MCKENZIE Y PRN 01/02/24 03/25/25 History nasal spray aerosol (Nasacort) albuterol sulfate 90 mcg/actuation 2 puff inhalation Q 6H PRN 03/11/24 03/25/25 Rx aerosol inhaler shortness of breath or wheez ing #8.5 grams ondansetron 4 mg disintegrating 4 mg PO TID PRN headac he 03/11/24 03/25/25 History tablet budesonide-formoterol HFA 160 2 inh inhalation BID #3 ea 09/11/24 03/25/25 Rx mcg-4.5 mcg/actuation aerosol inhaler (Symbicort) spacer #1 ea 09/11/24 03/25/25 Rx guaifenesin 1,200 mg tablet, 1,200 mg PO .QD #30 tabs 01/06/25 03/25/25 Rx extended release 12 hr (Mucinex) albuterol sulfate 2.5 mg/3 mL 2.5 mg (3 mL) inhalation Q4H PRN 01/23/25 03/25/25 Rx (0.083 %) solution for nebulization Sob &/Or Wheezing #180 mL Is last menstrual period known: No Post menopausal: Yes Patient : No : No Control Method: tubal PFSH Medical History Acid reflux Abdominal pain Asthma, moderate persistent Hormone replacement therapy Vocal cord polyp Allergic rhinitis Fibroadenoma of right breast Surgical History Trigger finger release bilateral hands Right wrist surgery H/O inguinal hernia repair History of bunionectomy of both great toes History of right oophorectomy H/O tubal ligation Vocal cord surgery Right shoulder surgery bilateral elbow surgery H/O knee surgery Previous back surgery Family History Mother Asthma Diabetes Father Hypertension Lung disease Social History household members: spouse housing: house current occupational status: employed current occupation: [employer] Smoking Status: Never smoker alcohol intake: never substance use type: does not use seatbelt use: always do you feel safe at home: Yes additional social history: - 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 Date Name GA/Weeks Outcome Route Bth Weight Infant Gen Labor Lgth [facility]est[facility] FOB Unknown Katherine 1991 Unknown Volodymyr 1993 Unknown Gato 1995 Unknown Shyla 1997 HPI Encounter for routine gynecological examination Details: LIONEL GOVEA is a 59 year old who presents for annual exam. She reports no issues or concerns today. Doing well. Last PAP: 2021; normal. HPV neg. History of abnormal PAP: no. Last mammogram: 2023; normal. History of abnormal mammogram: no. Colon cancer screenin; osman. Other preventative health care screenings: Melinda Rodgers; PCP. ROS Const Constitutional: Denies chills, fatigue, fever(s), headache(s) or weight loss Eyes Eyes: Denies change in vision ENT ENT: Denies dizziness Resp Resp: Denies cough GI GI: Denies abdominal pain, constipation or nausea : Denies difficulty voiding, dysuria, hematuria, nipple discharge, pelvic pain, prolapse symptoms, urinary incontinence, vaginal discharge, vaginal dryness, vaginal odor or vaginal pruritus Skin Skin/Breast: Denies alopecia, rash, breast mass, breast pain, breast skin changes or nipple discharge Neuro Neuro: Denies dizziness Psych Psych: Denies anxiety or depression Endo Endo: Denies cold intolerance, excessive sweating or heat intolerance Exam Const General: cooperative, healthy appearing, comfortable, no acute distress, well groomed and well hydrated Nutritional Appearance: well nourished Orientation: alert, awake and oriented x3 HENMT Head: normal to inspection and normocephalic Ears: hearing grossly normal bilaterally and external ears normal Nose: external nose normal Face and sinus: normal facial exam Eyes General: appearance normal, both eyes and all related structures Neck Neck: normal visual inspection, full ROM and no lymphadenopathy Thyroid: thyroid normal Chest Chest palpation & inspection: normal inspection of the chest Breast inspection: normal inspection of the breasts and normal inspection of theaxillae Breast palpation: normal palpation of the breasts, normal palpation of the axillae and no axillary lymphadenopathy Resp Effort & Inspection: normal respiratory effort, able to speak in complete sentences and symmetric chest movement GI Inspection: normal to inspection Palpation: soft and no hepatosplenomegaly General: bladder normal to palpation External Female Exam: normal external appearance and normal appearance of the urethra Urethra: normal appearance of the urethra Speculum Exam - Vagina: normal appearance of the vagina, normal vaginal discharge, no lesions and nontender Speculum Exam - Cervix: normal appearance of the cervix, no lesions and no masses Bimanual Exam- Vagina & Uterus: normal bimanual exam, uterine size normal, bladder normal to palpation, normal palpation and non-tender Bimanual Exam- Adnexa, other: normal adnexae, no masses, normal, non-tender and other (UVP; stage 2) Pelvic Support: normal Skin General: no rashes or lesions noted Neuro General: patient alert, patient awake, patient oriented x3 and moves all extremities Psych Appearance: grossly normal Mental Status: mental status grossly normal Affect: normal affect Speech and Movement: speech and movement normal Attitude: cooperative Coding Level of Care Code Established Pt Off vis,est,prev 40-64yrs Patient Type Established Diagnoses Encounter for routine gynecological examination Z01.419 Hot flashes due to menopause N95.1 Uterovaginal prolapse N81.4 Assessment and Plan Assessment and Plan (1) Encounter for routine gynecological examination: Plan: Breast and pelvic exam complete. PAP due: UTD; repeat in 2 years. Mammogram due: orders placed to obtain. Advised self breast exams monthly. Contraception: Post Menopausal. Advised incorporating healthy dietary choices such as increase in lean meats, fruits/vegetables, less processed food/sat fat/trans fats. Increase exercise to 30 minutes per day/5 days a week. This can include both weight bearing exercisesand/or brisk walking. Weight bearing exercises as tolerated. Follow up with PCP for further preventative health screenings. 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 Call office sooner with questions or concerns. (2) Hot flashes due to menopause: Status: Acute Plan: Limited in treatment due to hx blood clot. Discussed Veozah--will look into this and contact office if interested in starting. Liver function panel needed prior to start. (3) Uterovaginal prolapse: Status: Acute Plan: Expectant management for now; concerning symptoms warranting evaluation advised. Call office if symptoms become bothersome. Orders: Orders SCRN MAMM (CAD)W/TYSON BILAT 02/25/25 Z12.31 - Encounter for screening mammogramfor malignant neoplasm of breast 03/25/25 1405 <Electronically signed by Joi BOYKIN> Date _ Joi Darling NP-C Cosigner Signature: Date (if applicable) CC: ~ [employer] Work Phone: [phone] 259-779105-06-2025 Discharge summary [facility] Medical Records Department [address] [place] [address] Emergency Department Summary 03/17/25 MR#: [id number] Acct: [id number] Name: LIONEL GOVEA Rep #:[id number] : 1965 59 From: Jeremy Fall MD PCP: Dr. Melinda Rodgers MD Status:REG ER Location: ED HPI HPI - GI History of Present Illness Chief Complaint: Flank Pain Narrative Narrative: 59-year-old female past medical history of asthma and IBS presents with right sided flank pain/right lower quadrant abdominal pain that she has had for the last week. She relates history that she wasunsure of what her pain was so she saw her primary care provider. She had an outpatient CT scan which showed contrast in the appendix. She states that she was referred to a general surgeonas an outpatient who she saw yesterday, Dr. Anderson. She states that she wanted to have another CT performed but at this time with clear contrast secondary to her appendix being full of white contrast. The patient denies any exacerbating or alleviating factors to her pain but states it has increased since shewas seen by the surgeon yesterday. She denies any fevers or chills, no nausea or vomiting, no dysuria or hematuria, she had 5 bowel movements today which was abnormal for her. [facility] Medical History Acid reflux Abdominal pain Asthma, moderate persistent Hormone replacement therapy Vocal cord polyp Allergic rhinitis Fibroadenoma of right breast Home Medications ?Medication ?Instructions ?Recorded ?Last Taken ?Type acidophilus 25 million 1 tab PO DAILY 09/19/13 Unkn own History cell-pectin, citrus 100 mg tablet multivitamin with folic acid 400 1 tab PO DAILY Unknown History mcg tablet sumatriptan succinate 100 mg tablet 100 mg PO .X1 PRN 03/15/16 Unknown History calcium 600 mg (as 1 ea PO DAILY 02/06/17 Unkno wn History carbonate)-vitamin D3 5 mcg (200 unit) tablet omega-3 fatty acids-fish oil 340 1 ea PO DAILY 7 Unknown History mg-1,000 mg capsule ferrous sulfate 325 mg (65 mg 325 mg PO DAILY 09/19/18 Unknown History iron) tablet pantoprazole 40 mg tablet,delayed 40 mg PO DAILY 09/19 Unknown History release (Protonix) eluxadoline 100 mg tablet (Viberzi) 100 mg PO BID 03/13 Unknown History cyclobenzaprine 10 mg tablet 10 mg PO HS 09/11/22 Unkn own History zinc gluconate 50 mg tablet 50 mg PO DAILY 09/11/22 Un known History Nebulizer machine #1 ea 09/25/22 Unknown Rx triamcinolone acetonide 55 mcg 1 spray intranasal MCKENZIE Y PRN 01/02/24 Unknown History nasal spray aerosol (Nasacort) albuterol sulfate 90 mcg/actuation 2 puff inhalation Q 6H PRN 03/11/24 Unknown Rx aerosol inhaler shortness of breath or wheez ing #8.5 grams ondansetron 4 mg disintegrating 4 mg PO TID PRN headac he 03/11/24 Unknown History tablet budesonide-formoterol HFA 160 2 inh inhalation BID #3 ea 09/11/24 Unknown Rx mcg-4.5 mcg/actuation aerosol inhaler (Symbicort) spacer #1 ea 09/11/24 Unknown Rx guaifenesin 1,200 mg tablet, 1,200 mg PO .QD #30 tabs 01/06/25 Unknown Rx extended release 12 hr (Mucinex) albuterol sulfate 2.5 mg/3 mL 2.5 mg (3 mL) inhalation Q4H PRN 01/23/25 Unknown Rx (0.083 %) solution for nebulization Sob &/Or Wheezing #180 mL Allergy/AdvReac Type Severity Reaction Status Date / Time etodolac Allergy Severe Itching Verified 03/17/25 18:00 gabapentin (From Neurontin) Allergy Itching Verified 03/17/25 18:00 methscopolamine bromide Allergy Itching Verified 03/17/25 18:00 (From Pamine) topiramate (From Topamax) Allergy Itching Verified 03/17/25 18:00 tramadol HCl (From Ultram) Allergy Itching Verified 03/17/25 18:00 nabumetone AdvReac Intermediate tingling Verified 03/17/25 18:00 adhesive AdvReac Rash Verified 03/17/25 18:00 hydromorphone HCl (From AdvReac Nausea/Vom/ Verified 03/17/25 18:00 Dilaudid) Diarrhea oxycodone HCl (From Percocet) AdvReac Nausea Verified 03/17/25 18:00 Family History Mother Asthma Diabetes Father Hypertension Lung disease Surgical History Trigger finger release bilateral hands Right wrist surgery H/O inguinal hernia repair History of bunionectomy of both great toes History of right oophorectomy H/O tubal ligation Vocal cord surgery Right shoulder surgery bilateral elbow surgery H/O knee surgery Previous back surgery Social History household members: spouse housing: house current occupational status: employed current occupation: [employer]. Smoking Status: Never smoker alcohol intake: never substance use type: does not use seatbelt use: always do you feel safe at home: Yes additional social history: - [employer] Work[employer] ROS ROS ED ROS Narrative Review of systems positive for right flank/right lower quadrant abdominal pain. No fevers or chills, no nausea or vomiting, no dysuria or hematuria. No exacerbating or alleviating factors. EXAM Physical Exam Narrative Exam Narrative: Afebrile. Vital signs noted. Nontoxic-appearing. Cardiovascular examination feels a regular rate and rhythm. Lungs are clear to auscultation bilaterally. Abdomen is soft with mild tenderness to palpation in the right flank/lower quadrant without guarding or rebound. No peritoneal signs. Positive bowel sounds. Neurological examination is nonfocal, nonlateralizing. Const Vital Signs: 03/17/25 18:01 03/17/25 20:00 Temperature 97.7 F L Temperature Source Temporal Pulse Rate 84 75 Respiratory Rate 18 17 Blood Pressure 135/87 H 148/92 H Blood Pressure Mean 103 110 Pulse Ox 99 95 Oxygen Delivery Method Room Air Room Air MDM MDM MDM Narrative Medical decision making narrative: Differential diagnosis does include appendicitis versus ureterolithiasis versus pyelonephritis versus nonspecific abdominal pain versus abdominal wall pain. I reviewed the patient's prior records. I will repeat laboratory work including CBC and CMP. I do not feel she needs a test. I will obtain a urinalysis as well. Patient declined any analgesics here in the emergency department initially. I will try and review her outpatient record to see what kind of CT scan was to be performed. Additionally, I paged Dr. Anderson who is currently on-call as she was seen by her yesterday. According to Dr. Anderson, she told the patient that while she wanted the CT repeated, it could notbe performed until the . Additionally, she was told that if she picked up the oral contrast from the pharmacy, I would be chalky like she had previously. Patient had stated that the chalky oral contrast had given her diarrhea, but she was told that any contrast would show up the same, and couldcause diarrhea as well. In discussion with surgery, they prefer that after oral contrast administration, in order for it to get further along, that she should not be taken until 2.5 hours after administration, but not wait a total of 3 hours. I reviewed her laboratory work and she has normal white count of 6.3 with hemoglobin normal at 13.8, platelet count normal at 197. Urinalysis is negativefor infection with 0-5 WBCs. I do not feel antibiotics are indicated. After the CT of the abdomen pelvis with p.o. and IV contrast was obtained, I reviewed the radiology report which comments on a normal appendix. I rediscussed the patient with Dr. Anderson, who agrees with outpatient follow-up by her primary care provider and it was not felt that she needed to see general surgery again. At this point in time, I feel she can be discharged to follow-up. I feel that wkzv-big-svygaoy medication should be sufficient for her nonspecific abdominal pain. Return instructions to the emergency department were reviewed. Disposition is discharged home in stable condition. History & Record Review Discussion w/independent historian: Patient Additional record(s) reviewed:: Prior ED visit (Noncontributory to current chiefcomplaint) Lab Data Attestation: I reviewed the patient's lab results. Labs: Laboratory Results - last 24 hr 03/17/25 03/17/25 18:04 18:06 WBC 6.3 RBC 4.59 Hgb 13.8 Hct 40.8 MCV 88.9 MCH 30.1 MCHC 33.8 RDW Std Deviation 39.4 RDW Coeff of Renetta 12.1 Plt Count 197 MPV 9.0 Immature Gran % (Auto) 0.300 Neut % (Auto) 62.2 Lymph % (Auto) 27.5 [place] % (Auto) 7.2 Eos % (Auto) 2.2 Baso % (Auto) 0.6 Absolute Neuts (auto) 3.9 Absolute Lymphs (auto) 1.72 Nucleated RBC % 0 Sodium 139 Potassium 4.1 Chloride 103 Carbon Dioxide 26.5 Anion Gap 10 BUN 16 Creatinine 1.01 Estim Creat Clear Calc 60.06 Est GFR (MDRD) Non-Af 64 BUN/Creatinine Ratio 15.6 Glucose 115 H Calcium 9.1 Total Bilirubin 0.24 AST 28 ALT 29 Alkaline Phosphatase 126 H Total Protein 7.0 Albumin 4.3 Globulin 2.7 Albumin/Globulin Ratio 1.6 Urine Color Straw Urine Clarity Clear Urine pH 7.0 Ur Specific [place] 1.005 Urine Protein 15 H Urine Glucose (UA) Normal Urine Ketones Negative Urine Occult Blood Negative Urine Nitrite Negative Urine Bilirubin Negative Urine Urobilinogen Normal Ur Leukocyte Esterase Negative Urine RBC 0 SEEN Urine WBC 0-5 SEEN Ur Squamous Epith Cells 0-5 SEEN Urine Bacteria 0 SEEN Urine Mucus 0 SEEN Radiography Diagnostic Testing: Clinical Impression(s) from Imaging Studies Abdomen/Pelvis CT 03/17/25 18:31 IMPRESSION: No acute findings in the abdomen and pelvis. Other findings as described above. OVERALL FINAL ASSESSMENT: . LI-RADS is not meant to be used in patients <18 years or patients with cirrhosisdue to congenital hepatic fibrosis or due to vascular disorders, because these patients have a lower chance of developing HCC. Reading Location: [facility] Management Discussion w/another healthcare provider: Photographer Helper (Dr. Anderson) Discharge Plan Triage Chief Complaint: Flank Pain ED Provider: Jeremy Fall Dx/Rx/DC Orders Clinical Impression: Right lower quadrant abdominal pain, Right flank pain Instructions: ED Abdominal Pain Unkn Cause Fem Prescriptions: No Action pantoprazole [Protonix] 40 mg tablet,delayed release (DR/EC) 40 mg PO DAILY ferrous sulfate 325 mg (65 mg iron) tablet 325 mg PO DAILY Viberzi 100 mg tablet 100 mg PO BID Rx Instructions: must administer with a meal/food zinc gluconate 50 mg tablet 50 mg PO DAILY cyclobenzaprine 10 mg tablet 10 mg PO HS ondansetron 4 mg tablet,disintegrating 4 mg PO TID PRN (Reason: headache) albuterol sulfate 90 mcg/actuation HFA aerosol inhaler 2 puff INHALATION Q6H PRN (Reason: shortness of breath or wheezing) Qty: 8.5 6RF triamcinolone acetonide [Nasacort] 55 mcg aerosol,spray 1 spray INTRANASAL DAILY PRN Rx Instructions: administer into each nostril guaifenesin [Mucinex] 1,200 mg tablet extended release 12hr 1,200 mg PO .QD Qty: 30 2RF acidophilus-pectin, citrus 1 TABLET tablet 1 tab PO DAILY multivitamin with folic acid 1 TABLET tablet 1 tab PO DAILY sumatriptan succinate 100 MG tablet 100 mg PO .X1 PRN calcium carbonate-vitamin D3 1 EACH tablet 1 ea PO DAILY omega-3 fatty acids-fish oil 1 EACH capsule 1 ea PO DAILY (DME) Nebulizer machine See Rx Instructions .ROUTE .MEDSUPPLY Qty: 1 0RF Rx Instructions: As directed J45.909 Asthma R06.02 Shortness of breath budesonide-formoterol [Symbicort] 160-4.5 mcg/actuation HFA aerosol inhaler 2 inh inhalation BID Qty: 3 3RF (DME) spacer See Rx Instructions .ROUTE .MEDSUPPLY Qty: 1 0RF Rx Instructions: As directed albuterol sulfate 2.5 mg /3 mL (0.083 %) solution for nebulization 2.5 mg inhalation Q4H PRN (Reason: Sob &/Or Wheezing) Qty: 180 3RF Primary Care Provider: Melinda Rodgers Referrals: Melinda Rodgers MD [Primary Care Provider] - 3-5 Days if not improving Activity Restrictions/Additional Instructions: Take fwqc-jye-womnwhy medications as needed for pain. Follow-up with your primary care provider. Asyou have had a normal CT that shows a normal appendix, you do not need to follow-up with Dr. Anderson. Return with fever, new or worsening symptoms. Print Language: Samoan Disposition Disposition: Home, Self Care What to do if you have Problems For any increased pain, shortness of breath, bleeding, nausea or vomiting, chestpain, or any unexpected problems, contact your Primary Care Provider. Call [facility] ([phone]) or report tothe closest Emergency Room. Call 911 if necessary. 03/17/25 2204 Cosigner Signature (if applicable): CC: Dr. Melinda Rodgers MD ~ Signed [facility]05-06-2025 Radiology Diagnostic study note [facility] Imaging Services [address], [place] [id number] Abdomen/Pelvis WITH Contrast MR#: [id number] Acct: [id number] Name: LIONEL GVOEA Rep #: [id number] : 1965 F 59 From: Sandra Haddad MD PCP: Dr. Melinda Rodgers MD Status: REG ER Study:Abdomen/Pelvis WITH Contrast Date of Ex am: 03/17/25 Exam# [id number] Ordering Dr: Jeremy Fall MD PROCEDURE: ABDOMEN/PELVIS WITH CONTRAST 03/17/2025 REASON FOR EXAM: RLQ PAIN TECHNIQUE: Abdomen and pelvis CT with intravenous contrast. Coronal and Sagittal reconstruction series were provided. PATIENT PREPARATION: Per protocol ORAL CONTRAST TYPE: None. AMOUNT: mL CONTRAST: Omnipaque 350 VOLUME: 100 mL Not Provided Gauge IV One or more dose reduction techniques were used (e.g., Automated exposure control, adjustment of the mA and/or kV according to patient size, use of iterative reconstruction technique. COMPARISON: CT abdomen and pelvis 05/29/2018 and 02/2020 FINDINGS: Lung bases: Unremarkable Liver: Homogeneous attenuation. 11 mm right hepatic lobe simple cyst. Gallbladder: No ductal dilation. Gallbladder is unremarkable. Spleen: Normal size. Pancreas: Normal size without evidence of mass surrounding inflammation or ductal dilation. Adrenals: Unremarkable. Kidneys: Normal renal sizes. No hydronephrosis. Bladder: Urinary bladder is unremarkable. Reproductive Organs: No pelvic mass. Bowel: Stomach is unremarkable. No bowel dilation or significant wall thickening. Contrast is notedthroughout the small bowel and colon. Large colonic stool. Appendix: Normal appendix. Lymph nodes: No suspicious lymph node enlargement. Vasculature: The abdominal aorta and IVC are normal. Peritoneum / Retroperitoneum: Small ascites. No pneumoperitoneum. Bones: Postoperative changes L3-L5 left yared fusion. Hardware appears intact. No acute osseous abnormality. 1 Soft tissue: Unremarkable. CT/Abdomen/Pelvis WITH Contrast IMPRESSION: No acute findings in the abdomen and pelvis. Other findings as described above. OVERALL FINAL ASSESSMENT: . LI-RADS is not meant to be used in patients <18 years or patients with cirrhosisdue to congenital hepatic fibrosis or due to vascular disorders, because these patients have a lower chance of developing HCC. Reading Location: [facility] CC: Dr. Jeremy Fall MD; Dr. Melinda Rodgers MD ~ Aircraft Manager: Signed [facility]05-06-2025 Discharge summary Author Jeremy Fall [facility] Note Date/Time March 17, 2025 10:04p m [facility] Medical Records Department [address] [place] [address] Emergency Department Summary 03/17/25 MR#: [id number] Acct: [id number] Name: LIONEL GOVEA Rep #:[id number] : 1965 59 From: Jeremy Fall MD PCP: Dr. Melinda Rodgers MD Status:REG ER Location: ED HPI HPI - GI History of Present Illness Chief Complaint: Flank Pain Narrative Narrative: 59-year-old female past medical history of asthma and IBS presents with right sided flank pain/right lower quadrant abdominal pain that she has had for the last week. She relates history that she was unsure of what her pain was so she saw her primary care provider. She had an outpatient CT scan which showed contrast in the appendix. She states that she was referred to a general surgeonas an outpatient who she saw yesterday, Dr. Anderson. She states that she wanted to have another CT performed but at this time with clear contrast secondary to her appendix being full of white contrast. The patient denies any exacerbating or alleviating factors to her pain but states it has increased since she was seen by the surgeon yesterday. She denies any fevers or chills, no nausea or vomiting, no dysuria or hematuria, she had 5 bowel movements today which was abnormal for her. [facility] Medical History Acid reflux Abdominal pain Asthma, moderate persistent Hormone replacement therapy Vocal cord polyp Allergic rhinitis Fibroadenoma of right breast Home Medications ?Medication ?Instructions ?Recorded ?Last Taken ?Type acidophilus 25 million 1 tab PO DAILY 09/19/13 Unkn own History cell-pectin, citrus 100 mg tablet multivitamin with folic acid 400 1 tab PO DAILY Unknown History mcg tablet sumatriptan succinate 100 mg tablet 100 mg PO .X1 PRN 03/15/16 Unknown History calcium 600 mg (as 1 ea PO DAILY 02/06/17 Unkno wn History carbonate)-vitamin D3 5 mcg (200 unit) tablet omega-3 fatty acids-fish oil 340 1 ea PO DAILY 7 Unknown History mg-1,000 mg capsule ferrous sulfate 325 mg (65 mg 325 mg PO DAILY 09/19/18 Unknown History iron) tablet pantoprazole 40 mg tablet,delayed 40 mg PO DAILY 09/19 Unknown History release (Protonix) eluxadoline 100 mg tablet (Viberzi) 100 mg PO BID 03/13 Unknown History cyclobenzaprine 10 mg tablet 10 mg PO HS 09/11/22 Unkn own History zinc gluconate 50 mg tablet 50 mg PO DAILY 09/11/22 Un known History Nebulizer machine #1 ea 09/25/22 Unknown Rx triamcinolone acetonide 55 mcg 1 spray intranasal MCKENZIE Y PRN 01/02/24 Unknown History nasal spray aerosol (Nasacort) albuterol sulfate 90 mcg/actuation 2 puff inhalation Q 6H PRN 03/11/24 Unknown Rx aerosol inhaler shortness of breath or wheez ing #8.5 grams ondansetron 4 mg disintegrating 4 mg PO TID PRN headac he 03/11/24 Unknown History tablet budesonide-formoterol HFA 160 2 inh inhalation BID #3 ea 09/11/24 Unknown Rx mcg-4.5 mcg/actuation aerosol inhaler (Symbicort) spacer #1 ea 09/11/24 Unknown Rx guaifenesin 1,200 mg tablet, 1,200 mg PO .QD #30 tabs 01/06/25 Unknown Rx extended release 12 hr (Mucinex) albuterol sulfate 2.5 mg/3 mL 2.5 mg (3 mL) inhalation Q4H PRN 01/23/25 Unknown Rx (0.083 %) solution for nebulization Sob &/Or Wheezing #180 mL Allergy/AdvReac Type Severity Reaction Status Date / Time etodolac Allergy Severe Itching Verified 03/17/25 18:00 gabapentin (From Neurontin) Allergy Itching Verified 03/17/25 18:00 methscopolamine bromide Allergy Itching Verified 03/17/25 18:00 (From Pamine) topiramate (From Topamax) Allergy Itching Verified 03/17/25 18:00 tramadol HCl (From Ultram) Allergy Itching Verified 03/17/25 18:00 nabumetone AdvReac Intermediate tingling Verified 03/17/25 18:00 adhesive AdvReac Rash Verified 03/17/25 18:00 hydromorphone HCl (From AdvReac Nausea/Vom/ Verified 03/17/25 18:00 Dilaudid) Diarrhea oxycodone HCl (From Percocet) AdvReac Nausea Verified 03/17/25 18:00 Family History Mother Asthma Diabetes Father Hypertension Lung disease Surgical History Trigger finger release bilateral hands Right wrist surgery H/O inguinal hernia repair History of bunionectomy of both great toes History of right oophorectomy H/O tubal ligation Vocal cord surgery Right shoulder surgery bilateral elbow surgery H/O knee surgery Previous back surgery Social History household members: spouse housing: house current occupational status: employed current occupation: [employer] Smoking Status: Never smoker alcohol intake: never substance use type: does not use seatbelt use: always do you feel safe at home: Yes additional social history: - [employer] [facility] ED ROS Narrative Review of systems positive for right flank/right lower quadrant abdominal pain. No fevers or chills, no nausea or vomiting, no dysuria or hematuria. No exacerbating or alleviating factors. EXAM Physical Exam Narrative Exam Narrative: Afebrile. Vital signs noted. Nontoxic-appearing. Cardiovascular examination feels a regular rate and rhythm. Lungs are clear to auscultation bilaterally. Abdomen is soft with mild tenderness to palpation in the right flank/lower quadrant without guarding or rebound. No peritoneal signs. Positive bowel sounds. Neurological examination is nonfocal, nonlateralizing. Const Vital Signs: 03/17/25 18:01 03/17/25 20:00 Temperature 97.7 F L Temperature Source Temporal Pulse Rate 84 75 Respiratory Rate 18 17 Blood Pressure 135/87 H 148/92 H Blood Pressure Mean 103 110 Pulse Ox 99 95 Oxygen Delivery Method Room Air Room Air MDM MDM MDM Narrative Medical decision making narrative: Differential diagnosis does include appendicitis versus ureterolithiasis versus pyelonephritis versus nonspecific abdominal pain versus abdominal wall pain. I reviewed the patient's prior records. I will repeat laboratory work including CBC and CMP. I do not feel she needs a test. I will obtain a urinalysis as well. Patient declined any analgesics here in the emergency department initially. I will try and review her outpatient record to see what kind of CT scan was to be performed. Additionally, I paged Dr. Anderson who is currently on-call as she was seen by her yesterday. According to Dr. Anderson, she told the patient that while she wanted the CT repeated, it could not be performed until the . Additionally, she was told that if she picked up the oral contrast from the pharmacy, I would be chalky like she had previously. Patient had stated that the chalky oral contrast had given her diarrhea, but she was told that any contrast would show up the same, and could cause diarrhea as well. In discussion with surgery, they prefer that after oral contrast administration, in order for it to get further along, that she should not be taken until 2.5 hours after administration, but not wait a total of 3 hours. I reviewed her laboratory work and she has normal white count of 6.3 with hemoglobin normal at 13.8, platelet count normal at 197. Urinalysis is negativefor infection with 0-5 WBCs. I do not feel antibiotics are indicated. After the CT of the abdomen pelvis with p.o. and IV contrast was obtained, I reviewed the radiology report which comments on a normal appendix. I rediscussed the patient with Dr. Anderson, who agrees with outpatient follow-up by her primary care provider and it was not felt that she needed to see general surgery again. At this point in time, I feel she can be discharged to follow-up. I feel that lguw-tmz-dapseom medication should be sufficient for her nonspecific abdominal pain. Return instructions to the emergency department were reviewed. Disposition is discharged home in stable condition. History & Record Review Discussion w/independent historian: Patient Additional record(s) reviewed:: Prior ED visit (Noncontributory to current chiefcomplaint) Lab Data Attestation: I reviewed the patient's lab results. Labs: Laboratory Results - last 24 hr 03/17/25 03/17/25 18:04 18:06 WBC 6.3 RBC 4.59 Hgb 13.8 Hct 40.8 MCV 88.9 MCH 30.1 MCHC 33.8 RDW Std Deviation 39.4 RDW Coeff of Renetta 12.1 Plt Count 197 MPV 9.0 Immature Gran % (Auto) 0.300 Neut % (Auto) 62.2 Lymph % (Auto) 27.5 [place] % (Auto) 7.2 Eos % (Auto) 2.2 Baso % (Auto) 0.6 Absolute Neuts (auto) 3.9 Absolute Lymphs (auto) 1.72 Nucleated RBC % 0 Sodium 139 Potassium 4.1 Chloride 103 Carbon Dioxide 26.5 Anion Gap 10 BUN 16 Creatinine 1.01 Estim Creat Clear Calc 60.06 Est GFR (MDRD) Non-Af 64 BUN/Creatinine Ratio 15.6 Glucose 115 H Calcium 9.1 Total Bilirubin 0.24 AST 28 ALT 29 Alkaline Phosphatase 126 H Total Protein 7.0 Albumin 4.3 Globulin 2.7 Albumin/Globulin Ratio 1.6 Urine Color Straw Urine Clarity Clear Urine pH 7.0 Ur Specific [place] 1.005 Urine Protein 15 H Urine Glucose (UA) Normal Urine Ketones Negative Urine Occult Blood Negative Urine Nitrite Negative Urine Bilirubin Negative Urine Urobilinogen Normal Ur Leukocyte Esterase Negative Urine RBC 0 SEEN Urine WBC 0-5 SEEN Ur Squamous Epith Cells 0-5 SEEN Urine Bacteria 0 SEEN Urine Mucus 0 SEEN Radiography Diagnostic Testing: Clinical Impression(s) from Imaging Studies Abdomen/Pelvis CT 03/17/25 18:31 IMPRESSION: No acute findings in the abdomen and pelvis. Other findings as described above. OVERALL FINAL ASSESSMENT: . LI-RADS is not meant to be used in patients <18 years or patients with cirrhosisdue to congenital hepatic fibrosis or due to vascular disorders, because these patients have a lower chance of developing HCC. Reading [facility] Discussion w/another healthcare provider: Photographer Helper (Dr. Anderson) Discharge Plan Triage Chief Complaint: Flank Pain ED Provider: Jeremy Fall Dx/Rx/DC Orders Clinical Impression: Right lower quadrant abdominal pain, Right flank pain Instructions: ED Abdominal Pain Unkn Cause Fem Prescriptions: No Action pantoprazole [Protonix] 40 mg tablet,delayed release (DR/EC) 40 mg PO DAILY ferrous sulfate 325 mg (65 mg iron) tablet 325 mg PO DAILY Viberzi 100 mg tablet 100 mg PO BID Rx Instructions: must administer with a meal/food zinc gluconate 50 mg tablet 50 mg PO DAILY cyclobenzaprine 10 mg tablet 10 mg PO HS ondansetron 4 mg tablet,disintegrating 4 mg PO TID PRN (Reason: headache) albuterol sulfate 90 mcg/actuation HFA aerosol inhaler 2 puff INHALATION Q6H PRN (Reason: shortness of breath or wheezing) Qty: 8.5 6RF triamcinolone acetonide [Nasacort] 55 mcg aerosol,spray 1 spray INTRANASAL DAILY PRN Rx Instructions: administer into each nostril guaifenesin [Mucinex] 1,200 mg tablet extended release 12hr 1,200 mg PO .QD Qty: 30 2RF acidophilus-pectin, citrus 1 TABLET tablet 1 tab PO DAILY multivitamin with folic acid 1 TABLET tablet 1 tab PO DAILY sumatriptan succinate 100 MG tablet 100 mg PO .X1 PRN calcium carbonate-vitamin D3 1 EACH tablet 1 ea PO DAILY omega-3 fatty acids-fish oil 1 EACH capsule 1 ea PO DAILY (DME) Nebulizer machine See Rx Instructions .ROUTE .MEDSUPPLY Qty: 1 0RF Rx Instructions: As directed J45.909 Asthma R06.02 Shortness of breath budesonide-formoterol [Symbicort] 160-4.5 mcg/actuation HFA aerosol inhaler 2 inh inhalation BID Qty: 3 3RF (DME) spacer See Rx Instructions .ROUTE .MEDSUPPLY Qty: 1 0RF Rx Instructions: As directed albuterol sulfate 2.5 mg /3 mL (0.083 %) solution for nebulization 2.5 mg inhalation Q4H PRN (Reason: Sob &/Or Wheezing) Qty: 180 3RF Primary Care Provider: Melinda Rodgers Referrals: Melinda Rodgers MD [Primary Care Provider] - 3-5 Days if not improving Activity Restrictions/Additional Instructions: Take hbdr-xza-ilroxoc medications as needed for pain. Follow-up with your primary care provider. As you have had a normal CT that shows a normal appendix, you do not need to follow-up with Dr. Anderson. Return with fever, new or worsening symptoms. Print Language: Samoan Disposition Disposition: Home, Self Care What to do if you have Problems For any increased pain, shortness of breath, bleeding, nausea or vomiting, chestpain, or any unexpected problems, contact your Primary Care Provider. Call [facility] ([phone]) or report to the closest Emergency Room. Call 911 if necessary. 03/17/252203 <Electronically signed by Jeremy Fall MD> Cosigner Signature (if applicable): CC: Dr. Melinda Rodgers MD ~ Signed [facility] Work Phone: 1(196) 942-656505-05-2025 Evaluation note* Diagnosis Onset Date Resolution Status Admit Date Right flank pain inactive March 16, 2025 2:15pm Right lower quadrant abdomin al pain inactive March 16, 2025 2: 15pm Hot flashes due to menopause acute March 25, 2025 1:33pm Uterovaginal prolapse acute March 25, 2025 1:33pm Encounter for routine gynecological examination noneactive March 252024 1:33pm [facility] Work Phone: 1(274) 787-148205-05-2025 Evaluation note* Diagnosis Onset Date Resolution Status Admit Date Right flank pain inactive March 16, 2025 2:15pm Right lower quadrant abdomin al pain inactive March 16, 2025 2: 15pm Hot flashes due to menopause acute March 25, 2025 1:33pm Uterovaginal prolapse acute March 25, 2025 1:33pm Encounter for routine gynecological examination noneactive March 252024 1:33pm Hot flashes due to menopause acute May 07, 2025 10:32am [facility] Work Phone: 1(508) 641-565805-05-2025 Evaluation note* Diagnosis Onset Date Resolution Status Admit Date Right flank pain inactive March 16, 2025 2:15pm Right lower quadrant abdomin al pain inactive March 16, 2025 2: 15pm Hot flashes due to menopause acute March 25, 2025 1:33pm Uterovaginal prolapse acute March 25, 2025 1:33pm Encounter for routine gynecological examination noneactive March 252024 1:33pm Hot flashes due to menopause acute May 07, 2025 10:32am Allergic rhinitis due to allergen chronic May 20, 2025 1 0:21am Asthma chronic May 20, 2025 10:21am [facility] Work Phone: [phone] Radiology Diagnostic study note [facility] Imaging Services [address] [place] [address] Abdomen/Pelvis WITH Contrast MR#: [id number] Acct: [id number] Name: LIONEL GOVEA Rep #: [id number] : 1965 F 59 From: Cody Chu MD PCP: Dr. Melinda Rodgers MD Status: REG CL I Study:Abdomen/Pelvis WITH Contrast Date of Ex am: 03/06/25 Exam# [id number] Ordering Dr: Yelena Rodgers MD PROCEDURE: ABDOMEN/PELVIS WITH CONTRAST 03/06/2025 REASON FOR EXAM: RLQ PAIN STAT STAT TECHNIQUE: Abdomen and pelvis CT with intravenous contrast. Coronal and Sagittal reconstruction series were provided. PATIENT PREPARATION: Per protocol ORAL CONTRAST TYPE: Given CONTRAST: Isovue-300 VOLUME: 100 mL One or more dose reduction techniques were used (e.g., Automated exposure control, adjustment of the mA and/or kV according to patient size, use of iterative reconstruction technique. RADIATION DOSE SUMMARY: CTDlvol: 10.5 mGy DLP: 923.21 mGycm COMPARISON: None FINDINGS: Lung bases: Mild dependent atelectasis Liver: 1 cm cyst in the upper medial portion of the right lobe of the liver. Gallbladder: Questionable tiny gallstone. Spleen: Normal size. Pancreas: Normal size without evidence of mass surrounding inflammation or ductal dilation. Adrenals: Unremarkable Kidneys: Normal renal sizes. No hydronephrosis. Bladder: Unremarkable Reproductive Organs: Unremarkable Bowel: Colonic diverticulosis without diverticulitis. Appendix: Small calcified appendicolith is seen within the appendix. No periappendiceal inflammatory changes are seen. Lymph nodes: Unremarkable. Vasculature: The abdominal aorta and IVC are normal. Peritoneum / Retroperitoneum: Unremarkable Bones: Prior fusion in the lower lumbar spine. CT/Abdomen/Pelvis WITH Contrast IMPRESSION: Small cyst in the right lobe of the liver. Questionable tiny gallstone. Nondistended and noninflamed appendix containing a tiny appendicolith. Reading Location: [place] [address] CC: Dr. Melinda Rodgers MD ~ Aircraft Manager: Signed [facility]02-25-2025 Evaluation note* Diagnosis Onset Date Resolution Status Admit Date Allergic rhinitis due to allergen chronic January 06, 025 11:03am Asthma chronic January 06, 2025 11:03am [facility] Work Phone: [phone]) 515-227402-25-2025 Evaluation note* Diagnosis Onset Date Resolution Status Admit Date Allergic rhinitis due to allergen chronic January 06, 025 11:03am Asthma chronic January 06, 2025 11:03am Right flank pain inactive March 16, 2025 2:15pm Right lower quadrant abdominal pain inactive March 16, 2025 2: 15pm Encounter for routine gynecological examination noneactive March 252024 1:33pm [facility] Work Phone: 1(452) 546-482302-25-2025 Evaluation note* Diagnosis Onset Date Resolution Status Admit Date Allergic rhinitis due to allergen chronic January 06 025 11:03am Asthma chronic January 06, 2025 11:03am Right flank pain inactive March 16, 2025 2:15pm Right lower quadrant abdominal pain inactive March 16, 2025 2: 15pm Hot flashes due to menopause acute March 25, 2025 1:33pm Uterovaginal prolapse acute March 25, 2025 1:33pm Encounter for routine gynecological examination noneactive March 252024 1:33pm [facility] Work Phone: 1([phone]) [phone] NotePap Smear Specimen AdequacyApril 2021 9:30amCommentSatisfactory for evaluation. Endocervical and/or squamous metaplasticcells (endocervical component)are present.[facility] A#[id number] [facility] Work Phone: Comment on above:Satisfactory for evaluation. Endocervical and/or squamous metaplasticcells (endocervical component)are present.03-07-2022 NotePap Smear Specimen AdequacyApril 2021 9:30amComment Satisfactory for evaluation. Endocervical and/or squamous metaplasticcells (endocervical component)are present.[facility] A#[id number] [facility] Work Phone: Comment on above:Satisfactory for evaluation. Endocervical and/or squamous metaplasticcells (endocervical component)are present.Evaluation noteThere may be information available, but it has not been provided by the sender.[facility] Work Phone: Evaluation noteNo assessment information available [facility] Work Phone: Evaluation note* Diagnosis Onset Date Resolution Status DVT (deep venous thrombosis) acute Allergic rhinitis due to allergen chronic Asthma chronic [facility] Work Phone: Evaluation note* Diagnosis Onset Date Resolution Status Allergic rhinitis due to allergen chronic Asthma chronic [facility] Work Phone: Evaluation note* Diagnosis Onset Date Resolution Status Asthma chronic [facility] Work Phone: Evaluation note* Diagnosis Onset Date Resolution Status Shortness of breath acute Allergic rhinitis due to allergen chronic Asthma chronic Hot flashes due to menopause acute Encounter for routine gynecological examination noneactive [facility] Work Phone: Hospital Discharge instructions Additional Instructions Take lwyc-fob-bjjyumb medications as needed for pain. Follow-up with your primary care provider. As you have had a normal CT that shows a normal appendix, you do not need to follow-up with Dr. Anderson. Return with fever, new or worsening symptoms.[facility] Work Phone: Instructions* Instruction Description Start Date Patient advised to follow-up with Primary Care Physician for BMI management. [facility] Work Phone: Instructions* Instruction Description Start Date Patient advised to follow-up with Primary Care Physician for BMI management. [facility] Work Phone: Reason for referral (narrative)No reason for referral information availableWBlanchard [facility] Work Phone: Summary Purpose Family History No Family History Records Found Relationship Condition Age at Onset Recorded Date/T humaira mother Asthma Unknown Diabetes mellitus Unknown father Hypertension Unknown Disorder of lung Unknown Advance Directives No Advanced Directives Records Found Advance Directive Response Recorded Date/ Time Advance Directives No April 05 4:58pm Living Will Yes June 19, 2021 3:53pm Power of Material Flow Engineer Yes June 19 3:53pm Advance Directive Response Recorded Date/ Time Advance Directives No April 05 3:58pm Living Will Yes June 19, 2021 2:53pm Power of Material Flow Engineer Yes June 19 2:53pm Advance Directive Response Recorded Date/ Time Living Will Yes June 19, 2021 3:53pm Do you have a Healthcare Power of Material Flow Engineer? Yes June 19, 2021 3:53pm Living Will Yes December 17 5:56am Do you have a Healthcare Power of Material Flow Engineer? Yes December 17, 2024 5:56am Name of Medical Power of Material Flow Engineer December 17, 2024 5:56am Advance Directives No April 05 4:58pm Advance Directive Response Recorded Date/ Time Living Will Yes June 19, 2021 3:53pm Do you have a Healthcare Power of Material Flow Engineer? Yes June 19, 2021 3:53pm Living Will Yes December 17 5:56am Do you have a Healthcare Power of Material Flow Engineer? Yes December 17, 2024 5:56am Name of Medical Power of Material Flow Engineer December 17, 2024 5:56am Do you have a Healthcare Power of Material Flow Engineer? No March 17, 2025 6:14pm Advance Directives No April 05 4:58pm Advance Directive Response Recorded Date/ Time Living Will Yes June 19, 2021 3:53pm Do you have a Healthcare Power of Material Flow Engineer? Yes June 19, 2021 3:53pm Do you have a Healthcare Power of Material Flow Engineer? No March 17, 2025 6:14pm Advance Directives No April 05 4:58pm Advance Directive Response Recorded Date/ Time Do you have a Healthcare Power of Material Flow Engineer? No March 17, 2025 6:14pm Advance Directives No April 05 4:58pm Chief Complaint Chief Complaint Description Start Date lower back post Lateral mini richmond-invasive discectomy L3-L4 left. Left L3-L4 XLIF with NuVasive titanium Modulus cage. NuVasive Reline posterior percutaneous fixation L3-L4. on 06/03/2021 Preliminary chief co mplaint data, not yet signed by the author as of Chief Complaint Description Start Date bilateral knee pain Preliminary chief co mplaint data, not yet signed by the author as of Chief Complaint and Reason for Visit Chief Complaint EXPOSURE TO COVID 19 VIRUS RIGHT LEG - RULE OUT DVT Chief Complaint EXPOSURE TO COVID 19 VIRUS RIGHT LEG - RULE OUT DVT 6 M FU Reason for Visit DVT (deep venous thr ombosis) Allergic rhinitis due to allergen Asthma Chief Complaint RIGHT LEG - RULE OUT DVT 6 M FU SCREENING Reason for Visit DVT (deep venous thr ombosis) Allergic rhinitis due to allergen Asthma Chief Complaint 6 M FU R/O PE Reason for Visit Allergic rhinitis du e to allergen Asthma Chief Complaint R/O PE Cough Reason for Visit Asthma Chief Complaint EORDER Chief Complaint EORDER 6 M FU EORDER Reason for Visit Asthma Chief Complaint Shortness of breath 6 M FU Annual (REGISTRATION REP) E-ORDER Reason for Visit Shortness of breath Allergic rhinitis due to allergen Asthma Hot flashes due to menopause Encounter for routine gynecological examination Chief Complaint Admit Date Cat Scratch December 17, 2024 4 :52am 6 M FU January 06, 2025 11:03am RLQP March 06, 2025 1:5 4pm Reason for Visit Admit Date Allergic rhinitis due to allergen Februa 2024 11:03am Asthma January 06, 2025 11:03am Chief Complaint Admit Date Cat Scratch December 17, 2024 4 :52am 6 M FU January 06, 2025 11:03am RLQP March 06, 2025 1:5 4pm RLQ PAIN March 16, 2025 2:15pm flank pain March 17, 2025 5:59pm Chief Complaint Admit Date Cat Scratch December 17, 2024 4 :52am 6 M FU January 06, 2025 11:03am RLQP March 06, 2025 1:5 4pm RLQ PAIN March 16, 2025 2:15pm flank pain March 17, 2025 5:59pm Annual (REGISTRATION REP) March 25, 2025 1:33p m Reason for Visit Admit Date Allergic rhinitis due to allergen ua 2024 11:03am Asthma January 06, 2025 11:03am Right flank pain March 16, 2025 2:15pm Right lower quadrant abdominal pain March 16, 2025 2:15pm Encounter for routine gynecological exam ination March 25, 2025 1:33pm Chief Complaint Admit Date 6 M FU January 06, 2025 11:03am RLQP March 06, 2025 1:5 4pm RLQ PAIN March 16, 2025 2:15pm flank pain March 17, 2025 5:59pm Annual (REGISTRATION REP) March 25, 2025 1:33p m EORDER- LIVER PROFILE April 20, 2025 4:5 3pm Reason for Visit Admit Date Allergic rhinitis due to allergen ua 2024 11:03am Asthma January 06, 2025 11:03am Right flank pain March 16, 2025 2:15pm Right lower quadrant abdominal pain March 16, 2025 2:15pm Hot flashes due to menopause March 25, 2 025 1:33pm Uterovaginal prolapse March 25, 2025 1:3 3pm Encounter for routine gynecological exam ination March 25, 2025 1:33pm Chief Complaint Admit Date RLQP March 06, 2025 1:5 4pm RLQ PAIN March 16, 2025 2:15pm flank pain March 17, 2025 5:59pm Annual (REGISTRATION REP) March 25, 2025 1:33p m EORDER- LIVER PROFILE April 20, 2025 4:5 3pm screen for breast cancer May 01, 2025 2:37pm 6 WK Med F/U May 07, 2025 10:3 2am Reason for Visit Admit Date Right flank pain March 16, 2025 2:15pm Right lower quadrant abdominal pain March 16, 2025 2:15pm Hot flashes due to menopause March 25, 2 025 1:33pm Uterovaginal prolapse March 25, 2025 1:3 3pm Encounter for routine gynecological exam ination March 25, 2025 1:33pm Chief Complaint Admit Date RLQP March 06, 2025 1:5 4pm RLQ PAIN March 16, 2025 2:15pm flank pain March 17, 2025 5:59pm Annual (REGISTRATION REP) March 25, 2025 1:33p m EORDER- LIVER PROFILE April 20, 2025 4:5 3pm screen for breast cancer May 01, 2025 2:37pm 6 WK Med F/U May 07, 2025 10:3 2am J45.40 - Moderate persistent asthma, unc omplicated May 11, 2025 9:48am Reason for Visit Admit Date Right flank pain March 16, 2025 2:15pm Right lower quadrant abdominal pain March 16, 2025 2:15pm Hot flashes due to menopause March 25, 2 025 1:33pm Uterovaginal prolapse March 25, 2025 1:3 3pm Encounter for routine gynecological exam ination March 25, 2025 1:33pm Hot flashes due to menopause May 07, 2025 10:32am Chief Complaint Admit Date RLQP March 06, 2025 1:5 4pm RLQ PAIN March 16, 2025 2:15pm flank pain March 17, 2025 5:59pm Annual (REGISTRATION REP) March 25, 2025 1:33p m EORDER- LIVER PROFILE April 20, 2025 4:5 3pm screen for breast cancer May 01, 2025 2:37pm 6 WK Med F/U May 07, 2025 10:3 2am J45.40 - Moderate persistent asthma, unc omplicated May 11, 2025 9:48am EORDER May 19, 2025 12:32 pm 4 M FU May 20, 2025 10:21 am Reason for Visit Admit Date Right flank pain March 16, 2025 2:15pm Right lower quadrant abdominal pain March 16, 2025 2:15pm Hot flashes due to menopause March 25, 2 025 1:33pm Uterovaginal prolapse March 25, 2025 1:3 3pm Encounter for routine gynecological exam ination March 25, 2025 1:33pm Hot flashes due to menopause May 07, 2025 10:32am Allergic rhinitis due to allergen May 202024 10:21am Asthma May 20, 2025 10:21 am Chief Complaint Admit Date RLQP March 06, 2025 1:5 4pm RLQ PAIN March 16, 2025 2:15pm flank pain March 17, 2025 5:59pm Annual (REGISTRATION REP) March 25, 2025 1:33p m EORDER- LIVER PROFILE April 20, 2025 4:5 3pm screen for breast cancer May 01, 2025 2:37pm 6 WK Med F/U May 07, 2025 10:3 2am J45.40 - Moderate persistent asthma, unc omplicated May 11, 2025 9:48am EORDER May 19, 2025 12:32 pm 4 M FU May 20, 2025 10:21 am EORDERS- KATIUSKA June 15 11:02am Additional Source Comments INFORMATION SOURCE (unrecogn ized section and content) DATE CREATED AUTHOR 11/16/2018 [employer] DATE CREATED AUTHOR AUTHOR'S ORGANIZ ATION 12/07/2018 [facility] DATE CREATED AUTHOR AUTHOR'S ORGANIZ ATION 10/31/2021 [facility] ([place] DATE CREATED AUTHOR AUTHOR'S ORGANIZ ATION 12/16/2021 [facility] [facility] DATE CREATED AUTHOR AUTHOR'S ORGANIZ ATION 08/19/2023 [facility] DATE CREATED AUTHOR AUTHOR'S ORGANIZ ATION 06/26/2025 [facility] Reason for Visit (unrecogniz ed section and content) Reason For Visit Description Postop - subsequent visit Preliminary reason f or visit data, not yet signed by the author as of lower back post Lateral minimally-invasive discectomy L3-L4 left. Left L3-L4 XLIF with NuVasive titanium Modulus cage. NuVasive Reline posterior percutaneous fixation L3-L4. on 06/03/2021 Reason For Visit Description Start Date New/Est - 1st visit with physician 02/10 Preliminary reason f or visit data, not yet signed by the author as of bilateral knee pain Goals (unrecognized section and content) Goals may be documented in a n alternate sectionGoals may be documented in an alternate sectionGoals may be documented in an alternate sectionGoals may be documented in an alternate sectionGoals may be documented in an alternate sectionGoals may be documented in an alternate sectionGoals may be documented in an alternate sectionGoals may be documented in an alternate sectionGoals may be documented in an alternate sectionGoals may be documented in an alternate sectionGoals may be documented in an alternate sectionGoals may be documented in an alternate sectionGoals may be documented in an alternate sectionGoals may be documented in an alternate sectionGoals may be documented in an alternate sectionGoals may be documented in an alternate sectionGoals may be documented in an alternate sectionGoals may be documented in an alternate sectionGoals may be documented in an alternate section Care Teams (unrecognized sec tion and content) Team Status: Active Member Role Status Dates Dr. Edd Kumari MD Family Provider Active Abdifatah Jalloh , DO Primary Care Provider Active Team Status: Inactive Member Role Status Dates Abdifatah Jalloh , DO Primary Care Provider, Referring Provider Active Ansley Wilkinson NP, PATHOLOGY TRANSCRIPTIONIST-C Attending Provider Active Team Status: Inactive Member Role Status Dates Abdifatah Jalloh , DO Primary Care Provider, Attending Provider Active Team Status: Inactive Member Role Status Dates Abdifatah Jalloh DO Primary Care Provider Active Dr. Edd Mcfarlane MD Attending Provider, Referring Provider Active Team Status: Inactive Member Role Status Dates Abdifatah Jalloh , DO Primary Care Provi bailey, Attending Provider, Referring Provider Active Team Status: Inactive Member Role Status Dates Abdifatah Jalloh , DO Primary Care Provider, Referring Provider Active Dr. Chandler Jackson MD Attending Provider Active Team Status: Active Member Role Status Dates Dr. Edd Kumari MD Family Provider Active Melinda Rodgers MD Primary Care Provider Active Team Status: Inactive Member Role Status Dates Abdifatah Jalolh , DO Referring Provider Active Melinda Rodgers MD Primary Care Provider Active Joi Darling NP-C Attending Provider Active Team Status: Inactive Member Role Status Dates Melinda Rodgers MD Primary Care Provider Active Joi Darling PATHOLOGY TRANSCRIPTIONIST-C Attending Provider, Referring Moose millan Active Team Status: Active Member Role Status Rocio Rodgers MD Primary Care Provider Active Team Status: Inactive Member Role Status Rocio Rodgers MD Primary Care Provider Active St art: December 17, 2024 End: December 17, 2024 Dr. Victor Hugo Sosa DO Attending Provider Active Start: December 17, 2024 End: December 17, 2024 Dr. Victor Hugo Sosa DO Emergency Provider Active Start: December 17, 2024 End: December 17, 2024 Team Status: Inactive Member Role Status Rocio Rodgers MD Primary Care Provider Active St art: January 06, 2025 End: January 06, 2025 Melinda Rodgers MD Referring Provider Active Start : January 06, 2025 End: January 06, 2025 Alisa Nicholas NP-C Attending Provider Active Start: January 06, 2025 End: January 06, 2025 Team Status: Inactive Member Role Status Rocio Rodgers MD Primary Care Provider Active St art: March 06, 2025 End: March 06, 2025 Melinda Rodgers MD Attending Provider Active Start : March 06, 2025 End: March 06, 2025 Melinda Rodgers MD Referring Provider Active Start : March 06, 2025 End: March 06, 2025 Team Status: Inactive Member Role Status Rocio Rodgers MD Primary Care Provider Active St art: March 16, 2025 End: March 16, 2025 Melinda Rodgers MD Referring Provider Active Start : March 16, 2025 End: March 16, 2025 Dr. Annika Anderson MD Attending Provider Active Start: March 16, 2025 End: March 16, 2025 Team Status: Inactive Member Role Status Rocio Rodgers MD Primary Care Provider Active St art: March 17, 2025 End: March 17, 2025 Jeremy Fall MD Emergency Provider Active Star t: March 17, 2025 End: March 17, 2025 Team Status: Inactive Member Role Status Rocio Rodgers MD Primary Care Provider Active St art: March 17, 2025 End: March 17, 2025 Jeremy Fall MD Attending Provider Active Star t: March 17, 2025 End: March 17, 2025 Jeremy Fall MD Emergency Provider Active Star t: March 17, 2025 End: March 17, 2025 Team Status: Inactive Member Role Status Rocio Rodgers MD Primary Care Provider Active St art: March 25, 2025 End: March 25, 2025 Melinda Rodgers MD Referring Provider Active Start : March 25, 2025 End: March 25, 2025 ASHUTOSH Dodd Attending Provider Active Start: March 25, 2025 End: March 25, 2025 Team Status: Inactive Member Role Status Rocio Rodgers MD Primary Care Provider Active St art: April 20, 2025 End: April 20, 2025 ASHUTOSH Dodd Attending Provider Active Start: April 20, 2025 End: April 20, 2025 ASHUTOSH Dodd Referring Provider Active Start: April 20, 2025 End: April 20, 2025 Team Status: Active Member Role Status Rocio Rodgers MD Primary Care Provider Active St art: April 21, 2025 Michelle Nunez NP PATHOLOGY TRANSCRIPTIONIST-C Attending Provider Active S tart: April 21, 2025 Team Status: Inactive Member Role Status Rocio Rodgers MD Primary Care Provider Active St art: April 21, 2025 End: April 21, 2025 Michelle Nunez NP PATHOLOGY TRANSCRIPTIONIST-C Attending Provider Active S tart: April 21, 2025 End: April 21, 2025 Team Status: Active Member Role Status Rocio Rodgers MD Primary Care Provider Active St art: May 01, 2025 ASHUTOSH Dodd Attending Provider Active Start: May 01, 2025 ASHUTOSH Dodd Referring Provider Active Start: May 01, 2025 Team Status: Inactive Member Role Status Rocio Rodgers MD Primary Care Provider Active St art: May 07, 2025 End: May 07, 2025 Melinda Rodgers MD Referring Provider Active Start : May 07, 2025 End: May 07, 2025 ASHUTOSH Dodd Attending Provider Active Start: May 07, 2025 End: May 07, 2025 Team Status: Inactive Member Role Status Rocio Rodgers MD Primary Care Provider Active St art: May 01, 2025 End: May 01, 2025 ASHUTOSH Dodd Attending Provider Active Start: May 01, 2025 End: May 01, 2025 ASHUTOSH Dodd Referring Provider Active Start: May 01, 2025 End: May 01, 2025 Team Status: Active Member Role/Relationship Status Rocio Rodgers MD Primary Care Provider Active Team Status: Inactive Member Role/Relationship Status Rocio Rodgers MD Primary Care Provider Active St art: March 06, 2025 End: March 06, 2025 Melinda Rodgers MD Attending Provider Active Start : March 06, 2025 End: March 06, 2025 Melinda Rodgers MD Referring Provider Active Start : March 06, 2025 End: March 06, 2025 Team Status: Inactive Member Role/Relationship Status Rocio Rodgers MD Primary Care Provider Active St art: March 16, 2025 End: March 16, 2025 Melinda Rodgers MD Referring Provider Active Start : March 16, 2025 End: March 16, 2025 Dr. Annika Anderson MD Attending Provider Active Start: March 16, 2025 End: March 16, 2025 Team Status: Inactive Member Role/Relationship Status Rocio Rodgers MD Primary Care Provider Active St art: March 17, 2025 End: March 17, 2025 Jeremy Fall MD Attending Provider Active Star t: March 17, 2025 End: March 17, 2025 Jeremy Fall MD Emergency Provider Active Star t: March 17, 2025 End: March 17, 2025 Team Status: Inactive Member Role/Relationship Status Rocio Rodgers MD Primary Care Provider Active St art: March 25, 2025 End: March 25, 2025 Melinda Rodgers MD Referring Provider Active Start : March 25, 2025 End: March 25, 2025 ASHUTOSH Dodd Attending Provider Active Start: March 25, 2025 End: March 25, 2025 Team Status: Inactive Member Role/Relationship Status Rocio Rodgers MD Primary Care Provider Active St art: April 20, 2025 End: April 20, 2025 ASHUTOSH Dodd Attending Provider Active Start: April 20, 2025 End: April 20, 2025 ASHUTOSH Dodd Referring Provider Active Start: April 20, 2025 End: April 20, 2025 Team Status: Inactive Member Role/Relationship Status Rocio Rodgers MD Primary Care Provider Active St art: April 21, 2025 End: April 21, 2025 Michelle Nunez NP PATHOLOGY TRANSCRIPTIONIST-C Attending Provider Active S tart: April 21, 2025 End: April 21, 2025 Team Status: Inactive Member Role/Relationship Status Dates Melinda Rodgers MD Primary Care Provider Active St art: May 01, 2025 End: May 01, 2025 ASHUTOSH Dodd Attending Provider Active Start: May 01, 2025 End: May 01, 2025 ASHUTOSH Dodd Referring Provider Active Start: May 01, 2025 End: May 01, 2025 Team Status: Inactive Member Role/Relationship Status Dates Melinda Rodgers MD Primary Care Provider Active St art: May 07, 2025 End: May 07, 2025 Melinda Rodgers MD Referring Provider Active Start : May 07, 2025 End: May 07, 2025 ASHUTOSH Dodd Attending Provider Active Start: May 07, 2025 End: May 07, 2025 Team Status: Inactive Member Role/Relationship Status Dates Melinda Rodgers MD Primary Care Provider Active St art: May 11, 2025 End: May 11, 2025 LILLY VegaC Attending Provider Active Start: May 11, 2025 End: May 11, 2025 ASHUTOSH Vega Referring Provider Active Start: May 11, 2025 End: May 11, 2025 Team Status: Active Member Role/Relationship Status Dates Melinda Rodgers MD Primary Care Provider Active St art: May 19, 2025 ASHUTOSH Dodd Attending Provider Active Start: May 19, 2025 ASHUTOSH Dodd Referring Provider Active Start: May 19, 2025 Team Status: Inactive Member Role/Relationship Status Dates Melinda Rodgers MD Primary Care Provider Active St art: May 20, 2025 End: May 20, 2025 Melinda Rodgers MD Referring Provider Active Start : May 20, 2025 End: May 20, 2025 LILLY VegaC Attending Provider Active Start: May 20, 2025 End: May 20, 2025 Team Status: Inactive Member Role/Relationship Status Dates Melinda Rodgers MD Primary Care Provider Active St art: May 19, 2025 End: May 19, 2025 ASHUTOSH Dodd Attending Provider Active Start: May 19, 2025 End: May 19, 2025 ASHUTOSH Dodd Referring Provider Active Start: May 19, 2025 End: May 19, 2025 Team Status: Inactive Member Role/Relationship Status Dates Melinda Rodgers MD Primary Care Provider Active St art: June 15, 2025 End: June 15, 2025 Melinda Rodgers MD Other Provider Active Start: 2024 End: June 15, 2025 ASHUTOSH Dodd Attending Provider Active Start: June 15, 2025 End: June 15, 2025 ASHUTOSH Dodd Referring Provider Active Start: June 15, 2025 End: June 15, 2025 FOR RECORDS PERTAINING TO PATIENTS WHO ARE OR HAVE BEEN ENROLLED IN A CHEMICAL DEPENDENCY/SUBSTANCEABUSE PROGRAM, SOME INFORMATION MAY BE OMITTED. This clinical summary was aggregated from multiple sources. Caution should be exercised in using it in the provision of clinical care. This summary normalizes information from multiple sources, and as a consequence, information in this document may materially change the coding, format and clinical context of patient data. In addition, data may be omitted in some cases. CLINICAL DECISIONS SHOULD BE BASED ON THE PRIMARY CLINICAL RECORDS. [facility] [employer] [facility] provides no warranty or guarantee of the accuracy or completeness of information in this document.
== END 2025-07-10 19:59 | disposition left against medical advice (07) ==
LOC: ED 20:01
PROVIDERS: PCP Family Medicine
DX: M79.89 Other specified soft tissue disorders (principal)
CPT/HCPCS: 93971